=== PATIENT | female | born 1950 | race Caucasian/White ===

== ENCOUNTER 2024-03-25 11:42 | Outpatient (AMB) | payer MEDICARE, SELFPAY ==
--- NOTE | 2024-03-25 11:55 | A.OFFPC_ITS ---
Vital Signs 03/25/24 12:06 Height 5 ft 2 in Weight 229 lb BMI 41.9 BP 114/76 Blood Pressure Location Lt brachial Position Sitting Pulse 86 Pulse Source Pulse Oximeter Pulse Oximetry (%) 96 Oxygen Delivery Method Room Air Intake Visit Reasons: TURNER OFF // PE breast cancer Intake Note: New patient visit Senior Business Manager Required: No Allergies NSAIDS (Non-Steroidal Anti-Inflamma Adverse Reaction (Unknown, Verified 03/25/24 11:56) kidneys Tobacco use date assessed: 03/25/24 Fall risk assessment: 1 Fall in past year Last assessed Fall Risk: 03/25/24 Dental Screening Dental Screen Date: 03/25/24 Did you have a dental visit in the last 12 months?: Yes Did you have a dental problem in the last 6 months where you did not have access to dental care?: No Was dental information given to patient?: Patient has dentist HPI HPI Comments History of Present Illness Details This is a 73-year-old female with a past medical history of GERD, hypercholesterolemia, hypertension, obesity, anxiety with depression , chronic back pain, glaucoma, NIVIA, emphysema and stage III right lung cancer in remission presenting to [facility]. She transferred from [place]. She brought a limited amount of medical records with her today. This appointment was scheduled because she had an abnormal mammogram at [place] on 01/30/2024 which showed a new focal asymmetry of the right breast at 12:00 o'clock. Additional views and ultrasound were recommended. She did not have a primary care provider to place the orders. The Radiology Department scheduled an appointment for her on Monday at [place] to have additional imaging done, but she is unsure if they did get orders for the tests. She denies breast pain or masses. She has no history of breast cancer. Denies nipple discharge or breast rashes. She has a history of right lung cancer, stage III, with lymph node involvement. She was treated with surgery, chemotherapy and radiation in 2020. She is followed by Dr. Whitten at [place]. She has emphysema and NIVIA. She quit smoking in 2007. She is also followed by Dr. Kyle. She has CT scans done every 6 months. Her last scan was in January, and she was told lung findings are stable. She was evaluated by Gastroenterology at [place] for GERD. She is on pantoprazole 40 mg twice daily chronically. She is followed by ophthalmology for glaucoma and treated with eyedrops. Hypertension is treated with hydrochlorothiazide 12.5 mg and losartan 25 mg daily. Hyperlipidemia is treated with pravastatin 40 mg daily. She is followed by Dr. 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 Patient has been on citalopram 40 mg daily since 2019 when she lost her 49-year-old son to COVID-19. Patient says that she will never get over this, but she has moved through it. She has 2 other adult children. Patient also tells me that she had an episode of vaginal bleeding that lasted a few days a month ago. Denies pain associated with this. It has been years since she went through menopause. 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 She has not contacted them about this issue. ROS: Constitutional: No unexplained weight loss, fever, chills, fatigue or night sweats. Respiratory: No shortness of breath, cough or sputum production. Cardiovascular: No chest pain, chest pressure or chest discomfort. No palpitations or pedal edema. Gastrointestinal: No anorexia, nausea, vomiting or diarrhea. No abdominal pain or blood in stool. Genitourinary: No dysuria, hematuria, urinary frequency. No flank pain. No pelvic pain. Neurologic: No headache, dizziness, syncope Skin: No rash or itching. Endocrine: No cold or heat intolerance. No polyuria or polydipsia. Psychiatric: No SI/HI. Physical exam: Constitutional: Alert, in no distress. Neck: Supple, Full range of motion. No lymphadenopathy. No palpable thyroid masses. Respiratory: Clear to auscultation. Cardiovascular: S1 S2 regular. No murmurs. Gastrointestinal: Abdomen soft, non-tender, non-distended. Normal bowel sounds. No palpable masses. 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 No palpable masses or axillary lymphadenopathy bilaterally. No rashes. No nipple discharge or inversion. Neurologic: No focal neurological deficits. Skin: No rashes or lesions. Musculoskeletal: No gross deformities. Normal range of motion. Extremities: Warm and well perfused. No clubbing, cyanosis or edema. Psychiatric: Normal mood and affect [facility] Medical History (Updated 03/25/24 @ 13:27 by CHALINO Jmaes) Chronic back pain Grief at loss of child Essential hypertension Abnormal mammogram of right breast NIVIA (obstructive sleep apnea) Emphysema of lung Post-menopausal bleeding GERD (gastroesophageal reflux disease) Degenerative arthritis Pure hypercholesterolemia History of primary malignant neoplasm of right lung IFG (impaired fasting glucose) Deviated septum Surgical History (Updated 03/25/24 @ 12:38 by CHALINO James) History of left hip replacement History of tonsillectomy S/P removal of lung Family History (Updated 03/25/24 @ 12:04 by Nayla Lo CMA) Father HTN (hypertension) Skin cancer Son HTN (hypertension) Diabetes Mother Diabetes Daughter Diabetes HTN (hypertension) Social History (Updated 03/25/24 @ 12:04 by Nayla Lo CMA) Housing: House Alcohol intake: current Patient Tobacco Use Status: Former Tobacco user (quit 2007) Cigarette Packs Per Day: 1 Years Smoked: 43 e-Cigarette/Vaping Use: Never Used Second Hand Smoke Exposure: No service: No Current occupational status: retired Cognitive needs: No Hearing needs: Yes (hearing aid both ear) Vision needs: Yes (glasses) Questionnaire PHQ-9 Over the last 2 weeks, how often have you been bothered by any of the following problems? 1. Little interest or pleasure in doing things: not at all 2. Feeling down, depressed, or hopeless: not at all 3. Trouble falling or staying asleep, or sleeping too much: not at all 4. Feeling tired or having little energy: not at all 5. Poor appetite or overeating: not at all 6. Feeling bad about yourself - or that you are a failure or have let yourself or your family down: not at all 7. Trouble concentrating on things, such as reading the newspaper or watching television: not at all 8. Moving or speaking so slowly that other people could have noticed. Or the opposite - being so fidgety or restless that you have been moving around a lot more than usual: not at all 9. Thoughts that you would be better off or of hurting yourself in some way: not at all Total score: 0 Depression Screening Interpretation: Negative Depression Screening Done: Yes 85730 - PHQ-9 Billing: Yes Source: Developed by Drs. Heriberto Smith, Belinda Briscoe, Christian Vang and colleagues, with an educational troy from [employer]. Thrive Questionnaire Date Thrive assessed: 03/25/24 I am a: Patient What is your living situation today?: I have a steady place to live Within the past 12 months, did the food you bought not last and you didn't have the money to get more?: Never true Within the past 12 months, did you worry whether your food would run out before you got money to buy more?: Never true Do you have trouble paying for medicines?: No Do you have trouble getting transportation to medical appointments?: No Do you have trouble paying your heating and electricity bill?: No Do you have trouble taking care of your child, family member or friend?: No Do you have trouble with day-to-day activities such as bathing, preparing meals, shopping, managing finances, etc.?: No Are you currently unemployed and looking for a job?: No Are you interested in more education?: No Please select the resources that you would like help with: None Currently or been in a relationship where the following occur: No concerns reported THRIVE Score: 0 AUDIT C Alcohol Use Questionnaire (AUDIT-C) 1. How often do you have a drink containing alcohol?: 2-4 times a month 2. How many drinks containing alcohol do you have on a typical day when you are drinking?: 1 or 2 3. How often do you have six or more drinks on one occasion?: Never Total Score: 2 DARLING-7 AMB Questionnaire DARLING-7 Date DARLING - 7 assessed: 03/25/24 Feeling nervous, anxious, or on edge: 0 = Not at all Not being able to stop or control worryin = Not at all Worrying too much about different things: 0 = Not at all Trouble relaxin = Not at all Being so restless that it is hard to sit still: 0 = Not at all Becoming easily annoyed or irritable: 0 = Not at all Feeling afraid as if something awful might happen: 0 = Not at all Total DARLING-7 score (0-4 normal; 5-9 mild; 10-14 moderate; 15-21 severe): 0 Source: Developed by Drs. Heriberto Smith, Belinda Briscoe, Christian Vang and colleagues, with an educational troy from [employer]. DARLING-7 Assessment Billing DARLING-7 Assessment Tool: DARLING-7 Assessment 44514 Physical exam (Primary Care) Vital Signs: Last Vital Signs Pulse 86 03/25/24 12:06 BP 114/76 03/25/24 12:06 Pulse Ox 96 03/25/24 12:06 Oxygen Delivery Method Room Air 03/25/24 12:06 BMI result Body Mass Index 41.9 Tobacco/Smoking Status: Tobacco use Status Tobacco use date assessed 03/25/24 03/25/24 12:11 Patient Tobacco Use Status Former Tobacco user (quit 03/25/24 12:11 2007) e-Cigarette/Vaping Use Never Used 03/25/24 12:11 PHQ-9: PHQ-9 Score PHQ-9: Total score 0 03/25/24 12:15 Depression Screening Interpretation: Negative Thrive Assessment: Date of Thrive Assessment Date Thrive assessed 03/25/24 03/25/24 12:15 Currently or been in a relationship where the following occur: No concerns reported Coding Level of Care Code New Pt Level 4 (73781) Complex EM visit Add On G2211 Diagnoses Post-menopausal bleeding N95.0 History of primary malignant neoplasm of right lung Z85.118 Emphysema of lung J43.9 NIVIA (obstructive sleep apnea) G47.33 Abnormal mammogram of right breast R92.8 Pure hypercholesterolemia E78.00 Essential hypertension I10 Additional Codes DARLING-7 Assessment Billing - DARLING-7 Assessment Tool: DARLING-7 Assessment 39091 ([id number]) PHQ-9 - 99551 - PHQ-9 Billing: Yes ([id number]) Assessment & Plan Assessment & Plan (1) Post-menopausal bleeding: Code(s): N95.0 - Postmenopausal bleeding Category: Medical Plan: We reviewed the differential which includes benign causes as well as malignancy. Check labs including TSH. Ordered ultrasound and faxed to [place]. Urgent referral placed to Gynecology at [facility] in [place] and patient was advised to call the office to see her soundscriber mechanic there. (2) History of primary malignant neoplasm of right lung: Code(s): Z85.118 - Personal history of other malignant neoplasm of bronchus and lung Category: Medical Plan: No known recurrence. Followed by thoracic surgery at [place]. (3) Emphysema of lung: Code(s): J43.9 - Emphysema, unspecified Category: Medical Plan: Continue treatment per pulmonology, Dr. Kyle, at [place]. (4) NIVIA (obstructive sleep apnea): Code(s): G47.33 - Obstructive sleep apnea (adult) (pediatric) Category: Medical Plan: Continue treatment per pulmonology. (5) Abnormal mammogram of right breast: Code(s): R92.8 - Other abnormal and inconclusive findings on diagnostic imaging of breast Category: Medical Plan: She has an appointment this Monday at [facility] for follow up imaging. Faxed ultrasound and mammogram order to [place] , and the patient was given printed copies of the orders. (6) Pure hypercholesterolemia: Code(s): E78.00 - Pure hypercholesterolemia, unspecified Category: Medical Plan: Continue statin. Recommended low-cholesterol diet. Check labs. (7) Essential hypertension: Code(s): I10 - Essential (primary) hypertension Category: Medical Plan: Controlled. Check labs. Plan Follow up in 6 weeks with PCP. Orders: Orders US breast RT limited Today R92.8 - Other abnormal and inconclusive findings on diagnostic imaging of breast Lipid Panel Today E78.00 - Pure hypercholesterolemia, unspecified, E78.5 - Hyperlipidemia, unspecified, K21.9 - Gastro-esophageal reflux disease without esophagitis, M19.90 - Unspecified osteoarthritis, unspecified site, R73.01 - Impaired fasting glucose, Z85.118 - Personal history of other malignant neoplasm of bronchus and lung, Z96.642 - Presence of left artificial hip joint Hemoglobin A1c Today E11.9 - Type 2 diabetes mellitus without complications, E78.00 - Pure hypercholesterolemia, unspecified, K21.9 - Gastro-esophageal reflux disease without esophagitis, M19.90 - Unspecified osteoarthritis, unspecified site, R73.01 - Impaired fasting glucose, Z85.118 - Personal history of other malignant neoplasm of bronchus and lung, Z96.642 - Presence of left artificial hip joint TSH reflex Free T4 Today E78.00 - Pure hypercholesterolemia, unspecified, K21.9 - Gastro-esophageal reflux disease without esophagitis, M19.90 - Unspecified os teoarthritis, unspecified site, R73.01 - Impaired fasting glucose, Z85.118 - Personal history of other malignant neoplasm of bronchus and lung, Z96.642 - Presence of left artificial hip joint US pelvic and transvaginal Today N95.0 - Postmenopausal bleeding MM diagnostic mammo unilat RT Today R92.8 - Other abnormal and inconclusive findings on diagnostic imaging of breast Vitamin D 25-OH (D2 and D3) Today E78.00 - Pure hypercholesterolemia, unspecified, K21.9 - Gastro-esophageal reflux disease without esophagitis, M19.90 - Unspecified osteoarthritis, unspecified site, M85.80 - Other specified disorders of bone density and structure, unspecified site, R73.01 - Impaired fasting glucose, Z85.118 - Personal history of other malignant neoplasm of bronchus and lung, Z96.642 - Presence of left artificial hip joint Comprehensive Met. Panel Today E78.00 - Pure hypercholesterolemia, unspecified, K21.9 - Gastro-esophageal reflux disease without esophagitis, M19.90 - Unspecified osteoarthritis, unspecified site, R73.01 - Impaired fasting glucose, Z85.118 - Personal history of other malignant neoplasm of bronchus and lung, Z96.642 - Presence of left artificial hip joint Complete Blood Count Auto Diff Today E78.00 - Pure hypercholesterolemia, unspecified, K21.9 - Gastro-esophageal reflux disease without esophagitis, M19.90 - Unspecified osteoarthritis, unspecified site, R73.01 - Impaired fasting glucose, Z85.118 - Personal history of other malignant neoplasm of bronchus and lung, Z96.642 - Presence of left artificial hip joint Referrals PAPER CONSERVATOR Referral N95.0 - Postmenopausal bleeding
[2024-03-25 12:06] VITALS: BP 114/76; PULSE 86; O2SAT 96; BMI 41.9
--- OUTSIDE RECORDS SUMMARY | 2024-03-25 13:02 | XMS_ITS | Clinical Summary ---
Author Organization [facility] Address [address] [place] [address] Care Team Providers Care Manager Fiber Name Role Phone Troy Del Cid MD Primary Care Provider Unavailable Allergies Active Allergy Reactions Criticality Noted Date Comments Phenobarbital 04/21/1979 Childhood at age 12 Medications Medication Sig Dispensed Refills Start Date End Date Status azelastine (ASTELIN) 0.1 % nasal spray 2 sprays 2 (two) times a day. 0 01/24/2020 Active citalopram (CeleXA) 40 MG tablet Take 1 tablet (40 mg total) by mouth daily. 0 01/09/2020 Active latanoprost (XALATAN) 0.005 % ophthalmic solution 0 12/04/2019 Activ e atorvastatin (LIPITOR) tablet 20 mg Take 1 tablet (20 mg total) by mouth daily. 0 03/14/2021 Active acyclovir (ZOVIRAX) 800 MG tablet Take 0.5 tablets (400 mg total) by mouth daily. 0 05/05/2021 Active amLODIPine (NORVASC) tablet 10 mg Take 0.5 tablets (5 mg total) by mouth daily. 0 12/14/2020 Active ciclopirox (LOPROX) 0.77 % cream APPLY TWICE DAILY TO AFFECTED AREAS ON RIGHT FOOT AND BETWEEN TOES X4 WEEKS REPEAT IF NEEDED 0 05/07/2021 Active Alphagan P 0.15 % ophthalmic solution INSTILL 1 DROP INTO RIGHT EYE TWICE A DAY 0 05/03/2021 Active Calcium Carbonate-Vitamin D (Calcium-Vitamin D3) 600-125 MG-UNIT TABS Take by mouth. 0 Active pantoprazole (PROTONIX) 40 MG tablet TAKE 1 TABLET (40 MG TOTAL) BY MOUTH EVERY MORNING ON AN EMPTY STOMACH. 30-40 MIN PRIOR TO MEAL 90 tablet 1 12/24/2021 Active Additional Information Patient taking differently:40 mg Oral2 times daily, 30-40 min prior to meal, Reported on 05/29/2023 fluticasone-salmete rol 500-50 MCG/ACT AEPB Inhale into the lungs. 0 Active hydroCHLOROthiazide (MICROZIDE) 12.5 MG capsule Take 1 capsule (12.5 mg total) by mouth daily. 0 Active Active Problems Problem Noted Date Diagnosed Date Essential hypertension 11/25/2020 Fatigue 08/20/2020 Glaucoma 05/07/2020 Anemia complicating neoplastic disease Recurrent major depressive disorder, in full rem ission 04/15/2020 Hyperacusis of both ears 04/06/2020 Hearing deficit, bilateral 04/06/2020 Hearing decreased, bilateral 04/03/2020 Chest wall pain 03/09/2020 DDD (degenerative disc disease), lumbar 03/09/19 21 Hypercholesterolemia 03/09/2020 Overview: Overview: Prior Lipitor Hyperthyroidism 03/09/2020 Malignant neoplasm of lower lobe of right lung 0 03/03/2020 Cancer Staging:Pathologic stage from 02/25/2020:Stage IIIA(pT1a, pN2, cM0) - Signed by Giovanny Holliday MD on 03/03/2020 Depression 11/27/2018 Pulmonary emphysema 04/04/2017 Adjustment reaction with anxiety and depression 09/09/2016 NIVIA on CPAP 12/11/2014 Major depressive disorder, recurrent, unspecifie d 12/09/2008 Overview: Overview: She is better on the citalopram. We talked abouttapering off but I advised her to wait until spring pt is feeling well on citalopram. No changes as it helps with weaning off HRT. 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 Immunizations Name Administration Dates Next Due Covid-19 (Moderna 12+) 100mcg/0.5mL dosage 06/03,10/30/2020 Family History Medical History Relation Name Comments Mental illness Brother Cancer Father SKIN Hyperlipidemia Father Hypertension Father Alzheimer's disease Mother Diabetes Mother Mental illness Sister Sudden Sister Relation Name Status Comments Brother Alive Father (Age 84) Mother (Age 84) Sister (Age 55) Son COVID-19 infect ion Social History Tobacco Use Types Packs/Day Years Used Date Smoking Tobacco: Former Cigarettes 1 2007 Smokeless Tobacco: Never Alcohol Use Standard Drinks/Week Comments Yes 8 (1 standard drink = 0.6 oz pur e alcohol) Sex and Gender Information Value Date Recorded Sex Assigned at Female 06/08/2021 2:13 PM EDT Gender Identity Female 06/08/2021 2:13 PM EDT Sexual Orientation Straight 06/28/2021 6: 35 AM EDT Job Start Date Occupation Industry Not on file Not on file Not on file Last Filed Vital Signs Vital Sign Reading Time Taken Comments Blood Pressure 128/70 05/29/2023 10:53 AM EDT Pulse 91 05/29/2023 10:53 AM EDT Temperature 36.3 ??C (97.3 ??F) 05/29/2023 10:53 AM E DT Respiratory Rate 18 06/29/2021 7:54 AM EDT Oxygen Saturation 97% 05/29/2023 10:53 AM EDT Inhaled Oxygen Concentration - - Weight 102.1 kg (225 lb) 05/29/2023 10:53 AM EDT Height 157.5 cm (5' 2 ) 05/29/2023 10:53 AM EDT Body Mass Index 41.15 05/29/2023 10:53 AM EDT Plan of Treatment Health Maintenance Due Date Last Done Comments Hepatitis C Screening 1948 Depression Screening 1960 BMI Counseling 1966 Preventative Health Evaluation 1966 Shingrix-Zoster Vaccine (1 of 2) 09/29/1967 Colon Cancer Screening (Colonoscopy) 1993 Fall Risk Assessment 2013 Osteoporosis Screening (DEXA Scan) 2013 COVID-19 Vaccine (3 - Moderna risk series) 07/01/2021 06/03/2021, 10/30/2020 RSV Adult > 60+ Yrs or (1 - 1-dose 75+ series) 09/29/2023 Influenza Vaccine (#1) 2023 , 11/23/2018, 11/23/2017, Additional history exists DTap / Tdap / Td (3 - Td or Tdap) 11/09/2030 11/09/2020, 05/17/2010 Pneumococcal Vaccine Completed 06/24/2016, 01/31/20 14 Hepatitis B Vaccines Aged Out No long er eligible based on patient's age to complete this topic RSV Ped < 20 months Aged Out No longe r eligible based on patient's age to complete this topic Medical Devices Implanted Type Area Battery Plate Remover Device Identifier Shelf Expiration Date Model / Serial / Lot Cement Bone Surg Simplex Radiopq Stry-Howm 7349-3-860-114 092 - [id number] Implanted:Qty: 1 on 06/28/2021 by Miquel Cisneros MD at [facility] Left: Hip [employer] [id number] 07/21/2023 6191-1-010 / / [id number] Hip Head Delta Biolox 36mm-2.5 Stry-Howm [id number] 191 - [id number] Implanted:Qty: 1 on 06/28/2021 by Miquel Cisneros MD at [facility] Left: Hip [employer] [id number] 03/29/2026 6570-0-436 / / [id number] Cement Bone Surg Simplex Radiopq Stry-Howm [id number] 092 - [id number] Implanted:Qty: 1 on 06/28/2021 by Miquel Cisneros MD at [facility] Left: Hip [employer] [id number] 01/19/2023 6191-1-010 / / [id number] Hip Insrt Trdnt 0deg 36mm D Stry-Howm [id number] 873 - [id number] Implanted:Qty: 1 on 06/28/2021 by Miquel Cisneros MD at [facility] Left: Hip [employer] [id number] 05/07/2026 623-00-36D / / [id number] Tritanium Cluster Hole Shell 48mm Stry-Howm [id number] 451 - [id number] Implanted:Qty: 1 on 06/28/2021 by Miquel Cisneros MD at [facility] Left: Hip [employer] [id number] 03/17/2026 70-04-48D / / [id number] Kit Prep Total Hip Bone Imp Smn-Orth [id number] - [id number] Implanted:Qty: 1 on 06/28/2021 by Miquel Cisneros MD at [facility] and [facility] Left: Hip [employer] 03/09/2031 [id number] / / [id number] Description:SMALL BONE PLUG Lp Hex Screw 6.5x25mm Stry-Howm [id number] 58 - [id number] Implanted:Qty: 1 on 06/28/2021 by Miquel Cisneros MD at [facility] and [facility] Left: Hip [employer] [id number] 05/13/2026 3602-5317 / / [id number] Lp Hex Screw 6.5x30mm Stry-Howm [id number] 78 - [id number] Implanted:Qty: 1 on 06/28/2021 by Miquel Cisneros MD at [facility] Left: Hip [employer] [id number] 05/04/2026 6464-6521 / / [id number] Hip Spacer C-Distl Rng Sm 10mm Stry-Howm [id number] 71 - [id number] Implanted:Qty: 1 on 06/28/2021 by Miquel Cisneros MD at [facility] Left: Hip [employer] [id number] 11/29/2025 3315-5816 / / [id number] Hip Stem Nk 127 C3 Cs 35mm Stry-Howm [id number] 260 - [id number] Implanted:Qty: 1 on 06/28/2021 by Miquel Cisneros MD at [facility] and [facility] Left: Hip [employer] [id number] 11/01/2025 6058-0335D / / [id number] Advance Directives For more information, please contact: [phone] Documents on File Type Date Recorded Patient Online Communications Specialist Expl anation Advance Directive and Living Will 06/28/2021 5:21 AM Latest Code Status on File Code Status Date Activated Date Inactivated Comments Full Code 06/28/2021 7:51 AM 06/29/2021 6:04 PM This c ode status was ascertained in the following way: discussion with patient . Code Status History Code Status Date Activated Date Inactivated Comments Full Code 06/28/2021 5:26 AM 06/28/2021 7:51 AM This co de status was ascertained in the following way: discussion with patient . Care Teams Manager Fiber Relationship Specialty Start Date End Date Troy Del Cid MD PCP - General Family Medicine 11/25/20
--- OUTSIDE RECORDS SUMMARY | 2024-03-25 13:02 | XMS_ITS | Encounter Summary ---
Author Organization [employer] Address [address] [place] [address] Care Team Providers Care Polisher Implant Name Role Phone Jayce Cooley MD Primary Care Provider Encounter Details Date Type Department Care Team (Late st Contact Info) Description 03/05/2024 9:39 AM EST Anesthesia Event [facility] [address] [place] [phone] Severo Sharif MD [address] [place] [id number] Sukhdev Stone, SURGICAL GARMENT FITTER [address] [place] [address] Anesthesia Record Procedure Summary Procedure Name Responsible Anesthesiologist Anesthesia Start Time Anesthesia Stop Time INJECTION EPIDURAL LUMBAR TRANSFORAMINAL LEFT Severo Sharif MD 03/05/24 0939 03/05/24 0956 Events Date Time Event Comment 03/05/2024 0933 0939 An Start 0939 An Start Data The patient wa s reevaluated immediately before moderate or deep sedation use and before anesthesia induction. 0940 In Room 0945 Anesthesia Ready 0946 Proc Start 0948 Proc Fin 0949 an stop data 0952 Out of Room 0955 Handoff to RN I completed my handoff to the receiving nurse during which we: 1. Identified the patient 2. Identified the responsible provider 3. Reviewed the pertinent medical history 4. Discussed the surgical course 5. Reviewed intra-op anesthesia management and issues during anesthesia 6. Set expectations for post-procedure period 7. Allowed opportunity for questions and acknowledgement of understanding. 955 An Stop Meds Name Total fentaNYL 0.05 mg/mL 100 mcg midazolam 1 mg/mL 2 mg lactated Ringer's infusion 100 mL * Agents Name O2 N2O Air * Blood No blood administrations on file. Lines, Drains, and Airways Type Details Placement Removal Wound Other (Steroid Inejc tion SIte); 03/05/24; Back; Left, Lower, Medial; Band-aid applied 03/05/24 0000 by Richard Rushing RN Peripheral IV Placement Date: 02/20 06/14; Placement Time: 09; Catheter Size: 20 G; Orientation: Posterior, Right; Location: Hand; Site Prep: Chlorhexidine; Insertion Attempts: 1; Patient Tolerance: Tolerated well; Removal Date: 03/05/24; Removal Time: 1030 03/05/24 0903 by Ita Quintero RN 03/05/24 1030 by Shana Rodriguez RN documented in this encounter Social History Tobacco Use Types Packs/Day Years Used Date Smoking Tobacco: Former Cigarettes Q uit: 02/20/2007 Smokeless Tobacco: Never Alcohol Use Standard Drinks/Week Comments Yes 0 (1 standard drink = 0.6 oz pur e alcohol) Sex and Gender Information Value Date Recorded Sex Assigned at Female 01/04/2024 11:39 AM EST Gender Identity Female 01/04/2024 11:39 AM EST Sexual Orientation Straight 01/04/2024 11 :39 AM EST Job Start Date Occupation Industry Not on file Not on file Not on file documented as of this encounter Progress Notes * Sukhdev Stone CRNA - 03/05/2024 9:56 AM EST Patient: Kira Heaton Procedure Summary Date: 03/05/24 Room / Location: [facility] Anesthesia Start: 938 Anesthesia Stop: 955 Procedure: INJECTION EPIDURAL LUMBAR TRANSFORAMINAL LEFT Diagnosis: Radiculopathy, lumbar region Scheduled Providers: Bib Suarez DO; Sukhdev Stone CRNA; Severo Sharif MD ResponsibleProvider: Severo Sharif MD Anesthesia Type: MAC ASA Status: 3 Anesthesia Plan: MAC Visit Vitals BP (!) 146/73 Pulse 84 Temp 36.6 ??C (97.9 ??F) Resp 16 Wt 102 kg (225 lb) SpO2 98% BMI 41.15 kg/m?? OB Status Postmenopausal Smoking Status Former BSA 2.01 m?? Pain Score: 4 Anesthesia Post Evaluation Patient location during evaluation: PACU Patient participation: complete - patient participated Level of consciousness: awake and alert Pain score: 0 Pain management: adequate Airway patency: patent Anesthetic complications: no Cardiovascular status: acceptable Respiratory status: acceptable Hydration status: acceptable Nausea: No Vomiting: No There were no known notable events for this encounter. * Severo Sharif MD - 03/05/2024 9:30 AM EST 73 y.o. female scheduled for Lumbar JULIANA [] Ht Readings from Last 1 Encounters: 02/08/24 1.575 m (62 ) Wt Readings from Last 1 Encounters: 03/05/24 102 kg (225 lb) Body mass index is 41.15 kg/m??. Past Medical History: Diagnosis Date Adenocarcinoma of lung, right (CMS/HCC) 09/25/2020 DX:Adenocarcinoma of lung, right (HCC); COMMENT: Seen on 11/25/20 by oncology: s/p 3 of 4 cycles of adjuvant chemotherapy with cisplatin and pemetrexed (4th cycle not done d/t side effects). Also completed radiation therapy. Stable per PET CT. Recommended restaging meeting in May 2021 with [id number] visits for first 2 years. 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/2017 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) DDD (degenerative disc disease), lumbar DX:DDD (degenerative disc disease), lumbar Glaucoma DX:Glaucoma Hearing loss 08/22/2017 DX:Hearing loss; COMMENT: Has hearing aides History of herpes simplex infection 06/18/2013 DX:History of herpes simplex infection Hypercholesterolemia DX:Hypercholesterolemia; COMMENT: Prior Lipitor Hyperthyroidism DX:Hyperthyroidism Impaired fasting glucose 01/29/2015 DX:Impaired fasting glucose Lung nodules 02/24/2017 DX:Lung nodules Malignant neoplasm of lower lobe of right lung (CMS/HCC) 03/03/2020 Obesity (BMI 35.0-39.9 without comorbidity) 01/29/2015 DX:Obesity (BMI 35.0-39.9 without comorbidity) NIVIA on CPAP 12/11/2014 DX:NIVIA on CPAP Rash 08/22/2017 DX:Rash Thyromegaly DX:Thyromegaly Uveitis DX:Uveitis Past Surgical History: Procedure Laterality Date BREAST BIOPSY Left 2008 PROCEDURE: BX BREAST; PERC NEEDLE CORE W/IMAG GUID; COMMENT: neg CATARACT EXTRACTION Bilateral PROCEDURE: HISTORICAL CATARACT REMOVAL COLONOSCOPY 01/29/2010 PROCEDURE: HISTORICAL COLONOSCOPY; COMMENT: Normal HIP ARTHROPLASTY Left PROCEDURE: HISTORICAL HIP REPLACEMENT NASAL SEPTUM SURGERY PROCEDURE: GA SEPTOPLASTY/SUBMUCOUS RESECJ W/WO CARTILAGE GRF OTHER SURGICAL HISTORY PROCEDURE: GA DILATION & CURETTAGE DX&/THER NONOBSTETRIC; COMMENT: multiple times; tubal preg OTHER SURGICAL HISTORY PROCEDURE: GA ANESTHESIA UPPER ANTERIOR ABDOMINAL WALL NOS; COMMENT: Adhesions - OTHER SURGICAL HISTORY 08/2022 PROCEDURE: GA CLOSED TX PATELLAR FRACTURE W/O MANIPULATION; COMMENT: Shattered knee cap repair TONSILLECTOMY PROCEDURE: HISTORICAL TONSILLECTOMY Denies anesthesia complications Allergies Allergen Reactions Phenobarbital Childhood at age 12 Current Outpatient Medications on File Prior to Encounter Medication Sig Dispense Refill acyclovir (ZOVIRAX) 400 mg tablet Take by mouth. brimonidine (ALPHAGAN P) 0.1 % ophthalmic solution 1 drop 3 (three) times a day. citalopram (CeleXA) 40 mg tablet TAKE 1 TABLET BY MOUTH EVERY DAY 90 tablet 1 fluticasone-salmeterol (ADVAIR DISKUS) 250-50 mcg/dose diskus inhaler Inhale 1 puff by mouth 2 (two) times a day. Rinse mouth with water after use to reduce aftertaste and incidence of candidiasis. Do not swallow. hydroCHLOROthiazide 12.5 mg tablet Take 1 tablet (12.5 mg total) by mouth 1 (one) time each day. losartan (COZAAR) 25 mg tablet Take 1 tablet (25 mg total) by mouth 1 (one) time each day. pantoprazole (PROTONIX) 40 mg EC tablet Take 1 tablet (40 mg total) by mouth 1 (one) time each day before breakfast. Do not crush, chew, or split. pravastatin (PRAVACHOL) 40 mg tablet TAKE 1 TABLET BY MOUTH EVERY DAY 90 tablet 1 albuterol HFA (PROAIR HFA ; PROVENTIL HFA ; VENTOLIN HFA) 90 mcg/actuation inhaler Inhale 2 puffs by mouth every 6 (six) hours if needed for wheezing. No current facility-administered medications on file prior to encounter. Current In-hospital Medications PRN medications: iopamidoL Social History Tobacco Use Smoking status: Former Current packs/day: 0.00 Types: Cigarettes Quit date: 02/20/2007 Years since quittin.0 Smokeless tobacco: Never Substance Use Topics Alcohol use: Yes Drug use: No Visit Vitals BP (!) 146/73 Pulse 84 Temp 36.6 ??C (97.9 ??F) Resp 16 Wt 102 kg (225 lb) SpO2 98% BMI 41.15 kg/m?? Smoking Status Former BSA 2.01 m?? Denies cardiac, pulm, neuro, hepatic or renal s/sx. Patient meets ASA guidelines for NPO status. > 4 mets without anginal symptoms. Relevant labs, vitals, imaging, cardiac and pulmonary studies as well as HPI, Meds, Allergies, ROS,PMH, PSH, SH, and FH reviewed. Relevant Problems Cardio (+) Essential hypertension Pulmonary (+) NIVIA on CPAP (+) Pulmonary emphysema (CMS/HCC) Endo (+) Hyperthyroidism Other (+) Anemia complicating neoplastic disease Clinical information reviewed: Tobacco Allergies Meds Med Hx Surg Hx OB Status Fam Hx Soc Hx Anesthesia Plan ASA 3 Anesthesia Plan: MAC Anesthesia Considerations MAC Anesthetic plan and risks discussed with patient. Anesthesia Evaluation Airway Mallampati: II Thyromental distance: > 3 finger breadths Dental (+) upper dentures Pulmonary - normal exam (+) COPD, sleep apnea Cardiovascular - normal exam (+) hypertension ROS comment: Hypercholesterolemia Neuro/Psych (+) psychiatric history Comments: Depression Adjustment disorder GI/Hepatic/Renal Endo/Other Abdominal PONV RISK SCORE: 2 Vitals: 03/05/24 0847 BP: (!) 146/73 Pulse: 84 Resp: 16 Temp: 36.6 ??C (97.9 ??F) SpO2: 98% Weight: 102 kg (225 lb) SpO2 Readings from Last 1 Encounters: 03/05/24 98% Allergies Allergen Reactions Phenobarbital Childhood at age 12 STOP BANG: STOP-Bang Total Score: 6 (03/05/2024 8:49 AM) NPO Status: Time of Last Liquid: 1929 Time of Last Solid: 1929 documented in this encounter Plan of Treatment Upcoming Encounters Date Type Department Care Team (Late st Contact Info) Description 03/26/2024 10:50 AM EST Appointment Radiology Department - [address] [phone] 03/26/2024 11:20 AM EST Appointment Radiology Department - [address] [phone] 05/29/2024 11:00 AM EDT Office Visit [facility] Hematology Oncology [address] [place] [address] Giovanny Blanco MD [address] [place] [address] 02/05/2025 9:45 AM EST Office Visit Pulmonolgy [facility] [address] [phone] Estela Kyle MD [address] [phone] documented as of this encounter Visit Diagnoses Not on filedocumented in this encounter Administered Medications Inactive Administered Medications - up to 3 most recent administrations Medication Order MAR Action Action Date Dose Rate Site fentaNYL (PF) (SUBLIMAZE) injection intravenous, As needed, Starting on Mon03/05/24 at 0944, Anesthesia Intraprocedure Given 03/05/2024 9:47 AM EST 50 mcg Given 03/05/2024 9:46 AM EST 25 mcg Given 03/05/2024 9:44 AM EST 25 mcg lactated Ringer's infusion intravenous, Continuous PRN, Starting on Mon03/05/24 at 0944, Anesthesia Intraprocedure New Bag 03/05/2024 9:44 AM EST midazolam (VERSED) injection intravenous, As needed, Starting on Mon03/05/24 at 0944, Anesthesia Intraprocedure Given 03/05/2024 9:45 AM EST 1 mg Given 03/05/2024 9:44 AM EST 1 mg documented in this encounter Care Teams Polisher Implant Relationship Specialty Start Date End Date Jayce Cooley MD [address] [place] [address] Dr Yony [place] PCP - General 12/20/23 documented as of this encounter
--- OUTSIDE RECORDS SUMMARY | 2024-03-25 13:02 | XMS_ITS | Encounter Summary ---
Author Organization [employer] [place] [address] Care Team Providers Care Bending Shed Worker Name Role Phone Jayce Cooley MD Primary Care Provider [phone] Encounter Details Date Type Department Care Team (Latest Contact Info) Description 03/05/2024 6:36 AM EST - 03/05/2024 11:59 PM EST Hospital Encounter [facility] [address] [place] [address] Pain Discharge Disposition: Home or Self Care Social History Tobacco Use Types Packs/Day Years [...] on file documented as of this encounter Medications at Time of Discharge Medication Sig Dispensed Refills Start Date End Date acyclovir (ZOVIRAX) 400 mg tablet Take by mouth. albuterol HFA (PROAIR HFA ; PROVENTIL HFA ; VENTOLIN HFA) 90 mcg/actuation inhaler Inhale 2 puffs by mouth every 6 (six) hours if needed for wheezing. brimonidine (ALPHAGAN P) 0.1 % ophthalmic solution 1 drop 3 (three) times a day. citalopram (CeleXA) 40 mg tablet TAKE 1 TABLET BY MOUTH EVERY DAY 90 tablet 1 01/05/2024 fluticasone-salmeterol (ADVAIR DISKUS) 250-50 mcg/dose diskus inhaler [...] by mouth 1 (one) time each day. 01/14/2024 pantoprazole (PROTONIX) 40 mg EC tablet Take 1 tablet (40 mg total) by mouth 1 (one) time each day before breakfast. Do not crush, chew, or split. pravastatin (PRAVACHOL) 40 mg tablet TAKE 1 TABLET BY MOUTH EVERY DAY 90 tablet 1 01/05/2024 documented as of this encounter Discharge Disposition Disposition Code Departure Means Destination Home or Self Care documented in this encounter Plan of Treatment Upcoming Encounters Date Type Department Care Team (Late st Contact Info) Description 03/26/2024 10:50 AM EST Appointment Radiology Department - [address] [phone] 03/26/2024 11:20 AM EST Appointment Radiology Department - [address] [address] 05/29/2024 11:00 AM EDT Office Visit [facility] Hematology Oncology [address] [place] [phone] Giovanny Blanco MD [address] [place] [phone] 02/05/2025 9:45 AM EST [facility] [address] [phone] Estela Kyle MD [address] [address] Pending Results Name Type Priority Associated Diagnoses Date /Time XR Fluoro Up To 1 Hour Imaging Routine Pain 03/05/2024 9:56 AM EST Scheduled Orders Name Type Priority Associated Diagnoses Orde r Schedule XR Fluoro Up To 1 Hour Imaging Routine Pain Once for 1 Occurrences starting 03/05/2024 until 03/05/2024 documented as of this encounter Visit Diagnoses Diagnosis Pain Generalized pain documented in this encounter Care Teams Bending Shed Worker Relationship Specialty Start Date End Date Jayce Cooley MD [address] [place] [address] Dr Yony [place] PCP - General 12/20/23 documented as of this encounter
--- OUTSIDE RECORDS SUMMARY | 2024-03-25 13:02 | XMS_ITS | Clinical Summary ---
Author Organization [facility] Address [address] [place] [address] Phone Care Team Providers Care Audio Video Tech Name Role Phone Jayce Cooley MD Primary Care Provider [phone] Allergies Active Allergy Reactions Criticality Noted Date Comments Phenobarbital 04/21/1981 Childhood at age 12 Medications Medication Sig Dispensed Refills Start Date End Date Status citalopram (CeleXA) 40 mg tablet TAKE 1 TABLET BY MOUTH EVERY DAY 90 tablet 1 01/05/2024 Active pravastatin (PRAVACHOL) 40 mg tablet TAKE 1 TABLET BY MOUTH EVERY DAY 90 tablet 1 01/05/2024 Active hydroCHLOROthiaz rita 12.5 mg tablet Take 1 tablet (12.5 mg total) by mouth 1 (one) time each day. Active pantoprazole (PROTONIX) 40 mg EC tablet Take 1 tablet (40 mg total) by mouth 1 (one) time each day before breakfast. Do not crush, chew, or split. Active acyclovir (ZOVIRAX) 400 mg tablet Take by mouth. Active albuterol HFA (PROAIR HFA ; PROVENTIL HFA ; VENTOLIN HFA) 90 mcg/actuation inhaler Inhale 2 puffs by mouth every 6 (six) hours if needed for wheezing. Active brimonidine (ALPHAGAN P) 0.1 % ophthalmic solution 1 drop 3 (three) times a day. Active losartan (COZAAR) 25 mg tablet Take 1 tablet (25 mg total) by mouth 1 (one) time each day. 01/14/2024 Active fluticasone-salm eterol (ADVAIR DISKUS) 250-50 mcg/dose diskus inhaler Inhale 1 puff by mouth 2 (two) times a day. Rinse mouth with water after use to reduce aftertaste and incidence of candidiasis. Do not swallow. Active pravastatin (PRAVACHOL) 40 mg tablet Take 1 tablet (40 mg total) by mouth 1 (one) time each day. 08/14/2023 5 Discontinued citalopram (CeleXA) 40 mg tablet Take 1 tablet (40 mg total) by mouth 1 (one) time each day. 5 Discontinued amLODIPine (NORVASC) 5 mg tablet Take by mouth 1 (one) time each day. 5 Discontinued fluticasone propion-salmeter oL (ADVAIR DISKUS) 500-50 mcg/dose diskus inhaler Inhale 1 puff by mouth 2 (two) times a day. Rinse mouth with water after use to reduce aftertaste and incidence of candidiasis. Do not swallow. 5 Discontinued Active Problems Problem Noted Date Diagnosed Date History of lung cancer 02/16/2024 Assessment & Plan (02/16/2024 1:01 PM EST): Ms. Michael Heaton is a 73 year old female who had a right lower lobectomy in February 2020 for a stage IIIA (pT1a, pN2) adenocarcinoma. She completed 3 out of 4 planned cycles of adjuvant chemotherapy in May 2020. The patient's most recent surveillance CT scan done on January 26, 2024 shows no new or worsening pulmonary nodule, or thoracic adenopathy, to suggest recurrence or new disease. She has a stable 4 mm right upper lobe nodule as well as other smaller nodules which are stable. We will continue with routine chest CT surveillance the next of which will be in 6 months, July 2024. NCCN guidelines recommend CT chest q6mo x 5 years, then annually. Patient will have a follow up visit after this next scan. 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 We talked abouttapering off but I advised her to wait until spring pt is feeling well on citalopram. No changes as it helps with weaning off HRT. 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 Resolved Problems Problem Noted Date Diagnosed Date Resolved Date Malignant neoplasm of lower lobe of right lung 03/03/2020 02/16/2024 Encounters Date Type Department Care Team Description 03/05/2024 9:39 AM EST Anesthesia Event [facility] Pain Management [address] [place] [address] Severo Sharif MD Abrokwah, 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, IAP DISPLAYS ANALYST 03/05/2024 8:30 AM EST - 03/05/2024 11:59 PM EST Hospital Encounter [facility] [address] [place] [address] Bib Suarez DO Abrokwah, 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, IAP DISPLAYS ANALYST Radiculopathy, lumbar region Discharge Disposition: Home or Self Care 03/05/2024 6:36 AM EST - 03/05/2024 11:59 PM EST Hospital Encounter [facility] Xray [address] [place] [address] Pain Discharge Disposition: Home or Self Care 02/08/2024 3:00 PM EST Office Visit Thoracic Surgery - [place] [address] [facility] [address] [place] [phone] Luci Finch PA History of lung cancer (Primary Dx) 01/30/2024 10:40 AM EST - 01/30/2024 11:59 PM EST Hospital Encounter Radiology Department - [address] [address] Encounter for screening mammogram for breast cancer Discharge Disposition: Home or Self Care 01/26/2024 10:53 AM EST - 01/26/2024 11:59 PM EST Hospital Encounter [facility] CT Scan [address] [place] [phone] Personal history of other malignant neoplasm of bronchus and lung Discharge Disposition: Home or Self Care 01/15/2024 9:45 AM EST Office Visit Pulmonolgy - [place] [address] [facility] [address] [place] [phone] Estela Kyle MD Pulmonary emphysema, unspecified emphysema type (CMS/HCC) (Primary Dx); NIVIA on CPAP; Malignant neoplasm of lower lobe of right lung (CMS/HCC) 01/10/2024 6:33 PM EST - 01/10/2024 11:59 PM EST Hospital Encounter [facility] MRI [address] [place] [phone] Radiculopathy Discharge Disposition: Home or Self Care from Last 3 Months Immunizations Name Administration Dates Next Due Zoster recombinant (Shingrix) 19yo and older Surgical History Surgery Date Site/Laterality Comments OTHER SURGICAL HISTORY PROCEDURE: MO DILATION & CURETTAGE DX&/THER NONOBSTETRIC; COMMENT: multiple times; tubal preg OTHER SURGICAL HISTORY PROCEDURE: MO ANESTHESIA UPPER ANTERIOR ABDOMINAL WALL NOS; COMMENT: Adhesions - NASAL SEPTUM SURGERY PROCEDURE: MO SEPTOPLASTY/SUBMUCOUS RESECJ W/WO CARTILAGE GRF BREAST BIOPSY 2007 Left PROCEDURE: BX BREAST; PERC NEEDLE CORE W/IMAG GUID; COMMENT: neg COLONOSCOPY 01/29/2010 PROCEDURE: HISTORICAL COLONOSCOPY; COMMENT: Normal HIP ARTHROPLASTY Left PROCEDURE: HISTORICAL HIP REPLACEMENT TONSILLECTOMY PROCEDURE: HISTORICAL TONSILLECTOMY OTHER SURGICAL HISTORY 08/2022 PROCEDURE: MO CLOSED TX PATELLAR FRACTURE W/O MANIPULATION; COMMENT: Shattered knee cap repair CATARACT EXTRACTION Bilateral PROCEDURE: HISTORICAL CATARACT REMOVAL Medical History Medical History Date Comments Arthritis DX:Arthritis Glaucoma DX:Glaucoma Hypercholesterolemia DX:Hypercho lesterolemia; COMMENT: Prior Lipitor Bunion DX:Bunion Uveitis DX:Uveitis Impaired fasting glucose 01/29/2015 DX:Impa ired fasting glucose Obesity (BMI 35.0-39.9 witho ut comorbidity) 01/29/2015 DX:Obesity (BMI 35.0-39.9 wi thout comorbidity) Hyperthyroidism DX:Hyperthyroidi sm Thyromegaly DX:Thyromegaly History of herpes simplex infection 06/18/2013 DX:History of herpes simplex infection Adjustment reaction with anx iety and depression 09/09/2016 DX:Adjustment reaction with anxiety and depression 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) 04/04/2017 DX:COPD (chronic obs tructive pulmonary disease) with emphysema (HCC) Lung nodules 02/24/2017 DX:Lung nodules Allergic rhinitis DX:Allergic rh initis; COMMENT: chronic NIVIA on CPAP 12/11/2014 DX:NIVIA on CPAP Hearing loss 08/22/2017 DX:Hearing loss; COMMENT: Has hearing aides Rash 08/22/2017 DX:Rash DDD (degenerative disc disease), lumbar DX:DDD (degenerative disc disease), lumbar Adenocarcinoma of lung, right (CMS/HCC) 09/25/2020 DX:Adenocarcinoma of lung, right (HCC); COMMENT: Seen on 11/25/20 by oncology: s/p 3 of 4 cycles of adjuvant chemotherapy with cisplatin and pemetrexed (4th cycle not done d/t side effects). Also completed radiation therapy. Stable per PET CT. Recommended restaging meeting in May 2021 with [id number] visits for first 2 years. Malignant neoplasm of lower lobe of right lung (CMS/HCC) 03/03/2020 Family History Medical History Relation Name Comments Other: Epilepsy Brother Sleep apnea Brother Cirrhosis Daughter Diabetes Daughter Other: Other Daughter liver disease. ITP Coronary artery disease Father CABG Other: Other Father Kidney failure Other: Skin Cancer Father Dementia Mother Diabetes Mother allergies Other: Other Mother Leukemia Other 1 Granddaughter Stomach cancer Other 2 Niece Breast cancer Paternal Grandmother Mental illness Sister Other: other Sister uknown what she from Diabetes Son 1 Hypertension Son 1 Obesity Son 1 Other: Other Son 1 from Covid in 2019 No Known Problems Son 2 Relation Name Status Comments Brother Alive 1 biological he althy and one adopted and another brother sids Daughter Alive D and HTN Father (Age 84) kidney yadira lure Maternal Grandfather [place] Maternal Grandmother (Age 75) ? [place] Mother (Age 84) dementia, alzheimers. stroke, passed Feb 2012 Other 1 Granddaughter Other 2 Niece Paternal Grandfather (Age 77) [place] Paternal Grandmother (Age 93) Ol d age Sister (Age 55) unsure Son 1 1 healthy; 1 DM and htn Son 2 Alive Social History Tobacco Use Types Packs/Day Years [...] file Not on file Not on file Obstetrics History Para Term AB IAB SAB Ectopic Multiple Livin g Live Births 3 3 3 3 Date Outcome GA Total Labor Labor/2nd/3rd Weight Sex Type Anes PTL Christin A1 A5 Name Clin Term Term Term Last Filed Vital Signs Vital Sign Reading Time Taken Comments Blood Pressure 117/64 03/05/2024 10:19 AM EST Pulse 83 03/05/2024 10:19 AM EST Temperature 37 ??C (98.6 ??F) 03/05/2024 10:19 AM EST Respiratory Rate 16 03/05/2024 10:01 AM EST Oxygen Saturation 97% 03/05/2024 10:19 AM EST Inhaled Oxygen Concentration - - Weight 102 kg (225 lb) 03/05/2024 8:47 AM EST Height 157.5 cm (5' 2 ) 02/08/2024 3:12 PM EST Body Mass Index 41.15 02/08/2024 3:12 PM EST Plan of Treatment Upcoming Encounters Date Type Department Care Team (Late st Contact Info) Description 03/26/2024 10:50 AM EST Appointment Radiology Department - [address] [address] 03/26/2024 11:20 AM EST Appointment Radiology Department - [address] [phone] 05/29/2024 11:00 AM EDT Office Visit [facility] Hematology Oncology [address] [place] [phone] Giovanny Blanco MD [address] [place] [phone] 02/05/2025 9:45 AM EST Office Visit Pulmonolgy [facility] [address] [phone] Estela Kyle MD [address] [address] Health Maintenance Due Date Last Done Comments Cholesterol Screening (Lipid Panel) 01/28/2022 Colorectal Cancer Screening: Stool Based Tests (FOBT/FIT) 01/28/2022 Depression Screening 01/28/2022 Falls Risk Assessment 01/28/2022 Hepatitis C Screening 01/28/2022 Medicare Annual Wellness Visit 01/28/2022 Social Influencers of Health Screening 01/28/2022 Hypertension/CHF/CAD Annual BMP Blood Test 10/15/2024 10/16/2023, 06/11/2021, 06/11/2021 DTaP,Tdap,and Td Vaccines (5 - Td or Tdap) 11/09/2030 11/09/2020, 05/17/2010, 11/29/2002, Additional history exists Osteoporosis Screening (Bone Density Screening) 02/11/2031 02/11/2021, 11/10/2017 Pneumococcal Vaccine: 65+ Years Completed 06/24/2016, 01/30/2014 RSV Immunization Patients 60+ Years Old Completed 12/09/2022 COVID-19 Vaccine Completed 11/17/2023, , 10/21/2022, Additional history exists Influenza Vaccine Completed 11/24/2023, , 11/22/2021, Additional history exists Breast Cancer Screening Discontinued 01/30/20 24, 01/14/2023, 01/14/2023, Additional history exists Zoster Vaccines Completed 02/16/2024, 11/02/2023 HIB Vaccines Aged Out No longer eligi ble based on patient's age to complete this topic HPV Vaccines Aged Out No longer eligi ble based on patient's age to complete this topic Hepatitis A Vaccines Aged Out No long er eligible based on patient's age to complete this topic Hepatitis B Vaccines Aged Out No long er eligible based on patient's age to complete this topic IPV Vaccines Aged Out No longer eligi ble based on patient's age to complete this topic MMR Vaccines Aged Out No longer eligi ble based on patient's age to complete this topic Meningococcal ACWY Vaccine Aged Out N o longer eligible based on patient's age to complete this topic RSV Immunization Patients Under 20 months Aged Out No longer eligible based on patient's age to complete this topic Varicella Vaccines Aged Out No longer eligible based on patient's age to complete this topic Medical Devices Implanted Type Area Hat Liner Device Identifier Shelf Expiration Date Model / Serial / Lot Cement Bone Surg Simplex Radiopq Stry-Howm [id number] Implanted:Qty: 1 on 06/28/2021 by Miquel Cisneros MD Left: Hip [employer] [id number] 07/21/2023 6191-1-010 / / [id number] Hip Head Delta Biolox 36mm-2.5 Stry-Howm [id number] Implanted:Qty: 1 on 06/28/2021 by Miquel Cisneros MD Left: Hip [employer] [id number] 03/29/2026 6570-0-436 / / [id number] Cement Bone Surg Simplex Radiopq Stry-Howm [id number] 092 Implanted:Qty: 1 on 06/28/2021 by Miquel Cisneros MD Left: Hip [employer] [id number] 01/19/2023 6191-1-010 / / [id number] Hip Insrt Trdnt 0deg 36mm D Stry-Howm [id number] [id number] Implanted:Qty: 1 on 06/28/2021 by Miquel Cisneros MD Left: Hip [employer] [id number] 05/07/2026 623-00-36D / / [id number] Tritanium Cluster Hole Shell 48mm Stry-Howm [id number] Implanted:Qty: 1 on 06/28/2021 by Miquel Cisneros MD Left: Hip [employer] [id number] 03/17/2026 702-04-48D / / [id number] Kit Prep Total Hip Bone Imp Smn-Orth [id number] Implanted:Qty: 1 on 06/28/2021 by Miquel Cisneros MD Left: Hip [employer] 03/09/2031 [id number] / / [id number] Description:SMALL BONE PLUG Lp Hex Screw 6.5x25mm Stry-Howm [id number] 58 Implanted:Qty: 1 on 06/28/2021 by Miquel Cisneros MD Left: Hip [employer] [id number] 05/13/2026 [id number] / / [id number] Lp Hex Screw 6.5x30mm Stry-Howm [id number] Implanted:Qty: 1 on 06/28/2021 by Miquel Cisneros MD Left: Hip [employer] [id number] 05/04/2026 3601-1374 / / [id number] Hip Spacer C-Distl Rng Sm 10mm Stry-Howm [id number] Implanted:Qty: 1 on 06/28/2021 by Miquel Cisneros MD Left: Hip [employer] [id number] 11/29/2025 5461-3876 / / [id number] Hip Stem Nk 127 C3 Cs 35mm Stry-Howm [id number] 260 Implanted:Qty: 1 on 06/28/2021 by Miquel Cisneros MD Left: Hip [employer] [id number] 11/01/2025 [id number] / / [id number] Procedures Procedure Name Priority Date/Time Associated Diagnosis Comments MG MAMMO DIGITAL SCREENING W JUSTIN BILAT Routine 01/30/2024 11:08 AM EST Encounter for screening mammogram for breast cancer CT CHEST WO CONTRAST Routine 01/26/2024 11:02 AM EST Personal history of other malignant neoplasm of bronchus and lung MR LUMBAR SPINE WO CONTRAST Routine 01/10/2024 7:08 PM EST Radiculopathy ANNUAL BMP BLOOD TEST Routine 06/11/2021 DXA BONE DENISTY STUDY VERTEBRAL FRACTURE, INCLUDING LATERAL VIEW Routine 02/11/2021 10:14 AM EST Encounter for screening for osteoporosis from Last 3 Months or Most Recently Relevant to Health Maintenance Results * (ABNORMAL) MG Mammo Digital Screening w Justin bilat (01/30/2024 11:08 AM EST) Anatomical Region Laterality Modality Breast Bilateral Mammography 01/30/2024 11:4 1 AM EST Impressions 01/30/2024 11:48 AM EST New focal asymmetry right breast 12 o'clock. ??Additional views of the right breast in the full field mediolateral, spot compression CC, and spot compression MLO injections utilizing Tomosynthesis are suggested. ??Ultrasound will also be needed. ??Be contacted by the radiology department to arrange for the additional imaging BI-RADS CATEGORY: 0 - INCOMPLETE - NEED ADDITIONAL IMAGING EVALUATION RECOMMENDATION: Additional right breast imaging recommended. Ultrasound is recommended for the Right Breast. Mammo Location: [facility], [address] [place] [address], [address], . -------- FINAL REPORT -------- Dictated By: Brenda Puga Dictated Date: 01/30/2024 11:41 ET Assigned Physician: Brenda Puga Reviewed and Electronically Signed By: Brenda Puga Signed Date: 01/30/2024 11:48 ET Workstation ID: [id number] Transcribed By: Self Edit Transcribed Date: 01/30/2024 11:41 ET Narrative 01/30/2024 11:48 AM EST CLINICAL: 73 years old, Female, routine annual exam. COMPARISON: Mammograms dating back to 04/02/2019 with most recent of 01/14/2023. ?? TECHNIQUE: Bilateral MLO and CC views were obtained digitally with 3-D mammogram (digital breast tomosynthesis). Computer-aided detection was utilized in evaluation of this exam (CAD). FINDINGS: There is a focal asymmetry in the posterior right breast at the 12 o'clock position. There is no evidence of architectural distortion. ??No worrisome calcifications are evident. There is a biopsy clip in the slightly medial lower left breast. BREAST DENSITY: B - There are scattered areas of fibroglandular density. Procedure Note Brenda Puga MD - 01/30/2024 CLINICAL: 73 years old, Female, routine annual exam. COMPARISON: Mammograms dating back to 04/02/2019 with most recent of01/14/2023. TECHNIQUE: Bilateral MLO and CC views were obtained digitally with 3-Dmammogram (digital breast tomosynthesis). Computer-aided detection wasutilized in evaluation of this exam (CAD). FINDINGS: There is a focal asymmetry in the posterior right breast at the12 o'clock position. There is no evidence of architectural distortion. No worrisomecalcifications are evident. There is a biopsy clip in the slightly medial lower left breast. BREAST DENSITY: B - There are scattered areas of fibroglandular density. IMPRESSION: New focal asymmetry right breast 12 o'clock. Additional views of theright breast in the full field mediolateral, spot compression CC, and spotcompression MLO injections utilizing Tomosynthesis are suggested.Ultrasound will also be needed. Be contacted by the radiology departmentto arrange for the additional imaging BI-RADS CATEGORY: 0 - INCOMPLETE - NEED ADDITIONAL IMAGING EVALUATION RECOMMENDATION: Additional right breast imaging recommended. Ultrasound is recommended forthe Right Breast. Mammo Location: [facility], [address] [place] [address], [address], . -------- FINAL REPORT -------- Dictated By: Brenda Puga Dictated Date: 01/30/2024 11:41 ET Assigned Physician: Brenda Puga Reviewed and Electronically Signed By: Brenda Puga Signed Date: 01/30/2024 11:48 ET Workstation ID: [id number] Transcribed By: Self Edit Transcribed Date: 01/30/2024 11:41 ET Jayce Cooley MD IMG BI PROCEDURES * CT Chest wo Contrast (01/26/2024 11:02 AM EST) Anatomical Region Laterality Modality Body Computed Tomogra phy 01/26/2024 2:41 PM EST Impressions 01/26/2024 3:02 PM EST Stable exam status post right lower lobectomy. ??No recurrent or metastatic disease in the chest. -------- FINAL REPORT -------- Dictated By: DOMINIK BLANCO Dictated Date: 01/26/2024 14:41 ET Assigned Physician: DOMINIK BLANCO Reviewed and Electronically Signed By: DOMINIK BLANCO Signed Date: 01/26/2024 15:02 ET Workstation ID: [id number] Transcribed By: Self Edit Transcribed Date: 01/26/2024 14:59 ET Narrative 01/26/2024 3:02 PM EST PROCEDURE: Chest CT INDICATION: Lung nodules, lung cancer TECHNIQUE: Chest CT without contrast. Multi planar reformats were created and interpreted. The examination was performed utilizing dose reduction techniques. ??Total DLP 1024.2 COMPARISON: ??02/06/2023 FINDINGS: LUNGS/PLEURA: Central airways are patent. ??Right lower lobectomy. ??Scarring in the right lung is stable compared to prior. ??4 mm right upper lobe nodule is stable compared to prior. ??Other smaller nodules are stable compared to prior. ??No new or suspicious pulmonary nodules. ??Chronic right pleural thickening and effusion, unchanged. ??No pneumothorax. MEDIASTINUM: Unchanged goiter. ??No mediastinal or hilar lymphadenopathy. ??Small hiatal hernia. ??Cardiac chambers are normal in size. ??No pericardial effusion. ??Mild coronary calcifications. CHEST WALL: No axillary lymphadenopathy or superficial hematoma. UPPER ABDOMEN:Cholelithiasis. ??Hepatic steatosis. BONES: No suspicious lytic or blastic lesions. Scattered degenerative changes seen throughout the bones. Procedure Note Dominik Blanco MD - 01/26/2024 PROCEDURE: Chest CT INDICATION: Lung nodules, lung cancer TECHNIQUE: Chest CT without contrast. Multi planar reformats were createdand interpreted. The examination was performed utilizing dose reductiontechniques. Total DLP 1024.2 COMPARISON: 02/06/2023 FINDINGS: LUNGS/PLEURA: Central airways are patent. Right lower lobectomy.Scarring in the right lung is stable compared to prior. 4 mm right upperlobe nodule is stable compared to prior. Other smaller nodules are stablecompared to prior. No new or suspicious pulmonary nodules. Chronic rightpleural thickening and effusion, unchanged. No pneumothorax. MEDIASTINUM: Unchanged goiter. No mediastinal or hilar lymphadenopathy.Small hiatal hernia. Cardiac chambers are normal in size. No pericardialeffusion. Mild coronary calcifications. CHEST WALL: No axillary lymphadenopathy or superficial hematoma. UPPER ABDOMEN:Cholelithiasis. Hepatic steatosis. BONES: No suspicious lytic or blastic lesions. Scattered degenerativechanges seen throughout the bones. IMPRESSION: Stable exam status post right lower lobectomy. No recurrent or metastaticdisease in the chest. -------- FINAL REPORT -------- Dictated By: DOMINIK BLANCO Dictated Date: 01/26/2024 14:41 ET Assigned Physician: DOMINIK BLANCO Reviewed and Electronically Signed By: DOMINIK BLANCO Signed Date: 01/26/2024 15:02 ET Workstation ID: [id number] Transcribed By: Self Edit Transcribed Date: 01/26/2024 14:59 ET James Liang MD IM CT PROCEDURES * MR Lumbar Spine wo Contrast (01/10/2024 7:08 PM EST) Anatomical Region Laterality Modality L-spine, Spine Magnetic Resonan ce 01/11/2024 9:49 AM EST Impressions 01/11/2024 10:16 AM EST Multilevel degenerative changes are noted and are detailed fully above. -------- FINAL REPORT -------- Dictated By: James Arredondo Dictated Date: 01/11/2024 09:49 ET Assigned Physician: James Arredondo Reviewed and Electronically Signed By: James Arredondo Signed Date: 01/11/2024 10:16 ET Workstation ID: [id number] Transcribed By: Self Edit Transcribed Date: 01/11/2024 09:49 ET Narrative 01/11/2024 10:16 AM EST MRI lumbar spine without contrast. TECHNIQUE: Multiple MRI sequences were performed of the lumbar spine without contrast HISTORY: Radiculopathy COMPARISON: None FINDINGS: Bones: Normal marrow signal is noted. ?Very minimal retrolisthesis of L5 on S1. Cord: The cord appears within normal limits. ??Normal signal is noted. ?? Facets: Degenerative changes of the facets are noted. ?? Soft tissues: Visible soft tissues appear within normal limits. ??Atrophic changes of the left psoas muscle are noted. Lumbar Spine Levels: L1-L2: Minimal degenerative disc bulge and facet changes with only minimal spinal canal stenosis and minimal bilateral foraminal stenosis. L2-L3: Minimal degenerative disc bulge and facet changes with minimal spinal canal stenosis and mild bilateral foraminal stenosis. L3-L4: Minimal degenerative disc changes and degenerative changes of the posterior facets with minimal spinal canal stenosis. ??Degenerative changes cause mild left-sided foraminal stenosis. L4-L5: Degenerative disc changes and facet changes with mild spinal canal stenosis. ??Degenerative changes contribute to mild bilateral foraminal stenosis. L5-S1: Degenerative disc bulge and degenerative disc osteophyte noted as well as degenerative changes of the posterior facets. ??Findings cause mild spinal canal stenosis. ??Moderate bilateral foraminal stenosis. Procedure Note James Arredondo MD - 01/11/2024 MRI lumbar spine without contrast. TECHNIQUE: Multiple MRI sequences were performed of the lumbar spinewithout contrast HISTORY: Radiculopathy COMPARISON: None FINDINGS: Bones: Normal marrow signal is noted. Very minimal retrolisthesis of L5on S1. Cord: The cord appears within normal limits. Normal signal is noted. Facets: Degenerative changes of the facets are noted. Soft tissues: Visible soft tissues appear within normal limits. Atrophicchanges of the left psoas muscle are noted. Lumbar Spine Levels: L1-L2: Minimal degenerative disc bulge and facet changes with only minimalspinal canal stenosis and minimal bilateral foraminal stenosis. L2-L3: Minimal degenerative disc bulge and facet changes with minimalspinal canal stenosis and mild bilateral foraminal stenosis. L3-L4: Minimal degenerative disc changes and degenerative changes of theposterior facets with minimal spinal canal stenosis. Degenerative changescause mild left- sided foraminal stenosis. L4-L5: Degenerative disc changes and facet changes with mild spinal canalstenosis. Degenerative changes contribute to mild bilateral foraminalstenosis. L5-S1: Degenerative disc bulge and degenerative disc osteophyte noted aswell as degenerative changes of the posterior facets. Findings cause mildspinal canal stenosis. Moderate bilateral foraminal stenosis. IMPRESSION: Multilevel degenerative changes are noted and are detailed fully above. -------- FINAL REPORT -------- Dictated By: James Arredondo Dictated Date: 01/11/2024 09:49 ET Assigned Physician: James Arredondo Reviewed and Electronically Signed By: James Arredondo Signed Date: 01/11/2024 10:16 ET Workstation ID: [id number] Transcribed By: Self Edit Transcribed Date: 01/11/2024 09:49 ET David ALLRED IMTorres MRI PROCEDURES * Annual BMP Blood Test (06/11/2021) Annual BMP Blood Test abstracted Historical Provider MD KASIA Coelho DXA BONE DENISTY STUDY VERTEBRAL FRACTURE, INCLUDING LATERAL VIEW (02/11/2021 10:14 AM EST) Anatomical Region Laterality Modality Ultrasound 12/14/2020 1:31 PM EDT Narrative 02/11/2021 4:14 PM EST BONE DENSITY ? Lumbar Spine T-score is +0.9 ?? (SD relative to 20-29 y/o adult) Z-score is +3.2 ??(SD relative to age matched peers) This is normal by criteria defined by the WHO. Left Hip T-score is -1.6 Z-score is +0.3 This is consistent with osteopenia by criteria defined by the WHO. Comparison exam(s): significant decrease in bone density of ??hip when compared to most recent bone density examination ?? Confidence level is +/-95%. Impression: Based on the World Health Organization criteria, Katy Heaton should be classified as having osteopenia. This patient has a 15% risk of major osteoporotic fracture and a 2.5% risk of hip fracture over the next 10 years. (World Health Organization Fracture Risk Assessment) No compression fractures seen on lateral spine. [facility] Department of Internal Medicine recommends using National Osteoporosis Foundation (NOF) guidelines in treatment decisions related to osteoporosis. NOF guidelines suggest considering treatment for postmenopausal women and men aged 50 or older presenting with the following: History of hip or vertebral fracture. T-score less than or equal to -2.5 (DXA) at the femoral neck, total hip, or spine, after appropriate evaluation to exclude secondary causes. Low bone mass (T-score between -1.0 and -2.5 at the femoral neck or spine) AND a 10-year probability of a hip fracture greater than or equal to 3% OR a 10-year probability of a major osteoporosis-related fracture greater than or equal to 20% based on the [place]-adapted WHO algorithm Please note that all treatment decisions require clinical judgment and consideration of individual patient factors, including patient preferences, co-morbidities, previous drug use, risk factors not captured in the FRAX model (e.g., frailty, falls, vitamin D deficiency, increased bone turnover, interval significant decline in bone density) and possible under- or over-estimation of fracture risk by FRAX. Procedure Note Bertin Paul MD - 02/08/2022 BONE DENSITY Lumbar Spine T-score is +0.9 (SD relative to 20-29 y/o adult) Z-score is +3.2 (SD relative to age matched peers) This is normal by criteria defined by the WHO. Left Hip T-score is -1.6 Z-score is +0.3 This is consistent with osteopenia by criteria defined by the WHO. Comparison exam(s): significant decrease in bone density of hip whencompared to most recent bone density examination Confidence level is +/-95%. Impression: Based on the World Health Organization criteria, Katy Israelld be classified as having osteopenia. This patient has a 15% risk ofmajor osteoporotic fracture and a 2.5% risk of hip fracture over the next10 years. (World Health Organization Fracture Risk Assessment) Nocompression fractures seen on lateral spine. [facility] Department of Internal Medicine recommendsusing National Osteoporosis Foundation (NOF) guidelines in treatmentdecisions related to osteoporosis. NOF guidelines suggest consideringtreatment for postmenopausal women and men aged 50 or older presentingwith the following: History of hip or vertebral fracture. T-score less than or equal to -2.5 (DXA) at the femoral neck, total hip,or spine, after appropriate evaluation to exclude secondary causes. Low bone mass (T-score between -1.0 and -2.5 at the femoral neck or spine)AND a 10-year probability of a hip fracture greater than or equal to 3% ORa 10-year probability of a major osteoporosis-related fracture greaterthan or equal to 20% based on the [place]-adapted WHO algorithm Please note that all treatment decisions require clinical judgment andconsideration of individual patient factors, including patientpreferences, co-morbidities, previous drug use, risk factors not capturedin the FRAX model (e.g., frailty, falls, vitamin D deficiency, increasedbone turnover, interval significant decline in bone density) and possibleunder- or over-estimation of fracture risk by FRAX. Troy Del Cid MD [facility] [place] PROCEDURES from Last 3 Months or Most Recently Relevant to Health Maintenance Care Teams Audio Video Tech Relationship Specialty Start Date End Date Jayce Cooley MD [address] [place] [address] Dr Yony [place] PCP - General 12/20/23
--- OUTSIDE RECORDS SUMMARY | 2024-03-25 13:02 | XMS_ITS | Encounter Summary ---
Author Organization [facility] Address [address] [place] [address] Care Team Providers Care Manager Supply Name Role Phone Jayce Cooley MD Primary Care Provider Reason for Referral * Pain Management (Routine) - Closed Specialty Diagnoses / Procedures Referred By Contac t Referred To Contact Pain Medicine Diagnoses Radiculopathy, lumbar region Procedures Injection epidural lumbar transforaminal left Bib Suarez DO [address] [address] Referral ID Status Reason Start Date Expiration Date Visits Re quested Visits Authorized [id number] Closed 02/01/2024 01/31/2025 1 1 Reason for Visit * Pain Management (Routine) - Closed Specialty Diagnoses / Procedures Referred By Juanac t Referred To Contact Pain Medicine Diagnoses Radiculopathy, lumbar region Procedures Injection epidural lumbar transforaminal left Bib Suarez DO [address] [address] Referral ID Status Reason Start Date Expiration Date Visits Re quested Visits Authorized [id number] Closed 02/01/2024 01/31/2025 1 1 Encounter Details Date Type Department Care Team (Latest Contact Info) Description 03/05/2024 8:30 AM EST - 03/05/2024 11:59 PM EST Hospital Encounter [facility] Pain Management [address] [place] [phone] Bib Suarez DO [address] [address] Sukhdev Stone Torres, ASL INTERPRETER [address] [place] [address] Radiculopathy, lumbar region Discharge Disposition: Home or Self Care Social [...] on file documented as of this encounter Last Filed Vital Signs Vital Sign Reading Time Taken Comments Blood Pressure 117/64 03/05/2024 10:19 AM EST Pulse 83 03/05/2024 10:19 AM EST Temperature 37 ??C (98.6 ??F) 03/05/2024 10:19 AM EST Respiratory Rate 16 03/05/2024 10:01 AM EST Oxygen Saturation 97% 03/05/2024 10:19 AM EST Inhaled Oxygen Concentration - - Weight 102 kg (225 lb) 03/05/2024 8:47 AM EST Height - - Body Mass Index 41.15 02/08/2024 3:12 PM EST documented in this encounter Discharge Instructions * Attachments The following attachments cannot be sent through Care Everywhere. * Sedation (Luxembourgish) * Lumbar Epidural Steroid: Post-op (Luxembourgish) documented in this encounter Medications at Time of Discharge [...] MOUTH EVERY DAY 90 tablet 1 01/05/2024 albuterol HFA (PROAIR HFA ; PROVENTIL HFA ; VENTOLIN HFA) 90 mcg/actuation inhaler Inhale 2 puffs by mouth every 6 (six) hours if needed for wheezing. documented as of this encounter Discharge Disposition Disposition Code Departure Means Destination Home or Self Care documented in this encounter H&P Notes * Bib Suarez DO - 03/05/2024 9:30 AM EST Please refer to our office notes for complete details of history of present illness and physical examination. They were reviewed. No changes are reported. documented in this encounter Procedure Notes * Ita Quintero RN - 03/05/2024 9:30 AM EST Dominick [id number]` * Shana Rodriguez RN - 03/05/2024 9:30 AM EST Tolerating po well. at bedside. Dr Suarez in to see patient . * Shana Rodriguez RN - 03/05/2024 9:30 AM EST Discharge instructions reviewed with patient and spouse with good understanding. * Shana Rodriguez RN - 03/05/2024 9:30 AM EST IV heplock removed. CDI * Bib Suarez DO - 03/05/2024 9:30 AM EST Procedure performed: Left L5 TFESI Pre-Op diagnosis: Lumbar radiculitis Postop diagnosis: Same Physician: Bib Suarez DO Anesthesia: MAC Procedure in detail: After informed consent was obtained patient was brought in the procedure room and placed in the prone position on the procedure table. Skin over lumbar sacral area was prepped and draped in usual sterile manner. Left L5 pedicle was visualized utilizing fluoroscopy. 5 inch 22-gauge spinal needle wasintroduced percutaneously and advanced toward the pedicle. Needle placement was verified utilizing AP and lateral fluoroscopic images. Total volume of 3 cc of Isovue contrast solution was utilized toestablish appropriate needle positioning. Excellent flow through the neural foramen and epidural spread was visualized without evidence of vascular uptake. Total volume of 6 cc containing 3 cc of 1% lidocaine, 40 mg of triamcinolone and normal saline solution were injected after negative aspirationfor blood and cerebrospinal fluid. Patient tolerated procedure very well without complications. Patient was transported to recovery room and after observation discharged home in stable condition accompanied by family. Postprocedure instructions were provided. Radiation exposure was documented in the chart. documented in this encounter Plan of Treatment Upcoming Encounters Date Type Department Care Team (Late st Contact Info) Description 03/26/2024 10:50 AM EST Appointment Radiology Department - [address] [phone] 03/26/2024 11:20 AM EST Appointment Radiology Department - [address] [phone] 05/29/2024 11:00 AM EDT Office Visit [facility] Hematology Oncology [address] [place] [phone] Breanna-Giovanny Bullard MD [address] [place] [address] 02/05/2025 9:45 AM EST Office Visit Pulmonolgy - [place] [address] [phone] Estela Kyle MD [address] [address] Scheduled Orders Name Type Priority Associated Diagnoses Orde r Schedule Injection epidural lumbar transforaminal left Procedures Routine Radiculopathy, lumbar region Once for 1 Occurrences starting 03/05/2024 until 03/05/2024 documented as of this encounter Visit Diagnoses Diagnosis Radiculopathy, lumbar region Thoracic or lumbosacral neuritis or radiculitis, unspecified documented in this encounter Administered Medications Inactive Administered Medications - up to 3 most recent administrations Medication Order MAR Action Action Date Dose Rate Site iopamidoL (ISOVUE-M 300) 300 mg iodine /mL (61 %) injection As needed, Starting on Mon03/05/24 at 0917, Intraprocedure Given 03/05/2024 9:48 AM EST 2 mL lidocaine (XYLOCAINE) 2 % injection As needed, Starting on Mon03/05/24 at 0948, Intraprocedure Given 03/05/2024 9:48 AM EST 5 mL triamcinolone acetonide (KENALOG-40) 40 mg/mL injection As needed, Starting on Mon03/05/24 at 0948, Intraprocedure Given 03/05/2024 9:48 AM EST 40 mg documented in this encounter Discontinued Medications Medication Sig Discontinue Reason Start Date End Da te amLODIPine (NORVASC) 5 mg tablet Take by mouth 1 (one) time each day. 02/27/2024 citalopram (CeleXA) 40 mg tablet Take 1 tablet (40 mg total) by mouth 1 (one) time each day. 02/27/2024 fluticasone propion-salmeteroL (ADVAIR DISKUS) 500-50 mcg/dose diskus inhaler Inhale 1 puff by mouth 2 (two) times a day. Rinse mouth with water after use to reduce aftertaste and incidence of candidiasis. Do not swallow. 02/27/2024 pravastatin (PRAVACHOL) 40 mg tablet Take 1 tablet (40 mg total) by mouth 1 (one) time each day. 08/14/2023 02/27/2024 documented as of this encounter Historical Medications * This list may reflect changes made after this encounter. Medication Sig Dispensed Refills Start Date End Date fluticasone-salmeterol (ADVAIR DISKUS) 250-50 mcg/dose diskus inhaler Inhale 1 puff by mouth 2 (two) times a day. Rinse mouth with water after use to reduce aftertaste and incidence of candidiasis. Do not swallow. added in this encounter Orders Discharge Count Last Ordered Date First Orde red Date DISCHARGE PATIENT 1 03/05/2024 documented in this encounter Care Teams Manager Supply Relationship Specialty Start Date End Date Jayce Cooley MD [address] [place] [address] Dr Yony [place] PCP - General 12/20/23 documented as of this encounter
--- OUTSIDE RECORDS SUMMARY | 2024-03-25 13:03 | XMS_ITS ---
Author Name [facility] Organization Unknown History of Medication Use Medication Directions Dispensed Refills Start Date End Date Status amlodipine 5 mg tablet TAKE 1 TABLET BY MOUTH EVERY DAY active citalopram 40 mg tablet TAKE 1 TABLET BY MOUTH EVERY DAY active brimonidine 0.2 % eye drops INSTILL 1 DROP INTO BOTH EYES TWICE A DAY active pravastatin 40 mg tablet TAKE 1 TABLET B Y MOUTH EVERY DAY active amlodipine 10 mg tablet TAKE 1 TABLET BY MOUTH EVERY DAY active latanoprost 0.005 % eye drops INSTILL 1 DROP INTO BOTH EYES AT BEDTIME active pravastatin 40 mg tablet TAKE 1 TABLET B Y MOUTH EVERY DAY active brimonidine 0.2 % eye drops INSTILL 1 DROP INTO BOTH EYES TWICE A DAY active albuterol sulfate HFA 90 mcg/actuation aerosol inhaler INHALE 2 PUFFS 4 TIMES DAILY NEEDED FOR WHEEZING OR SHORTNESS OF BREATH FOR UP TO 30 DAYS active acyclovir 800 mg tablet TAKE 1 TABLET BY MOUTH EVERY DAY active oxycodone 5 mg capsule a ctive citalopram 40 mg tablet TAKE 1 TABLET BY MOUTH EVERY DAY active oxycodone 5 mg capsule 02/03/20 23 completed amoxicillin 500 mg capsule TAKE 4 CAPSULES 1 HOUR PRIOR TO APPOINTMENT 02/03/20 23 completed acyclovir 800 mg tablet TAKE 1 TABLET BY MOUTH EVERY DAY active doxycycline hyclate 100 mg tablet TAKE 1 TABLET BY MOUTH TWICE A DAY FOR 10 DAYS 02/03/20 23 completed hydrochlorothiazide 12.5 mg tablet TAKE 1 TABLET BY MOUTH EVERY DAY active Problems Problem Status Onset Date Problem Type Date of Resoluti on Source Pes anserinus bursitis of right knee active 2022-09-29 ProblemAct ENS_AONECT Closed fracture of patella active 2022-09-07 ProblemAct ENS_[facility]ON[facility]
== END 2024-03-25 13:01 | disposition home or self-care (01) ==
PROVIDERS: PCP Physician Assistant Medical; Visit Provider Physician Assistant Medical
DX: N95.0 Postmenopausal bleeding (principal); Z85.118 Personal history of other malignant neoplasm of bronchus and lung; J43.9 Emphysema, unspecified; G47.33 Obstructive sleep apnea (adult) (pediatric); R92.8 Other abnormal and inconclusive findings on diagnostic imaging of breast; E78.00 Pure hypercholesterolemia, unspecified; I10 Essential (primary) hypertension

== ENCOUNTER → 2024-03-25 11:42 | Outpatient (BNVA) | payer MEDICARE, SELFPAY | PROVIDERS: PCP Physician Assistant Medical; Visit Provider Physician Assistant Medical | DX: N95.0 Postmenopausal bleeding (principal); J43.9 Emphysema, unspecified; G47.33 Obstructive sleep apnea (adult) (pediatric); R92.8 Other abnormal and inconclusive findings on diagnostic imaging of breast; E78.00 Pure hypercholesterolemia, unspecified; I10 Essential (primary) hypertension; Z85.118 Personal history of other malignant neoplasm of bronchus and lung; Z92.21 Personal history of antineoplastic chemotherapy; Z92.3 Personal history of irradiation; Z79.899 Other long term (current) drug therapy | CPT/HCPCS: 96127; 99202 ==

== ENCOUNTER 2024-04-15 10:24 | Outpatient (REF) | payer MEDICARE, SELFPAY ==
--- OUTSIDE RECORDS SUMMARY | 2024-04-15 11:43 | XMS_ITS | Clinical Summary ---
Author Organization [facility] Address [address] [place] [address] Care Team Providers Care Cash Applications Representative Name Role Phone Troy Del Cid MD [...] helps with weaning off HRT. Nuris Fink OPTOMETRY ASSISTANT Immunizations Name Administration Dates Next Due Covid-19 [...] this topic Medical Devices Implanted Type Area Shuttle Bus Driver Device Identifier Shelf Expiration Date Model / Serial / Lot Cement Bone Surg Simplex Radiopq Stry-Howm 8286-3-990-114 092 - [id number] Implanted:Qty: 1 on 06/28/2021 by Miquel Cinseros MD at [facility] and [facility] Left: Hip [employer] [id number] 07/21/2023 6191-1-010 / / [id number] Hip Head Delta Biolox 36mm-2.5 Stry-Howm 8773-0-260-549 191 - [id number] Implanted:Qty: 1 on 06/28/2021 by Miquel Cisneros MD at [facility] and [facility] Left: Hip [employer] [id number] 03/29/2026 6570-0-436 / / [id number] Cement Bone Surg Simplex Radiopq Stry-Howm 9822-5-992-114 092 - [id number] Implanted:Qty: 1 on 06/28/2021 by Miquel Cisneros MD at [facility] and [facility] Left: Hip [employer] [id number] 01/19/2023 6191-1-010 / / [id number] Hip Insrt Trdnt 0deg 36mm D Stry-Howm 059-22-73a-[id number] 873 - [id number] Implanted:Qty: 1 on 06/28/2021 by Miquel Cisneros MD at [facility] and [facility] Left: Hip [employer] [id number] 05/07/2026 623-00-36D / / [id number] Tritanium Cluster Hole Shell 48mm Stry-Howm [id number] 451 - [id number] Implanted:Qty: 1 on 06/28/2021 by Miquel Cisneros MD at [facility] and Med Left: Hip [employer] [id number] 03/17/2026 70-04-48D / / [id number] Kit Prep Total Hip Bone Imp Smn-Orth [id number] - [id number] Implanted:Qty: 1 on 06/28/2021 by Miquel Cisneros MD at [facility] and Med Left: Hip [employer] 03/09/2031 [id number] / / [id number] Description:SMALL BONE PLUG Lp Hex Screw 6.5x25mm Stry-Howm [id number] 58 - [id number] Implanted:Qty: 1 on 06/28/2021 by Miquel Cisneros MD at [facility] and Med Left: Hip [employer] [id number] 05/13/2026 1704-8810 / / [id number] Lp Hex Screw 6.5x30mm Stry-Howm 6872-1259-1186 78 - [id number] Implanted:Qty: 1 on 06/28/2021 by Miquel Cisneros MD at [facility] and Med Left: Hip [employer] [id number] 05/04/2026 0753-4796 / / [id number] Hip Spacer C-Distl Rng Sm 10mm Stry-Howm [id number] 71 - [id number] Implanted:Qty: 1 on 06/28/2021 by iMquel Cisneros MD at [facility] and Med Left: Hip [employer] [id number] 11/29/2025 3472-9319 / / [id number] Hip Stem Nk 127 C3 Cs 35mm Stry-Howm 9046-7143y-144 260 - [id number] Implanted:Qty: 1 on 06/28/2021 by Miqeul Cisneros MD at [facility] and Med Left: Hip [employer] [id number] 11/01/2025 6058-0335D / / [id number] Advance Directives For more information, please contact: [phone] Documents on File Type Date Recorded Patient Sprinkler Driver Expl 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 Care Teams Cash Applications Representative Relationship Specialty Start Date End Date Troy Del Cid MD PCP - General Family Medicine 11/25/20
--- OUTSIDE RECORDS SUMMARY | 2024-04-15 11:44 | XMS_ITS | Encounter Summary ---
Author Organization [facility] Address [address] [place] [address] Care Team Providers Care Outside B2B Sales Name Role Phone Jayce Cooley MD Primary Care Provider [phone] Reason for Referral * Imaging (Routine) - Closed Specialty Diagnoses / Procedures Referred By Contac t Referred To Contact Radiology Diagnoses Post-menopausal bleeding Procedures US Pelvis Non OB Complete w Transvaginal Violeta Orantes PA [address] [place] [address] Phone: tel: fax: [facility] Referral ID Status Reason Start Date Expiration Date Visits Re quested Visits Authorized [id number] Closed 03/26/2024 03/26/2025 1 1 Reason for Visit * Imaging (Routine) - Closed Specialty Diagnoses / Procedures Referred By Contac t Referred To Contact Radiology Diagnoses Post-menopausal bleeding Procedures US Pelvis Non OB Complete w Transvaginal Violeta Orantes PA [address] [place] [address] Phone: tel: fax: [facility] Referral ID Status Reason Start Date Expiration Date Visits Re quested Visits Authorized [id number] Closed 03/26/2024 03/26/2025 1 1 Encounter Details Date Type Department Care Team (Latest Contact Info) Description 04/02/2024 12:38 PM EST - 04/02/2024 11:59 PM EST Hospital Encounter Radiology Department - [address] [phone] Post-menopausal bleeding Discharge Disposition: Home or Self Care Social History Tobacco Use Types Packs/Day Years Used Date Smoking Tobacco: Former Cigarettes Q uit: 02/20/2007 Smokeless Tobacco: Never Alcohol Use Standard Drinks/Week Comments Yes 0 (1 standard drink = 0.6 oz pur e alcohol) Comments No Sex and Gender Information Value Date Recorded Sex Assigned at Female 01/04/2024 11:39 AM EST Legal Sex Female 3:35 AM EST Gender Identity Female 01/04/2024 11:39 AM EST Sexual Orientation Straight 01/04/2024 11 :39 AM EST documented as of this encounter Medications at Time of Discharge acyclovir (ZOVIRAX) 400 mg tablet Take by [...] MOUTH EVERY DAY 90 tablet 1 01/05/2024 fluticasone-salm eterol (ADVAIR DISKUS) 250-50 mcg/dose diskus inhaler Inhale 1 puff by mouth 2 (two) times a day. Rinse mouth with water after use to reduce aftertaste and incidence of candidiasis. Do not swallow. hydroCHLOROthiaz rita 12.5 mg tablet Take 1 [...] Upcoming Encounters Date Type Department Care Team (Latest Contact Info) Description 05/09/2024 7:30 AM EDT Hospital Encounter [facility] Main OR [address] [place] [phone] Jocy Garcia MD [address] [address] 05/09/2024 7:30 AM EDT - 05/09/2024 9:00 AM EDT Surgery [address] [phone] Jocy Garcia MD [address] [address] LUMPECTOMY with mag seed [13457 (CPT??) +1 more] 05/29/2024 11:00 AM EDT Office Visit [facility] Hematology Oncology [address] [place] [phone] Giovanny Blanco MD [address] [place] [phone] 02/05/2025 9:45 AM EST Office Visit Pulmonolgy - [place] [address] [phone] Estela Kyle MD [address] [address] Scheduled Procedures Name Priority Associated Diagnoses Date/Ti me LUMPECTOMY Malignant neoplasm of right breast in female, estrogen receptor positive, unspecified site of breast (CMS/HCC) 05/09/2024 7:30 AM EDT documented as of this encounter Procedures Procedure Name Priority Date/Time Associated Diagnosis Comments US PELVIS NON OB COMPLETE W TRANSVAGINAL Routine 04/02/2024 1:18 PM EST Post-menopausal bleeding documented in this encounter Results * US Pelvis Non OB Complete w Transvaginal (04/02/2024 1:18 PM EST) Anatomical Region Laterality Modality Body, Pelvis Ultrasound 04/02/2024 1:50 PM EST Impressions 04/02/2024 1:55 PM EST No endometrial abnormality. ??No myometrial mass. POS [id number] -------- FINAL REPORT -------- Dictated By: Judy Segundo Dictated Date: 04/02/2024 13:50 ET Assigned Physician: Judy Segundo Reviewed and Electronically Signed By: Judy Segundo Signed Date: 04/02/2024 13:55 ET Workstation ID: [id number] Transcribed By: Self Edit Transcribed Date: 04/02/2024 13:50 ET Narrative 04/02/2024 1:55 PM EST PELVIC ULTRASOUND HISTORY: Postmenopausal bleeding. COMPARISON: ??None FINDINGS: Both transabdominal and endovaginal pelvic ultrasound were performed. ?? Uterus: 7.3 x 3.9 x 3.3 cm in size. ??No focal solid myometrial lesion. Endometrium: 0.4 cm in thickness which is within normal limits for postmenopausal state. ??No focal abnormality identified. Right ovary: Not visualized. ?? Left ovary: Normal in size measuring 1.9 x 1.4 x 1.2 cm without abnormality. Cul-de-sac: No free fluid. Procedure Note Judy Segundo MD - 04/02/2024 PELVIC ULTRASOUND HISTORY: Postmenopausal bleeding. COMPARISON: None FINDINGS: Both transabdominal and endovaginal pelvic ultrasound were performed. Uterus: 7.3 x 3.9 x 3.3 cm in size. No focal solid myometrial lesion. Endometrium: 0.4 cm in thickness which is within normal limits forpostmenopausal state. No focal abnormality identified. Right ovary: Not visualized. Left ovary: Normal in size measuring 1.9 x 1.4 x 1.2 cm withoutabnormality. Cul-de-sac: No free fluid. IMPRESSION: No endometrial abnormality. No myometrial mass. POS [id number] -------- FINAL REPORT -------- Dictated By: Judy Segundo Dictated Date: 04/02/2024 13:50 ET Assigned Physician: Judy Segundo Reviewed and Electronically Signed By: Judy Segunod Signed Date: 04/02/2024 13:55 ET Workstation ID: [id number] Transcribed By: Self Edit Transcribed Date: 04/02/2024 13:50 ET us Violeta ALLRED IMG US PROCEDURES Final Resul t documented in this encounter Visit Diagnoses Diagnosis Post-menopausal bleeding Postmenopausal bleeding Malignant neoplasm of right breast in female, estrogen receptor positive, unspecified site of breast (CMS/HCC) documented in this encounter Care Teams Outside B2B Sales Relationship Specialty Start Date End Date Jayce Cooley MD [address] [place] [address] Dr Yony [place] PCP - General 12/20/23 documented as of this encounter
--- OUTSIDE RECORDS SUMMARY | 2024-04-15 11:44 | XMS_ITS | Encounter Summary ---
[facility] Address [address] [place] [address] Care Team Providers Care Armature Varnisher Name Role Phone Jayce Cooley MD Primary Care Provider Reason for Referral * Consultation (Routine) - Authorized Specialty Diagnoses / Procedures Referred By Chantel jennings Referred To Contact Hematology and Oncology Diagnoses Pulmonary emphysema, unspecified emphysema type (CMS/HCC) NIVIA on CPAP History of lung cancer History of therapeutic radiation Malignant neoplasm of right breast in female, estrogen receptor positive, unspecified site of breast ([facility]/HCC) History of lobectomy of lung History of antineoplastic chemotherapy Jocy Edgar MD [address] [facility] [address] [place] [address] Phone: tel: fax: Hematology Oncology [address] [place] [address] Phone: tel: fax: Referral ID Status Reason Start Date Expiration Date Visits Requested Visits Authorized [id number] Authorized Specialty Services Required 04/11/2024 04/11/2025 1 1 Encounter Details Date Type Department Care Team ([facility] st Contact Info) Description 04/10/2024 3:15 PM EST Consult Breast [facility] [address] [facility] [address] [place] [phone] Jocy Edgar MD 175 [facility] [address] [place] [address] Malignant neoplasm of right breast in female, estrogen receptor positive, unspecified site of breast (CMS/HCC) (Primary Dx); Pulmonary emphysema, unspecified emphysema type (CMS/HCC); NIVIA on CPAP; History of lung cancer; History of therapeutic radiation; History of lobectomy of lung; History of antineoplastic chemotherapy Social History Tobacco Use Types Packs/Day Years [...] AM EST documented as of this encounter Last Filed Vital Signs Vital Sign Reading Time Taken Comments Blood Pressure 147/87 04/10/2024 3:40 PM EST Pulse 105 04/10/2024 3:40 PM EST Temperature 36.6 ??C (97.8 ??F) 04/10/2024 3:40 PM ES T Respiratory Rate - - Oxygen Saturation - - Inhaled Oxygen Concentration - - Weight 102 kg (225 lb) 04/10/2024 3:40 PM EST Height - - Body Mass Index 41.15 02/08/2024 3:12 PM EST documented in this encounter Progress Notes * Jocy Edgar MD - 04/10/2024 3:15 PM EST Referring MD: No ref. provider found REASON FOR VISIT: Breast cancer HPI: This is a very pleasant 73-year-old patient who presents for consultation regarding a new diagnosisof breast cancer. The patient is accompanied in the office by her , Dominick. She routinely performs SBE. No breast related complaints. She denies change in the breast skin, palpable mass, or nipple discharge. She has occasional hot flashes. She had an episode of post menopausal bleeding in Dec 2023, u/s was negative. Screening mammography and subsequent dedicated breast ultrasound and diagnostic mammogram, as below, demonstrated a right breast asymmetry. She went on to have an image guided biopsy of the right breast, pathology as below. Pertinent medical history includes hearing loss, glaucoma, pulmonary emphysema, NIVIA with CPAP use, hypertension, degenerative disc disease, hypercholesterolemia, hypothyroidism, anemia, depression, anxiety. History of lung cancer --RLL resection February 2020 (adenocarcinoma 0.9 cm, moderately differentiated grade 2, unifocal, with involvement of 2 lymph nodes; pT1a N2 MX). She received 3 cycles of chemotherapy under the direction of Dr. Bullard. She also received adjuvant lung XRT. Patient states chemotherapy was not well tolerated and she does not wish to consider chemotherapy for the treatmentof her breast cancer. Patient states she can slowly go up one flight of stairs but would be very short of breath in doingso. She can walk the perimeter of the grocery store once, using the cart for stability. She quit smoking in 2007 after 43 years of use. Pathology: 04/02/2024 Right breast asymmetry, stereotactic core biopsy (top hat clip): - Invasive ductal carcinoma, Witt grade 1 (tubule formation score 1, nuclear pleomorphism score 2, mitotic count score 1). -Ductal carcinoma in situ, intermediate grade, cribriform pattern with punctate necrosis and without associated microcalcifications. -Invasive carcinoma is present in multiple tissue cores and measures up to 4 mm in greatest dimension in a single tissue core. Estrogen Receptor: POSITIVE (91-100% Positive nuclei, average intensity: strong (3+) Internal controls present and appropriate. Progesterone Receptor: POSITIVE (approximately 60% Positive nuclei, average intensity: moderate (2+)) Internal controls present and appropriate. HER2: NEGATIVE (score 1+) (0% of cells show strong complete membrane staining) Breast Cancer Risk Screening: Recent breast trauma? no Prior breast infection? no Prior breast biopsy? Hx breast biopsy in [place] in 1980s, records not available in EMR. Prior chest radiation? Yes -- see HPI. History and duration of hormone use: OCPs x 9 years, remote. HRT x 10 years, remote. Age at menarche: 12 Age at menopause: 48 Age at 1st live : 19 # gestations/completed pregnancies: (hx tubal ) Family oncologic history: - MGM breast CA age 93. - Father with skin cancer. - Niece with gastric cancer. - Grand daughter with leukemia, in remission. Family or personal history of genetic testing or mutations: no Review of Systems The following symptom list was reviewed with the patient: GENERAL: Fevers, chills, sweats, change in weight, fatigue or malaise HEENT: Changes in hearing or vision, nasal problems NECK: Lumps, goiter, or significant neck swelling RESPIRATORY: Cough, wheezing, shortness of breath, pleuritic chest pain CARDIOVASCULAR: Chest pain, leg swelling or palpitations BREAST: see HPI GI: Abdominal discomfort, blood in stools or black stools : Dysuria, frequency or incontinence [employer] TEACHER: Abnormal vaginal bleeding or abnormal vaginal discharge MUSCULOSKELETAL: Joint pain or swelling, back pain, or muscle pain SKIN: Lesions, rash or itching PSYCH: Sleep disturbance or depression HEMATOLOGY/LYMPHOLOGY: Prolonged bleeding, easy bruisability or swollen nodes ENDOCRINE: Cold or heat intolerance, polyuria, polydipsia or goiter NEURO: Persistent headache, syncope, seizures, weakness or numbness Patient reported the following as positive: See HPI; hearing loss, SOB, joint pain, easy bruising. PAST MEDICAL HISTORY: I personally reviewed the following past medical history with the patient and updated the records as appropriate. Past Medical History: Diagnosis Date Adenocarcinoma of lung, right (CMS/HCC) 09/25/2020 DX:Adenocarcinoma of lung, right (HCC); COMMENT: Seen on 11/25/20 by oncology: s/p 3 of 4 cycles of adjuvant chemotherapy with cisplatin and pemetrexed (4th cycle not done d/t side effects). Also completed radiation therapy. Stable per PET CT. Recommended restaging meeting in May 2021 with [id number] visits for first 2 years. Adjustment reaction [...] Rash 08/22/2017 DX:Rash Thyromegaly DX:Thyromegaly Uveitis DX:Uveitis PAST SURGICAL HISTORY: I personally reviewed the following past surgical history with the patient and updated the records as appropriate. Past Surgical History: Procedure Laterality Date BREAST BIOPSY Left 2007 PROCEDURE: BX BREAST; PERC NEEDLE CORE W/IMAG GUID; COMMENT: neg CATARACT EXTRACTION Bilateral PROCEDURE: HISTORICAL CATARACT REMOVAL COLONOSCOPY 01/29/2010 PROCEDURE: HISTORICAL COLONOSCOPY; COMMENT: Normal HIP ARTHROPLASTY Left PROCEDURE: HISTORICAL HIP REPLACEMENT NASAL SEPTUM SURGERY PROCEDURE: PA SEPTOPLASTY/SUBMUCOUS RESECJ W/WO CARTILAGE GRF OTHER SURGICAL HISTORY PROCEDURE: PA DILATION & CURETTAGE DX&/THER NONOBSTETRIC; COMMENT: multiple times; tubal preg OTHER SURGICAL HISTORY PROCEDURE: PA ANESTHESIA UPPER ANTERIOR ABDOMINAL WALL NOS; COMMENT: Adhesions - OTHER SURGICAL HISTORY 08/2022 PROCEDURE: PA CLOSED TX PATELLAR FRACTURE W/O MANIPULATION; COMMENT: Shattered knee cap repair TONSILLECTOMY PROCEDURE: HISTORICAL TONSILLECTOMY SOCIAL HISTORY: I personally reviewed the following social history with the patient and updated the records as appropriate. Social History Socioeconomic History Marital status: Single Spouse name: Not on file Number of children: Not on file Years of education: Not on file Highest education level: Not on file Occupational History Not on file Tobacco Use Smoking status: Former Current packs/day: 0.00 Types: Cigarettes Quit date: 02/20/2007 Years since quittin.1 Smokeless tobacco: Never Substance and Sexual Activity Alcohol use: Yes Drug use: No Sexual activity: Not on file Other Topics Concern Not on file Social History Narrative Lives with boyfriend Stationary bicycle 2 - 3 x per week 6 miles FAMILY HISTORY: I personally reviewed the following family medical history with the patient and updated the recordsas appropriate. Please refer to HPI for additional information. Family History Problem Relation Name Age of Onset Coronary artery disease Father CABG Other (Other: Other) Father Kidney failure Other (Other: Skin Cancer) Father Other (Other: Other) Mother Diabetes Mother allergies Dementia Mother Other (Other: Other) Daughter liver disease. ITP Diabetes Daughter Cirrhosis Daughter Other (Other: Other) Son from Covid in 2019 Hypertension Son Diabetes Son Obesity Son No Known Problems Son Other (Other: Epilepsy) Brother Sleep apnea Brother Other (Other: other) Sister uknown what she from Mental illness Sister Breast cancer Paternal Grandmother 93.00 Leukemia Other Granddaughter Stomach cancer Other Niece ACTIVE MEDICATIONS: Medication list was reviewed/updated with the patient. No outpatient medications have been marked as taking for the 04/10/24 encounter (Appointment) with Jocy Edgar MD. ALLERGIES: Allergies Allergen Reactions Phenobarbital Childhood at age 12 PHYSICAL EXAM: Visit Vitals OB Status Postmenopausal Smoking Status Former GENERAL: Awake, alert, and in no acute distress. EYES: Pupils equal, round. Anicteric sclera. NECK: Thyroid midline and without palpable mass, non-tender, no goiter. LUNGS: Unlabored breathing, no wheezing. CBE: The exam procedure was described and informed consent was obtained. Examined in supine positions. Grossly normal breast symmetry. Overall appearance of skin, nipples, and areolas is without erythema, induration, peau d???orange, nipple retraction, or ulceration. No nipple discharge. No appreciable mass. No overlying skin or vascular abnormality. LYMPH NODES: Axillary, clavicular, and cervical lymph node basins without palpable abnormality. EXTREMITIES: Warm, well-perfused, no pretibial edema. SKIN: No rash or lesions noted. NEURO: Alert and oriented x3, motor and sensory grossly intact. LABS: Lab results, as listed below, were reviewed and discussed with the patient. Lab Results Component Value Date HGBA1C 5.4 06/11/2021 No results found for: WBC , HGB , HCT , MCV , PLT IMAGING: The following imaging results were personally reviewed, including reports and associated films. Findings were discussed with the patient. 01/30/2024 Screening mammo IMPRESSION: New focal asymmetry right breast 12 o'clock. Additional views of the right breast in the full fieldmediolateral, spot compression CC, and spot compression MLO injections utilizing Tomosynthesis are suggested. Ultrasound will also be needed. Be contacted by the radiology department to arrange for the additional imaging BI-RADS CATEGORY: 0 - INCOMPLETE - NEED ADDITIONAL IMAGING EVALUATION 03/26/2024 Right diagnostic mammogram with targeted ultrasound Breast density B Mammogram-Tiny focal asymmetry in the retroareolar right breast was confirmed on the additional views. No other suspicious abnormalities were identified. Ultrasound-Targeted ultrasound of the retroareolar right breast was performed. There is a tiny irregular shaped hypoechoic nodule slightly taller than wider at 6 o'clock axis measuring 0.4 x 0.4 x 0.3 cm. This lesion is indeterminate and suspicious . It may or may not correspond to mammographic asymmetry. No other cystic or solid masses or acoustic shadowing identified. Ultrasonographic guided biopsy of this tiny lesion with clip placement is recommended. IMPRESSION: Suspicious focal opacity in the retroareolar right breast. Ultrasound-guided core biopsy with clip placement is recommended. Findings and recommendations were conveyed to the patient. Appointment is scheduled. BI-RADS CATEGORY: 4 - SUSPICIOUS ASSESSMENT & PLAN: Breast cancer. The patient presents with a nonpalpable right (6:00) IDC with DCIS, grade I, ER +, PA +, HER2/anil IHC negative. AJCC 8th edition staging - cT1b N0 M0, CPS IA. She is post-menopausal. There is family history of breast cancer. Patient with hx of right LL lung cancer and prior right chest XRT. The biopsy findings were discussed in detail with patient and her . An overview of the management of breast cancer was provided. We discussed the options for removal of the cancer, including lumpectomy/partial mastectomy in the setting of breast conserving therapy, types of mastectomies, and options for post-mastectomy reconstruction. We discussed the localization/seed placement procedure. The risks, benefits, and alternatives to surgery were detailed, including need for re-operation dependent on final pathology results, positive margins, bleeding, infection, seroma, poor wound healing, asymmetry, vascular injury, nerve injury (which could result in chronic pain, numbness, and /or paresthesias), chest wall injury, scarring, disease recurrence, anesthetic master ctions. We discussed the potential need for mastectomy following BCS if margins could not be adequately cleared. Patient will be at higher risk of pulmonary complications in the genet operative period. We also discussed the role of axillary staging for her clinically negative axilla. We discussed recent studies evaluating the benefit of axillary staging in women over the age of 70 with small, histologically favorable tumors. We discussed SLNB. We discussed possible omission of axillary staging. Utilizing guidelines from the NCCN, we discussed the indications for neoadjuvant therapy. Neoadjuvant therapy is not indicated based on clinical stage and pathology. She is a candidate for upfront surgery. We discussed the role of adjuvant radiation therapy, chemotherapy, and hormonal therapy. Referral to reconstructive surgery is not indicated at present. We discussed that there are reconstructive surgery options after lumpectomy, if needed. Patient functional status was assessed. Functional status was calculated using the Christianson Activity Status Index (DASI). The DASI score ranges from 0 to 58.2, with higher scores indicating better functional capacity and lower likelihood of perioperative complication relative to functional status. * Patient score: 7 * Score <34: Referral for pre-treatment services could be indicated. However, patient appears francine optimized and is followed closely by pulmonology. Prehabilitation unlikely to impart significantimprovement prior to surgery. Will reassess potential benefit of PTX post operatively. Genetic counseling could be considered if not previously completed. All questions were answered. The patient would like to pursue BCS with omission of axillary staging. She will be referred for consultations with Dr. Bullard in medical oncology. She may be a candidate for omission of adjuvant WBRT. The patient was introduced to our breast cancer nurse navigator. The patient's case will be presented at the next multidisciplinary breast cancer conference. It was a pleasure seeing Katy Heaton at the Surgery Clinic today. The patient has been instructed to call with any additional questions or concerns. Thank you for this referral. Jocy Edgar MD, MS, FACS [facility] A Member of [facility] W [phone] F [phone] [place] [address] [email or web address] cc: MD Dr. Juan Miguel Schneider * Huong Bai RN - 04/10/2024 3:15 PM EST TUYET Grant arrives today with her for a new diagnosis consultation. She has been diagnosed with a right breast Invasive ductal Carcinoma that is ER/PA+ HER 2 negative. Area on imaging measures 0.5 x 0.5 x 0.3 cm. Imaging and Pathology reports have been reviewed by Dr. Edgar along with surgicaloptions. At this time she would like to move forward with lumpectomy with magnetic seed localizer. We reviewed pre and post op instructions. We discussed genetic testing since she also has a history of lung cancer. I did give her the ambry booklet and she will discuss with her family and let me know. She will be scheduled for surgery. Her case will be discussed at tumor board. She has received the new patient folder along with my contact information. documented in this encounter Plan of Treatment Upcoming Encounters Date Type Department Care Team (Latest Contact Info) Description 05/09/2024 7:30 AM EDT Hospital Encounter [address] [phone] Jocy Edgar MD [address] [address] 05/09/2024 7:30 AM EDT - 05/09/2024 9:00 AM EDT Surgery [facility] OR [address] [place] [phone] Jocy Edgar MD [address] [address] LUMPECTOMY with mag seed [27926 (CPT??) +1 more] 05/29/2024 11:00 AM EDT Office Visit Hematology Oncology [address] [place] [phone] Subramonia-Giovanny Bullard MD [address] [place] [phone] 02/05/2025 9:45 AM EST Office Visit Pulmonolgy - [place] [address] [facility] [address] [place] [address] Estela Kyle MD [address] [facility] [address] [place] [address] Scheduled Orders Name Type Priority Associated Diagnoses Orde r Schedule ECG 12 lead ECG Routine Pulmonary emphysema, unspecified emphysema type (CMS/HCC) NIVIA on CPAP History of lung cancer History of therapeutic radiation Malignant neoplasm of right breast in female, estrogen receptor positive, unspecified site of breast (CMS/HCC) History of lobectomy of lung History of antineoplastic chemotherapy 1 Occurrences starting 04/11/2024 until 04/11/2025 Scheduled Procedures Name Priority Associated Diagnoses Date/Ti me LUMPECTOMY Malignant neoplasm of right breast in female, estrogen receptor positive, unspecified site of breast (CMS/HCC) 05/09/2024 7:30 AM EDT Scheduled Referrals Name Type Priority Associated Diagnoses Orde r Schedule Ambulatory referral to Hematology / Oncology Outpatient Referral Routine Pulmonary emphysema, unspecified emphysema type (CMS/HCC) NIVIA on CPAP History of lung cancer History of therapeutic radiation Malignant neoplasm of right breast in female, estrogen receptor positive, unspecified site of breast (CMS/HCC) History of lobectomy of lung History of antineoplastic chemotherapy 1 Occurrences starting 04/11/2024 until 04/11/2025 documented as of this encounter Visit Diagnoses Diagnosis Malignant neoplasm of right breast in female, estrogen receptor positive, unspecified site of breast (CMS/HCC)- Primary Pulmonary emphysema, unspecified emphysema type (CMS/HCC) NIVIA on CPAP History of lung cancer Personal history of malignant neoplasm of bronchus and lung History of therapeutic radiation History of lobectomy of lung History of antineoplastic chemotherapy Personal history of antineoplastic chemotherapy Malignant neoplasm of right breast in female, estrogen receptor positive (CMS/HCC)- Primary Malignant neoplasm of right breast in female, estrogen receptor positive, unspecified site of breast (CMS/HCC) documented in this encounter Orders Case Request Count Last Ordered Date First Orde red Date CASE REQUEST OPERATING ROOM 1 04/11/2024 documented in this encounter Care Teams Armature Varnisher Relationship Specialty Start Date End Date Jayce Cooley MD [address] [place] [address] Dr Yony [place] PCP - General 12/20/23 documented as of this encounter
--- OUTSIDE RECORDS SUMMARY | 2024-04-15 11:44 | XMS_ITS | Clinical Summary ---
Author Organization [facility] Address [address] [place] [address] Phone Care Team Providers Care Director Radio News Name Role Phone Jayce Cooley MD Primary Care Provider Allergies Active Allergy Reactions Criticality Noted Date Comments Phenobarbital 04/21/1979 Childhood at age 12 Medications citalopram (CeleXA) 40 mg tablet TAKE 1 TABLET BY MOUTH EVERY DAY 90 tablet 1 4 Active pravastatin (PRAVACHOL) 40 mg tablet TAKE 1 TABLET BY MOUTH EVERY DAY 90 tablet 1 4 Active hydroCHLOROthia zide 12.5 mg tablet Take 1 tablet (12.5 mg total) by mouth 1 (one) time each day. Active pantoprazole (PROTONIX) 40 mg EC tablet Take 1 tablet (40 mg total) by mouth 1 (one) time each day before breakfast. Do not crush, chew, or split. Active acyclovir (ZOVIRAX) 400 mg tablet Take by mouth. Activ e albuterol HFA (PROAIR HFA ; PROVENTIL HFA ; VENTOLIN HFA) 90 mcg/actuation inhaler Inhale 2 puffs by mouth every 6 (six) hours if needed for wheezing. Active brimonidine (ALPHAGAN P) 0.1 % ophthalmic solution 1 drop 3 (three) times a day. Active losartan (COZAAR) 25 mg tablet Take 1 tablet (25 mg total) by mouth 1 (one) time each day. 4 Active fluticasone-giuliana meterol (ADVAIR DISKUS) 250-50 mcg/dose diskus inhaler Inhale 1 puff by mouth 2 (two) times a day. Rinse mouth with water after use to reduce aftertaste and incidence of candidiasis. Do not swallow. Active Active Problems Problem Noted Date Diagnosed Date Malignant neoplasm of right breast in female, estrogen receptor positive 04/10/2024 History of lung cancer 02/16/2024 Assessment & [...] helps with weaning off HRT. 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 Resolved Problems Problem Noted Date Diagnosed Date Resolved Date Malignant neoplasm of lower lobe of right lung 03/03/2020 02/16/2024 Encounters Date Type Department Care Team Description 04/10/2024 3:15 PM EST Consult Breast Care [address] [address] Jocy Garcia MD Malignant neoplasm of right breast in female, estrogen receptor positive, unspecified site of breast (CMS/HCC) (Primary Dx); Pulmonary emphysema, unspecified emphysema type (CMS/HCC); NIVIA on CPAP; History of lung cancer; History of therapeutic radiation; History of lobectomy of lung; History of antineoplastic chemotherapy 04/05/2024 Telephone Breast [address] [address] Huong Bai RN Appointment 04/02/2024 12:39 PM EST - 04/02/2024 11:59 PM EST Hospital Encounter Radiology Department - [address] [address] Abnormal mammogram Discharge Disposition: Home or Self Care 04/02/2024 12:38 PM EST - 04/02/2024 11:59 PM EST Hospital Encounter Radiology Department - [address] [address] Post-menopausal bleeding Discharge Disposition: Home or Self Care 03/27/2024 12:32 PM EST - 03/27/2024 11:59 PM EST Hospital Encounter Radiology Department - [address] [address] Abnormal mammogram Discharge Disposition: Home or Self Care 03/26/2024 10:41 AM EST - 03/26/2024 11:59 PM EST Hospital Encounter Radiology Department - [address] [address] Abnormal mammogram Discharge Disposition: Home or Self Care 03/26/2024 10:40 AM EST - 03/26/2024 11:59 PM EST Hospital Encounter Radiology Department - [address] [phone] Abnormal mammogram Discharge Disposition: Home or Self Care 03/05/2024 9:39 AM EST Anesthesia Event [facility] [address] [place] [address] Severo Sharif MD Abrokwah, 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, BUSINESS RISK CONSULTANT 03/05/2024 8:30 AM EST - 03/05/2024 11:59 PM EST Hospital Encounter [facility] [address] [place] [phone] Bib Suarez DO Abrokwah, 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, BUSINESS RISK CONSULTANT Radiculopathy, lumbar region Discharge Disposition: Home or Self Care 03/05/2024 6:36 AM EST - 03/05/2024 11:59 PM EST Hospital Encounter [facility] Xray [address] [place] [address] Pain Discharge Disposition: Home or Self Care 02/08/2024 3:00 PM EST Office Visit Thoracic Surgery - [place] [address] [address] Luci Finch PA History of lung cancer (Primary Dx) 01/30/2024 10:40 AM EST - 01/30/2024 11:59 PM EST Hospital Encounter Radiology Department - [address] [phone] Encounter for screening mammogram for breast cancer Discharge Disposition: Home or Self Care 01/26/2024 10:53 AM EST - 01/26/2024 11:59 PM EST Hospital Encounter [facility] CT Scan [address] [place] [address] Personal history of other malignant neoplasm of bronchus and lung Discharge Disposition: Home or Self Care 01/15/2024 9:45 AM EST Office Visit Pulmonolgy - [place] [address] [facility] [address] [place] [address] Estela Kyle MD Pulmonary emphysema, unspecified emphysema type (CMS/HCC) (Primary Dx); NIVIA on CPAP; Malignant neoplasm of lower lobe of right lung (CMS/HCC) from Last 3 Months Immunizations Name Administration Dates Next Due Zoster recombinant (Shingrix) 19yo and older Surgical History Surgery Date Site/Laterality Comments OTHER SURGICAL HISTORY PROCEDURE: [place] DILATION & CURETTAGE DX&/THER NONOBSTETRIC; COMMENT: multiple times; tubal preg OTHER SURGICAL HISTORY PROCEDURE: [place] ANESTHESIA UPPER ANTERIOR ABDOMINAL WALL NOS; COMMENT: Adhesions - NASAL SEPTUM SURGERY PROCEDURE: [place] SEPTOPLASTY/SUBMUCOUS RESECJ W/WO CARTILAGE GRF BREAST BIOPSY 2007 Left PROCEDURE: BX BREAST; PERC NEEDLE CORE W/IMAG GUID; COMMENT: neg COLONOSCOPY 01/29/2010 PROCEDURE: HISTORICAL COLONOSCOPY; COMMENT: Normal HIP ARTHROPLASTY Left PROCEDURE: HISTORICAL HIP REPLACEMENT TONSILLECTOMY PROCEDURE: HISTORICAL TONSILLECTOMY OTHER SURGICAL HISTORY 08/2022 PROCEDURE: [place] CLOSED [place] PATELLAR FRACTURE W/O MANIPULATION; COMMENT: [...] Recommended restaging meeting in May 2021 with [id number] visits for first 2 years. Malignant neoplasm [...] (Age 84) kidney yadira lure Maternal Grandfather Maternal Grandmother (Age 75) ?M I Mother (Age 84) dementia, alzheimers. stroke, passed Feb 2012 Other 1 Granddaughter Other 2 Niece Paternal Grandfather (Age 77) [place] Paternal Grandmother (Age 93) Ol d age [...] Orientation Straight 01/04/2024 11 :39 AM EST Obstetrics History Para Term AB IAB SAB [...] 04/10/2024 3:40 PM ES T Respiratory Rate 16 03/05/2024 10:01 AM EST Oxygen Saturation 97% 03/05/2024 10:19 AM EST Inhaled Oxygen Concentration - - Weight 102 kg (225 lb) 04/10/2024 3:40 PM EST Height 157.5 cm (5' 2 ) 02/08/2024 3:12 PM EST Body Mass Index 41.15 02/08/2024 3:12 PM EST Plan of Treatment Upcoming Encounters Date Type Department Care Team (Latest Contact Info) Description 05/09/2024 7:30 AM EDT Hospital Encounter [facility] Main OR [address] [place] [phone] Jocy Garcia MD [address] [address] 05/09/2024 7:30 AM EDT - 05/09/2024 9:00 AM EDT Surgery [facility] OR [address] [place] [phone] Jocy Garcia MD [address] [address] LUMPECTOMY with mag seed [895[address] (CPT??) +1 more] 05/29/2024 11:00 AM EDT Office Visit [facility] Hematology Oncology [address] [place] [phone] Giovanny Blanco MD [address] [place] [phone] 02/05/2025 9:45 AM EST Office Visit Pulmonolgy - [place] [address] [facility] [address] [place] [address] Estela Kyle MD [address] [facility] [address] [place] [address] Scheduled Procedures Name Priority Associated Diagnoses Date/Ti me LUMPECTOMY Malignant neoplasm of right breast in female, estrogen receptor positive, unspecified site of breast (CMS/HCC) 05/09/2024 7:30 AM EDT Health Maintenance Due Date Last Done Comments [...] Density Screening) 02/11/2031 02/11/2021, 11/10/2017 Pneumococcal Vaccine: 50+ Years Completed 06/24/2016, 01/30/2014 RSV Immunization Patients 60+ Years Old Completed 12/09/2022 COVID-19 Vaccine Completed 11/17/2023, , 10/21/2022, Additional history exists Influenza Vaccine Completed 11/24/2023, , 11/22/2021, Additional history exists Zoster Vaccines Completed 02/16/2024, 11/02/2023 Breast Cancer Screening Discontinued 03/26/19, 01/30/2024, 01/14/2023, Additional history exists HIB Vaccines Aged Out No longer eligi [...] patient's age to complete this topic Meningococcal B Vacine Aged Out No lo nger eligible based on patient's age to complete this topic RSV Immunization Patients Under 20 months Aged Out No longer eligible based on patient's age to complete this topic Varicella Vaccines Aged Out No longer eligible based on patient's age to complete this topic Medical Devices Implanted Type Area Drawing Tender Device Identifier Shelf Expiration Date Model / Serial / Lot Cement Bone Surg Simplex Radiopq Stry-Howm [id number] Implanted:Qty: 1 on 06/28/2021 by Miquel Cisneros MD Left: Hip [employer] [id number] 07/21/2023 6191-1-010 / / [id number] Hip Head Delta Biolox 36mm-2.5 Stry-Howm [id number] Implanted:Qty: 1 on 06/28/2021 by Miquel Cisneros MD Left: Hip [employer] [id number] 03/29/2026 6570-0-436 / / [id number] Cement Bone Surg Simplex Radiopq Stry-Howm [id number] 092 Implanted:Qty: 1 on 06/28/2021 by Miquel Cisneros MD Left: Hip [employer] [id number] 01/19/2023 6191-1-010 / / [id number] Hip Insrt Trdnt 0deg 36mm D Stry-Howm [id number] [id number] Implanted:Qty: 1 on 06/28/2021 by Miquel Cisneros MD Left: Hip [employer] [id number] 05/07/2026 623-00-36D / / [id number] Tritanium Cluster Hole Shell 48mm Stry-Howm [id number] Implanted:Qty: 1 on 06/28/2021 by Miquel Cisneros MD Left: Hip [employer] [id number] 03/17/2026 702-04-48D / / [id number] Kit Prep Total Hip Bone Imp Smn-Orth [id number] Implanted:Qty: 1 on 06/28/2021 by Miquel Cisneros MD Left: Hip [employer] 03/09/2031 [id number] / / [id number] Description:SMALL BONE PLUG Lp Hex Screw 6.5x25mm Stry-Howm [id number] Implanted:Qty: 1 on 06/28/2021 by Miquel Cisneros MD Left: Hip [employer] [id number] 05/13/2026 2789-8329 / / [id number] Lp Hex Screw 6.5x30mm Stry-Howm [id number] Implanted:Qty: 1 on 06/28/2021 by Miquel Cisneros MD Left: Hip [employer] [id number] 05/04/2026 [id number] / / [id number] Hip Spacer C-Distl Rng Sm 10mm Stry-Howm [id number] Implanted:Qty: 1 on 06/28/2021 by Miquel Cisneros MD Left: Hip [employer] [id number] 11/29/2025 3734-9888 / / [id number] Hip Stem Nk 127 C3 Cs 35mm Stry-Howm [id number] Implanted:Qty: 1 on 06/28/2021 by Miquel Cisneros MD Left: Hip [employer] [id number] 11/01/2025 6058-0335D / / [id number] Procedures Procedure Name Priority Date/Time Associated Diagnosis Comments TISSUE EXAM Routine 04/02/2024 3:19 PM EST Abnormal mammogram MG STEREO BX BREAST PERC 1ST LESION RIGHT Routine 04/02/2024 3:11 PM EST Abnormal mammogram US PELVIS NON OB COMPLETE W TRANSVAGINAL Routine 04/02/2024 1:18 PM EST Post-menopausal bleeding US BX BREAST PERC 1ST LESION RIGHT Routine 03/27/2024 1:19 PM EST Abnormal mammogram US BREAST LIMITED RIGHT Routine 03/26/2024 11:16 AM EST Abnormal mammogram MG MAMMO DIGITAL DIAGNOSTIC W JUSTIN RIGHT Routine 03/26/2024 10:45 AM EST Abnormal mammogram MG MAMMO DIGITAL SCREENING W JUSTIN BILAT Routine 01/30/2024 11:08 AM EST Encounter for screening mammogram for breast cancer CT CHEST WO CONTRAST Routine 01/26/2024 11:02 AM EST Personal history of other malignant neoplasm of bronchus and lung ANNUAL BMP BLOOD TEST Routine 06/11/2021 DXA BONE DENISTY STUDY VERTEBRAL FRACTURE, INCLUDING LATERAL VIEW Routine 02/11/2021 10:14 AM EST Encounter for screening for osteoporosis from Last 3 Months or Most Recently Relevant to Health Maintenance Results * Tissue exam (04/02/2024 3:19 PM EST) Addendum Breast Carcinoma Biomarkers: Estrogen Receptor: POSITIVE (91-100% Positive nuclei, average intensity: strong (3+) Internal controls present and appropriate. Progesterone Receptor: POSITIVE (approximately 60% Positive nuclei, average intensity: moderate (2+)) Internal controls present and appropriate. HER2: NEGATIVE (score 1+) (0% of cells show strong complete membrane staining) All external controls stained appropriately Patients with breast cancers that are HER2 IHC 3+ or IHC 2+/QUAN amplified may be eligible for several therapies that disrupt HER2 signaling pathways. Invasive breast cancers that test 'HER2-negative' (IHC 0, 1+ or 2+/QUAN not-amplified) are more specifically considered 'HER2-negative for protein overexpression/gene amplification' since non-overexpressed levels of the HER2 protein may be present in these cases. Patients with breast cancers that are HER2 IHC 1+ or IHC 2+/QUAN not amplified may be eligible for a treatment that targets non-amplified/non-ove rexpressed levels of HER2 expression for cytotoxic drug delivery (IHC 0 results do not result in eligibility currently). FFPE Block: A1 Cold Ischemia and Fixation Times: Meets requirements specified in the latest version of the ASCO/CAP guidelines These tests have not been validated for use on decalcified tissue, non-formalin fixed tissue, or tissue fixed outside of the ASCO/CAP guidelines. ASCO/CAP criteria for evaluation: ER: Staining evaluation ER: Low positive=1-10% positive nuclei, Positive >10% positive nuclei [place]: Staining evaluation [place]: Positive= >1% positive nuclei. HER2: Staining evaluation for HER2 (ASCO/CAP GUIDELINES 2018): - NEGATIVE (0): No staining or incomplete barely perceptible staining in <10 % of cells. - NEGATIVE (1+): Incomplete barely perceptible staining in >10 % of cells. - EQUIVOCAL (2+): Strong complete staining in 10% or less of cells or weak or moderate staining in >10 % cells. - POSITIVE (3+): Strong complete staining in more than 10% of cells. 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 - Ductal carcinoma in situ, intermediate grade, cribriform pattern with punctate necrosis and without associated microcalcifications. - Invasive carcinoma is present in multiple tissue cores and measures up to 4 mm in greatest dimension in a single tissue core. Note: Immunohistochemical studies for estrogen and progesterone receptors and for HER-2/anil are being performed and results will be issued in an addendum report. 5 10:37 AM [facility] Comment Secondary review for new malignancy performed by Dr. Madison with agreement. Severo Zarco MD notified Dr. Chana Minor 04/04/24 of the diagnosis of invasive carcinoma at 9:36 a.m. via secure text. 10:37 AM [facility] Clinical Information Suspicious opacity retroareolar Clip: Top Hat Lot # [id number] 10:37 AM [facility] Gross Description A. Breast, Right, retroareolar: Labeled right breast . Received in formalin is a twelve chambered collection device (there are no markings on the lid denoting calcifications) is a 3.8 cm aggregate of irregular disrupted yellow-fagan fibrofatty breast tissue fragments admixed with a 4.8 cm aggregate of soft red clotted blood. The tissue is from the clotted blood. The specimen is entirely submitted as follows: 1-5 breast tissue, multiple pieces each, x 3 6-11, clotted blood, multiple pieces, x 1. Time collected: 3:19 PM 04/02/2024 Time put in formalin: 3:22 PM 04/02/2024 Total cold ischemic time: 3 minutes Time tissue exits final stage of formalin on tissue processor: 9 PM 04/03/2024 Total fixation time (ideally between 6 and 72 hours): 30 hours MOIRA 10:37 AM [facility] Disclaimer NOTE: The immunohistochemical tests and in situ hybridization tests were developed and their performance characteristics were determined by [facility]. They have not been cleared or approved by the U.S. Food and Drug Administration. The FDA has determined that such clearance or approval is not necessary. These tests are used for clinical purposes. They should not be regarded as investigational or for research. This laboratory is certified under the Clinical Laboratory Improvement Amendments of 1988 (CLIA) as qualified to perform high complexity clinical laboratory testing. (controls appropriate) Unless otherwise specified, all tissue is 10% NB formalin fixed and paraffin embedded. 10:37 AM [facility] Tissue Right breast structure / Unknown 04/02/2024 3:19 PM EST 04/03/2024 3:55 PM EST Comment:Clip: Top Hat Lot # [id number] Chana Minor MD LAB PATHOLOGY ORDERABLES Edit ed Result - Final [facility] [address] [place] [address], [place] [phone] * MG Stereo Bx Breast Perc 1st Lesion Right (04/02/2024 3:11 PM EST) Anatomical Region Laterality Modality Breast Right Mammography 04/02/2024 5:31 PM EST Addenda Addendum by Chana Minor MD on 04/05/2024 7:58 AM EST Pathology results are as follows: Right breast asymmetry, stereotactic core biopsy (top hat clip): -Invasive ductal carcinoma, Dano grade 1 (tubule formation score 1, nuclear pleomorphism score 2, mitotic count score 1). -Ductal carcinoma in situ, intermediate grade, cribriform pattern with punctate necrosis and without associated microcalcifications. -Invasive carcinoma is present in multiple tissue cores and measures up to 4 mm in greatest dimension in a single tissue core. Pathology results are malignant and concordant with the imaging findings. ?? Surgical consult is recommended. Pathology results were communicated to the patient over the phone by Dr. Segundo on 04/04 at 2:25pm. Message then sent to nurse navigator at [facility] with confirmation at 2:29pm. RECOMMENDATION: Surgical consultation/management recommended for the right breast. -------- ADDENDUM -------- Dictated By: Chana Minor Dictated Date: 04/05/2024 07:50 ET Assigned Physician: Chana Minor Reviewed and Electronically Signed By: Chana Minor Signed Date: 04/05/2024 07:58 ET Workstation ID: [id number] Transcribed By: Self Edit Transcribed Date: 04/05/2024 07:56 ET Impressions 04/02/2024 5:48 PM EST Right ??stereotactic core biopsy of focal asymmetry in the upper slightly inner quadrant completed. Awaiting pathology results. Concordance addendum will be generated when pathologic analysis is complete. BI-RADS CATEGORY: Post-Procedure Mammogram for Marker Placement RECOMMENDATION: Pathology pending for the right breast. -------- FINAL REPORT -------- Dictated By: Chana Minor Dictated Date: 04/02/2024 17:31 ET Assigned Physician: Chana Minor Reviewed and Electronically Signed By: Chana Minor Signed Date: 04/02/2024 17:48 ET Workstation ID: [id number] Transcribed By: Self Edit Transcribed Date: 04/02/2024 17:31 ET Narrative 04/02/2024 5:48 PM EST PROCEDURE: ??MG STEREO BX BREAST PERC 1ST LESION RIGHT History: Abnormal screening mammogram on January 30, 2024. ??Callback right diagnostic mammogram/ultrasound recommended a ultrasound-guided needle core biopsy for the mammographic abnormal finding, with possible correlate at 6 o'clock position. ??However, the scheduled ultrasound-guided needle core biopsy could not performed as the targeted could not be identified with certainty. ??Therefore, a stereotactic needle core biopsy of the initial mammographic finding was recommended. ?? The procedure was explained to the patient including benefits and alternatives. The risks, including but not limited to infection and bleeding, were reviewed and the patient agreed to undergo the procedure, signing the consent form. Right stereotactic core biopsy: The patient's right breast was positioned in the Affirm upright biopsy system ([employer]) and images of the focal asymmetry in the upper slightly inner quadrant at about 7 cm from the nipple were obtained. The breast was prepped for the procedure and the area was anesthetized with a local anesthetic 20 cc of lidocaine 1% buffered with Sodium Bicarbonate 4.2% (9cc: 1cc) superficially and deeper. ??Using a NephroPlusvera Biopsy System with Brevera 9G standard needle probe, one pass was made through the area from superior approach, and 8 specimens were obtained. A [employer] SecurMark for Eviva Top Hat shape titanium ([id number]) micromarker was placed at the site of the core biopsy. The needle was then removed and adequate hemostasis was achieved. Estimated blood loss: Minimal The patient experienced no complications during the procedure. Specimen radiograph confirms higher density fragments, thought to represent the target in multiple specimens. Postprocedural unilateral right digital mammogram confirms top hat clip in satisfactory position. ??Note that there was an approximately 3.0 cm size local hematoma, which obscures any possible residual local focal asymmetry. Procedure Note Chana Minor MD - 04/02/2024 PROCEDURE: MG STEREO BX BREAST PERC 1ST LESION RIGHT History: Abnormal screening mammogram on January 30, 2024. Callbackright diagnostic mammogram/ultrasound recommended a ultrasound-guidedneedle core biopsy for the mammographic abnormal finding, with possiblecorrelate at 6 o'clock position. However, the scheduled ultrasound-guidedneedle core biopsy could not performed as the targeted could not beidentified with certainty. Therefore, a stereotactic needle core biopsyof the initial mammographic finding was recommended. The procedure was explained to the patient including benefits andalternatives. The risks, including but not limited to infection andbleeding, were reviewed and the patient agreed to undergo the procedure,signing the consent form. Right stereotactic core biopsy: The patient's right breast was positioned in the Affirm upright biopsysystem ([employer]) and images of the focal asymmetry in the upper slightlyinner quadrant at about 7 cm from the nipple were obtained. The breast wasprepped for the procedure and the area was anesthetized with a localanesthetic 20 cc of lidocaine 1% buffered with Sodium Bicarbonate 4.2%(9cc: 1cc) superficially and deeper. Using a [employer] Brevera BiopsySystem with Brevera 9G standard needle probe, one pass was made throughthe area from superior approach, and 8 specimens were obtained. A [employer] for Eviva Top Hat shape titanium ([id number]) micromarkerwas placed at the site of the core biopsy. The needle was then removed and adequate hemostasis was achieved. Estimated blood loss: Minimal The patient experienced no complications during the procedure. Specimen radiograph confirms higher density fragments, thought torepresent the target in multiple specimens. Postprocedural unilateral right digital mammogram confirms top hat clip insatisfactory position. Note that there was an approximately 3.0 cm sizelocal hematoma, which obscures any possible residual local focalasymmetry. IMPRESSION: Right stereotactic core biopsy of focal asymmetry in the upper slightlyinner quadrant completed. Awaiting pathology results. Concordance addendum will be generated when pathologic analysis iscomplete. BI-RADS CATEGORY: Post-Procedure Mammogram for Marker Placement RECOMMENDATION: Pathology pending for the right breast. -------- FINAL REPORT -------- Dictated By: Chana Minor Dictated Date: 04/02/2024 17:31 ET Assigned Physician: Chana Minor Reviewed and Electronically Signed By: Chana Minor Signed Date: 04/02/2024 17:48 ET Workstation ID: [id number] Transcribed By: Self Edit Transcribed Date: 04/02/2024 17:31 ET us Jocy Malave MD IMG BI PROCEDURES Edited Resul t - Final * US Pelvis Non OB Complete w Transvaginal (04/02/2024 1:18 PM EST) Anatomical Region Laterality Modality Body, Pelvis Ultrasound 04/02/2024 1:50 PM EST Impressions 04/02/2024 1:55 PM EST No endometrial abnormality. ??No myometrial mass. POS [id number] -------- FINAL REPORT -------- Dictated By: Judy Segundo Dictated Date: 04/02/2024 13:50 ET Assigned Physician: Judy Segundo Reviewed and Electronically Signed By: Judy Segundo Signed Date: 04/02/2024 13:55 ET Workstation ID: [id number] Transcribed By: Self Edit Transcribed Date: 04/02/2024 [...] No endometrial abnormality. No myometrial mass. POS [id number] -------- FINAL REPORT -------- Dictated By: Judy Segundo Dictated Date: 04/02/2024 13:50 ET Assigned Physician: Judy Segundo Reviewed and Electronically Signed By: Judy Segundo Signed Date: 04/02/2024 13:55 ET Workstation ID: [id number] Transcribed By: Self Edit Transcribed Date: 04/02/2024 13:50 ET us Violeta ALLRED IMG US PROCEDURES Final Resul t * US Bx Breast Perc 1st Lesion Right (03/27/2024 1:19 PM EST) Anatomical Region Laterality Modality Breast Right Ultrasound 03/27/2024 1:35 PM EST Narrative 03/27/2024 1:41 PM EST ULTRASOUND-GUIDED BREAST CORE NEEDLE BIOPSY-ABORTED PROCEDURE CLINICAL: ?? 73 years old, Female, referred for ultrasound breast biopsy of 0.3 x 0.4 x 0.4 cm irregular nodule retroareolar right breast 6 o'clock.. ?? COMPARISON: RIGHT BREAST ULTRASOUND AND MAMMOGRAM 03/26/2024. ??BILATERAL MAMMOGRAM 01/30/2024. PROCEDURE: ?? Informed consent was obtained. ??Preprocedure time out was performed per routine. ??Preliminary sonographic imaging of the lower right breast fails to confirm the presence of the suspicious nodule at the 6 o'clock position in the retroareolar region. ?? Therefore, the scheduled ultrasound guided procedure was canceled. ??Stereotactic core biopsy is recommended since the lesion is visible on mammogram. ??The patient will be contacted by the radiology department clinician to schedule the stereotactic core biopsy procedure. ??Findings and recommendations were discussed with the patient in person. RECOMMENDATION: Core biopsy of right breast recommended. -------- FINAL REPORT -------- Dictated By: Brenda Puga Dictated Date: 03/27/2024 13:35 ET Assigned Physician: Brenda Puga Reviewed and Electronically Signed By: Brenda Puga Signed Date: 03/27/2024 13:41 ET Workstation ID: [id number] Transcribed By: Self Edit Transcribed Date: 03/27/2024 13:35 ET Procedure Note Brenda Puga MD - 03/27/2024 ULTRASOUND-GUIDED BREAST CORE NEEDLE BIOPSY-ABORTED PROCEDURE CLINICAL: 73 years old, Female, referred for ultrasound breast biopsy of0.3 x 0.4 x 0.4 cm irregular nodule retroareolar right breast 6 o'clock.. COMPARISON: RIGHT BREAST ULTRASOUND AND MAMMOGRAM 03/26/2024. BILATERALMAMMOGRAM 01/30/2024. PROCEDURE: Informed consent was obtained. Preprocedure time out was performed perroutine. Preliminary sonographic imaging of the lower right breast failsto confirm the presence of the suspicious nodule at the 6 o'clock positionin the retroareolar region. Therefore, the scheduled ultrasound guided procedure was canceled.Stereotactic core biopsy is recommended since the lesion is visible onmammogram. The patient will be contacted by the radiology departmentmanager to schedule the stereotactic core biopsy procedure. Findings andrecommendations were discussed with the patient in person. RECOMMENDATION: Core biopsy of right breast recommended. -------- FINAL REPORT -------- Dictated By: Brenda Puga Dictated Date: 03/27/2024 13:35 ET Assigned Physician: Brenda Puga Reviewed and Electronically Signed By: Brenda Puga Signed Date: 03/27/2024 13:41 ET Workstation ID: [id number] Transcribed By: Self Edit Transcribed Date: 03/27/2024 13:35 ET us Jocy Malave MD IMG US PROCEDURES Final Result * (ABNORMAL) US Breast Limited Right (03/26/2024 11:16 AM EST) Anatomical Region Laterality Modality Breast Right Ultrasound 03/26/2024 12:3 9 PM EST Impressions 03/26/2024 12:45 PM EST Suspicious focal opacity in the retroareolar right breast. ??Ultrasound-guided core biopsy with clip placement is recommended. ??Findings and recommendations were conveyed to the patient. ??Appointment is scheduled. ?? BI-RADS CATEGORY: 4 - SUSPICIOUS RECOMMENDATION: Core biopsy of right breast recommended. Core biopsy of right breast recommended. Mammo Location: [facility], [address] [place] [address], [id number], . -------- FINAL REPORT -------- Dictated By: Zenaida Moreno Dictated Date: 03/26/2024 12:39 ET Assigned Physician: Zenaida Moreno Reviewed and Electronically Signed By: Zenaida Moreno Signed Date: 03/26/2024 12:45 ET Workstation ID: [id number] Transcribed By: Self Edit Transcribed Date: 03/26/2024 12:39 ET Narrative 03/26/2024 12:45 PM EST Diagnostic mammogram of the right breast. ??Targeted right breast ultrasound. CLINICAL: 73 years old, Female, focal asymmetry in the right breast on screening mammogram. COMPARISON: Screening mammogram from 01/30/2024. ?? FINDINGS: MAMMOGRAPHY TECHNIQUE: Spot compression views of the right breast in the CC and MLO projection as well as full field straight lateral view were obtained digitally with 3-D mammogram (digital breast tomosynthesis). ?? Tiny focal asymmetry in the retroareolar right breast was confirmed on the additional views. ??No other suspicious abnormalities were identified. BREAST DENSITY: B - There are scattered areas of fibroglandular density. ULTRASOUND TECHNIQUE: Targeted ultrasound of the retroareolar right breast was performed. ??There is a tiny irregular shaped hypoechoic nodule slightly taller than wider at 6 o'clock axis measuring 0.4 x 0.4 x 0.3 cm. ??This lesion is ??indeterminate and suspicious . ??It may or may not correspond to mammographic asymmetry. No other cystic or solid masses or acoustic shadowing identified. Ultrasonographic guided biopsy of this tiny lesion with clip placement is recommended. Procedure Note Zenaida Moreno MD - 03/26/2024 Diagnostic mammogram of the right breast. Targeted right breastultrasound. CLINICAL: 73 years old, Female, focal asymmetry in the right breast onscreening mammogram. COMPARISON: Screening mammogram from 01/30/2024. FINDINGS: MAMMOGRAPHY TECHNIQUE: Spot compression views of the right breast in the CC and MLOprojection as well as full field straight lateral view were obtaineddigitally with 3-D mammogram (digital breast tomosynthesis). Tiny focal asymmetry in the retroareolar right breast was confirmed on theadditional views. No other suspicious abnormalities were identified. BREAST DENSITY: B - There are scattered areas of fibroglandular density. ULTRASOUND TECHNIQUE: Targeted ultrasound of the retroareolar right breast wasperformed. There is a tiny irregular shaped hypoechoic nodule slightlytaller than wider at 6 o'clock axis measuring 0.4 x 0.4 x 0.3 cm. Thislesion is indeterminate and suspicious . It may or may not correspond tomammographic asymmetry. No other cystic or solid masses or acoustic shadowing identified. Ultrasonographic guided biopsy of this tiny lesion with clip placement isrecommended. IMPRESSION: Suspicious focal opacity in the retroareolar right breast.Ultrasound-guided core biopsy with clip placement is recommended.Findings and recommendations were conveyed to the patient. Appointment isscheduled. BI-RADS CATEGORY: 4 - SUSPICIOUS RECOMMENDATION: Core biopsy of right breast recommended. Core biopsy of right breastrecommended. Mammo Location: [facility], [address] [place] [address], [id number], . -------- FINAL REPORT -------- Dictated By: Zenaida Moreno Dictated Date: 03/26/2024 12:39 ET Assigned Physician: Zenaida Moreno Reviewed and Electronically Signed By: Zenaida Moreno Signed Date: 03/26/2024 12:45 ET Workstation ID: [id number] Transcribed By: Self Edit Transcribed Date: 03/26/2024 12:39 ET us Jocy Malave MD IMG US PROCEDURES Final Result * (ABNORMAL) MG Mammo Digital Diagnostic w Justin Right (03/26/2024 10:45 AM EST) Anatomical Region Laterality Modality Breast Right Mammography 03/26/2024 12:3 9 PM EST Impressions 03/26/2024 12:45 PM EST Suspicious focal opacity in the retroareolar right breast. ??Ultrasound-guided core biopsy with clip placement is recommended. ??Findings and recommendations were conveyed to the patient. ??Appointment is scheduled. ?? BI-RADS CATEGORY: 4 - SUSPICIOUS RECOMMENDATION: Core biopsy of right breast recommended. Core biopsy of right breast recommended. Mammo Location: [facility], [address] [place] [address], [phone], . -------- FINAL REPORT -------- Dictated By: Zenaida Moreno Dictated Date: 03/26/2024 12:39 ET Assigned Physician: Zenaida Moreno Reviewed and Electronically Signed By: Zneaida Moreno Signed Date: 03/26/2024 12:45 ET Workstation ID: [id number] Transcribed By: Self Edit Transcribed Date: 03/26/2024 12:39 ET Narrative 03/26/2024 12:45 PM EST Diagnostic mammogram of the right breast. ??Targeted right breast ultrasound. CLINICAL: 73 years old, Female, focal asymmetry in the right breast on screening mammogram. COMPARISON: Screening mammogram from 01/30/2024. ?? FINDINGS: MAMMOGRAPHY TECHNIQUE: Spot compression views of the right breast in the CC and MLO projection as well as full field straight lateral view were obtained digitally with 3-D mammogram (digital breast tomosynthesis). ?? Tiny focal asymmetry in the retroareolar right breast was confirmed on the additional views. ??No other suspicious abnormalities were identified. BREAST DENSITY: B - There are scattered areas of fibroglandular density. ULTRASOUND TECHNIQUE: Targeted ultrasound of the retroareolar right breast was performed. ??There is a tiny irregular shaped hypoechoic nodule slightly taller than wider at 6 o'clock axis measuring 0.4 x 0.4 x 0.3 cm. ??This lesion is ??indeterminate and suspicious . ??It may or may not correspond to mammographic asymmetry. No other cystic or solid masses or acoustic shadowing identified. Ultrasonographic guided biopsy of this tiny lesion with clip placement is recommended. Procedure Note Zenaida Moreno MD - 03/26/2024 Diagnostic mammogram of the right breast. Targeted right breastultrasound. CLINICAL: 73 years old, Female, focal asymmetry in the right breast onscreening mammogram. COMPARISON: Screening mammogram from 01/30/2024. FINDINGS: MAMMOGRAPHY TECHNIQUE: Spot compression views of the right breast in the CC and MLOprojection as well as full field straight lateral view were obtaineddigitally with 3-D mammogram (digital breast tomosynthesis). Tiny focal asymmetry in the retroareolar right breast was confirmed on theadditional views. No other suspicious abnormalities were identified. BREAST DENSITY: B - There are scattered areas of fibroglandular density. ULTRASOUND TECHNIQUE: Targeted ultrasound of the retroareolar right breast wasperformed. There is a tiny irregular shaped hypoechoic nodule slightlytaller than wider at 6 o'clock axis measuring 0.4 x 0.4 x 0.3 cm. Thislesion is indeterminate and suspicious . It may or may not correspond tomammographic asymmetry. No other cystic or solid masses or acoustic shadowing identified. Ultrasonographic guided biopsy of this tiny lesion with clip placement isrecommended. IMPRESSION: Suspicious focal opacity in the retroareolar right breast.Ultrasound-guided core biopsy with clip placement is recommended.Findings and recommendations were conveyed to the patient. Appointment isscheduled. BI-RADS CATEGORY: 4 - SUSPICIOUS RECOMMENDATION: Core biopsy of right breast recommended. Core biopsy of right breastrecommended. Mammo Location: [facility], [address] [place] [address], [phone], . -------- FINAL REPORT -------- Dictated By: Zenaida Moreno Dictated Date: 03/26/2024 12:39 ET Assigned Physician: Zenaida Moreno Reviewed and Electronically Signed By: Zenaida Moreno Signed Date: 03/26/2024 12:45 ET Workstation ID: [id number] Transcribed By: Self Edit Transcribed Date: 03/26/2024 12:39 ET Jocy Malave MD IMG BI PROCEDURES Final Result * (ABNORMAL) MG Mammo Digital Screening w [...] recommended for the Right Breast. Mammo Location: [facility], [address] [place] [address], [id number], . -------- FINAL REPORT -------- Dictated By: Brenda Puga Dictated Date: 01/30/2024 11:41 ET Assigned Physician: Brenda Puga Reviewed and Electronically Signed By: Brenda Puga Signed Date: 01/30/2024 11:48 ET Workstation ID: [id number] Transcribed By: Self Edit Transcribed Date: 01/30/2024 [...] is recommended forthe Right Breast. Mammo Location: [facility], [address] [place] [address], [id number], . -------- FINAL REPORT -------- Dictated By: Brenda Puga Dictated Date: 01/30/2024 11:41 ET Assigned Physician: Brenda Puga Reviewed and Electronically Signed By: Brenda Puga Signed Date: 01/30/2024 11:48 ET Workstation ID: [id number] Transcribed By: Self Edit Transcribed Date: 01/30/2024 11:41 ET us Jayce Cooley MD IMG BI PROCEDURES Final Res ult * CT Chest wo Contrast (01/26/2024 11:02 [...] Signed Date: 01/26/2024 15:02 ET Workstation ID: [id number] Transcribed By: Self Edit Transcribed Date: 01/26/2024 [...] Signed Date: 01/26/2024 15:02 ET Workstation ID: [id number] Transcribed By: Self Edit Transcribed Date: 01/26/2024 14:59 ET James Liang MD IMG CT PROCEDURES Final Result * Annual BMP Blood Test (06/11/2021) Annual BMP Blood Test abstracted Historical Provider HEALTH MAINTENANCE Final Result * DXA BONE DENISTY STUDY VERTEBRAL FRACTURE, INCLUDING [...] compression fractures seen on lateral spine. [facility] Department of Internal Medicine recommends using [...] Nocompression fractures seen on lateral spine. [facility] Department of Internal Medicine recommendsusing National [...] risk by FRAX. Troy Del Cid MD [facility] PROCEDURES Final Result from Last 3 Months or Most Recently Relevant to Health Maintenance Insurance MEDICARE [facility] Care Teams Director Radio News Relationship Specialty Start Date End Date Jayce Cooley MD [address] [place] [address] Dr Yony [place] PCP - General 12/20/23
--- OUTSIDE RECORDS SUMMARY | 2024-04-15 11:44 | XMS_ITS | Encounter Summary ---
Author Organization [employer] Address [address] [place] [address] Care Team Providers Care Crocodile Farmer Name Role Phone Jayce Cooley MD Primary Care Provider Reason for Visit * Reason Onset Date Comments Appointment 04/05/2024 Encounter Details Date Type Department Care Team (Late st Contact Info) Description 04/05/2024 [facility]phone [facility] [place] [address] [place] [address] Huong Bai, RN Appointment Social History Tobacco Use Types Packs/Day Years [...] AM EST documented as of this encounter Progress Notes * Huong Bai RN - 04/05/2024 9:24 AM EST Called pt and left message to schedule an appointment with one of our providers. Left phone number for return call documented in this encounter Plan of Treatment Upcoming Encounters Date Type Department Care Team (Latest Contact Info) Description 05/09/2024 7:30 AM EDT Hospital Encounter [facility] Main OR [address] [place] [phone] Jocy Garcia MD [address] [address] 05/09/2024 7:30 AM EDT - 05/09/2024 9:00 AM EDT Surgery [facility] Main OR [address] [place] [phone] Jocy Garcia MD [address] [address] LUMPECTOMY with mag seed [94839 (CPT??) +1 more] 05/29/2024 11:00 AM EDT Office Visit [facility] Hematology Oncology [address] [place] [phone] Giovanny Blanco MD [address] [place] [phone] 02/05/2025 9:45 AM EST Office Visit Pulmonolgy - [address] [phone] Estela Kyle MD [address] [address] Scheduled Procedures Name Priority Associated Diagnoses Date/Ti me LUMPECTOMY Malignant neoplasm of right breast in female, estrogen receptor positive, unspecified site of breast (CMS/HCC) 05/09/2024 7:30 AM EDT documented as of this encounter Visit Diagnoses Not on filedocumented in this encounter Care Teams Crocodile Farmer Relationship Specialty Start Date End Date Jayce Cooley MD [address] [place] [address] Dr Carias [facility] LIN Vasquez PCP - General 12/20/23 documented as of this encounter
--- OUTSIDE RECORDS SUMMARY | 2024-04-15 11:44 | XMS_ITS | Encounter Summary ---
[facility] Organization [facility] Address [address] [place] [address] Care Team Providers Care Sponge Diver Name Role Phone Jayce Cooley MD Primary Care Provider [phone] Reason for Referral * Imaging (Routine) - Closed Specialty Diagnoses / Procedures Referred By Chantel jennings Referred To Contact Radiology Diagnoses Abnormal mammogram Procedures US Breast Limited Right US Breast Limited Right Jocy Malave MD Phone: tel: fax: [facility] Referral ID Status Reason Start Date Expiration Date Visits Re quested Visits Authorized [id number] Closed 03/15/2024 03/15/2025 1 1 Reason for Visit * Imaging (Routine) - Closed Specialty Diagnoses / Procedures Referred By Chantel jennings Referred To Contact Radiology Diagnoses Abnormal mammogram Procedures US Breast Limited Right US Breast Limited Right Jocy Malave MD Phone: tel: fax: [facility] Referral ID Status Reason Start Date Expiration Date Visits Re quested Visits Authorized [id number] Closed 03/15/2024 03/15/2025 1 1 Encounter Details Date Type Department Care Team (Latest Contact Info) Description 03/26/2024 10:41 AM EST - 03/26/2024 11:59 PM EST Hospital Encounter Radiology Department - [address] [phone] Abnormal mammogram Discharge Disposition: Home or Self Care Social [...] Description 05/09/2024 7:30 AM EDT Hospital Encounter [facility] Main OR [address] [place] [phone] Jocy Garcia MD [address] [address] 05/09/2024 7:30 AM EDT - 05/09/2024 9:00 AM EDT Surgery [facility] Main OR [address] [place] [phone] Jocy Garcia MD [address] [address] LUMPECTOMY with mag seed [56480 (CPT??) +1 more] 05/29/2024 11:00 AM EDT Office Visit [facility] Hematology Oncology [address] [place] [phone] Giovanny Blanco MD [address] [place] [phone] 02/05/2025 9:45 AM EST Office Visit Pulmonol - [place] [address] [phone] Estela Kyle MD [address] [address] Scheduled Procedures Name Priority Associated Diagnoses Date/Ti me LUMPECTOMY Malignant neoplasm of right breast in female, estrogen receptor positive, unspecified site of breast ([facility]/HCC) 05/09/2024 7:30 AM EDT documented as of this encounter Procedures Procedure Name Priority Date/Time Associated Diagnosis Comments US BREAST LIMITED RIGHT Routine 03/26/2024 11:16 AM EST Abnormal mammogram documented in this encounter Results * (ABNORMAL) US Breast Limited Right (03/26/2024 [...] biopsy of right breast recommended. Mammo Location: [facility], [address] [place] [address], [address], . -------- FINAL REPORT -------- Dictated By: Zenaida Moreno Dictated Date: 03/26/2024 12:39 ET Assigned Physician: Zenaida Moreno Reviewed and Electronically Signed By: Zenaida Moreno Signed Date: 03/26/2024 12:45 ET Workstation ID: [id number] Transcribed By: Self Edit Transcribed Date: 03/26/2024 [...] Core biopsy of right breastrecommended. Mammo Location: [facility], [address] [place] [address], [address], . -------- FINAL REPORT -------- Dictated By: Zenaida Moreno Dictated Date: 03/26/2024 12:39 ET Assigned Physician: Zenaida Moreno Reviewed and Electronically Signed By: Zenaida Moreno Signed Date: 03/26/2024 12:45 ET Workstation ID: [id number] Transcribed By: Self Edit Transcribed Date: 03/26/2024 12:39 ET us Jocy Malave MD IMG US PROCEDURES Final Result documented in this encounter Visit Diagnoses Diagnosis Abnormal mammogram Abnormal mammogram, unspecified Malignant neoplasm of right breast in female, estrogen receptor positive, unspecified site of breast ([facility]) documented in this encounter Care Teams Sponge Diver Relationship Specialty Start Date End Date Jayce Cooley MD [address] Yony [place] PCP - General 12/20/23 documented as of this encounter
--- OUTSIDE RECORDS SUMMARY | 2024-04-15 11:44 | XMS_ITS | Encounter Summary ---
Author Organization [facility] Address [address] [place] [address] Care Team Providers Care Form Builder Name Role Phone Jayce Cooley MD Primary Care Provider [phone]- [phone] Reason for Visit * Imaging (Routine) - Closed Specialty Diagnoses / Procedures Referred By Chantel jennings Referred To Contact Radiology Diagnoses Abnormal mammogram Procedures MG Mammo Digital Diagnostic w Justin Right MG Mammo Diagnostic Addl Views Right MG Mammo Diagnostic Addl Views Right Jocy Malave MD [address] [place] [address] [address] [place] [address] Phone: tel: fax: [facility] Referral ID Status Reason Start Date Expiration Date Visits Re quested Visits Authorized [id number] Closed 03/15/2024 03/15/2025 1 1 Encounter Details Date Type Department Care Team (Latest Contact Info) Description 03/26/2024 10:40 AM EST - 03/26/2024 11:59 PM EST Hospital Encounter Radiology Department - [address] [address] Abnormal mammogram Discharge Disposition: Home or Self [...] Description 05/09/2024 7:30 AM EDT Hospital Encounter [facility] Main OR [address] [place] [phone] Jocy Garcia MD [address] [address] 05/09/2024 7:30 AM EDT - 05/09/2024 9:00 AM EDT Surgery [facility] Main OR [address] [place] [phone] Jocy Garcia MD 175 [facility] [address] [place] [address] LUMPECTOMY with mag seed [94924 (CPT??) +1 more] 05/29/2024 11:00 AM EDT Office Visit [facility] Hematology Oncology [address] [place] [phone] Giovanny Blanco MD [address] [place] [phone] 02/05/2025 9:45 AM EST Office Visit Pulmonolgy - [place] [address] [facility] [address] [place] [phone] Estela Kyle MD 175 [facility] [address] [place] [address] Scheduled Procedures Name Priority Associated Diagnoses Date/Ti me LUMPECTOMY Malignant neoplasm of right breast in female, estrogen receptor positive, unspecified site of breast ([facility]) 05/09/2024 7:30 AM EDT documented as of this encounter Procedures Procedure Name Priority Date/Time Associated Diagnosis Comments MG MAMMO DIGITAL DIAGNOSTIC W JUSTIN RIGHT Routine 03/26/2024 10:45 AM EST Abnormal mammogram documented in this encounter Results * (ABNORMAL) MG Mammo Digital Diagnostic w [...] biopsy of right breast recommended. Mammo Location: [facility], [address] [place] [address], [address], . -------- FINAL REPORT -------- Dictated By: Zenaida Moreno Dictated Date: 03/26/2024 12:39 ET Assigned Physician: Zenaida Moreno Reviewed and Electronically Signed By: Zenadia Moreno Signed Date: 03/26/2024 12:45 ET Workstation ID: [id number] Transcribed By: Self Edit Transcribed Date: 03/26/2024 [...] Core biopsy of right breastrecommended. Mammo Location: [facility], [address] [place] [address], [address], . -------- FINAL REPORT -------- Dictated By: Zenaida Moreno Dictated Date: 03/26/2024 12:39 ET Assigned Physician: Zenaida Moreno Reviewed and Electronically Signed By: Zenaida Moreno Signed Date: 03/26/2024 12:45 ET Workstation ID: [id number] Transcribed By: Self Edit Transcribed Date: 03/26/2024 12:39 ET us Jocy Malave MD IMG BI PROCEDURES Final Result documented in this encounter Visit Diagnoses Diagnosis Abnormal mammogram Abnormal mammogram, unspecified Malignant neoplasm of right breast in female, estrogen receptor positive, unspecified site of breast (CMS/HCC) documented in this encounter Care Teams Form Builder Relationship Specialty Start Date End Date Jayce Cooley MD [address] [place] [address] Dr Bhakta, [place] PCP - General 12/20/23 documented as of this encounter
--- OUTSIDE RECORDS SUMMARY | 2024-04-15 11:45 | XMS_ITS | Encounter Summary ---
Author Organization [facility] Address [address] [place] [address] Care Team Providers Care Dipping Machine Operator Name Role Phone Jayce Cooley MD Primary Care Provider [phone]- [phone] Reason for Referral * Imaging (Routine) - Closed Specialty Diagnoses / Procedures Referred By Chantel jennings Referred To Contact Radiology Diagnoses Abnormal mammogram Procedures US Bx Breast Perc 1st Lesion Right Jocy Malave MD [address] [address] Phone: tel: fax: [facility] Referral ID Status Reason Start Date Expiration Date Visits Re quested Visits Authorized [id number] Closed 03/26/2024 03/26/2025 1 1 Reason for Visit * Imaging (Routine) - Closed Specialty Diagnoses / Procedures Referred By Chantel jennings Referred To Contact Radiology Diagnoses Abnormal mammogram Procedures US Bx Breast Perc 1st Lesion Right Jocy Malave MD [address] [address] Phone: tel: fax: [facility] Referral ID Status Reason Start Date Expiration Date Visits Re quested Visits Authorized [id number] Closed 03/26/2024 03/26/2025 1 1 Encounter Details Date Type Department Care Team (Latest Contact Info) Description 03/27/2024 12:32 PM EST - 03/27/2024 11:59 PM EST Hospital Encounter Radiology Department - [address] [phone] Abnormal mammogram Discharge Disposition: Home or Self [...] Description 05/09/2024 7:30 AM EDT Hospital Encounter [facility] Main OR [address] [place] [phone] Jocy Garcia MD [address] [address] 05/09/2024 7:30 AM EDT - 05/09/2024 9:00 AM EDT Surgery [address] [phone] Jocy Garcia MD [address] [address] LUMPECTOMY with mag seed [70923 (CPT??) +1 more] 05/29/2024 11:00 AM EDT Office Visit [facility] Hematology Oncology [address] [place] [phone] Giovanny Blanco MD [address] [place] [phone] 02/05/2025 9:45 AM EST Office Visit Pulmonolgy - [place] [address] [phone] Estela Kyle MD [address] [address] Scheduled Procedures Name Priority Associated Diagnoses Date/Ti me LUMPECTOMY Malignant neoplasm of right breast in female, estrogen receptor positive, unspecified site of breast ([facility]/HCC) 05/09/2024 7:30 AM EDT documented as of this encounter Procedures Procedure Name Priority Date/Time Associated Diagnosis Comments US BX BREAST PERC 1ST LESION RIGHT Routine 03/27/2024 1:19 PM EST Abnormal mammogram documented in this encounter Results * US Bx Breast Perc 1st Lesion [...] patient will be contacted by the radiology supervisor roving department to schedule the stereotactic core biopsy procedure. ??Findings and recommendations were discussed with the patient in person. RECOMMENDATION: Core biopsy of right breast recommended. -------- FINAL REPORT -------- Dictated By: Brenda Puga Dictated Date: 03/27/2024 13:35 ET Assigned Physician: Brenda Puga Reviewed and Electronically Signed By: Brenda Puga Signed Date: 03/27/2024 13:41 ET Workstation ID: [id number] Transcribed By: Self Edit Transcribed Date: 03/27/2024 [...] Signed Date: 03/27/2024 13:41 ET Workstation ID: [id number] Transcribed By: Self Edit Transcribed Date: 03/27/2024 13:35 ET us Jocy Malave MD IMG US PROCEDURES Final Result documented in this encounter Visit Diagnoses Diagnosis Abnormal mammogram Abnormal mammogram, unspecified Malignant neoplasm of right breast in female, estrogen receptor positive, unspecified site of breast ([facility]/HCC) documented in this encounter Care Teams Dipping Machine Operator Relationship Specialty Start Date End Date Jayce Cooley MD [address] [place] [address] Dr Yony [place] PCP - General 12/20/23 documented as of this encounter
--- OUTSIDE RECORDS SUMMARY | 2024-04-15 11:45 | XMS_ITS | Encounter Summary ---
Author Organization [facility] Address [address] [place] [address] Care Team Providers Care Rail Operator Name Role Phone Jayce Cooley MD Primary Care Provider [phone] Reason for Referral * Imaging (Routine) - Closed Specialty Diagnoses / Procedures Referred By Chantel jennings Referred To Contact Radiology Diagnoses Abnormal mammogram Procedures MG Stereo Bx Breast Perc 1st Lesion Right Jocy Malave MD [address] [place] [address] Phone: tel: fax: [facility] Referral ID Status Reason Start Date Expiration Date Visits Re quested Visits Authorized [id number] Closed 04/01/2024 04/01/2025 1 1 Reason for Visit * Imaging (Routine) - Closed Specialty Diagnoses / Procedures Referred By Chantel jennings Referred To Contact Radiology Diagnoses Abnormal mammogram Procedures MG Stereo Bx Breast Perc 1st Lesion Right Jocy Malave MD [address] [place] [address] Phone: tel: fax: [facility] Referral ID Status Reason Start Date Expiration Date Visits Re quested Visits Authorized [id number] Closed 04/01/2024 04/01/2025 1 1 Encounter Details Date Type Department Care Team (Latest Contact Info) Description 04/02/2024 12:39 PM EST - 04/02/2024 11:59 PM EST Hospital Encounter Radiology Department - [address] [phone] Abnormal mammogram Discharge Disposition: Home or Self [...] Description 05/09/2024 7:30 AM EDT Hospital Encounter [facility] Main OR [address] [place] [phone] Jocy Garcia MD [address] [address] 05/09/2024 7:30 AM EDT - 05/09/2024 9:00 AM EDT Surgery [address] [phone] Jocy Garcia MD [address] [address] LUMPECTOMY with mag seed [698[address] (CPT??) +1 more] 05/29/2024 11:00 AM EDT Office Visit [facility] Hematology Oncology [address] [place] [phone] Giovanny Blanco MD [address] [place] [phone] 02/05/2025 9:45 AM EST Office Visit Pulmonolgy - [place] [address] [phone] Estela Kyle MD [address] [address] Scheduled Procedures Name Priority Associated Diagnoses Date/Ti me LUMPECTOMY Malignant neoplasm of right breast in female, estrogen receptor positive, unspecified site of breast ([facility]/HCC) 05/09/2024 7:30 AM EDT documented as of this encounter Procedures Procedure Name Priority Date/Time Associated Diagnosis Comments TISSUE EXAM Routine 04/02/2024 3:19 PM EST Abnormal mammogram MG STEREO BX BREAST PERC 1ST LESION RIGHT Routine 04/02/2024 3:11 PM EST Abnormal mammogram documented in this encounter Results * Tissue exam (04/02/2024 3:19 PM [...] positive=1-10% positive nuclei, Positive >10% positive nuclei NJ: Staining evaluation NJ: Positive= >1% positive nuclei. HER2: Staining evaluation [...] tests In Vitro Diagnostic: ER clone SP1 Ace Metrix, [place] clone 16 Leica Analyte specific reagents: HER2 clone EP3 Biocare 10:37 AM [facility] Addendum electronically signed by Severo Zarco MD on 04/05/2024 at 10:37 AM Final Diagnosis Right breast asymmetry, stereotactic core biopsy (top hat clip): - Invasive ductal carcinoma, Kearney grade 1 (tubule formation score 1, nuclear [...] will be issued in an addendum report. 10:37 AM [facility] Comment Secondary review for new malignancy performed by Dr. Madison with agreement. Severo Zarco MD notified Dr. Chana Minor 04/04/24 of the diagnosis of invasive carcinoma at 9:36 a.m. via secure text. 10:37 AM [facility] Clinical Information Suspicious opacity retroareolar Clip: Top Hat Lot # [id number] 10:37 AM [facility] Gross Description A. Breast, Right, [...] 72 hours): 30 hours MOIRA 10:37 AM EST [facility] Disclaimer NOTE: The immunohistochemical tests and in situ hybridization tests were developed and their performance characteristics were determined by [facility]. They have not [...] formalin fixed and paraffin embedded. 10:37 AM EST [facility] Tissue Right breast structure / Unknown 04/02/2024 3:19 PM EST 04/03/2024 3:55 PM EST Comment:Clip: Top Hat Lot # [id number] Chana Minor MD LAB PATHOLOGY ORDERABLES Edit ed Result - Final [facility] [address] [place] [address], * MG Stereo Bx Breast Perc 1st [...] Message then sent to nurse navigator at [facility] Ms. Bai with confirmation at 2:29pm. RECOMMENDATION: Surgical consultation/management recommended for the right breast. -------- ADDENDUM -------- Dictated By: Chana Minor Dictated Date: 04/05/2024 07:50 ET Assigned Physician: Chana Minor Reviewed and Electronically Signed By: Chana Minor Signed Date: 04/05/2024 07:58 ET Workstation ID: [id number] Transcribed By: Self Edit Transcribed Date: 04/05/2024 [...] Signed Date: 04/02/2024 17:48 ET Workstation ID: [id number] Transcribed By: Self Edit Transcribed Date: 04/02/2024 [...] positioned in the Affirm upright biopsy system (FRAMED) and images of the focal asymmetry in the upper slightly inner quadrant at about 7 cm from the nipple were obtained. The breast was prepped for the procedure and the area was anesthetized with a local anesthetic 20 cc of lidocaine 1% buffered with Sodium Bicarbonate 4.2% (9cc: 1cc) superficially and deeper. ??Using a Luristicvera Biopsy System with Brevera 9G standard needle probe, one pass was made through the area from superior approach, and 8 specimens were obtained. A FRAMED SecurMark for Eviva Top Hat shape titanium ([id number]) micromarker was placed at the site of [...] was positioned in the Affirm upright biopsysystem (FRAMED) and images of the focal asymmetry in the upper slightlyinner quadrant at about 7 cm from the nipple were obtained. The breast wasprepped for the procedure and the area was anesthetized with a localanesthetic 20 cc of lidocaine 1% buffered with Sodium Bicarbonate 4.2%(9cc: 1cc) superficially and deeper. Using a FRAMED Brevera BiopsySystem with Brevera 9G standard needle probe, one pass was made throughthe area from superior approach, and 8 specimens were obtained. A FRAMEDSecurMark for Eviva Top Hat shape titanium ([id number]) micromarkerwas placed at the site of the [...] Signed Date: 04/02/2024 17:48 ET Workstation ID: [id number] Transcribed By: Self Edit Transcribed Date: 04/02/2024 17:31 ET Jocy Malave MD IMG BI PROCEDURES Edited Resul t - Final documented in this encounter Visit Diagnoses Diagnosis Abnormal mammogram Abnormal mammogram, unspecified Malignant neoplasm of right breast in female, estrogen receptor positive, unspecified site of breast ([facility]/HCC) documented in this encounter Care Teams Rail Operator Relationship Specialty Start Date End Date Jayce Cooley MD [address] [place] [address] Dr Yony [place] PCP - General 12/20/23 documented as of this encounter
--- OUTSIDE RECORDS SUMMARY | 2024-04-15 11:45 | XMS_ITS | Data Portability ---
Author Organization [place] [facility] [place] Address [address] [place] [address] Care Team Providers Care Sink Maker Name Role Phone JEFFREY KUMARI Primary Care Provider [phone] Assessment Encounter Date Assessment Date Assessment LastModified by Organization Details LastModified Time 09/07/2022 09/07/2022 HPI : Patient is here for left knee pain. She is over 1 year from a hip replacement with me. I actually saw her last week. She then had a fall on Monday. This resulted in a direct hit to the left knee. She went to the [facility] emergency department. CT scan and x-rays demonstrated a nondisplaced comminuted patella fracture. She was placed in a knee immobilizer. She has been using the knee immobilizer and a walker. Physical Exam : Patient is well nourished, well- developed, in no acute distress, with appropriate mood and affect. The patient is AAOx3. The knee immobilizer removed. She has superficial scraping along the patella. She is able to straight leg raise. She has tenderness along the patella. I reviewed the CT scan and x-rays of the left knee from [facility] from September 06. It showed a comminuted fracture of the patella, nondisplaced. Assessment/Plan : Patient has a comminuted nondisplaced fracture of the patella. This should heal non-operatively in a knee immobilizer. I recommend she continues the knee immobilizer she can weight-bear as tolerated. Knee immobilizer at all times. She will follow-up in 3 weeks with repeat x-rays of the left knee at that time AP and lateral. If she is healing well she can be switched to a hinged knee brace. [email or web address] Not available 09/07/2022 14:14:56 09/29/2022 09/29/2022 72-year-old female following up on a left comminuted fracture of the patella which appears to be stable however she still has tenderness. We will place her in a new knee immobilizer since her initial 1 from the ER was well-fitting. This was appropriately placed by her DME staff for which she noted significant improvement. She can weight-bear as tolerated. Regard to her right knee she has notable pes anserine bursitis clinical findings. I did discuss treatment options for which she opted for a cortisone injection. After verbal consent was granted by the patient. Procedure was carried out which she tolerated the procedure well with complete resolution of discomfort. Aftercare instructions were discussed in detail. I would like to reevaluate her in the next 2 weeks with radiograph if she improves regarding her tenderness we will place her in a double hinged knee brace. Patient agrees with above-noted plan. Indirect care and treatment in conjunction with Dr. Cisneros Additional treatment plan discussed with the patient in detail included the following; - Provider focused nonsteroidal anti-inflammatory regimen (discussed were the pros, cons, benefits and risks as well as any black box warnings) in patients over 60 years old they should be very cautious in taking these medications due to potential decreased kidney function and or elevated blood pressure. - Analgesic pain medication for pain suppression (discussed were the pros, cons, benefits and risks as well as any black box warnings) - The use of topical pain relieving medication were discussed - The use of ice to decrease inflammation and pain - The use of assistive ambulatory devices for ambulation and fall prevention - Formal specific guided physical therapy program I reviewed my findings at length with the patient today. ? ? ?We discussed the nature and etiology of this problem along with current treatment options. We discussed the expected course and outcomes and what to expect. We also discussed risks and benefits. ? ? ? All of their questions were answered today, and there was exhibited understanding and comprehension of all that was discussed. Time Spent: 10 minutes were spent reviewing previous imaging and charting. ? ? ?10 minutes were spent obtaining patient history. ? ? ?5 minutes were spent on physical exam. ? ? ?5? ? ?minutes were spent explaining diagnosis and assessment. Today's documentation was made using voice recognition software. This note may contain grammatical errors secondary to the software. Not available 09/29/2022 12:52:29 10/19/2022 10/19/2022 72-year-old female following up on a left comminuted fracture of the patella which occurred September 06 which appears to be stable. She has been wearing her knee immobilizer however she has now discontinued using ancillary assistive walking devices. She states marked improvement. She appears to have minimal discomfort. We will transition her over from a knee immobilizer to a double hinged knee brace. I would like to see her back 1 more time before discontinuing her double hinged knee brace. I did review her radiographs with her in detail and she agrees with the above-noted plan. Regarding her right pes anserine bursitis she had a cortisone injection at her last visit on 09/29/2022 and notes complete resolution of symptoms. Plan was discussed with her and her spouse present at today's visit. They both agree. Indirect care and treatment in conjunction with Dr. Cisneros Additional treatment plan discussed with the patient in detail included the following; - Provider focused nonsteroidal anti-inflammatory regimen (discussed were the pros, cons, benefits and risks as well as any black box warnings) in patients over 60 years old they should be very cautious in taking these medications due to potential decreased kidney function and or elevated blood pressure. - Analgesic pain medication for pain suppression (discussed were the pros, cons, benefits and risks as well as any black box warnings) - The use of topical pain relieving medication were discussed - The use of ice to decrease inflammation and pain - The use of assistive ambulatory devices for ambulation and fall prevention - Formal specific guided physical therapy program I reviewed my findings at length with the patient today. ? ? ?We discussed the nature and etiology of this problem along with current treatment options. We discussed the expected course and outcomes and what to expect. We also discussed risks and benefits. ? ? ? All of their questions were answered today, and there was exhibited understanding and comprehension of all that was discussed. Time Spent: 10 minutes were spent reviewing previous imaging and charting. ? ? ?10 minutes were spent obtaining patient history. ? ? ?5 minutes were spent on physical exam. ? ? ?5? ? ?minutes were spent explaining diagnosis and assessment. Today's documentation was made using voice recognition software. This note may contain grammatical errors secondary to the software. Not available 10/20/2022 07:20:27 11/02/2022 11/02/2022 Pleasant 72-year-old female left knee patella fracture with routine healing. She has notable improvement she has been weightbearing full without assistance well at home however she feels paranoid out in public . She does utilize a cane for this. She would like to start physical therapy which is reasonable at this point. She will begin 2 times a week x6 weeks with follow-up shortly thereafter. If she has any questions or concerns she should contact my office. Did explain to the patient that she is at high risk for refracture if she falls directly on the knee. She agrees to the above-noted plan. Indirect care and treatment in conjunction with Dr. Cisneros Additional treatment plan discussed with the patient (only initiated if in boldface font) otherwise not applicable. Treatment may include the following; - Provider focused nonsteroidal anti-inflammatory regimen (discussed were the pros, cons, benefits and risks as well as any black box warnings) in patients over 60 years old they should be very cautious in taking these medications due to potential decreased kidney function and or elevated blood pressure. - Analgesic pain medication for pain suppression (discussed were the pros, cons, benefits and risks as well as any black box warnings) - The use of topical pain relieving medication were discussed - The use of ice to decrease inflammation and pain - The use of assistive ambulatory devices for ambulation and fall prevention - Formal specific guided physical therapy program I reviewed my findings at length with the patient today. ? ? ?We discussed the nature and etiology of this problem along with current treatment options. We discussed the expected course and outcomes and what to expect. We also discussed risks and benefits. ? ? ? All of their questions were answered today, and there was exhibited understanding and comprehension of all that was discussed. Time Spent: 10 minutes were spent reviewing previous imaging and charting. ? ? ?10 minutes were spent obtaining patient history. ? ? ?5 minutes were spent on physical exam. ? ? ?5? ? ?minutes were spent explaining diagnosis and assessment. Today's documentation was made using voice recognition software. This note may contain grammatical errors secondary to the software. Not available 11/03/2022 07:45:31 02/02/2023 02/02/2023 Pleasant 72-year-old female here for follow-up with history of conservatively for a left vertical patellar fracture that occurred back in August 2022. She went through formal physical therapy she has no lasting effects. Her radiographs do not reveal any lasting lucency susceptible for fracture. She can follow-up as needed. She agrees with this plan. Patient was seen and evaluated by Marcy Hill PA-C in indirect conjuction with Documenting Provider: Miquel Cisneros MD . He/She agrees with history, physical examination, tests/diagnostic imaging, and treatment plan. Additional treatment plan discussed with the patient (only initiated if in boldface font) otherwise not applicable. Treatment may include the following; - Provider focused nonsteroidal anti-inflammatory regimen (discussed were the pros, cons, benefits and risks as well as any black box warnings) in patients over 60 years old they should be very cautious in taking these medications due to potential decreased kidney function and or elevated blood pressure. - Analgesic pain medication for pain suppression (discussed were the pros, cons, benefits and risks as well as any black box warnings) - The use of topical pain relieving medication were discussed - The use of ice to decrease inflammation and pain - The use of assistive ambulatory devices for ambulation and fall prevention - Formal specific guided physical therapy program I reviewed my findings at length with the patient today. ? ? ?We discussed the nature and etiology of this problem along with current treatment options. We discussed the expected course and outcomes and what to expect. We also discussed risks and benefits. ? ? ? All of their questions were answered today, and there was exhibited understanding and comprehension of all that was discussed. Time Spent: 10 minutes were spent reviewing previous imaging and charting. ? ? ?10 minutes were spent obtaining patient history. ? ? ?5 minutes were spent on physical exam. ? ? ?5? ? ?minutes were spent explaining diagnosis and assessment. Today's documentation was made using voice recognition software. This note may contain grammatical errors secondary to the software. Not available 02/02/2023 11:12:00 Plan of Treatment Reminders Order Date Submit Date Provider Last Modified By Organization Details Last Modified Time Details Appointments None recorded. Lab None recorded. Referral physical therapist referral - Conservativ e treated left patellar fracture with routine healing posttreatme nt 8 weeks out eval and treat 2022 023 [email or web address] 2 Not available 3 08:02:09 Procedures None recorded. Surgeries None recorded. Imaging XR, knee, 3 view 2022 023 [email or web address] 2 [facility], [address], [place], [address], 3 11:06:29 XR, knee, 3 view 2022 023 [facility], [address], [place], [address], 3 10:56:36 XR, knee, 3 view 2022 023 [facility], [address], [place], [address], 3 11:29:20 XR, knee, 1 or 2 view 2022 023 [facility], [address], [place], [address], 3 13:03:35 XR, knee, 1 or 2 view 2022 023 [facility], [address], [place], [address], 3 13:03:35 Medication Orders Kenalog 40 mg/mL suspension for injection [address]/Pharmacy #[id number], [address] [place], [address], 3 10:53:49 lidocaine (PF) 10 mg/mL (1 %) injection solution 2022 023 [id number], [address] [place], [address], 3 10:53:53 Patient TargetsNo targets recorded. Patient Instructions Encounter Date Encounter Id Patient Instructions Last Modified By Organization Details Last Modified Time 09/29/2022 [id number] X-rays Which include AP, right and left lateral view reveal well-maintained joint space on AP view Left knee with subtle lucency that is transverse within the patella without any notable separation. With degenerative change Right knee patellofemoral view lateral no acute bony abnormality no obvious fracture degenerative changes are noted. Not available 09/29/2022 12:49:51 10/19/2022 [id number] X-rays Which include AP, right and left lateral view reveal well-maintained joint space on AP view Left knee with subtle lucency that is transverse within the patella without any notable separation. With degenerative change Right knee patellofemoral view lateral no acute bony abnormality no obvious fracture degenerative changes are noted. Not available 10/20/2022 07:15:52 11/02/2022 [id number] AP and sunrise y ou do not reveal any acute bony abnormality. Lateral view with also without acute bony abnormality when compared to her prior study which noted a fracture on 09/29/2022. Not available 11/03/2022 07:47:21 02/02/2023 [id number] Three-view x-ray left knee reveals minimal degenerative change throughout the medial, lateral Yash joint as well as patellofemoral joint. No obvious acute bony abnormality. No obvious patellar fracture noted. This was compared to prior study back on 10/19/2022. Not available 02/02/2023 11:12:31 Reason for Referral Physical Therapist Referral for Closed fracture of patella Conservative treated left patellar fracture with routine healing posttreatment 8 weeks out eval and treat Referring Physician: Marcy Hill, Orthopedic Surgery, Encounter Date: 11/02/2022 Problems Name Problem SNOMED Code Status Onset Date Resolution Date Notes Provider Name and Address Organization Details Recorded Time Closed fracture of patella 30061784 Active 2022 Miquel Cisneros MD [address], [place], [address], [place] [facility] 3 14:11:42 Pes anserinus bursitis of right knee 32316297925766 09 Active 2022 MARCY HILL PA-C [address] [address], [place], [address], [place] [facility] 3 12:52:39 Problem Notes None recorded. Procedures Surgical History Date Name Laterality Status Provider Name and Address Organization Details Recorded Time 3 Knee Joint/Bursa Asp & Inj completed MARCY HILL PA-C [address] [facility], [place], [address], [place] [facility] 09/29/2022 12:51:14 Hip Surgery completed Karson Luz [place] - [facility] 08/26/2022 13:56:15 procedure on lung completed Karson Luz [facility] - [facility] 08/26/2022 13:56:22 Imaging Results None recorded. Procedure Notes None recorded. Medical Equipment None Reported. Allergies No known drug allergies Medications Name Sig Start Date Stop Date Status Note LastModified by Organization Details LastModified Time amoxicillin 500 mg capsule TAKE 4 CAPSULES 1 HOUR PRIOR TO APPOINTME NT 02/02 completed Not Available Not Available Not Available latanoprost 0.005 % eye drops INSTILL 1 DROP INTO BOTH EYES AT BEDTIME DIRECTED active Not Available Not Available No t Available prednisone 10 mg tablet PLEASE SEE ATTACHED FOR DETAILED DIRECTION S 02/02 completed Not Available Not Available Not Available atorvastati n 20 mg tablet TAKE 1 TABLET BY MOUTH EVERY DAY active Not Available Not Available No t Available citalopram 40 mg tablet TAKE 1 TABLET BY MOUTH EVERY DAY active Not Available Not Available No t Available pravastatin 40 mg tablet TAKE 1 TABLET BY MOUTH EVERY DAY active Not Available Not Available No t Available Alphagan P 0.15 % eye drops INSTILL 1 DROP INTO BOTH EYES TWICE A DAY 02/02 completed Not Available Not Available Not Available amlodipine 5 mg tablet TAKE 1 TABLET BY MOUTH EVERY DAY active Not Available Not Available No t Available acetaminoph en 500 mg tablet TAKE 2 TABLETS BY MOUTH EVERY 6 TO 8 HOURS 02/02 completed Not Available Not Available Not Available acyclovir 800 mg tablet TAKE 1 TABLET BY MOUTH EVERY DAY active Not Available Not Available No t Available Kenalog 40 mg/mL suspension for injection Take 1 mL by injection route. 02/02 completed Not Available Not Available Not Available amlodipine 10 mg tablet TAKE 1 TABLET BY MOUTH EVERY DAY 02/02 completed Not Available Not Available Not Available pantoprazol e 40 mg tablet,blaine yed release TAKE 1 TABLET BY MOUTH EVERY MORNING ON AN EMPTY STOMACH. 30-40 MIN PRIOR TO MEAL 02/02 completed Not Available Not Available Not Available brimonidine 0.2 % eye drops INSTILL 1 DROP INTO BOTH EYES TWICE A DAY active Not Available Not Available No t Available oxycodone 5 mg capsule 02/02 completed Not Available Not Available Not Available azelastine 137 mcg (0.1 %) nasal spray INSTILL 2 SPRAYS IN EACH NOSTRIL TWICE A DAY active Not Available Not Available No t Available albuterol sulfate HFA 90 mcg/actuati on aerosol inhaler INHALE 2 PUFFS 4 TIMES DAILY NEEDED FOR WHEEZING OR SHORTNESS OF BREATH FOR UP TO 30 DAYS active Not Available Not Available No t Available doxycycline hyclate 100 mg tablet TAKE 1 TABLET BY MOUTH TWICE A DAY FOR 10 DAYS 02/02 completed Not Available Not Available Not Available ciclopirox 0.77 % topical cream APPLY TWICE A DAY TO AFFECTED AREAS ON RIGHT FOOT AND BETWEEN TOES FOR4 WEEKS REPEAT IF NEEDED active Not Available Not Available No t Available lidocaine (PF) 10 mg/mL (1 %) injection solution Take 1 mL by injection route. 02/02 completed Not Available Not Available Not Available hydrochloro thiazide 12.5 mg tablet TAKE 1 TABLET BY MOUTH EVERY DAY active Not Available Not Available No t Available Wixela Inhub 500 mcg-50 mcg/dose powder for inhalation TAKE 1 PUFF BY MOUTH TWICE A DAY active Not Available Not Available No t Available Vitals Date Recorded Body height Provider Name an d Address Organization Details Last Updated DateTime 02/02/[address] [place] [facility] 02/02/2023 10:51:18 Date Recorded Body height Provider Name an d Address Organization Details Last Updated DateTime 09/07/[address] [place] [facility] 09/07/2022 13:57:41 Date Recorded Body height Provider Name an d Address Organization Details Last Updated DateTime 10/19/[address] [place] [facility] 10/19/2022 09:21:09 Social History Question Answer Notes LastModified by Organizat ion Details LastModified Time Tobacco Smoking Status Current Every Day Smoker Karson bat[place], [place] [facility], 08/26/2022 13:55:50 What Is Your Level Of Alcohol Consumption? Moderate [email or web address] Information not available 08/26/2022 How Many Times Per Week Do You Consume Alcohol? 5-7 Times Per Week [email or web address] Information not available 08/26/2022 Do You Use Any Illicit Or Recreational Drugs? No Information not available 08/26/2022 How Many Years Have You Smoked Tobacco? 42 [email or web address] Information not available 08/26/2022 Do You Or Have You Ever Used Any Other Forms Of Tobacco Or Nicotine? No [email or web address] Information not available 08/26/2022 Sex: Unknown Functional Status None recorded. Mental Status None recorded. Family History Relationship Description Onset Age of this Age Resolved Age Notes LastModified by Organization Details LastModified Time Father Arthritis [email or web address] Not avai lable 08/26/2022 13:56:48 Father Family history of malignant neoplasm skin [email or web address] Not available 2022 16:34:37 Father Heart disease [email or web address] Not available 08/2022 13:57:13 Father Hyperlipidem ia [email or web address] Not available 08/2022 13:57:22 Brother Arthritis [email or web address] Not bob ilable 08/26/2022 13:56:48 Mother Arthritis [email or web address] Not avai lable 08/26/2022 13:56:48 Mother Diabetes mellitus [email or web address] Not available 08/2022 13:57:05 Medical History Condition Response Cancer Y Osteopenia Y Thyroid Problems Y Hypertension Y COPD Y Gynecological HistoryNo gynecological history recorded. Obstetrics History GPAL:G 0 P 0 0 0 0 Past Encounters Encounter ID Performer Location Encounter Start Date Encounter Closed Date Diagnosis/Indication Diagnosis SNOMED-CT Code Diagnosis ICD10 Code Diagnosis Note [id number] MD YASEMIN Saldañ[place]ny [place] [address] [facility] [address] [facility] [place] [address] 08/26/2022 13:37:29 08/26/2022 14:16:44 History of total replacement of left hip joint 4272270392 135229 Z96.642 Aftercare 713706904 Z47. 1 [id number] MD YASEMIN Saldaña [address] [facility] [place] [address] 09/07/2022 13:32:32 09/07/2022 14:12:33 Closed fracture of patella 34913331 S82.002A [id number] MD YASEMIN Saldaña [facility] [address] [facility] [address] [place] [address] 09/29/2022 10:58:57 09/29/2022 12:52:48 Closed fracture of patella 84862936 S82.002A Pain of ri ght knee joint 0416825983 24443 M25.561 Pes anseri nus bursitis of right knee 0531937599 035923 M70.51 [id number] MD YASEMIN Saldaña [facility] [address] [facility] [address] [place] [address] 10/19/2022 09:01:53 10/19/2022 10:12:12 Closed fracture of patella 58343650 S82.002A [id number] MD YASEMIN Saldaña [facility] [address] [address] 11/02/2022 13:43:30 11/02/2022 14:26:26 Closed fracture of patella 56793684 S82.002A [id number] MD YASEMIN Saldaña [facility] [address] [address] 02/02/2023 10:39:22 02/02/2023 11:06:29 Closed fracture of patella 69089646 S82.002A Follow-up visit [id number] Z09 Health Concerns Section Related Observation LastModified by Organization Detai ls LastModified Time None Recorded Concern Status LastModified by Organization Details LastModified Time None Recorded Advance Directives Directive None Recorded Payers Encounter Date Sequence Insurance Name Policy Number Policy West Covered Member ID West Member ID Guarantor Name 09/07/2022 1 [place] [facility] Katy Rodriguez-Shaheen landeros [id number] Katy Heaton 09/07/2022 2 [place] [id number] Katy Rodriguez Pas[place] [id number] Katy Rodriguez [place] 09/29/2022 1 [place] Katy Corral say [id number] Katy Rodriguez [place] 09/29/2022 2 [place] [id number] Katy Rodriguez Pasay [id number] Katy Rodriguez [place] 10/19/2022 1 [place] Katy Corral say [id number] Katy Rodriguez [place] 10/19/2022 2 [place] [id number] Katy Rodriguez Pas[place] [id number] Katy Rodriguez [place] 11/02/2022 1 [place] Katy Corral say [id number] Katy Rodriguez [place] 11/02/2022 2 [place] [id number] Katy Rodriguez Pas[place] [id number] Katy Rodriguez [place] 02/02/2023 1 [place] Katy Corral say [id number] Katy Rodriguez [place] 02/02/2023 2 [place] [id number] Katy Rodriguez Pas[place] [id number] Katy Rodriguez [place] Notes Date Note Type Note Provider Name and Address Organization Details Recorded Time 09/29/2022 text/html Assessment & PlanHPI:Patient is here for left knee pain. She is over 1 year from a hip replacement with me. I actually saw her last week. She then had a fall on Monday. This resulted in a direct hit to the left knee. She went to the [facility] emergency department. CT scan and x-rays demonstrated a nondisplaced comminuted patella fracture. She was placed in a knee immobilizer. She has been using the knee immobilizer and a walker. Physical Exam:Patient is well nourished, well- developed, in no acute distress, with appropriate mood and affect. The patient is AAOx3. The knee immobilizer removed. She has superficial scraping along the patella. She is able to straight leg raise. She has tenderness along the patella. I reviewed the CT scan and x-rays of the left knee from [facility] from September 06. It showed a comminuted fracture of the patella, nondisplaced. Assessment/Plan:Prabha ent has a comminuted nondisplaced fracture of the patella. This should heal non-operatively in a knee immobilizer. I recommend she continues the knee immobilizer she can weight-bear as tolerated. Knee immobilizer at all times. She will follow-up in 3 weeks with repeat x-rays of the left knee at that time AP and lateral. If she is healing well she can be switched to a hinged knee brace.closed fracture of patella (Left) HPI:Patient accompanied by her at today's visit for reassessment left knee comminuted patella fracture nondisplaced. She states she still has some tenderness she has initial fitting knee immobilizer that was given by the ER. She states she does utilize a walker for ambulation fall prevention. She also complains of right medial infrapatellar knee pain in the region of the proximal tibia. She denies any erythema fevers or chills or warmth. She states she did land on that region as well. X-raysWhich include AP, right and left lateral view reveal well-maintained joint space on AP viewLeft knee with subtle lucency that is transverse within the patella without any notable separation. With degenerative change Right knee patellofemoral view lateral no acute bony abnormality no obvious fracture degenerative changes are noted. MARCY HILL PA-C [address] [place] [address], [place], [phone], [place] - [facility] 09/29/2022 12:54:44 10/19/2022 text/html Pleasant 72-year -old female following up on her left comminuted patellar fracture that occurred mid August of this year. She has been treated conservatively with a knee immobilizer. She states notable improvement no longer using a cane. She does have some discomfort however doing well. She also had a pes anserine bursal injection at her visit on 09/29/2022 with complete resolution of symptoms. Patient has no complaints at this time. She is accompanied by her spouse at today's visit. MARCY HILL PA-C [address] [facility], [place], [address], [place] - [facility] 10/20/2022 07:21:47 11/02/2022 text/html Patient here for follow-up status greater than 8 weeks out from left patellar fracture vertical in nature. Patient states she is doing well she has been discontinuing her knee brace. She still states she is paranoid about not using the cane when out in public however she feels comfortable with this at home . States notable stiffness requesting for formal physical therapy. She states she is weightbearing full without difficulty. MARCY HILL PA-C [address] [facility], [place], [address], [place] - [facility] 11/03/2022 07:47:40 02/02/2023 text/html Assessment & Dhara n: Prior [id number] d female following up on a left comminuted fracture of the patella which occurred September 06 which appears to be stable. She has been wearing her knee immobilizer however she has now discontinued using ancillary assistive walking devices. She states marked improvement. She appears to have minimal discomfort. We will transition her over from a knee immobilizer to a double hinged knee brace. I would like to see her back 1 more time before discontinuing her double hinged knee brace. I did review her radiographs with her in detail and she agrees with the above-noted plan. HPI: Patient doing well back to normal activities no discomfort. MARCY HILL PA-C [address] [facility], [place], [address], [place] - [facility] 02/02/2023 11:13:24 OBGyn Episode No OBEpisode recorded.
[2024-04-15 14:48] LABS: MANUAL DIFF FLAG NO
[2024-04-15 14:52] LABS: Basophils Percent Auto 0.5 % (0-2); Eosinophils Absolute Auto 0.2 X10*3/uL (0.0-0.4); Eosinophils Percent Auto 3.6 % (0-4); Hematocrit 38.6 % (37.0-47.0); Hemoglobin 12.4 g/dl (12.0-16.0); Imm Gran Abs Auto 0.04 X10*3/uL (0.00-0.03); Imm Gran Pct Auto 0.6 % (0.0-0.4); Lymphocytes Absolute Auto 1.2 X10*3/uL (1.2-4.9); Lymphocytes Percent Auto 19.3 % (20-40); Mean Corpuscular HGB Conc 32.1 g/dl (31.0-35.0); Mean Corpuscular Hemoglobin 27.9 pg (27.0-33.0); Mean Corpuscular Volume 86.7 fL (80.0-98.0); Mean Platelet Volume 9.8 fL (9.4-12.3); Monocytes Absolute Auto 0.6 X10*3/uL (0.1-1.2); Monocytes Percent Auto 9.2 % (2-11); Neutrophils Absolute Auto 4.3 x10*3/uL (2.0-8.3); Neutrophils Percent Auto 66.8 % (45-73); Platelet Count 242 X10*3/uL (160-400); Red Blood Count 4.45 X10*6/uL (4.20-5.50); Red Cell Distribution Width 14.2 % (11.0-16.0); White Blood Count 6.4 X10*3/uL (4.8-10.8)
[2024-04-15 15:02] LABS: Estimated Average Glucose 114 mg/dL; Hemoglobin A1C 125.9516 umol/L; Hemoglobin A1c % 5.6 % (<6.0)
[2024-04-15 15:03] LABS: Anion Gap 12 (12-20)
[2024-04-15 15:09] LABS: Alanine Aminotransferase 19 U/L (0-31); Albumin Level 4.2 g/dL (3.5-5.0); Alkaline Phosphatase 95 U/L (39-117); Bilirubin Total 0.6 mg/dL (0.0-1.0); Blood Urea Nitrogen 17 mg/dL (9-16); Calcium 9.4 mg/dL (8.4-10.2); Carbon Dioxide 26 mmol/L (22-29); Chloride 104 mmol/L (96-108); Cholesterol 148 mg/dL (<200); Estimated Glomerular Filt Rate 52; Glucose Random 101 mg/dL (60-115); HDL Cholesterol 69 mg/dL (>40); LDL Cholesterol Calculated 60 mg/dL (<100); Potassium 4.2 mmol/L (3.3-5.1); Sodium 138 mmol/L (135-145); Total Protein 7.6 g/dL (6.5-8.0); Triglycerides 95 mg/dL (<150)
[2024-04-15 15:24] LABS: TSH reflex Free T4 0.09 uIU/mL (0.32-4.0)
[2024-04-15 15:44] LABS: Aspartate Amino Transferase 33 U/L (5-31)
[2024-04-15 16:56] LABS: Free T4 (Free Thyroxine) 1.52 ng/dL (0.71-1.85)
[2024-04-19 16:04] LABS: Vitamin D 25-OH, D2 <4 ng/mL; Vitamin D 25-OH, D3 24 ng/mL; Vitamin D 25-OH, Total 24 ng/mL (30-100)
== END 2024-04-15 10:25 | disposition home or self-care (01) ==
LOC: HO.WFDLDS 10:24
PROVIDERS: Visit Provider Physician Assistant Medical
DX: E78.5 Hyperlipidemia, unspecified (principal); R73.01 Impaired fasting glucose; Z85.118 Personal history of other malignant neoplasm of bronchus and lung; E78.00 Pure hypercholesterolemia, unspecified; M19.90 Unspecified osteoarthritis, unspecified site; Z96.642 Presence of left artificial hip joint; K21.9 Gastro-esophageal reflux disease without esophagitis; E11.9 Type 2 diabetes mellitus without complications; M85.80 Other specified disorders of bone density and structure, unspecified site
CPT/HCPCS: 36415; 80053; 80061; 82306; 83036; 84439; 84443; 85025

== ENCOUNTER 2024-04-26 09:03 | Outpatient (AMB) | payer MEDICARE, SELFPAY ==
--- NOTE | 2024-04-26 09:05 | MHC.PC.OV ---
Vital Signs 04/26/24 09:13 Height 5 ft 2 in Weight 230 lb 4 oz BMI 42.1 BP 122/76 Blood Pressure Location Lt brachial Position Sitting Respiration 22 H Pulse 95 Pulse Source Pulse Oximeter Pulse Oximetry (%) 98 Oxygen Delivery Method Room Air Intake Visit Reasons: Pre-Op Breast surgery / Breast biopsy (EKG needed) Intake Note: Preop and for breast surgery and biopsy Water/Wastewater Project Manager Required: No Allergies NSAIDS (Non-Steroidal Anti-Inflamma Adverse Reaction (Unknown, Verified 04/26/24 09:10) kidneys Tobacco use date assessed: 04/26/24 Dental Screening Dental Screen Date: 03/25/24 HPI HPI Comments History of Present Illness Details This is a 73-year-old female with a past medical history of GERD, hypercholesterolemia, hypertension, obesity, anxiety with depression , chronic back pain, glaucoma, NIVIA, emphysema and stage III right lung cancer, new breast cancer presenting for preoperative cardiac risk assessment She is scheduled for lumpectomy presumably under general anesthesia on May 09 She has no history of CAD She has chronic lung disease with decreased exercise capacity without any recent change. She is able to walk atleast 1/4 mile and up two flights of stairs comfortably She has NIVIA treated with CPAP-she is compliant No issues tolerating anesthesia in the past. Resp: She has a history of right lung cancer, stage III, with lymph node involvement. She was treated with surgery, chemotherapy and radiation in 2020. She is followed by Dr. Whitten at [place]. She has emphysema and NIVIA. She quit smoking in 2007. She is also followed by Dr. Kyle. She has CT scans done every 6 months. Her last scan was in January, and she was told lung findings are stable. CV: HTN, HLD. well controlled on hydrochlorothiazide 12.5 mg and losartan 25 mg daily. Also on pravastatin ROS CONSTITUTIONAL: Denies weight loss, fever and chills. HEENT: Denies changes in vision and hearing. RESPIRATORY: Denies SOB and cough. CV: Denies palpitations and CP GI: Denies abdominal pain, nausea, vomiting and diarrhea. : Denies dysuria and urinary frequency. MSK: Denies new myalgia and joint pain. SKIN: Denies rash and pruritus. NEUROLOGICAL: Denies headache PSYCHIATRIC: Denies recent changes in mood. PHYSICAL EXAM: GENERAL: Alert and oriented x 3. NAD EYES: EOMI. Anicteric. HENT: Moist mucous membranes. No scleral icterus. No cervical lymphadenopathy. LUNGS: Clear to auscultation bilaterally. CARDIOVASCULAR: Regular rate and rhythm. No murmur. No JVD. ABDOMEN: Soft, non-tender +bs EXTREMITIES: No edema. Non-tender. SKIN: No rashes or lesions. Warm. NEUROLOGIC: No focal neurological deficits. CN II-XII grossly intact PSYCHIATRIC: Cooperative. Appropriate mood and affect [facility] Medical History Low TSH level Chronic back pain Grief at loss of child Essential hypertension Abnormal mammogram of right breast NIVIA (obstructive sleep apnea) Emphysema of lung Post-menopausal bleeding GERD (gastroesophageal reflux disease) Degenerative arthritis Pure hypercholesterolemia History of primary malignant neoplasm of right lung IFG (impaired fasting glucose) Deviated septum Surgical History History of left hip replacement History of tonsillectomy S/P removal of lung Family History Father HTN (hypertension) Skin cancer Son HTN (hypertension) Diabetes Mother Diabetes Daughter Diabetes HTN (hypertension) Social History Housing: House Alcohol intake: current Patient Tobacco Use Status: Former Tobacco user (quit 2007) Cigarette Packs Per Day: 1 Years Smoked: 43 e-Cigarette/Vaping Use: Never Used Second Hand Smoke Exposure: No service: No Current occupational status: retired Cognitive needs: No Hearing needs: Yes (hearing aid both ear) Vision needs: Yes (glasses) Questionnaire Thrive Questionnaire Date Thrive assessed: 03/25/24 I am a: Patient What is your living situation today?: I have a steady place to live Within the past 12 months, did the food you bought not last and you didn't have the money to get more?: Never true Within the past 12 months, did you worry whether your food would run out before you got money to buy more?: Never true Do you have trouble paying for medicines?: No Do you have trouble getting transportation to medical appointments?: No Do you have trouble paying your heating and electricity bill?: No Do you have trouble taking care of your child, family member or friend?: No Do you have trouble with day-to-day activities such as bathing, preparing meals, shopping, managing finances, etc.?: No Are you currently unemployed and looking for a job?: No Are you interested in more education?: No Please select the resources that you would like help with: None Currently or been in a relationship where the following occur: No concerns reported THRIVE Score: 0 DARLING-7 AMB Questionnaire DARLING-7 Date DARLING - 7 assessed: 03/25/24 Source: Developed by Drs. Heriberto Smith, Belinda Briscoe, Christian Vang and colleagues, with an educational troy from [employer]. Physical exam (Primary Care) Vital Signs: Last Vital Signs Pulse 95 04/26/24 09:13 Resp 22 H 04/26/24 09:13 BP 122/76 04/26/24 09:13 Pulse Ox 98 04/26/24 09:13 Oxygen Delivery Method Room Air 04/26/24 09:13 BMI result Body Mass Index 42.1 Tobacco/Smoking Status: Tobacco use Status Tobacco use date assessed 04/26/24 04/26/24 09:17 Patient Tobacco Use Status Former Tobacco user (quit 04/26/24 09:07 2007) e-Cigarette/Vaping Use Never Used 04/26/24 09:07 Thrive Assessment: Date of Thrive Assessment Date Thrive assessed 03/25/24 04/26/24 09:07 Currently or been in a relationship where the following occur: No concerns reported Coding Level of Care Code Est Pt Level 5 (29225) Diagnoses Preoperative examination Z01.818 Essential hypertension I10 Emphysema of lung J43.9 NIVIA (obstructive sleep apnea) G47.33 Time Spent (min) 45 Assessment & Plan Assessment & Plan (1) Preoperative examination: Code(s): Z01.818 - Encounter for other preprocedural examination Category: Medical (2) Essential hypertension: Code(s): I10 - Essential (primary) hypertension Category: Medical (3) Emphysema of lung: Code(s): J43.9 - Emphysema, unspecified Category: Medical (4) NIVIA (obstructive sleep apnea): Code(s): G47.33 - Obstructive sleep apnea (adult) (pediatric) Category: Medical Plan 73 year old for preoperative cardiac risk assessment RCRI 0 EKG no ischemic changes METS>/=4 Patient is normal risk for average risk procedure She may proceed with surgery without further cardiac testing.
[2024-04-26 09:13] VITALS: BP 122/76; PULSE 95; RESP 22; O2SAT 98; BMI 42.1
--- OUTSIDE RECORDS SUMMARY | 2024-04-26 09:45 | XMS_ITS | Clinical Summary ---
Author Organization [facility] Address [address] [place] [address] Care Team Providers Care Roughener Name Role Phone Troy Del Cid MD [...] helps with weaning off HRT. 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 Immunizations Name Administration Dates Next Due Covid-19 [...] this topic Medical Devices Implanted Type Area Statistical Assistant Device Identifier Shelf Expiration Date Model / Serial / Lot Cement Bone Surg Simplex Radiopq Stry-Howm 1499-8-778-114 092 - [id number] Implanted:Qty: 1 on 06/28/2021 by Miquel Cisneros [place] [facility] Left: Hip [employer] [id number] 07/21/2023 6191-1-010 / / [id number] Hip Head Delta Biolox 36mm-2.5 Stry-Howm 6899-8-275-549 191 - [id number] Implanted:Qty: 1 on 06/28/2021 by Miquel Cisneros MD [place] [facility] Left: Hip [employer] [id number] 03/29/2026 6570-0-436 / / [id number] Cement Bone Surg Simplex Radiopq Stry-Howm 8769-0-988-114 092 - [id number] Implanted:Qty: 1 on 06/28/2021 by Miquel Cisneros MD at [facility] Left: Hip [employer] [id number] 01/19/2023 6191-1-010 / / [id number] Hip Insrt Trdnt 0deg 36mm D Stry-Howm 435-61-56o-548 873 - [id number] Implanted:Qty: 1 on 06/28/2021 by Miquel Cisneros MD at [facility] Left: Hip [employer] [id number] 05/07/2026 623-00-36D / / [id number] Tritanium Cluster Hole Shell 48mm Stry-Howm 609-15-95k-772 451 - [id number] Implanted:Qty: 1 on 06/28/2021 by Miquel Cisneros MD at [facility] Left: Hip [employer] [id number] 03/17/2026 70-04-48D / / [id number] Kit Prep Total Hip Bone Imp Smn-Orth 356524-674426 - [id number] Implanted:Qty: 1 on 06/28/2021 by Miquel Cisneros MD at [facility] Left: Hip [employer] 03/09/2031 [id number] / / [id number] Description:SMALL BONE PLUG Lp Hex Screw 6.5x25mm Stry-Howm 0425-8981-9425 58 - [id number] Implanted:Qty: 1 on 06/28/2021 by Miquel Cisneros MD at [facility] Left: Hip [employer] [id number] 05/13/2026 9289-0184 / / [id number] Lp Hex Screw 6.5x30mm Stry-Howm 8871-2498-1122 78 - [id number] Implanted:Qty: 1 on 06/28/2021 by Miquel Cisneros MD at [facility] Left: Hip [employer] [id number] 05/04/2026 1345-9400 / / [id number] Hip Spacer C-Distl Rng Sm 10mm Stry-Howm 3325-0851-6638 71 - [id number] Implanted:Qty: 1 on 06/28/2021 by Miquel Cisneros MD at [facility] Left: Hip [employer] [id number] 11/29/2025 6846-6624 / / [id number] Hip Stem Nk 127 C3 Cs 35mm Stry-Howm 9579-4222j-622 260 - [id number] Implanted:Qty: 1 on 06/28/2021 by Miquel Cisneros MD at [facility] Left: Hip [employer] [id number] 11/01/2025 6058-0335D / / [id number] Advance Directives For more information, please contact: [phone] Documents on File Type Date Recorded Patient Quality Control Head Expl 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 Care Teams Roughener Relationship Specialty Start Date End Date Troy Del Cid MD PCP - General Family Medicine 11/25/20
--- OUTSIDE RECORDS SUMMARY | 2024-04-26 09:45 | XMS_ITS | Encounter Summary ---
Author Organization [facility] Address [address] [place] [address] Care Team Providers Care Data Processing Manager Name Role Phone Jayce Cooley MD Primary Care Provider [phone] Reason for Referral * Imaging (Routine) - Closed Specialty Diagnoses / Procedures Referred By Chantel jennings Referred To Contact Radiology Diagnoses Abnormal mammogram Procedures MG Stereo Bx Breast Perc 1st Lesion Right Jocy Malave MD [address] [place] [address] Phone: tel: fax: [facility] Referral ID Status Reason Start Date Expiration Date Visits Re quested Visits Authorized [id number] Closed 04/01/2024 04/01/2025 1 1 Reason for Visit * Imaging (Routine) - Closed Specialty Diagnoses / Procedures Referred By Chantel jennings Referred To Contact Radiology Diagnoses Abnormal mammogram Procedures MG Stereo Bx Breast Perc 1st Lesion Right Jocy Malave MD [address] [place] [address] Phone: tel: fax: [facility] Referral ID Status Reason Start Date Expiration Date Visits Re quested Visits Authorized [id number] Closed 04/01/2024 04/01/2025 1 1 Encounter Details Date Type Department Care Team (Latest Contact Info) Description 04/02/2024 12:39 PM EST - 04/02/2024 11:59 PM EST Hospital Encounter Radiology Department - [address] [phone] Abnormal mammogram Discharge Disposition: Home or Self [...] Discharge acyclovir (ZOVIRAX) 400 mg tablet Take 1 tablet (400 mg total) by mouth 1 (one) time each day. albuterol HFA (PROAIR HFA ; PROVENTIL HFA ; VENTOLIN HFA) 90 mcg/actuation inhaler Inhale 2 puffs by mouth every 6 (six) hours if needed for wheezing. brimonidine (ALPHAGAN P) 0.1 % ophthalmic solution 1 drop 2 (two) times a day. citalopram (CeleXA) 40 mg tablet TAKE 1 TABLET BY MOUTH EVERY DAY 90 tablet 1 01/05/2024 hydroCHLOROthiaz rita 12.5 mg tablet Take 1 tablet (12.5 mg total) by mouth 1 (one) time each day. losartan (COZAAR) 25 mg tablet Take 1 tablet (25 mg total) by mouth 1 (one) time each day. 01/14/2024 pantoprazole (PROTONIX) 40 mg EC tablet Take 1 tablet (40 mg total) by mouth 2 (two) times a day. Do not crush, chew, or split. pravastatin (PRAVACHOL) 40 mg tablet TAKE 1 TABLET BY MOUTH EVERY DAY 90 tablet 1 01/05/2024 fluticasone-salm eterol (ADVAIR DISKUS) 250-50 mcg/dose diskus inhaler Inhale 1 puff by mouth 2 (two) times a day. Rinse mouth with water after use to reduce aftertaste and incidence of candidiasis. Do not swallow. documented as of this encounter Discharge Disposition Disposition Code Departure Means Destination Home or Self Care documented in this encounter Plan of Treatment Upcoming Encounters Date Type Department Care Team (Latest Contact Info) Description 05/08/2024 10:00 AM EDT [facility]ointment [facility] at [address] [phone] 05/09/2024 7:30 AM EDT Hospital Encounter [address] [address] Jocy Garcia MD [address] [place] [address] 05/09/2024 7:30 AM EDT - 05/09/2024 9:00 AM EDT Surgery [address] [address] Jocy Garcia MD [address] [address] LUMPECTOMY with mag seed [[address] (CPT??) +1 more] 05/09/2024 12:00 PM EDT [facility]ointment [facility] at [address] [address] 05/15/2024 3:45 PM EDT Office Visit Breast Care [address] [address] Jocy Garcia MD [address] [address] 05/29/2024 11:00 AM EDT Office Visit [facility] Hematology Oncology [address] [place] [phone] Giovanny Blanco MD [address] [place] [phone] 02/05/2025 9:45 AM EST Office Visit Pulmonolgy - [place] [address] [place] [phone] Estela Kyle MD [address] [place] [address] Scheduled Procedures Name Priority Associated Diagnoses Date/Ti me LUMPECTOMY Malignant neoplasm of right breast in female, estrogen receptor positive, unspecified site of breast ([facility]) 05/09/2024 7:30 AM EDT documented as of [...] positive=1-10% positive nuclei, Positive >10% positive nuclei UT: Staining evaluation UT: Positive= >1% positive nuclei. HER2: Staining evaluation [...] tests In Vitro Diagnostic: ER clone [id number] Fooooo, UT clone 16 Leica Analyte specific reagents: HER2 clone [id number] [facility] 10:37 AM [facility] Addendum electronically signed by Severo Zarco MD on 04/05/2024 at 10:37 AM Final Diagnosis Right breast asymmetry, stereotactic core biopsy (top hat clip): - Invasive ductal carcinoma, [place] grade 1 (tubule formation score 1, nuclear [...] issued in an addendum report. 10:37 AM [facility] Comment Secondary review for new malignancy performed by Dr. Madison with agreement. Severo Zarco MD notified Dr. Chana Minor 04/04/24 of the diagnosis of invasive carcinoma at 9:36 a.m. via secure text. 10:37 AM [facility] Clinical Information Suspicious opacity retroareolar Clip: Top Hat Lot # [id number] 10:37 AM [facility] Gross Description A. Breast, Right, [...] 72 hours): 30 hours MOIRA 10:37 AM [facility] Disclaimer NOTE: The immunohistochemical tests and in situ hybridization tests were developed and their performance characteristics were determined by [facility]. They have not been cleared [...] formalin fixed and paraffin embedded. 10:37 AM [facility] Tissue Right breast structure / Unknown 04/02/2024 3:19 PM EST 04/03/2024 3:55 PM EST Comment:Clip: Top Hat Lot # [id number] Chana Minor MD LAB PATHOLOGY ORDERABLES Edit ed Result - Final [facility] [address] [place] [address], [place] [phone] * MG Stereo Bx Breast Perc 1st Lesion Right (04/02/2024 3:11 PM EST) Anatomical Region Laterality Modality Breast Right Mammography 04/02/2024 5:31 PM EST Addenda Addendum by Chana Minor MD on 04/05/2024 7:58 AM EST Pathology results are as follows: Right breast asymmetry, stereotactic core biopsy (top hat clip): -Invasive ductal carcinoma, [place] grade 1 (tubule formation score 1, nuclear [...] Message then sent to nurse navigator at [facility] Ms. Bai with confirmation at 2:29pm. RECOMMENDATION: Surgical consultation/management recommended for the right breast. -------- ADDENDUM -------- Dictated By: Chana Minor Dictated Date: 04/05/2024 07:50 ET Assigned Physician: Chana Minor Reviewed and Electronically Signed By: Chana Minor Signed Date: 04/05/2024 07:58 ET Workstation ID: [id number] Transcribed By: Self Edit Transcribed Date: 04/05/2024 [...] Signed Date: 04/02/2024 17:48 ET Workstation ID: [id number] Transcribed By: Self Edit Transcribed Date: 04/02/2024 [...] positioned in the Affirm upright biopsy system ([employer]) and images of the focal asymmetry in the upper slightly inner quadrant at about 7 cm from the nipple were obtained. The breast was prepped for the procedure and the area was anesthetized with a local anesthetic 20 cc of lidocaine 1% buffered with Sodium Bicarbonate 4.2% (9cc: 1cc) superficially and deeper. ??Using a [employer] Brevera Biopsy System with Brevera 9G standard needle probe, one pass was made through the area from superior approach, and 8 specimens were obtained. A [employer] SecurMark for Eviva Top Hat shape titanium ([id number]) micromarker was placed at the site of [...] was positioned in the Affirm upright biopsysystem ([employer]) and images of the focal asymmetry in the upper slightlyinner quadrant at about 7 cm from the nipple were obtained. The breast wasprepped for the procedure and the area was anesthetized with a localanesthetic 20 cc of lidocaine 1% buffered with Sodium Bicarbonate 4.2%(9cc: 1cc) superficially and deeper. Using a [employer] Brevera BiopsySystem with Brevera 9G standard needle probe, one pass was made throughthe area from superior approach, and 8 specimens were obtained. A [employer] for Eviva Top Hat shape titanium ([id number]) micromarkerwas placed at the site of the [...] Signed Date: 04/02/2024 17:48 ET Workstation ID: [id number] Transcribed By: Self Edit Transcribed Date: 04/02/2024 17:31 ET oJcy Malave MD IMG BI PROCEDURES Edited Resul t - Final documented in this encounter Visit Diagnoses Diagnosis Abnormal mammogram Abnormal mammogram, unspecified Malignant neoplasm of right breast in female, estrogen receptor positive, unspecified site of breast (CMS/HCC) documented in this encounter Care Teams Data Processing Manager Relationship Specialty Start Date End Date Jayce Cooley MD [address] [place] [address] Dr Yony [place] PCP - General 12/20/23 documented as of this encounter
--- OUTSIDE RECORDS SUMMARY | 2024-04-26 09:45 | XMS_ITS | Encounter Summary ---
Author Organization [facility] Address [address] [place] [address] Care Team Providers Care Logger Driving Horses Name Role Phone Jayce Cooley MD Primary Care Provider Reason for Visit * Reason Onset Date Comments Surgery 04/16/2024 Encounter Details Date Type Department Care Team (Late st Contact Info) Description 04/16/2024 Telephone General Surgery - [place] [address] [facility] [address] [place] [address] Jocy Garcia MD [address] [facility] [address] [facility] [address] [place] [address] Surgery Social History Tobacco Use Types Packs/Day Years [...] as of this encounter Progress Notes * Lissett Dunham - 04/22/2024 1:18 PM EST Pre op is scheduled for 04/26/24 * Lissett Dunham - 04/16/2024 11:40 AM EST This patient needs a pre op with her primary doctor. I left message for them to call me to schedulethis documented in this encounter Plan of Treatment Upcoming Encounters Date Type Department Care Team (Latest Contact Info) Description 05/08/2024 10:00 AM EDT [facility]ment [facility] [address] [address] 05/09/2024 7:30 AM EDT Hospital Encounter [address] [address] Jocy Garcia MD [address] [place] [address] 05/09/2024 7:30 AM EDT - 05/09/2024 9:00 AM EDT Surgery [address] [address] Jocy Garcia MD [address] [place] [address] LUMPECTOMY with mag seed [[id number] (CPT??) +1 more] 05/09/2024 12:00 PM EDT [facility]ointment [facility] at [address] [address] 05/15/2024 3:45 PM EDT Office Visit Breast Care [address] [address] Jocy Garcia MD [address] [place] [address] 05/29/2024 11:00 AM EDT Office Visit [facility] Hematology Oncology [address] [place] [phone] Breanna-Giovanny Bullard MD [address] [place] [phone] 02/05/2025 9:45 AM EST Office Visit Pulmonolgy - [place] [address] [phone] Estela Kyle MD 175 [facility] 200 [place] [address] Scheduled Procedures Name Priority Associated Diagnoses Date/Ti me LUMPECTOMY Malignant neoplasm of right breast in female, estrogen receptor positive, unspecified site of breast ([facility]/HCC) 05/09/2024 7:30 AM EDT documented as of this encounter Visit Diagnoses Not on filedocumented in this encounter Care Teams Logger Driving Horses Relationship Specialty Start Date End Date Jayce Cooley MD [address] [place] [address] Dr Carias [facility] [place] PCP - General 12/20/23 documented as of this encounter
--- OUTSIDE RECORDS SUMMARY | 2024-04-26 09:45 | XMS_ITS | Encounter Summary ---
Author Organization [facility] Address [address] [place] [address] Care Team Providers Care Correspondent Name Role Phone Jayce Cooley MD Primary Care Provider Reason for Visit * Reason Onset Date Comments Appointment 04/05/2024 Encounter Details Date Type Department Care Team (Late st Contact Info) Description 04/05/2024 Telephone [facility] [place] [address] [facility] [address] [place] [address] Huong Bai, RN Appointment Social [...] AM EDT [facility]ment [facility] at [address] [phone] 05/09/2024 7:30 AM EDT Hospital Encounter [facility] Main OR [address] [place] [phone] Jocy Garcia MD [address] [address] 05/09/2024 7:30 AM EDT - 05/09/2024 9:00 AM EDT Surgery [facility] Main OR [address] [place] [phone] Jocy Garcia MD [address] [place] [address] LUMPECTOMY with mag seed [[id number] (CPT??) +1 more] 05/09/2024 12:00 PM EDT [facility]ointment [facility] at [address] [address] 05/15/2024 3:45 PM EDT Office Visit Breast Care [address] [phone] Jocy Garcia MD [address] [place] [address] 05/29/2024 11:00 AM EDT Office Visit [facility] Hematology Oncology [address] [place] [phone] Giovanny Blanco MD [address] [place] [phone] 02/05/2025 9:45 AM EST Office Visit Pulmonolgy - [address] [phone] Estela Kyle MD 175 [facility] 200 [place] [address] Scheduled Procedures Name Priority Associated Diagnoses Date/Ti me LUMPECTOMY Malignant neoplasm of right breast in female, estrogen receptor positive, unspecified site of breast ([facility]/HCC) 05/09/2024 7:30 AM EDT documented as of this encounter Visit Diagnoses Not on filedocumented in this encounter Care Teams Correspondent Relationship Specialty Start Date End Date Jayce Cooley MD [address] [place] [address] Dr Carias [address] [place], [place] PCP - General 12/20/23 documented as of this encounter
--- OUTSIDE RECORDS SUMMARY | 2024-04-26 09:45 | XMS_ITS | Encounter Summary ---
Author Organization [facility] [address] Address [address] [place] [address] Care Team Providers Care Implementation Consultant Name Role Phone Jayce Cooley MD Primary Care Provider [phone] Reason for Referral * Imaging (Routine) - Closed Specialty Diagnoses / Procedures Referred By Contac t Referred To Contact Radiology Diagnoses Post-menopausal bleeding Procedures US Pelvis Non OB Complete w Transvaginal Violeta Orantes PA [address] [place] [address] Phone: tel: fax: [facility] Referral ID Status Reason Start Date Expiration Date Visits Re quested Visits Authorized [id number] Closed 03/26/2024 03/26/2025 1 1 Reason for Visit * Imaging (Routine) - Closed Specialty Diagnoses / Procedures Referred By Contac t Referred To Contact Radiology Diagnoses Post-menopausal bleeding Procedures US Pelvis Non OB Complete w Transvaginal Violeta Orantes PA [address] [place] [address] Phone: tel: fax: [facility] Referral ID Status Reason Start Date Expiration Date Visits Re quested Visits Authorized [id number] Closed 03/26/2024 03/26/2025 1 1 Encounter Details Date Type Department Care Team (Latest Contact Info) Description 04/02/2024 12:38 PM EST - 04/02/2024 11:59 PM EST Hospital Encounter Radiology Department - [address] [phone] Post-menopausal bleeding Discharge Disposition: Home or Self [...] AM EDT [facility]ment [facility] [address] [phone] 05/09/2024 7:30 AM EDT Hospital Encounter [address] [address] Jocy Garcia MD [address] [address] 05/09/2024 7:30 AM EDT - 05/09/2024 9:00 AM EDT Surgery [address] [address] Jocy Garcia MD [address] [address] LUMPECTOMY with mag seed [[id number] (CPT??) +1 more] 05/09/2024 12:00 PM EDT [facility]ointment [facility] at [address] [phone] 05/15/2024 3:45 PM EDT Office Visit Breast Care [address] [address] Jocy Garcia MD [address] [address] 05/29/2024 11:00 AM EDT Office Visit [facility] Hematology Oncology [address] [place] [phone] Giovanny Blanco MD [address] [place] [phone] 02/05/2025 9:45 AM EST Office Visit Pulmonolgy - [place] [address] [facility] [address] [place] [phone] Estela Kyle MD 175 [facility] [address] [place] [address] Scheduled Procedures Name Priority Associated Diagnoses Date/Ti me LUMPECTOMY Malignant neoplasm of right breast in female, estrogen receptor positive, unspecified site of breast ([facility]) 05/09/2024 7:30 AM EDT documented [...] No endometrial abnormality. ??No myometrial mass. POS [id number] -------- FINAL REPORT -------- Dictated By: Judy Segundo Dictated Date: 04/02/2024 13:50 ET Assigned Physician: Judy Segundo Reviewed and Electronically Signed By: Judy Segundo Signed Date: 04/02/2024 13:55 ET Workstation ID: [id number] Transcribed By: Self Edit Transcribed Date: 04/02/2024 [...] No endometrial abnormality. No myometrial mass. POS [id number] -------- FINAL REPORT -------- Dictated By: Judy Segundo Dictated Date: 04/02/2024 13:50 ET Assigned Physician: Judy Segundo Reviewed and Electronically Signed By: Judy Segundo Signed Date: 04/02/2024 13:55 ET Workstation ID: [id number] Transcribed By: Self Edit Transcribed Date: 04/02/2024 13:50 ET us Violeta ALLRED IMG US PROCEDURES Final Resul t documented in this encounter Visit Diagnoses Diagnosis Post-menopausal bleeding Postmenopausal bleeding Malignant neoplasm of right breast in female, estrogen receptor positive, unspecified site of breast (CMS/HCC) documented in this encounter Care Teams Implementation Consultant Relationship Specialty Start Date End Date Jayce Cooley MD [address] [place] [address] Dr Yony [place] PCP - General 12/20/23 documented as of this encounter
--- OUTSIDE RECORDS SUMMARY | 2024-04-26 09:45 | XMS_ITS | Encounter Summary ---
Author Organization [facility] Address [address] [place] [address] Care Team Providers Care Fireproof Door Maker Name Role Phone Jayce Cooley MD Primary Care Provider [phone] Reason for Referral * Imaging (Routine) - Closed Specialty Diagnoses / Procedures Referred By Chantel jennings Referred To Contact Radiology Diagnoses Abnormal mammogram Procedures US Breast Limited Right US Breast Limited Right Jocy Malave MD Phone: tel: fax: [facility] Referral ID Status Reason Start Date Expiration Date Visits Re quested Visits Authorized [id number] Closed 03/15/2024 03/15/2025 1 1 Reason for Visit * Imaging (Routine) - Closed Specialty Diagnoses / Procedures Referred By Chantel jennings Referred To Contact Radiology Diagnoses Abnormal mammogram Procedures US Breast Limited Right US Breast Limited Right Jocy Malave MD Phone: tel: fax: [facility] Referral ID Status Reason Start Date Expiration Date Visits Re quested Visits Authorized [id number] Closed 03/15/2024 03/15/2025 1 1 Encounter Details Date Type Department Care Team (Latest Contact Info) Description 03/26/2024 10:41 AM EST - 03/26/2024 11:59 PM EST Hospital Encounter Radiology Department - [address] [phone] Abnormal mammogram Discharge Disposition: Home or Self [...] and incidence of candidiasis. Do not swallow. 02/26/202 5 documented as of this encounter Discharge Disposition Disposition Code Departure Means Destination Home or Self Care documented in this encounter Plan of Treatment Upcoming Encounters Date Type Department Care Team (Latest Contact Info) Description 05/08/2024 10:00 AM EDT [facility]ointment [facility] [address] [address] 05/09/2024 7:30 AM EDT Hospital Encounter [facility] Main [address] [address] Jocy Garcia MD [address] [place] [phone] 05/09/2024 7:30 AM EDT - 05/09/2024 9:00 AM EDT Surgery [address] [address] Jocy Garcia MD [address] [place] [address] LUMPECTOMY with mag seed [[id number] (CPT??) +1 more] 05/09/2024 12:00 PM EDT [facility]ointment [facility] at [address] [address] 05/15/2024 3:45 PM EDT Office Visit Breast Care [address] [address] Jocy Garcia MD [address] [place] [address] 05/29/2024 11:00 AM EDT Office Visit [facility] Hematology Oncology [address] [place] [phone] Giovanny Blanco MD [address] [place] [phone] 02/05/2025 9:45 AM EST Office Visit Pulmongy - [place] [address] [facility] [address] [place] [phone] Estela Kyle MD [address] [facility] [address] [place] [address] Scheduled Procedures Name Priority Associated Diagnoses Date/Ti me LUMPECTOMY Malignant neoplasm of right breast in female, estrogen receptor positive, unspecified site of breast ([facility]/HCC) 05/09/2024 7:30 AM EDT documented as of [...] biopsy of right breast recommended. Mammo Location: [facility], [address] [place] [address], [address], . -------- FINAL REPORT -------- Dictated By: Zenaida Moreno Dictated Date: 03/26/2024 12:39 ET Assigned Physician: Zenaida Moreno Reviewed and Electronically Signed By: Zenaida Moreno Signed Date: 03/26/2024 12:45 ET Workstation ID: [id number] Transcribed By: Self Edit Transcribed Date: 03/26/2024 [...] Core biopsy of right breastrecommended. Mammo Location: [facility], [address] [place] [address], [address], . -------- FINAL REPORT -------- Dictated By: Zenaida Moreno Dictated Date: 03/26/2024 12:39 ET Assigned Physician: Zenaida Moreno Reviewed and Electronically Signed By: Zenaida Moreno Signed Date: 03/26/2024 12:45 ET Workstation ID: [id number] Transcribed By: Self Edit Transcribed Date: 03/26/2024 12:39 ET us Jocy Malave MD IMG US PROCEDURES Final Result documented in this encounter Visit Diagnoses Diagnosis Abnormal mammogram Abnormal mammogram, unspecified Malignant neoplasm of right breast in female, estrogen receptor positive, unspecified site of breast ([facility]) documented in this encounter Care Teams Fireproof Door Maker Relationship Specialty Start Date End Date Jayce Cooley MD [address] [place] [address] Dr Yony [place] PCP - General 12/20/23 documented as of this encounter
--- OUTSIDE RECORDS SUMMARY | 2024-04-26 09:45 | XMS_ITS | Encounter Summary ---
Author Organization [facility] Address [address] [place] [address] Care Team Providers Care Sr Technical Sales Consultant Name Role Phone Jayce Cooley MD [...] positive, unspecified site of breast ([facility]/HCC) History of lobectomy of lung History of antineoplastic chemotherapy Jocy Edgar MD 175 [facility] 110 [place] [address] Phone: tel: fax: [facility] Hematology Oncology [address] [place] [address] Phone: tel: fax: Referral ID Status Reason Start Date Expiration Date Visits Requested Visits Authorized [id number] Authorized Specialty Services Required 04/11/2024 04/11/2025 1 1 Encounter Details Date Type Department Care Team ([facility] st Contact Info) Description 04/10/2024 3:15 PM EST Consult Breast [facility] 271 [facility] [address] [place] [phone] Jocy Edgar MD 175 [facility] 110 [place] [address] Malignant neoplasm of right breast in female, [...] (top hat clip): - Invasive ductal carcinoma, Dano grade 1 (tubule formation [...] Prior breast biopsy? Hx breast biopsy in [place] in 1980s, records not available in EMR. [...] black stools : Dysuria, frequency or incontinence GLASS SETTER: Abnormal vaginal bleeding or abnormal vaginal discharge [...] Recommended restaging meeting in May 2021 with [id number] visits for first 2 years. 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 AJCC 8th edition [...] or concerns. Thank you for this referral. Joyc Edgar MD, MS, FACS [facility] A Member of [facility] W [phone] F [phone] [place] [address] [email or web address] cc: MD Dr. Juan Miguel Schneider * Huong Bai RN - 04/10/2024 3:15 PM EST TUYET Grant arrives today with her for a new diagnosis consultation. She has been diagnosed with a right breast Invasive ductal Carcinoma that is ER/AL+ HER 2 negative. Area on imaging measures [...] AM EDT [facility]ointment [facility] at [address] [address] 05/09/2024 7:30 AM EDT Hospital Encounter [facility] Main OR [address] [place] [phone] Jocy Edagr MD [address] [address] 05/09/2024 7:30 AM EDT - 05/09/2024 9:00 AM EDT Surgery [facility] OR [address] [place] [phone] Jocy Edgar MD [address] [address] LUMPECTOMY with mag seed [[id number] (CPT??) +1 more] 05/09/2024 12:00 PM EDT Appointment [facility] [address] [place] [phone] 05/15/2024 3:45 PM EDT Office Visit Breast Care [facility] 271 [facility] 200 [place] [phone] Jocy Edgar MD 175 [facility] 110 [place] [address] 05/29/2024 11:00 AM EDT Office Visit [facility] Hematology Oncology [address] [place] [phone] Giovanny Blanco MD [address] [place] [phone] 02/05/2025 9:45 AM EST Office Visit Pulmonolgy [facility] 175 [facility] 200 [place] [phone] Estela Kyle MD [address] [address] Scheduled Orders Name Type Priority Associated Diagnoses [...] 04/11/2024 documented in this encounter Care Teams Sr Technical Sales Consultant Relationship Specialty Start Date End Date Jayce Cooley MD [address] [place] [address] Dr Yony [place] PCP - General 12/20/23 documented as of this encounter
--- OUTSIDE RECORDS SUMMARY | 2024-04-26 09:45 | XMS_ITS | Encounter Summary ---
Author Organization [facility] Address [address] [place] [address] Care Team Providers Care Cloth Pattern Maker Name Role Phone Jayce Cooley MD Primary Care Provider [phone] Reason for Referral * Imaging (Routine) - Closed Specialty Diagnoses / Procedures Referred By Chantel jennings Referred To Contact Radiology Diagnoses Abnormal mammogram Procedures US Bx Breast Perc 1st Lesion Right Jocy Malave MD [address] [address] Phone: tel: fax: [facility] Referral ID Status Reason Start Date Expiration Date Visits Re quested Visits Authorized [id number] Closed 03/26/2024 03/26/2025 1 1 Reason for Visit * Imaging (Routine) - Closed Specialty Diagnoses / Procedures Referred By Chantel jennings Referred To Contact Radiology Diagnoses Abnormal mammogram Procedures US Bx Breast Perc 1st Lesion Right Jocy Malave MD [address] [address] Phone: tel: fax: [facility] Referral ID Status Reason Start Date Expiration Date Visits Re quested Visits Authorized [id number] Closed 03/26/2024 03/26/2025 1 1 Encounter Details Date Type Department Care Team (Latest Contact Info) Description 03/27/2024 12:32 PM EST - 03/27/2024 11:59 PM EST Hospital Encounter Radiology Department - [address] [phone] Abnormal mammogram Discharge Disposition: Home or Self [...] AM EDT [facility]ointment [facility] at [address] [address] 05/09/2024 7:30 AM EDT Hospital Encounter [address] [address] Jocy Garcia MD [address] [address] 05/09/2024 7:30 AM EDT - 05/09/2024 9:00 AM EDT Surgery [address] [address] Jocy Garcia MD [address] [address] LUMPECTOMY with mag seed [[id number] (CPT??) +1 more] 05/09/2024 12:00 PM EDT Appointment [facility] at [address] [address] 05/15/2024 3:45 PM EDT Office Visit Breast Care [address] [address] Jocy Garcia MD [address] [address] 05/29/2024 11:00 AM EDT Office Visit [facility] Hematology Oncology [address] [place] [phone] Giovanny Blanco MD [address] [place] [phone] 02/05/2025 9:45 AM EST Office Visit Pulmonolgy - [place] [address] [address] [place] [phone] Estela Kyle MD [address] [place] [address] Scheduled Procedures Name Priority Associated Diagnoses Date/Ti me LUMPECTOMY Malignant neoplasm of right breast in female, estrogen receptor positive, unspecified site of breast ([facility]) 05/09/2024 7:30 AM EDT documented as [...] will be contacted by the radiology supervisor extruding department to schedule the stereotactic core biopsy procedure. ??Findings and recommendations were discussed with the patient in person. RECOMMENDATION: Core biopsy of right breast recommended. -------- FINAL REPORT -------- Dictated By: Brenda Puga Dictated Date: 03/27/2024 13:35 ET Assigned Physician: Brenda Puga Reviewed and Electronically Signed By: Brenda Puga Signed Date: 03/27/2024 13:41 ET Workstation ID: [id number] Transcribed By: Self Edit Transcribed Date: 03/27/2024 [...] Signed Date: 03/27/2024 13:41 ET Workstation ID: [id number] Transcribed By: Self Edit Transcribed Date: 03/27/2024 13:35 ET us Jocy Malave MD IMG US PROCEDURES Final Result documented in this encounter Visit Diagnoses Diagnosis Abnormal mammogram Abnormal mammogram, unspecified Malignant neoplasm of right breast in female, estrogen receptor positive, unspecified site of breast (CMS/HCC) documented in this encounter Care Teams Cloth Pattern Maker Relationship Specialty Start Date End Date Jayce Cooley MD [address] [place] [address] Dr Bhakta, LIN PCP - General 12/20/23 documented as of this encounter
--- OUTSIDE RECORDS SUMMARY | 2024-04-26 09:45 | XMS_ITS | Clinical Summary ---
Author Organization [facility] Address [address] [place] [address] Phone Care Team Providers Care Inspector Exhaust Emissions Name Role Phone Jayce Cooley MD Primary Care Provider [phone] Allergies Active Allergy Reactions Criticality Noted Date Comments Phenobarbital 04/21/1979 Childhood at age 12 Medications citalopram (CeleXA) 40 mg tablet TAKE 1 TABLET BY MOUTH EVERY DAY 90 tablet 1 01/05/20 24 Active pravastatin (PRAVACHOL) 40 mg tablet TAKE 1 TABLET BY MOUTH EVERY DAY 90 tablet 1 01/05/20 24 Active hydroCHLOROthi azide 12.5 mg tablet Take 1 tablet (12.5 mg total) by mouth 1 (one) time each day. Active pantoprazole (PROTONIX) 40 mg EC tablet Take 1 tablet (40 mg total) by mouth 2 (two) times a day. Do not crush, chew, or split. Active acyclovir (ZOVIRAX) 400 mg tablet Take 1 tablet (400 mg total) by mouth 1 (one) time each day. Active albuterol HFA (PROAIR HFA ; PROVENTIL HFA ; VENTOLIN HFA) 90 mcg/actuation inhaler Inhale 2 puffs by mouth every 6 (six) hours if needed for wheezing. Active brimonidine (ALPHAGAN P) 0.1 % ophthalmic solution 1 drop 2 (two) times a day. Active losartan (COZAAR) 25 mg tablet Take 1 tablet (25 mg total) by mouth 1 (one) time each day. 01/14/20 Active fluticasone propion-salmet Teresita (ADVAIR DISKUS) 500-50 mcg/dose diskus inhaler Inhale 1 puff by mouth 2 (two) times a day. Rinse mouth with water after use to reduce aftertaste and incidence of candidiasis. Do not swallow. Active latanoprost (XALATAN) 0.005 % ophthalmic solution 1 drop at bedtime. Active azelastine (ASTELIN) 137 mcg (0.1 %) nasal spray Administer 1 spray into each nostril 2 (two) times a day. Use in each nostril as directed Active fluticasone-sa lmeterol (ADVAIR DISKUS) 250-50 mcg/dose diskus inhaler Inhale 1 puff by mouth 2 (two) times a day. Rinse mouth with water after use to reduce aftertaste and incidence of candidiasis. Do not swallow. 025 Discontinued Active Problems Problem Noted Date Diagnosed [...] helps with weaning off HRT. 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 Resolved Problems Problem Noted Date Diagnosed Date Resolved Date Malignant neoplasm of lower lobe of right lung 03/03/2020 02/16/2024 Encounters Date Type Department Care Team Description 04/16/2024 Telephone General Surgery - [facility] [address] [place] [address] Jocy Garcia MD Surgery 04/10/2024 3:15 PM EST Consult Breast Care [facility] [address] [facility] [address] [place] [phone] Jocy Garcia MD Malignant neoplasm of right breast in female, estrogen receptor positive, unspecified site of breast (CMS/HCC) (Primary Dx); Pulmonary emphysema, unspecified emphysema type (CMS/HCC); NIVIA on CPAP; History of lung cancer; History of therapeutic radiation; History of lobectomy of lung; History of antineoplastic chemotherapy 04/05/2024 Telephone Breast Care [facility] [address] [facility] [address] [place] [phone] Huong Bai RN Appointment 04/02/2024 12:39 PM EST - 04/02/2024 11:59 PM EST Hospital Encounter Radiology Department - [address] [address] Abnormal mammogram Discharge Disposition: Home or Self Care 04/02/2024 12:38 PM EST - 04/02/2024 11:59 PM EST Hospital Encounter Radiology Department - [address] [address] Post-menopausal bleeding Discharge Disposition: Home or Self Care 03/27/2024 12:32 PM EST - 03/27/2024 11:59 PM EST Hospital Encounter Radiology Department - [address] [address] Abnormal mammogram Discharge Disposition: Home or Self Care 03/26/2024 10:41 AM EST - 03/26/2024 11:59 PM EST Hospital Encounter Radiology Department - [address] [address] Abnormal mammogram Discharge Disposition: Home or Self Care 03/26/2024 10:40 AM EST - 03/26/2024 11:59 PM EST Hospital Encounter Radiology Department - [address] [address] Abnormal mammogram Discharge Disposition: Home or Self Care 03/05/2024 9:39 AM EST Anesthesia Event [facility] [address] [place] [address] Severo Sharif MD Abrokwah, 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, 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 03/05/2024 8:30 AM EST - 03/05/2024 11:59 PM EST Hospital Encounter [facility] [address] [place] [address] Bib Suarez DO Abrokwah, 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, 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 Radiculopathy, lumbar region Discharge Disposition: Home or Self Care 03/05/2024 6:36 AM EST - 03/05/2024 11:59 PM EST Hospital Encounter [facility] Xray [address] [place] [address] Pain Discharge Disposition: Home or Self Care 02/08/2024 3:00 PM EST Office Visit Thoracic Surgery - [place] [address] [place] [address] Luci Finch PA History of lung cancer (Primary Dx) 01/30/2024 10:40 AM EST - 01/30/2024 11:59 PM EST Hospital Encounter Radiology Department - [address] [address] Encounter for screening mammogram for breast cancer Discharge Disposition: Home or Self Care from Last 3 Months Immunizations Name Administration Dates Next Due Zoster recombinant (Shingrix) 19yo and older Surgical History Surgery Date Site/Laterality Comments OTHER SURGICAL HISTORY PROCEDURE: OH DILATION & CURETTAGE DX&/THER NONOBSTETRIC; COMMENT: multiple times; tubal preg OTHER SURGICAL HISTORY PROCEDURE: OH ANESTHESIA UPPER ANTERIOR ABDOMINAL WALL NOS; COMMENT: Adhesions - NASAL SEPTUM SURGERY PROCEDURE: OH SEPTOPLASTY/SUBMUCOUS RESECJ W/WO CARTILAGE GRF BREAST BIOPSY 2007 Left PROCEDURE: BX BREAST; PERC NEEDLE CORE W/IMAG GUID; COMMENT: neg COLONOSCOPY 01/29/2010 PROCEDURE: HISTORICAL COLONOSCOPY; COMMENT: Normal HIP ARTHROPLASTY Left PROCEDURE: HISTORICAL HIP REPLACEMENT TONSILLECTOMY PROCEDURE: HISTORICAL TONSILLECTOMY OTHER SURGICAL HISTORY 08/2022 PROCEDURE: OH CLOSED TX PATELLAR FRACTURE W/O MANIPULATION; COMMENT: Shattered knee cap repair CATARACT EXTRACTION Bilateral PROCEDURE: HISTORICAL CATARACT REMOVAL LUNG REMOVAL, PARTIAL Right Medical History Medical History Date Comments Arthritis [...] Recommended restaging meeting in May 2021 with [id number] visits for first 2 years. Malignant neoplasm of lower lobe of right lung (CMS/HCC) 03/03/2020 Shortness of breath GERD (gastroesophageal reflux disease) Lung cancer (CMS/HCC) Family History Medical History Relation Name Comments [...] Other 2 Niece Paternal Grandfather (Age 77) MD Paternal Grandmother (Age 93) Ol d age [...] - - Weight 102 kg (225 lb) 04/17/2024 11:00 AM EST Height 157.5 cm (5' 2 ) 04/17/2024 11:00 AM EST Body Mass Index 41.15 04/17/2024 11:00 AM EST Plan of Treatment Upcoming Encounters Date Type Department Care Team (Latest Contact Info) Description 05/08/2024 10:00 AM EDT [facility]ment [facility] [address] [address] 05/09/2024 7:30 AM EDT Hospital Encounter [facility] Main OR [address] [place] [phone] Jocy Garcia MD [address] [address] 05/09/2024 7:30 AM EDT - 05/09/2024 9:00 AM EDT Surgery [facility] OR [address] [place] [address] Jocy Garcia MD [address] [address] LUMPECTOMY with mag seed [516[address] (CPT??) +1 more] 05/09/2024 12:00 PM EDT Appointment [facility] [address] [place] [phone] 05/15/2024 3:45 PM EDT Office Visit Breast Care [facility] [address] [facility] [address] [place] [phone] Jocy Garcia MD 175 [facility] [address] [place] [address] 05/29/2024 11:00 AM EDT Office Visit [facility] Hematology Oncology [address] [place] [phone] Giovanny Blanco MD [address] [place] [phone] 02/05/2025 9:45 AM EST Office Visit Pulmonolgy - [place] [address] [phone] Estela Kyle MD [address] [address] Scheduled Procedures Name Priority Associated Diagnoses Date/Ti [...] this topic Medical Devices Implanted Type Area Loom Changeover Operator Device Identifier Shelf Expiration Date Model / Serial / Lot Cement Bone Surg Simplex Radiopq [facility] [id number] Implanted:Qty: 1 on 06/28/2021 by Miquel Cisneros MD Left: Hip [employer] [id number] 07/21/2023 6191-1-010 / / [id number] Hip Head Delta Biolox 36mm-2.5 [facility] [id number] 191 Implanted:Qty: 1 on 06/28/2021 by Miquel Cisneros MD Left: Hip [employer] [id number] 03/29/2026 6570-0-436 / / [id number] Cement Bone Surg Simplex Radiopq Stry-Howm [id number] 092 Implanted:Qty: 1 on 06/28/2021 by Miquel Cisneros MD Left: Hip [employer] [id number] 01/19/2023 6191-1-010 / / [id number] Hip Insrt Trdnt 0deg 36mm D Stry-Howm [id number] [id number] Implanted:Qty: 1 on 06/28/2021 by Miquel Cisneros MD Left: Hip [employer] [id number] 05/07/2026 623-00-36D / / [id number] Tritanium Cluster Hole Shell 48mm Stry-How [id number] Implanted:Qty: 1 on 06/28/2021 by Miquel Cisneros MD Left: Hip [employer] [id number] 03/17/2026 702-04-48D / / [id number] Kit Prep Total Hip Bone Imp [facility] [id number] Implanted:Qty: 1 on 06/28/2021 by Miquel Cisneros MD Left: Hip [employer] 03/09/2031 [id number] / / [id number] Description:SMALL BONE PLUG Lp Hex Screw 6.5x25mm Stry-Howm [id number] Implanted:Qty: 1 on 06/28/2021 by Miquel Cisneros MD Left: Hip [employer] [id number] 05/13/2026 [id number] / / [id number] Lp Hex Screw 6.5x30mm Stry-Howm [id number] 78 Implanted:Qty: 1 on 06/28/2021 by Miquel Cisneros MD Left: Hip [employer] [id number] 05/04/2026 4168-1482 / / [id number] Hip Spacer C-Distl Rng Sm 10mm Stry-Howm [id number] 71 Implanted:Qty: 1 on 06/28/2021 by Miquel Cisneros MD Left: Hip [employer] [id number] 11/29/2025 1772-8760 / / [id number] Hip Stem Nk 127 C3 Cs 35mm Stry-Howm [id number] 260 Implanted:Qty: 1 on 06/28/2021 by Miquel Cisneros MD Left: Hip [employer] [id number] 11/01/2025 6058-0335D / / [id number] Procedures Procedure [...] Encounter for screening mammogram for breast cancer ANNUAL BMP BLOOD TEST Routine 06/11/2021 DXA [...] positive=1-10% positive nuclei, Positive >10% positive nuclei OH: Staining evaluation OH: Positive= >1% positive nuclei. 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 10:37 AM [facility] Comment Secondary review for new malignancy performed by Dr. Madison with agreement. Severo Zarco MD notified Dr. Chana Minor 04/04/24 of the diagnosis of invasive carcinoma at 9:36 a.m. via secure text. 10:37 AM [facility] Clinical Information Suspicious opacity retroareolar Clip: Top Hat Lot # [id number] 10:37 AM [facility] Gross Description A. Breast, Right, [...] hours): 30 hours MOIRA 10:37 AM EST [facility] Disclaimer NOTE: The immunohistochemical tests and in situ hybridization tests were developed and their performance characteristics were determined by [facility]. They have not been [...] fixed and paraffin embedded. 10:37 AM EST [facility] Tissue Right breast structure / Unknown 04/02/2024 3:19 PM EST 04/03/2024 3:55 PM EST Comment:Clip: Top Hat Lot # [id number] Chana Minor MD LAB PATHOLOGY ORDERABLES Edit ed Result - Final [facility] [address] [place] [address], [place] [phone] * MG Stereo Bx Breast Perc 1st [...] Message then sent to nurse navigator at [facility] Ms. Bai with confirmation at 2:29pm. RECOMMENDATION: Surgical consultation/management recommended for the right breast. -------- ADDENDUM -------- Dictated By: Chana Minor Dictated Date: 04/05/2024 07:50 ET Assigned Physician: Chana Minor Reviewed and Electronically Signed By: Chana Minor Signed Date: 04/05/2024 07:58 ET Workstation ID: [id number] Transcribed By: Self Edit Transcribed Date: 04/05/2024 [...] Signed Date: 04/02/2024 17:48 ET Workstation ID: [id number] Transcribed By: Self Edit Transcribed Date: 04/02/2024 [...] positioned in the Affirm upright biopsy system ([employer]) and images of the focal asymmetry in the upper slightly inner quadrant at about 7 cm from the nipple were obtained. The breast was prepped for the procedure and the area was anesthetized with a local anesthetic 20 cc of lidocaine 1% buffered with Sodium Bicarbonate 4.2% (9cc: 1cc) superficially and deeper. ??Using a [employer] Brevera Biopsy System with Brevera 9G standard needle probe, one pass was made through the area from superior approach, and 8 specimens were obtained. A [employer] SecurMark for Eviva Top Hat shape titanium ([id number]-[id number]-4d-13) micromarker was placed at the site of [...] was positioned in the Affirm upright biopsysystem ([employer]) and images of the focal asymmetry in the upper slightlyinner quadrant at about 7 cm from the nipple were obtained. The breast wasprepped for the procedure and the area was anesthetized with a localanesthetic 20 cc of lidocaine 1% buffered with Sodium Bicarbonate 4.2%(9cc: 1cc) superficially and deeper. Using a Corvilvera BiopsySystem with Brevera 9G standard needle probe, one pass was made throughthe area from superior approach, and 8 specimens were obtained. A [employer] for Eviva Top Hat shape titanium ([id number]-Klnht-4w-13) micromarkerwas placed at the site of the [...] Signed Date: 04/02/2024 17:48 ET Workstation ID: [id number] Transcribed By: Self Edit Transcribed Date: 04/02/2024 17:31 ET us Jocy Malave MD IMG BI PROCEDURES Edited Resul t - Final * US Pelvis Non OB Complete w Transvaginal (04/02/2024 1:18 PM EST) Anatomical Region Laterality Modality Body, Pelvis Ultrasound 04/02/2024 1:50 PM EST Impressions 04/02/2024 1:55 PM EST No endometrial abnormality. ??No myometrial mass. POS [id number] -------- FINAL REPORT -------- Dictated By: Judy Segundo Dictated Date: 04/02/2024 13:50 ET Assigned Physician: Judy Segundo Reviewed and Electronically Signed By: Judy Segundo Signed Date: 04/02/2024 13:55 ET Workstation ID: [id number] Transcribed By: Self Edit Transcribed Date: 04/02/2024 [...] No endometrial abnormality. No myometrial mass. POS [id number] -------- FINAL REPORT -------- Dictated By: Judy Segundo Dictated Date: 04/02/2024 13:50 ET Assigned Physician: Judy Segundo Reviewed and Electronically Signed By: Judy Segundo Signed Date: 04/02/2024 13:55 ET Workstation ID: [id number] Transcribed By: Self Edit Transcribed Date: 04/02/2024 [...] patient will be contacted by the radiology press department manager to schedule the stereotactic core biopsy procedure. ??Findings and recommendations were discussed with the patient in person. RECOMMENDATION: Core biopsy of right breast recommended. -------- FINAL REPORT -------- Dictated By: Brenda Puga Dictated Date: 03/27/2024 13:35 ET Assigned Physician: Brenda Puga Reviewed and Electronically Signed By: Brenda Puga Signed Date: 03/27/2024 13:41 ET Workstation ID: [id number] Transcribed By: Self Edit Transcribed Date: 03/27/2024 [...] Signed Date: 03/27/2024 13:41 ET Workstation ID: [id number] Transcribed By: Self Edit Transcribed Date: 03/27/2024 [...] biopsy of right breast recommended. Mammo Location: [facility], [address] [place] [address], [address], . -------- FINAL REPORT -------- Dictated By: Zenaida Moreno Dictated Date: 03/26/2024 12:39 ET Assigned Physician: Zenaida Moreno Reviewed and Electronically Signed By: Zenaida Moreno Signed Date: 03/26/2024 12:45 ET Workstation ID: [id number] Transcribed By: Self Edit Transcribed Date: 03/26/2024 [...] Core biopsy of right breastrecommended. Mammo Location: [facility], [address] [place] [address], [address], . -------- FINAL REPORT -------- Dictated By: Zenaida Moreno Dictated Date: 03/26/2024 12:39 ET Assigned Physician: Zenaida Moreno Reviewed and Electronically Signed By: Zenaida Moreno Signed Date: 03/26/2024 12:45 ET Workstation ID: [id number] Transcribed By: Self Edit Transcribed Date: 03/26/2024 [...] biopsy of right breast recommended. Mammo Location: [facility], [address] [place] [address], [address], . -------- FINAL REPORT -------- Dictated By: Zenaida Moreno Dictated Date: 03/26/2024 12:39 ET Assigned Physician: Zenaida Moreno Reviewed and Electronically Signed By: Zenaida Moreno Signed Date: 03/26/2024 12:45 ET Workstation ID: [id number] Transcribed By: Self Edit Transcribed Date: 03/26/2024 [...] Core biopsy of right breastrecommended. Mammo Location: [facility], [address] [place] [address], [address], . -------- FINAL REPORT -------- Dictated By: Zenaida Moreno Dictated Date: 03/26/2024 12:39 ET Assigned Physician: Zenaida Moreno Reviewed and Electronically Signed By: Zenaida Moreno Signed Date: 03/26/2024 12:45 ET Workstation ID: [id number] Transcribed By: Self Edit Transcribed Date: 03/26/2024 [...] recommended for the Right Breast. Mammo Location: [facility], [address] [place] [address], [address], . -------- FINAL REPORT -------- Dictated By: Brenda Puga Dictated Date: 01/30/2024 11:41 ET Assigned Physician: Brenda Puga Reviewed and Electronically Signed By: Brenda Puga Signed Date: 01/30/2024 11:48 ET Workstation ID: [id number] Transcribed By: Self Edit Transcribed Date: 01/30/2024 [...] is recommended forthe Right Breast. Mammo Location: [facility], [address] [place] [address], [address], . -------- FINAL REPORT -------- Dictated By: Brenda Puga Dictated Date: 01/30/2024 11:41 ET Assigned Physician: Brenda Puga Reviewed and Electronically Signed By: Brenda Puga Signed Date: 01/30/2024 11:48 ET Workstation ID: [id number] Transcribed By: Self Edit Transcribed Date: 01/30/2024 11:41 ET Jayce Cooley MD IMG BI PROCEDURES Final Res ult * Annual BMP Blood Test (06/11/2021) Annual [...] compression fractures seen on lateral spine. The [facility] Department of Internal Medicine recommends [...] on the World Health Organization criteria, Katy Rodriguez Sathish be classified as having osteopenia. This patient has a 15% risk ofmajor osteoporotic fracture and a 2.5% risk of hip fracture over the next10 years. (World Health Organization Fracture Risk Assessment) Nocompression fractures seen on lateral spine. The [facility] Department of Internal Medicine recommendsusing [...] risk by FRAX. Troy Del Cid MD [facility] PROCEDURES Final Result from Last 3 Months or Most Recently Relevant to Health Maintenance Insurance [place] [id number] MEDICARE [facility] [[email or web address]] Care Teams Inspector Exhaust Emissions Relationship Specialty Start Date End Date Jayce Cooley MD [address] [place] [address] Dr Yony [place] PCP - General 12/20/23
--- OUTSIDE RECORDS SUMMARY | 2024-04-26 09:45 | XMS_ITS | Encounter Summary ---
Author Organization [facility] Address [address] [place] [address] Care Team Providers Care Store Specialist Name Role Phone Jayce Cooley MD Primary Care Provider [phone] Reason for Visit * Imaging (Routine) - Closed Specialty Diagnoses / Procedures Referred By Chantel jennings Referred To Contact Radiology Diagnoses Abnormal mammogram Procedures MG Mammo Digital Diagnostic w Justin Right MG Mammo Diagnostic Addl Views Right MG Mammo Diagnostic Addl Views Right Jocy Malave MD [address] [place] [address] [address] [place] [address] Phone: tel: fax: [facility] Referral ID Status Reason Start Date Expiration Date Visits Re quested Visits Authorized [id number] Closed 03/15/2024 03/15/2025 1 1 Encounter Details Date Type Department Care Team (Latest Contact Info) Description 03/26/2024 10:40 AM EST - 03/26/2024 11:59 PM EST Hospital Encounter Radiology Department - [address] [address] Abnormal mammogram Discharge Disposition: Home or Self [...] AM EDT [facility]ointment [facility] at [address] [address] 05/09/2024 7:30 AM EDT Hospital Encounter [facility] Main OR [address] [place] [address] Jocy Garcia MD [address] [address] 05/09/2024 7:30 AM EDT - 05/09/2024 9:00 AM EDT Surgery [facility] Main OR [address] [place] [address] Jocy Garcia MD [address] [address] LUMPECTOMY with mag seed [10661 (CPT??) +1 more] 05/09/2024 12:00 PM EDT Appointment [facility] at [address] [address] 05/15/2024 3:45 PM EDT Office Visit Breast Care [address] [address] Jocy Garcia MD [address] [address] 05/29/2024 11:00 AM EDT Office Visit [facility] Hematology Oncology [address] [place] [phone] Giovanny Blanco MD [address] [place] [address] 02/05/2025 9:45 AM EST Office Visit Pulmonolgy [address] [phone] Estela Kyle MD [address] [address] Scheduled Procedures Name Priority Associated Diagnoses Date/Ti me LUMPECTOMY Malignant neoplasm of right breast in female, estrogen receptor positive, unspecified site of breast ([facility]) 05/09/2024 7:30 AM EDT documented [...] biopsy of right breast recommended. Mammo Location: [facility], [address] [place] [address], [address], . -------- FINAL REPORT -------- Dictated By: Zenaida Moreno Dictated Date: 03/26/2024 12:39 ET Assigned Physician: Zenaida Moreno Reviewed and Electronically Signed By: Zenaida Moreno Signed Date: 03/26/2024 12:45 ET Workstation ID: [id number] Transcribed By: Self Edit Transcribed Date: 03/26/2024 [...] Core biopsy of right breastrecommended. Mammo Location: [facility], [address] [place] [address], [address], . -------- FINAL REPORT -------- Dictated By: Zenaida Moreno Dictated Date: 03/26/2024 12:39 ET Assigned Physician: Zenaida Moreno Reviewed and Electronically Signed By: Zenaida Moreno Signed Date: 03/26/2024 12:45 ET Workstation ID: [id number] Transcribed By: Self Edit Transcribed Date: 03/26/2024 12:39 ET us Jocy Malave MD IMG BI PROCEDURES Final Result documented in this encounter Visit Diagnoses Diagnosis Abnormal mammogram Abnormal mammogram, unspecified Malignant neoplasm of right breast in female, estrogen receptor positive, unspecified site of breast (CMS/HCC) documented in this encounter Care Teams Store Specialist Relationship Specialty Start Date End Date Jayce Cooley MD [address] [place] [address] Dr Yony [place] PCP - General 12/20/23 documented as of this encounter
== END 2024-04-26 09:44 | disposition home or self-care (01) ==
PROVIDERS: PCP Physician Assistant Medical; Visit Provider Internal Medicine
DX: I10 Essential (primary) hypertension (principal); J43.9 Emphysema, unspecified; G47.33 Obstructive sleep apnea (adult) (pediatric); Z01.818 Encounter for other preprocedural examination

== ENCOUNTER → 2024-04-26 09:03 | Outpatient (BNVA) | payer MEDICARE, SELFPAY | PROVIDERS: PCP Physician Assistant Medical; Visit Provider Internal Medicine | DX: Z01.818 Encounter for other preprocedural examination (principal); C34.91 Malignant neoplasm of unspecified part of right bronchus or lung; C50.919 Malignant neoplasm of unspecified site of unspecified female breast; K21.9 Gastro-esophageal reflux disease without esophagitis; E78.00 Pure hypercholesterolemia, unspecified; I10 Essential (primary) hypertension; E66.9 Obesity, unspecified; F41.9 Anxiety disorder, unspecified; F32.A Depression, unspecified; G47.33 Obstructive sleep apnea (adult) (pediatric); J43.9 Emphysema, unspecified; Z99.89 Dependence on other enabling machines and devices; Z87.891 Personal history of nicotine dependence; Z68.41 Body mass index [BMI] 40.0-44.9, adult | CPT/HCPCS: 99212 ==

== ENCOUNTER 2024-05-30 09:59 | Outpatient (AMB) | payer MEDICARE, SELFPAY ==
--- NOTE | 2024-05-30 10:10 | MHC.PC.OV ---
Vital Signs 05/30/24 10:21 Height 5 ft 2 in Weight 230 lb BMI 42.1 BP 118/68 Blood Pressure Location Lt brachial Position Sitting Respiration 18 Pulse 85 Pulse Source Pulse Oximeter Pulse Oximetry (%) 97 Oxygen Delivery Method Room Air Intake Visit Reasons: med review Intake Note: Katy presents in the office today for a medication review. Patient states she would like to have her right ear checked feels like it is blocked. Founder And Chief Executive Officer Required: No Allergies NSAIDS (Non-Steroidal Anti-Inflamma Adverse Reaction (Unknown, Verified 05/30/24 10:15) kidneys Tobacco use date assessed: 05/30/24 Fall risk assessment: No Falls in past year Last assessed Fall Risk: 05/30/24 Dental Screening Dental Screen Date: 05/30/24 Did you have a dental visit in the last 12 months?: Yes Did you have a dental problem in the last 6 months where you did not have access to dental care?: No Was dental information given to patient?: Patient has dentist HPI HPI Comments History of Present Illness Details This is a 73-year-old female with a past medical history of GERD, hypercholesterolemia, hypertension, obesity, anxiety with depression, chronic back pain, glaucoma, NIVIA, emphysema and stage III right lung cancer in remission and right breast cancer presenting for follow up. Right breast cancer-status post lumpectomy. Her oncologist is Dr. Bullard. She is starting anastrozole, but she is really concerned about the side effects. She had been treated with hormone suppressants in the past, and it changed her entire personality. They discussed this in detail at her appointment, and she is going to try it for a month. She is going to stop it and have peace of mind that she tried it if she is not able to tolerate it. She emphasizes that she wants a good quality of life over quantity of life. We had this follow up to discuss her dose of citalopram which is 40 mg a day since 2019 when she lost her 49-year-old send a COVID-19. She said she will never get over it, but she has moved passed it. She has 2 other adult children. Her dose of citalopram is higher than recommended for a woman of her age, however she does not have side effects, and she does not want to stop it at this point. She wants to get through starting the anastrozole and see how she is feeling before making changes to the regimen, but ultimately she does agree the dose should be decreased. She tried sertraline in another SSRI in the past, and she did not tolerate them. She had an EKG on 04/26/2024 which showed normal sinus rhythm, low-voltage QRS and normal QT/QTC. She has a history of right lung cancer, stage III, with lymph node involvement. She was treated with surgery, chemotherapy and radiation in 2020. She is followed by Dr. Whitten at [facility]. She has emphysema and NIVIA. She quit smoking in 2007. She is also followed by Dr. Kyle. She has CT scans done every 6 months. She was evaluated by Gastroenterology at [facility] for GERD. She is on pantoprazole 40 mg twice daily chronically. She is followed by ophthalmology for glaucoma and treated with eyedrops. Hypertension is treated with hydrochlorothiazide 12.5 mg and losartan 25 mg daily. Hyperlipidemia is treated with pravastatin 40 mg daily. She is followed by Dr. 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 ROS: Constitutional: No unexplained weight loss, fever, chills, fatigue or night sweats. Respiratory: No shortness of breath, cough or sputum production. Cardiovascular: No chest pain, chest pressure or chest discomfort. No palpitations or pedal edema. Psychiatric: No SI/HI. +anxiety. Denies depression. Physical exam: Constitutional: Alert, in no distress. Neck: Supple, Full range of motion. No lymphadenopathy. No palpable thyroid masses. Respiratory: Clear to auscultation. Cardiovascular: S1 S2 regular. No murmurs. [facility] Medical History (Updated 05/31/24 @ 09:06 by CHALINO James) Anxiety Breast cancer, right Low TSH level Chronic back pain Grief at loss of child Essential hypertension Abnormal mammogram of right breast NIVIA (obstructive sleep apnea) Emphysema of lung Post-menopausal bleeding GERD (gastroesophageal reflux disease) Degenerative arthritis Pure hypercholesterolemia History of primary malignant neoplasm of right lung IFG (impaired fasting glucose) Deviated septum Surgical History (Updated 05/31/24 @ 09:06 by CAHLINO James) History of lumpectomy of right breast History of left hip replacement History of tonsillectomy S/P removal of lung Family History Father HTN (hypertension) Skin cancer Son HTN (hypertension) Diabetes Mother Diabetes Daughter Diabetes HTN (hypertension) Social History (Updated 05/30/24 @ 10:17 by Karen Koch MA) Housing: House Alcohol intake: current Patient Tobacco Use Status: Former Tobacco user (quit 2007) Cigarette Packs Per Day: 1 Years Smoked: 43 e-Cigarette/Vaping Use: Never Used Second Hand Smoke Exposure: No service: No Current occupational status: retired Cognitive needs: No Hearing needs: Yes (hearing aid both ear) Vision needs: Yes (glasses) Questionnaire PHQ-9 Over the last 2 weeks, how often have you been bothered by any of the following problems? 1. Little interest or pleasure in doing things: several days 2. Feeling down, depressed, or hopeless: several days 3. Trouble falling or staying asleep, or sleeping too much: not at all 4. Feeling tired or having little energy: nearly every day 5. Poor appetite or overeating: not at all 6. Feeling bad about yourself - or that you are a failure or have let yourself or your family down: not at all 7. Trouble concentrating on things, such as reading the newspaper or watching television: not at all 8. Moving or speaking so slowly that other people could have noticed. Or the opposite - being so fidgety or restless that you have been moving around a lot more than usual: not at all 9. Thoughts that you would be better off or of hurting yourself in some way: not at all Total score: 5 Depression Screening Interpretation: Positive Depression Screening Follow-up: In treatment Depression Screening Done: Yes 11219 - PHQ-9 Billing: Patient declined-do not bill Source: Developed by Drs. Heriberto Smith, Belinda Briscoe, Christian Vang and colleagues, with an educational troy from [employer]. Thrive Questionnaire Date Thrive assessed: 05/30/24 I am a: Patient What is your living situation today?: I have a steady place to live Within the past 12 months, did the food you bought not last and you didn't have the money to get more?: Never true Within the past 12 months, did you worry whether your food would run out before you got money to buy more?: Never true Do you have trouble paying for medicines?: No Do you have trouble getting transportation to medical appointments?: No Do you have trouble paying your heating and electricity bill?: No Do you have trouble taking care of your child, family member or friend?: No Do you have trouble with day-to-day activities such as bathing, preparing meals, shopping, managing finances, etc.?: No Are you currently unemployed and looking for a job?: No Are you interested in more education?: No Please select the resources that you would like help with: None Currently or been in a relationship where the following occur: No concerns reported THRIVE Score: 0 DARLING-7 AMB Questionnaire DARLING-7 Date DARLING - 7 assessed: 05/30/24 Feeling nervous, anxious, or on edge: 0 = Not at all Not being able to stop or control worryin = More than half the days Worrying too much about different things: 2 = More than half the days Trouble relaxin = Not at all Being so restless that it is hard to sit still: 2 = More than half the days Becoming easily annoyed or irritable: 0 = Not at all Feeling afraid as if something awful might happen: 2 = More than half the days Total DARLING-7 score (0-4 normal; 5-9 mild; 10-14 moderate; 15-21 severe): 8 Source: Developed by Drs. Heriberto Smith, Belinda Briscoe, Christian Vang and colleagues, with an educational troy from [employer]. DARLING-7 Assessment Billing DARLING-7 Assessment Tool: DARLING-7 Assessment 99732 Physical exam (Primary Care) Vital Signs: Last Vital Signs Pulse 85 05/30/24 10:21 Resp 18 05/30/24 10:21 BP 118/68 05/30/24 10:21 Pulse Ox 97 05/30/24 10:21 Oxygen Delivery Method Room Air 05/30/24 10:21 BMI result Body Mass Index 42.1 Tobacco/Smoking Status: Tobacco use Status Tobacco use date assessed 05/30/24 05/30/24 10:18 Patient Tobacco Use Status Former Tobacco user (quit 05/30/24 10:17 2007) e-Cigarette/Vaping Use Never Used 05/30/24 10:17 PHQ-9: PHQ-9 Score PHQ-9: Total score 5 05/30/24 11:04 Depression Screening Interpretation: Positive Depression Screening Follow-up: In treatment Thrive Assessment: Date of Thrive Assessment Date Thrive assessed 05/30/24 05/30/24 10:25 Currently or been in a relationship where the following occur: No concerns reported Coding Level of Care Code Est Pt Level 4 (74069) Complex EM visit Add On G2211 Diagnoses History of primary malignant neoplasm of right lung Z85.118 Breast cancer, right C50.911 History of lumpectomy of right breast Z98.890 Anxiety F41.9 Additional Codes DARLING-7 Assessment Billing - DARLING-7 Assessment Tool: DARLING-7 Assessment 76134 ([id number]) Assessment & Plan Assessment & Plan (1) History of primary malignant neoplasm of right lung: Code(s): Z85.118 - Personal history of other malignant neoplasm of bronchus and lung Category: Medical (2) Breast cancer, right: Code(s): C50.911 - Malignant neoplasm of unspecified site of right female breast Category: Medical (3) History of lumpectomy of right breast: Code(s): Z98.890 - Other specified postprocedural states Category: Surgical (4) Anxiety: Code(s): F41.9 - Anxiety disorder, unspecified Category: Medical Plan Patient is status post lumpectomy of the right breast and starting anastrozole. She is concerned about side effects, but she spoke about this in detail with her oncologist, and she is going to try it for a month and discontinue it if she can not tolerate it. We discussed the citalopram and potential side effects and risk of QT prolongation. Recent EKG does not show any evidence of this, and the patient does not want to decrease her dose at this time. This is understandable considering recent breast cancer diagnosis and anxiety over the medication she is starting. We agreed to re-evaluate this in another 4 months. If she develops chest pain, shortness of breath, palpitation she was advised to go to the emergency department. We discussed risks of sudden as a result of arrhythmias and prolonged QT. Again she emphasizes the quality of her life at this point. She understands the risks of being on the medication. We discussed there all alternative medications that she could take, but she does not want to make any medication changes at this time. She has a follow up scheduled with her oncologist. Follow up in 4 months.
[2024-05-30 10:21] VITALS: BP 118/68; PULSE 85; RESP 18; O2SAT 97; BMI 42.1
--- OUTSIDE RECORDS SUMMARY | 2024-05-30 11:35 | XMS_ITS | Clinical Summary ---
Author Organization [facility] Address [address] [place] [address] Care Team Providers Care Grill Prep Cook Name Role Phone Troy Del Cid MD [...] helps with weaning off HRT. [employer]ur[employer]ink [employer] Immunizations Name Administration Dates Next Due Covid-19 [...] this topic Medical Devices Implanted Type Area Transcript Clerk Device Identifier Shelf Expiration Date Model / Serial / Lot Cement Bone Surg Simplex Radiopq Stry-Howm 8275-4-978-114 092 - [id number] Implanted:Qty: 1 on 06/28/2021 by Miquel Cisneros [place] [facility] Left: Hip [employer] [id number] 07/21/2023 6191-1-010 / / [id number] Hip Head Delta Biolox 36mm-2.5 Stry-Howm 7322-1-550-549 191 - [id number] Implanted:Qty: 1 on 06/28/2021 by Miquel Cisneros [place] [facility] Left: Hip [employer] [id number] 03/29/2026 6570-0-436 / / [id number] Cement Bone Surg Simplex Radiopq Stry-Howm [id number] 092 - [id number] Implanted:Qty: 1 on 06/28/2021 by Miquel Cisneros MD at [facility] Left: Hip [employer] [id number] 01/19/2023 6191-1-010 / / [id number] Hip Insrt Trdnt 0deg 36mm D Stry-Howm 775-49-52y-[id number] 873 - [id number] Implanted:Qty: 1 on 06/28/2021 by Miquel Cisneros MD at [facility] Left: Hip [employer] [id number] 05/07/2026 623-00-36D / / [id number] Tritanium Cluster Hole Shell 48mm Stry-Howm [id number] 451 - [id number] Implanted:Qty: 1 on 06/28/2021 by Miquel Cisneros MD at [facility] Left: Hip [employer] [id number] 03/17/2026 70-04-48D / / [id number] Kit Prep Total Hip Bone Imp Smn-Orth [id number] - [id number] Implanted:Qty: 1 on 06/28/2021 by Miquel Cisneros MD at [facility] Left: Hip [employer] 03/09/2031 [id number] / / [id number] Description:SMALL BONE PLUG Lp Hex Screw 6.5x25mm Stry-Howm 1086-1893-6696 58 - [id number] Implanted:Qty: 1 on 06/28/2021 by Miquel Cisneros MD at [facility] Left: Hip [employer] [id number] 05/13/2026 1984-4979 / / [id number] Lp Hex Screw 6.5x30mm Stry-Howm 0953-9282-7908 78 - [id number] Implanted:Qty: 1 on 06/28/2021 by Miquel Cisneros MD at [facility] Left: Hip [employer] [id number] 05/04/2026 7026-4807 / / [id number] Hip Spacer C-Distl Rng Sm 10mm Stry-Howm 9462-7110-9054 71 - [id number] Implanted:Qty: 1 on 06/28/2021 by Miquel Cisneros MD at [facility] Left: Hip [employer] [id number] 11/29/2025 9949-4838 / / [id number] Hip Stem Nk 127 C3 Cs 35mm Stry-Howm 9601-4597c-233 260 - [id number] Implanted:Qty: 1 on 06/28/2021 by Miquel Cisneros MD at [facility] Left: Hip [employer] [id number] 11/01/2025 6058-0335D / / [id number] Advance Directives For more information, please contact: [phone] Documents on File Type Date Recorded Patient Bobtail Driver Expl anation Advance Directive and Living [...] way: discussion with patient . Care Teams Grill Prep Cook Relationship Specialty Start Date End Date Troy Del Cid MD PCP - General Family Medicine 11/25/20
--- OUTSIDE RECORDS SUMMARY | 2024-05-30 11:36 | XMS_ITS | Encounter Summary ---
Author Organization [facility] Address [address] [place] [address] Care Team Providers Care Reporting Coordinator Name Role Phone Violeta Orantes Primary Care Provider [phone] Reason for Referral * Imaging (Routine) - Authorized Specialty Diagnoses / Procedures Referred By Chantel jennings Referred To Contact Radiology Diagnoses Osteopenia of multiple sites Procedures BD Bone Density DXA Axial Skeleton Giovanny Blanco MD [address] [place] [phone] Phone: tel: fax: [address] [address] Phone: tel: Referral ID Status Reason Start Date Expiration Date V isits Requested Visits Authorized [id number] Authorized 05/29/2024 05/29/2025 1 1 Reason for Visit * Reason Comments Follow-up * Consultation (Routine) - Authorized Specialty Diagnoses / Procedures Referred By Chantel jennings Referred To Contact Hematology and Oncology Diagnoses Pulmonary emphysema, unspecified emphysema type (CMS/HCC V24, CMS/HCC V28) NIVIA on CPAP History of lung cancer History of therapeutic radiation Malignant neoplasm of right breast in female, estrogen receptor positive, unspecified site of breast (CMS/HCC V24, CMS/HCC V28) History of lobectomy of lung History of antineoplastic chemotherapy Jocy Garcia MD [address] [address] Phone: tel: fax: [facility] Hematology Oncology [address] [place] [address] Phone: tel: fax: Referral ID Status Reason Start Date Expiration Date Visits Requested Visits Authorized [id number] Authorized Specialty Services Required 04/11/2024 04/11/2025 1 1 Encounter Details Date Type Department Care Team (Latest Contact Info) Description 05/29/2024 11:00 AM EDT Office Visit [facility] Hematology Oncology [address] [place] [address] Giovanny Blanco MD [address] [place] [address] Malignant neoplasm of upper-inner quadrant of right breast in female, estrogen receptor positive (CMS/HCC V24, CMS/HCC V28) (Primary Dx); Pulmonary emphysema, unspecified emphysema type (CMS/HCC V24, CMS/HCC V28); NIVIA on CPAP; History of lung cancer; History of therapeutic radiation; Malignant neoplasm of right breast in female, estrogen receptor positive, unspecified site of breast (CMS/HCC V24, [facility]/HCC V28); History of lobectomy of lung; History of antineoplastic chemotherapy; Osteopenia of multiple sites Social History Tobacco Use Types Packs/Day Years Used Date Smoking Tobacco: Former Cigarettes Q uit: 02/20/2007 Smokeless Tobacco: Never Tobacco Cessation:Counseling Given: Not Answered Alcohol Use Standard Drinks/Week Comments Yes 0 (1 standard drink = 0.6 oz pur e alcohol) Interpersonal Safety Answer Date Record ed Physical Abuse 05/09/2024 Verbal Abuse 05/09/2024 Comments No Sex and Gender Information Value Date Recorded Sex Assigned at Female 01/04/2024 11:39 AM EST Legal Sex Female 3:35 AM EST Gender Identity Female 01/04/2024 11:39 AM EST Sexual Orientation Straight 01/04/2024 11 :39 AM EST documented as of this encounter Last Filed Vital Signs Vital Sign Reading Time Taken Comments Blood Pressure 130/68 05/29/2024 11:06 AM EDT Pulse 86 05/29/2024 11:06 AM EDT Temperature 36.6 ??C (97.8 ??F) 05/29/2024 11:06 AM E DT Respiratory Rate - - Oxygen Saturation 97% 05/29/2024 11:06 AM EDT Inhaled Oxygen Concentration - - Weight 104 kg (230 lb) 05/29/2024 11:06 AM EDT Height 157.5 cm (5' 2 ) 05/29/2024 11:06 AM EDT Body Mass Index 42.07 05/29/2024 11:06 AM EDT documented in this encounter Ordered Prescriptions Prescription Sig Dispense Quantity Refills Last Filled Start Date End Date anastrozole (ARIMIDEX) 1 mg Take 1 tablet (1 mg total) by mouth 1 (one) time each day Swallow whole with a drink of water. 30 tablet 05/29/2024 documented in this encounter Plan of Treatment Upcoming Encounters Date Type Department Care Team (Late st Contact Info) Description 07/10/2024 1:00 PM EDT Appointment [facility] Bone Density [address] [place] [address] 07/31/2024 11:00 AM EDT Office Visit [facility] Hematology Oncology [address] [place] [address] Giovanny Blanco MD [address] [place] [address] 08/16/2024 2:45 PM EDT Appointment [facility] CT Scan [address] [place] [address] 08/29/2024 9:00 AM EDT Office Visit Thoracic Surgery [facility] [address] [facility] [address] [place] [phone] Luci Finch PA [address] [facility], [address] [place] [address] 09/25/2024 1:30 PM EDT Office Visit [facility] [address] [place] [phone] Jocy Garcia MD [address] [place] [address] 02/05/2025 9:45 AM EST Office Visit Pulmonolgy [facility] [place] [address] [place] [address] Estela Kyle MD [address] [place] [address] Scheduled Orders Name Type Priority Associated Diagnoses Orde r Schedule BD Bone Density DXA Axial Skeleton Imaging Routine Osteopenia of multiple sites Expected: 06/12/2024, Expires: 05/29/2025 documented as of this encounter Visit Diagnoses Diagnosis Malignant neoplasm of upper-inner quadrant of right breast in female, estrogen receptor positive (CMS/HCC V24, CMS/HCC V28)- Primary Pulmonary emphysema, unspecified emphysema type (CMS/HCC V24, CMS/HCC V28) NIVIA on CPAP History of lung cancer Personal history of malignant neoplasm of bronchus and lung History of therapeutic radiation Malignant neoplasm of right breast in female, estrogen receptor positive, unspecified site of breast (CMS/HCC V24, CMS/HCC V28) History of lobectomy of lung History of antineoplastic chemotherapy Personal history of antineoplastic chemotherapy Osteopenia of multiple sites documented in this encounter Orders Outpatient Referral Count Last Ordered Date Ordered Date AMB REFERRAL TO HEMATOLOGY / ONCOLOGY 1 10/2024 documented in this encounter Care Teams Reporting Coordinator Relationship Specialty Start Date End Date Violeta Orantes PA [address] [place] [id number] PCP - General Physician Testing And Regulating Technician 05/07/24 documented as of this encounter
--- OUTSIDE RECORDS SUMMARY | 2024-05-30 11:36 | XMS_ITS | Data Portability ---
Author Organization [place] [facility] Artemio Ty AONE Boyd Address [address] [place] [address] Care Team Providers Care Stna Name Role Phone JEFFREY KUMARI Primary Care Provider Assessment Encounter Date Assessment Date Assessment LastModified by Organization Details LastModified Time 09/07/2022 09/07/2022 HPI : Patient is here for left knee pain. She is over 1 year from a hip replacement with me. I actually saw her last week. She then had a fall on Monday. This resulted in a direct hit to the left knee. She went to the [facility] emergency department. CT scan and x-rays demonstrated [...] and x-rays of the left knee from [facility] from September 06. It showed a comminuted [...] view 2022 023 [email or web address] 2 [facility], [address], [place], [address], 3 11:06:29 XR, knee, 3 view 2022 023 [facility], [address], [place], [address], 3 10:56:36 XR, knee, 3 view 2022 023 [facility], [address], [place], [address], 3 11:29:20 XR, knee, 1 or 2 view 2022 023 [facility], [address], [place], [address], 3 13:03:35 XR, knee, 1 or 2 view 2022 023 [facility], [address], [place], [address], 3 13:03:35 Medication Orders Kenalog 40 mg/mL suspension for injection [address]/Pharmacy #[id number], [address] [place], [address], 3 10:53:49 lidocaine (PF) 10 mg/mL (1 %) injection solution 2022 023 [id number], [address] [place], [address], 3 10:53:53 Patient TargetsNo targets recorded. Patient Instructions Encounter Date Encounter Id Patient Instructions Last Modified By Organization Details Last Modified Time 09/29/2022 [id number] X-rays Which include AP, right and left lateral view reveal well-maintained joint space on AP view Left knee with subtle lucency that is transverse within the patella without any notable separation. With degenerative change Right knee patellofemoral view lateral no acute bony abnormality no obvious fracture degenerative changes are noted. Not available 09/29/2022 12:49:51 10/19/2022 [id number] X-rays Which include AP, right and left lateral view reveal well-maintained joint space on AP view Left knee with subtle lucency that is transverse within the patella without any notable separation. With degenerative change Right knee patellofemoral view lateral no acute bony abnormality no obvious fracture degenerative changes are noted. Not available 10/20/2022 07:15:52 11/02/2022 [id number] AP and sunrise y ou do not reveal any acute bony abnormality. Lateral view with also without acute bony abnormality when compared to her prior study which noted a fracture on 09/29/2022. Not available 11/03/2022 07:47:21 02/02/2023 [id number] Three-view x-ray left knee reveals minimal degenerative [...] Details Recorded Time Closed fracture of patella 68604222 Active 2022 Miquel Cisneros MD [address], [facility] [place], [address], [place] [facility] 3 14:11:42 Pes anserinus bursitis of right knee 54856816785580 09 Active 2022 MARCY HILL PA-C [address], [place], [address], [place] [facility] 3 12:52:39 Problem Notes None recorded. Procedures Surgical History Date Name Laterality Status Provider Name and Address Organization Details Recorded Time 3 Knee Joint/Bursa Asp & Inj completed MARCY HILL PA-C [address] [facility],[address], [place], [address], [place] [facility] 09/29/2022 12:51:14 Hip Surgery completed Karson Luz [facility] 08/26/2022 13:56:15 procedure on lung completed Karson Luz [facility] 08/26/2022 13:56:22 Imaging Results None recorded. [...] Ewa Huynh [facility] 02/02/2023 10:51:18 Date Recorded Body height Provider Name an d Address Organization Details Last Updated DateTime 09/07/2022 [address] [place] [facility] 09/07/2022 13:57:41 Date Recorded Body height Provider Name an d Address Organization Details Last Updated DateTime 10/19/[address]22 [address] [facility] 10/19/2022 09:21:09 Social History Question Answer Notes LastModified by Organizat ion Details LastModified Time Tobacco Smoking Status Current Every Day Smoker Karson bateman, [place] [facility], 08/26/2022 13:55:50 What Is Your Level Of Alcohol Consumption? Moderate [email or web address] Information not available 08/26/2022 How Many Times Per Week Do You Consume Alcohol? 5-7 Times Per Week Information not available 08/26/2022 Do You Use Any Illicit Or Recreational Drugs? No [email or web address] Information not available 08/26/2022 How Many Years Have You Smoked Tobacco? 42 Information not available 08/26/2022 Do You Or Have You Ever Used Any Other Forms Of Tobacco Or Nicotine? No [email or web address] Information not available 08/26/2022 Sex: Unknown Functional Status None recorded. Mental Status None recorded. Family History Relationship Description Onset Age of this Age Resolved Age Notes LastModified by Organization Details LastModified Time Father Arthritis [email or web address] Not avai lable 08/26/2022 13:56:48 Father Family history of malignant neoplasm skin [email or web address] Not available 2022 16:34:37 Father Heart disease [email or web address] Not available 08/2022 13:57:13 Father Hyperlipidem ia [email or web address] Not available 08/2022 13:57:22 Brother Arthritis [email or web address] Not bob ilable 08/26/2022 13:56:48 Mother Arthritis [email or web address] Not avai lable 08/26/2022 13:56:48 Mother Diabetes mellitus [email or web address] Not available 08/2022 13:57:05 Medical History Condition Response Cancer Y Osteopenia Y Thyroid Problems Y Hypertension Y COPD Y Gynecological HistoryNo gynecological history recorded. Obstetrics History GPAL:G 0 P 0 0 0 0 Past Encounters Encounter ID Performer Location Encounter Start Date Encounter Closed Date Diagnosis/Indication Diagnosis SNOMED-CT Code Diagnosis ICD10 Code Diagnosis Note [id number] MD YASEMIN Saldañakenny montano [address] [facility] [address] [facility] [place] [address] 08/26/2022 13:37:29 08/26/2022 14:16:44 History of total replacement of left hip joint 2355831073 071646 Z96.642 Aftercare 110309327 Z47. 1 [id number] MD YASEMIN Saldaña [address] [facility] [place] [address] 09/07/2022 13:32:32 09/07/2022 14:12:33 Closed fracture of patella 26859550 S82.002A [id number] MD YASEMIN Saldaña [facility] [address] [facility] [address] [place] [address] 09/29/2022 10:58:57 09/29/2022 12:52:48 Closed fracture of patella 85019142 S82.002A Pain of ri ght knee joint 5648173262 18141 M25.561 Pes anseri nus bursitis of right knee 4590773821 812467 M70.51 [id number] MD YASEMIN Saldaña [facility] [address] [facility] [address] [place] [address] 10/19/2022 09:01:53 10/19/2022 10:12:12 Closed fracture of patella 88935519 S82.002A [id number] MD YASEMIN Saldaña [facility] [address] [address] 11/02/2022 13:43:30 11/02/2022 14:26:26 Closed fracture of patella 85078862 S82.002A [id number] MD YASEMIN Saldaña [facility] [address] [address] 02/02/2023 10:39:22 02/02/2023 11:06:29 Closed fracture of patella 93861959 S82.002A Follow-up visit [id number] Z09 Health Concerns Section Related Observation LastModified by Organization Detai ls LastModified Time None Recorded Concern Status LastModified by Organization Details LastModified Time None Recorded Advance Directives Directive None Recorded Payers Encounter Date Sequence Insurance Name Policy Number Policy West Covered Member ID West Member ID Guarantor Name 09/07/2022 1 [place] [facility] Katy Rodriguez-Shaheen landeros [id number] Katy Heaton 09/07/2022 2 [place] [id number] Katy Rodriguez Pasay [id number] Katy Rodriguez Pas[place] 09/29/2022 1 [place] [employer] Katy Corral say [id number] Katy Rodriguez Pas[place] 09/29/2022 2 [place] [id number] Katy Rodriguez Pasay [id number] Katy Rodriguez [place] 10/19/2022 1 [place] [employer] [place] Katy Corral say [id number] Katy Rodriguez [place] 10/19/2022 2 [place] [id number] Katy Rodriguez Pasay [id number] Katy Rodriguez [place] 11/02/2022 1 [place] [employer] [place] Katy Corral say [id number] Katy Rodriguez Pasay 11/02/2022 2 [place] [id number] Katy Rodriguez Pasay [id number] Katy Rodriguez Pasay 02/02/2023 1 [place] [place] Katy Corral say [id number] Katy Rodriguez Pasay 02/02/2023 2 [place] [id number] Katy Rodriguez Pasay [id number] Katy Rodriguez Pasay Notes Date Note [...] the left knee. She went to the [facility] emergency department. CT scan and x-rays demonstrated [...] and x-rays of the left knee from [facility] from September 06. It showed a comminuted [...] degenerative changes are noted. MARCY HILL PA-C [address] [place] [address], [place], [address], [place] [facility] 09/29/2022 12:54:44 10/19/2022 text/html Pleasant 72-year [...] at today's visit. MARCY HILL PA-C [address] [facility], [place], [address], [place] [facility] 10/20/2022 07:21:47 11/02/2022 text/html Patient here [...] full without difficulty. MARCY HILL PA-C [address] [facility],[address], [place], [address], [place] [facility] 11/03/2022 07:47:40 02/02/2023 text/html Assessment & Dhara n: Prior [id number] d female following up on a left [...] activities no discomfort. MARCY HILL PA-C [address] [facility],[address], [place], [address], [place] [facility] 02/02/2023 11:13:24 OBGyn Episode No OBEpisode recorded.
--- OUTSIDE RECORDS SUMMARY | 2024-05-30 11:36 | XMS_ITS | Clinical Summary ---
Author Organization [facility] Address [address] [place] [address] Phone Care Team Providers Care Vehicle Modification Technician Name Role Phone Violeta Orantes Primary Care Provider [phone] Allergies Active Allergy Reactions Criticality Noted Date [...] 1 (one) time each day. 4 Active fluticasone propion-salmete roL (ADVAIR DISKUS) 500-50 mcg/dose diskus inhaler Inhale [...] Use in each nostril as directed Active anastrozole (ARIMIDEX) 1 mg Take 1 tablet (1 mg total) by mouth 1 (one) time each day Swallow whole with a drink of water. 30 tablet 5 06/29/19 25 Active Active Problems Problem Noted Date Diagnosed Date Malignant neoplasm of right breast in female, estrogen receptor positive (CMS/HCC V24, CMS/HCC V28) 04/10/2024 History of lung cancer 02/16/2024 Assessment [...] Anemia complicating neoplastic disease Recurrent major depressive d isorder, in full remission (CMS/HCC V24) 04/15/2020 Hyperacusis of both ears 04/06/2020 Hearing deficit, bilateral 04/06/2020 Hearing decreased, bilateral 04/03/2020 Chest wall pain 03/09/2020 DDD (degenerative disc disease), lumbar 03/09/19 21 Hypercholesterolemia 03/09/2020 Overview (11/09/2023): Prior Lipitor Hyperthyroidism 03/09/2020 Depression 11/27/2018 Pulmonary emphysema ([facility] V24, [facility] V28) 0 04/04/2017 Adjustment reaction with anxiety and depression 09/09/2016 NIVIA on CPAP 12/11/2014 Major depressive disorder, r ecurrent, unspecified ([facility] V24) 12/09/2008 Overview (11/09/2023): She is better on the citalopram. We talked abouttapering off but I advised her to wait until spring pt is feeling well on citalopram. No changes as it helps with weaning off HRT. 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 Resolved Problems Problem Noted Date Diagnosed Date Resolved Date Malignant neoplasm of lower lobe of right lung ([facility] V24, [facility] V28) 03/03/2020 02/16/20 24 Encounters Date Type Department Care Team Description 05/29/2024 11:00 AM EDT Office Visit [facility] Hematology Oncology [address] [place] [phone] Subramonia-Giovanny Santos MD Malignant neoplasm of upper-inner quadrant of right breast in female, estrogen receptor positive ([facility] V24, [facility] V28) (Primary Dx); Pulmonary emphysema, unspecified emphysema type ([facility] V24, [facility] V28); NIIVA on CPAP; History of lung cancer; History of therapeutic radiation; Malignant neoplasm of right breast in female, estrogen receptor positive, unspecified site of breast ([facility] V24, [facility] V28); History of lobectomy of lung; History of antineoplastic chemotherapy; Osteopenia of multiple sites 05/15/2024 3:45 PM EDT Office Visit [facility] [address] [facility] [address] [place] [phone] Jocy Garcia MD Pulmonary emphysema, unspecified emphysema type ([facility]/HCC V24, CMS/HCC V28) (Primary Dx); History of antineoplastic chemotherapy; Malignant neoplasm of right breast in female, estrogen receptor positive, unspecified site of breast (CMS/HCC V24, CMS/HCC V28); History of therapeutic radiation 05/09/2024 7:39 AM EDT Anesthesia Event [facility] OR [address] [place] [phone] Alexis Dodd MD Saliga, Jesse L, MD 05/09/2024 7:30 AM EDT - 05/09/2024 9:00 AM EDT Surgery [facility] OR [address] [place] [phone] Jocy Garcia MD right breast LUMPECTOMY w/mag seed [29572 (CPT??) +1 more] 05/09/2024 6:29 AM EDT - 05/09/2024 11:59 PM EDT Hospital Encounter [facility] [address] [phone] Breast cancer ([facility] V24, [facility] V28) Discharge Disposition: Home or Self Care 05/09/2024 5:58 AM EDT - 05/09/2024 11:02 AM EDT Hospital Encounter [facility] OR [address] [place] [phone] Jocy Garcia MD Malignant neoplasm of right breast in female, estrogen receptor positive, unspecified site of breast ([facility]/HCC V24, CMS/HCC V28) Discharge Disposition: Home or Self Care 05/08/2024 9:43 AM EDT - 05/08/2024 11:59 PM EDT Hospital Encounter [facility] at [address] [phone] Breast cancer ([facility]/HCC V24, CMS/HCC V28) Discharge Disposition: Home or Self Care 04/16/2024 [facility] [address] [phone] Jocy Garcia MD Surgery 04/10/2024 3:15 PM EST Consult [address] [phone] Jocy Garcia MD Malignant neoplasm of right breast in female, estrogen receptor positive, unspecified site of breast ([facility] V24, [facility] V28) (Primary Dx); Pulmonary emphysema, unspecified emphysema type ([facility]/HCC V24, [facility] V28); NIVIA on CPAP; History of lung cancer; History of therapeutic radiation; History of lobectomy of lung; History of antineoplastic chemotherapy 04/05/[address] [phone] Huong Bai RN Appointment 04/02/2024 12:39 PM EST - 04/02/2024 11:59 PM EST Hospital Encounter Radiology Department - [address] [phone] Abnormal mammogram Discharge Disposition: Home or Self Care 04/02/2024 12:38 PM EST - 04/02/2024 11:59 PM EST Hospital Encounter Radiology Department - [address] [phone] Post-menopausal bleeding Discharge Disposition: Home or Self Care 03/27/2024 12:32 PM EST - 03/27/2024 11:59 PM EST Hospital Encounter Radiology Department - [address] [phone] Abnormal mammogram Discharge Disposition: Home or Self Care 03/26/2024 10:41 AM EST - 03/26/2024 11:59 PM EST Hospital Encounter Radiology Department - [address] [phone] Abnormal mammogram Discharge Disposition: Home or Self Care 03/26/2024 10:40 AM EST - 03/26/2024 11:59 PM EST Hospital Encounter Radiology Department - [address] [phone] Abnormal mammogram Discharge Disposition: Home or Self Care 03/05/2024 9:39 AM EST Anesthesia Event [facility] Pain Management [address] [place] [phone] Severo Sharif MD Abrokwah, 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, TOWN CLERK 03/05/2024 8:30 AM EST - 03/05/2024 11:59 PM EST Hospital Encounter [facility] Management [address] [place] [phone] Bib Suarez DO Abrokwah, 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, TOWN CLERK Radiculopathy, lumbar region Discharge Disposition: Home or Self Care 03/05/2024 6:36 AM EST - 03/05/2024 11:59 PM EST Hospital Encounter [facility] Xray [address] [place] [phone] Pain Discharge Disposition: Home or Self Care from Last 3 Months Immunizations Name Administration Dates Next Due Zoster recombinant (Shingrix) 19yo and older Surgical History Surgery Date Site/Laterality Comments OTHER SURGICAL HISTORY PROCEDURE: VT DILATION & CURETTAGE DX&/THER NONOBSTETRIC; COMMENT: multiple times; tubal preg OTHER SURGICAL HISTORY PROCEDURE: VT ANESTHESIA UPPER ANTERIOR ABDOMINAL WALL NOS; COMMENT: Adhesions - NASAL SEPTUM SURGERY PROCEDURE: VT SEPTOPLASTY/SUBMUCOUS RESECJ W/WO CARTILAGE GRF BREAST BIOPSY 2007 Left PROCEDURE: BX BREAST; PERC NEEDLE CORE W/IMAG GUID; COMMENT: neg COLONOSCOPY 01/29/2010 PROCEDURE: HISTORICAL COLONOSCOPY; COMMENT: Normal HIP ARTHROPLASTY Left PROCEDURE: HISTORICAL HIP REPLACEMENT TONSILLECTOMY PROCEDURE: HISTORICAL TONSILLECTOMY OTHER SURGICAL HISTORY 08/2022 PROCEDURE: VT CLOSED TX PATELLAR FRACTURE W/O MANIPULATION; COMMENT: [...] (chronic obstructive pu lmonary disease) with emphysema (CMS/HCC V24, CMS/HCC V28) 04/04/2017 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) Lung nodules 02/24/2017 DX:Lung nodules Allergic rhinitis DX:Allergic rh initis; COMMENT: chronic NIVIA on CPAP 12/11/2014 DX:NIVIA on CPAP Hearing loss 08/22/2017 DX:Hearing loss; COMMENT: Has hearing aides Rash 08/22/2017 DX:Rash DDD (degenerative disc disease), lumbar DX:DDD (degenerative disc disease), lumbar Adenocarcinoma of lung, righ t ([facility]/HCC V24, CMS/HCC V28) 09/25/2020 DX:Adenocarcinoma of lung, r ight (HCC); COMMENT: Seen on 11/25/20 by oncology: s/p 3 of 4 cycles of adjuvant chemotherapy with cisplatin and pemetrexed (4th cycle not done d/t side effects). Also completed radiation therapy. Stable per PET CT. Recommended restaging meeting in May 2021 with [id number] visits for first 2 years. Malignant neoplasm of lower lobe of right lung (CMS/HCC V24, CMS/HCC V28) 03/03/2020 Shortness of breath GERD (gastroesophageal reflux disease) Lung cancer (CMS/HCC V24, CMS/HCC V28) Hypertension Family History Medical History Relation Name Comments [...] Other 2 Niece Paternal Grandfather (Age 77) [place] Paternal Grandmother (Age 93) Ol d age [...] 05/29/2024 11:06 AM E DT Respiratory Rate 20 05/09/2024 9:44 AM EDT Oxygen Saturation 97% 05/29/2024 11:06 AM EDT Inhaled Oxygen Concentration - - Weight 104 kg (230 lb) 05/29/2024 11:06 AM EDT Height 157.5 cm (5' 2 ) 05/29/2024 11:06 AM EDT Body Mass Index 42.07 05/29/2024 11:06 AM EDT Plan of Treatment Upcoming Encounters Date Type Department Care Team (Late st Contact Info) Description 07/10/2024 1:00 PM EDT Appointment [facility] Bone Density [address] [place] [phone] 07/31/2024 11:00 AM EDT Office Visit [facility] Hematology Oncology [address] [place] [phone] Giovanny Blanco MD [address] [place] [phone] 08/16/2024 2:45 PM EDT Appointment [facility] CT Scan [address] [place] [phone] 08/29/2024 9:00 AM EDT Office Visit Thoracic Surgery - [place] [address] [facility] [address] [place] [phone] Luci Finch PA [address] [facility], [address] [place] [address] 09/25/2024 1:30 PM EDT Office Visit [facility] [address] [facility] [address] [place] [phone] Jocy Garcia MD [address] [facility] [address] [place] [address] 02/05/2025 9:45 AM EST Office Visit Pulmonolgy - [place] [address] [facility] [address] [place] [phone] Estela Kyle MD 175 [facility] [address] [place] [address] Health Maintenance Due Date Last Done Comments Cholesterol Screening (Lipid Panel) 01/28/2022 Colorectal Cancer Screening: Stool Based Tests (FOBT/FIT) 01/28/2022 Depression Screening 01/28/2022 Hepatitis C Screening 01/28/2022 Medicare Annual Wellness Visit 01/28/2022 Social Influencers of Health Screening 01/28/2022 Hypertension/CHF/CAD Annual BMP Blood Test 10/15/2024 10/16/2023, 06/11/2021, 06/11/2021 Falls Risk Assessment 05/09/2025 05/09/2024 DTaP,Tdap,and Td Vaccines (5 - Td or Tdap) 11/09/2030 11/09/2020, 05/17/2010, 11/29/2002, Additional history exists Osteoporosis Screening (Bone Density Screening) 02/11/2031 02/11/2021, 11/10/2017 Pneumococcal Vaccine: 50+ Years Completed 06/24/2016, 01/30/2014 RSV Immunization Adult Patients Completed 12/09/2022 COVID-19 Vaccine Completed 11/17/2023, , [...] age to complete this topic Meningococcal B Vaccine Aged Out No l onger eligible based on patient's age to complete this topic RSV Immunization Patients Under 20 months Aged Out No longer eligible based on patient's age to complete this topic Varicella Vaccines Aged Out No longer eligible based on patient's age to complete this topic Medical Devices Implanted Type Area Summer Child Caregiver Device Identifier Shelf Expiration Date Model / Serial / Lot Marker 18ga [facility] 7[facility] - [id number] Implanted:Qty: 1 on 05/08/2024 by Megan Vale MD at [facility] Imaging Implants Left: Breast DEVICOR [employer] [id number] 10/20/2026 [id number] Cement Bone Surg Simplex Radiopq Stry-Howm [id number] 092 Implanted:Qty: 1 on 06/28/2021 by Miquel Cisneros MD Left: Hip [employer] [id number] 07/21/2023 6191-1-0 10 / / [id number] Hip Head Delta [employer]ox 36mm-2.5 Stry-Howm [id number] 191 Implanted:Qty: 1 on 06/28/2021 by Miquel Cisneros MD Left: Hip [employer] [id number] 03/29/2026 6570-0-4 36 / / [id number] Cement Bone Surg Simplex Radiopq Stry-Howm [id number] 092 Implanted:Qty: 1 on 06/28/2021 by Miquel Cisneros MD Left: Hip [employer] [id number] 01/19/2023 6191-1-0 10 / / [id number] Hip Insrt Trdnt 0deg 36mm D Stry-Howm [id number] 873 Implanted:Qty: 1 on 06/28/2021 by Miquel Cisneros MD Left: Hip [employer] [id number] 05/07/2026 623-00-3 6D / / [id number] Tritanium Cluster Hole Shell 48mm Stry-Howm [id number] Implanted:Qty: 1 on 06/28/2021 by Miquel Cisneros MD Left: Hip [employer] [id number] 03/17/2026 702-04-4 8D / / [id number] A Kit Prep Total Hip Bone Imp [facility] [id number] Implanted:Qty: 1 on 06/28/2021 by Miquel Cisneros MD Left: Hip [employer] 03/09/2031 [id number] / / [id number] Description:SMALL BONE PLUG Lp Hex Screw 6.5x25mm Stry-Howm [id number] Implanted:Qty: 1 on 06/28/2021 by Miquel Cisneros MD Left: Hip [employer] [id number] 05/13/2026 [id number] / / [id number] Lp Hex Screw 6.5x30mm Stry-Howm [id number] 78 Implanted:Qty: 1 on 06/28/2021 by Miquel Cisneros MD Left: Hip [employer] [id number] 05/04/2026 [id number] 0 / / [id number] Hip Spacer C-Distl Rng Sm 10mm Stry-Howm [id number] Implanted:Qty: 1 on 06/28/2021 by Miquel Cisneros MD Left: Hip [employer] [id number] 11/29/2025 1059-231 0 / / [id number] Hip Stem Nk 127 C3 Cs 35mm Stry-Howm [id number] 260 Implanted:Qty: 1 on 06/28/2021 by Miquel Cisneros MD Left: Hip [employer] [id number] 11/01/2025 6058-033 5D / / [id number] Procedures Procedure Name Priority Date/Time Associated Diagnosis Comments MG MAMMO BREAST SPECIMEN (STATISTICS) Routine 05/09/2024 11:43 AM EDT Breast cancer (CMS/HCC V24, CMS/HCC V28) OXYGEN THERAPY, ADULT Routine 05/09/2024 8:35 AM EDT OXYGEN THERAPY, ADULT Routine 05/09/2024 8:35 AM EDT TISSUE EXAM Routine 05/09/2024 8:12 AM EDT Malignant neoplasm of right breast in female, estrogen receptor positive, unspecified site of breast (CMS/HCC V24, CMS/HCC V28) TH AN LMA(NO CHARGE) Routine 05/09/2024 7:48 AM EDT VT PLACEMENT LOC DEVICE BREAST PERC MAMMO GUIDANCE 1ST LESION 05/09/2024 7:35 AM EDT Malignant neoplasm of right breast in female, estrogen receptor positive, unspecified site of breast (CMS/HCC V24, CMS/HCC V28) Case Notes mag seed 05/08 @ 10 Special Needs 1 hr please VT MASTECTOMY PARTIAL 05/09/2024 7:35 AM EDT Malignant neoplasm of right breast in female, estrogen receptor positive, unspecified site of breast (CMS/HCC V24, [facility] V28) Case Notes seed 05/08 @ 10 Special Needs 1 hr please MG PLCMNT BREAST LOC DEV MAGSEED 1ST LESION RIGHT Routine 05/08/2024 1:13 PM EDT Breast cancer (CMS/[facility] V24, [facility] V28) TISSUE EXAM Routine 04/02/2024 3:19 PM EST [...] Routine 03/26/2024 10:45 AM EST Abnormal mammogram ANNUAL BMP BLOOD TEST Routine 06/11/2021 DXA BONE DENISTY STUDY VERTEBRAL FRACTURE, INCLUDING LATERAL VIEW Routine 02/11/2021 10:14 AM EST Encounter for screening for osteoporosis from Last 3 Months or Most Recently Relevant to Health Maintenance Results * MG Mammo Breast Specimen (Statistics) (05/09/2024 11:43 AM EDT) Narrative RIS PACS/VR - 05/09/2024 11:43 AM EDT This order has been auto-finalized and does not contain a result. us Jocy Garcia MD IMG BI PROCEDURES Final Result RIS PACS/VR * Tissue exam (05/09/2024 8:12 AM EDT) Only the most recent of2 resultswithin the time period is included. Final Diagnosis Right breast, magnetic seed-localized partial mastectomy: Invasive ductal carcinoma, grade 1 Atypical ductal hyperplasia Margins uninvolved by carcinoma or atypia Extensive biopsy site changes Columnar cell hyperplasia 05/10/2024 2:38 PM EDT [facility] Gross Description A. Breast, Right, breast partial mastectomy green-anterior blue-inferior orange-lateral yello-medial black-posterior red-superior: Labeled right breast . Received fresh on 05/09/2024 (in formalin at 8:30 AM), is a single, fairly intact, 20 gram, bulging excision. The margins are received previously inked by the surgeon as follows: anterior-green, inferior-blue, lateral-orange, medial-yellow, posterior-black and superior-red. The specimen measures 4.5 cm (anterior to posterior) x 3.5 cm (medial to lateral) x up to 2.9 cm (superior to inferior). The specimen is serially section sequentially from anterior to posterior. The contiguous cut surfaces show a fibrotic to hemorrhagic, 1.9 x 1.5 x 1.1 cm biopsy cavity. A Mag seed is identified within the cavity as well as a Top-Hat clip, indicative of the biopsy site. A definitive mass is not identified however difficult to decipher due to the extensive hemorrhage and necrosis with associated red-brown grumous material and blood clot. The biopsy cavity is located 0.4 cm to the lateral and inferior margins and at least 0.8 cm from the remaining margins. The remaining tissue is soft, yellow, lobular and glistening. The specimen is submitted in entirety in eighteen cassettes. 1-anterior margin, perpendicularly bisected, two pieces-slice 1 2-3 sequential section, one piece each-slice 2 4-16 entire biopsy site with margins (11 Mag seed removed fro this tissue, 14-clip removed from this tissue), one piece each-slices 2-7 17-18 posterior margin, taken perpendicularly, two pieces each-slice 8 Time removed from patient (warm ends < cold ischemia starts): 8:12 AM (05/09/2024) Time put in formalin (cold ischemia ends): 8:30 AM (05/09/2024) Total cold ischemic time: 18 minutes Time tissue exits final stage of formalin on tissue processor: 9:00 PM 05/09/2024 Total fixation time (Ideally greater than 6 hours and less than 72 hours): Approximately 12.5 hours TS 05/10/2024 2:38 PM EDT [facility] Synoptic Checklist INVASIVE CARCINOMA OF THE BREAST: Resection INVASIVE CARCINOMA OF THE BREAST: RESECTION - All Specimens 8th Edition - Protocol posted: 08/09/2023 SPECIMEN ?? Procedure: ?Excision (less than total mastectomy) ?? Specimen Laterality: ?Right TUMOR ?? Histologic Type: ?Invasive carcinoma of no special type (ductal) ?? Histologic Grade (Dano Histologic Score): ? Glandular (Acinar) / Tubular Differentiation: ?Score 1 ? Nuclear Pleomorphism: ?Score 2 ? Mitotic Rate: ?Score 1 ? Overall Grade: ?Grade 1 (scores of 3, 4 or 5) ?? Tumor Size: ?Greatest dimension of largest invasive focus (Millimeters): 4 mm mm ?? Tumor Focality: ?Single focus of invasive carcinoma ?? Ductal Carcinoma In Situ (DCIS): ?Not identified ?? Lymphatic and / or Vascular Invasion: ?Not identified ?? Treatment Effect in the Breast: ?No known presurgical therapy MARGINS ?? Margin Status for Invasive Carcinoma: ?All margins negative for invasive carcinoma ? Distance from Invasive Carcinoma to Closest Margin: ?Greater than: 6 mm ? Closest Margin(s) to Invasive Carcinoma: ?Anterior REGIONAL LYMPH NODES ?? Regional Lymph Node Status: ?Not applicable (no regional lymph nodes submitted or found) pTNM CLASSIFICATION (AJCC 8th Edition) ?? Reporting of pT, pN, and (when applicable) pM categories is based on information available to the pathologist at the time the report is issued. As per the AJCC (Chapter 1, 8th Ed.) it is the managing physician's responsibility to establish the final pathologic stage based upon all pertinent information, including but potentially not limited to this pathology report. ?? pT Category: ?pT1a ?? pN Category: ?pN not assigned (no nodes submitted or found) SPECIAL STUDIES ?? Estrogen Receptor (ER) Status: ?Positive (greater than 10% of cells demonstrate nuclear positivity) ?? Progesterone Receptor (PgR) Status: ?Positive ?? HER2 (by immunohistochemis try): ?Negative (Score 1+) ?? Testing Performed on 05/10/2024 2:38 PM EDT [facility] Disclaimer Unless otherwise specified, all tissue is 10% NB formalin fixed and paraffin embedded. 05/10/2024 2:38 PM EDT [facility] Tissue Right breast structure / Unknown 05/09/2024 8:12 AM EDT 05/09/2024 8:29 AM EDT us Jocy Garcia MD LAB PATHOLOGY ORDERABLE S Final Result [facility] [address] [place] [address], * TH AN LMA(NO CHARGE) (05/09/2024 7:48 AM EDT) Narrative Gilberto Kapadia MD - 05/09/2024 7:48 AM EDT Gilberto Kapadia MD ? 05/09/2024 ??7:48 AM General Information and Staff Patient location during procedure: OR Anesthesiologist: Gilberto Kapadia MD Performed: anesthesiologist Performed by: Gilberto Kapadia MD Authorized by: Gilberto Kapadia MD ?? Intubation Airway not difficult Urgency: elective Final Airway Details Number of attempts at approach: 1Final airway type: LMA Indications and Patient Condition Indications for airway management: airway protection and anesthesia Spontaneous ventilation: present Sedation level: Yes Preoxygenated: yes Soft Tissue Damage: No Dentition Unchanged: Yes Patient position: neutral MILS maintained throughout Mask difficulty assessment: 0 - not attempted us Gilberto Kapadia MD ANESTHESIA ORDERABLES Final Re sult * MG Plcmnt Breast Seed Loc Dev 1st Lesion Right (05/08/2024 1:13 PM EDT) Anatomical Region Laterality Modality Breast Right Mammography 05/08/2024 12:0 2 PM EDT Impressions 05/08/2024 12:07 PM EDT Right Magseed localization. RECOMMENDATION: Clinical management of right breast is recommended. -------- FINAL REPORT -------- Dictated By: Megan Vale Dictated Date: 05/08/2024 12:02 ET Assigned Physician: Megan Vale Reviewed and Electronically Signed By: Megan Vale Signed Date: 05/08/2024 12:07 ET Workstation ID: [id number] Transcribed By: Self Edit Transcribed Date: 05/08/2024 12:02 ET Narrative 05/08/2024 12:07 PM EDT MAMMOGRAPHIC BREAST Magseed LOCALIZATION CLINICAL: ?? 73 old, Female, referred for right breast Magseed localization. ??Right breast invasive ductal carcinoma. COMPARISON: 04/02/2024, 03/27/2024, 01/30/2024 and 01/14/2023 PROCEDURE: ?? Informed consent was obtained. ?? Preprocedure time out was performed per routine. ??Preliminary mammographic views of the right confirm the presence of biopsy marker and postbiopsy changes in the upper inner right breast. Localizing grid imaging was performed. ??The skin was prepared using sterile technique. 1% Lidocaine was used for local anesthesia. Using a superior approach, Magseed assembly was used to target. Post-localization mammographic views show the Magseed to be in satisfactory position. ??The patient tolerated the procedure well and left the department in good condition. Procedure Note Megan Vale MD - 05/08/2024 MAMMOGRAPHIC BREAST Magseed LOCALIZATION CLINICAL: 73 old, Female, referred for right breast Magseedlocalization. Right breast invasive ductal carcinoma. COMPARISON: 04/02/2024, 03/27/2024, 01/30/2024 and 01/14/2023 PROCEDURE: Informed consent was obtained. Preprocedure time out was performed perroutine. Preliminary mammographic views of the right confirm the presenceof biopsy marker and postbiopsy changes in the upper inner right breast. Localizing grid imaging was performed. The skin was prepared usingsterile technique. 1% Lidocaine was used for local anesthesia. Using asuperior approach, Magseed assembly was used to target. Post-localizationmammographic views show the Magseed to be in satisfactory position. Thepatient tolerated the procedure well and left the department in goodcondition. IMPRESSION: Right Magseed localization. RECOMMENDATION: Clinical management of right breast is recommended. -------- FINAL REPORT -------- Dictated By: Megan Vale Dictated Date: 05/08/2024 12:02 ET Assigned Physician: Megan Vale Reviewed and Electronically Signed By: Megan Vale Signed Date: 05/08/2024 12:07 ET Workstation ID: [id number] Transcribed By: Self Edit Transcribed Date: 05/08/2024 12:02 ET us Jocy Garcia MD IMG BI PROCEDURES Final Result * MG Stereo Bx Breast Perc 1st Lesion Right (04/02/2024 3:11 PM EST) Anatomical Region Laterality Modality Breast Right Mammography 04/02/2024 5:31 PM EST Addenda Addendum by Chana Minor MD on 04/05/2024 7:58 AM EST Pathology results are as follows: Right breast asymmetry, stereotactic core biopsy (top hat clip): -Invasive ductal carcinoma, Sturbridge grade 1 (tubule formation score 1, nuclear [...] Message then sent to nurse navigator at [facility] Ms. Bai with confirmation at 2:29pm. RECOMMENDATION: Surgical consultation/management recommended for the right breast. -------- ADDENDUM -------- Dictated By: Chana Minor Dictated Date: 04/05/2024 07:50 ET Assigned Physician: Chana Minor Reviewed and Electronically Signed By: Chana Minor Signed Date: 04/05/2024 07:58 ET Workstation ID: [id number] Transcribed By: Self Edit Transcribed Date: 04/05/2024 [...] Signed Date: 04/02/2024 17:48 ET Workstation ID: [id number] Transcribed By: Self Edit Transcribed Date: 04/02/2024 [...] patient's right breast was positioned in the [employer] upright biopsy system (goCatch) and images of the focal asymmetry in the upper slightly inner quadrant at about 7 cm from the nipple were obtained. The breast was prepped for the procedure and the area was anesthetized with a local anesthetic 20 cc of lidocaine 1% buffered with Sodium Bicarbonate 4.2% (9cc: 1cc) superficially and deeper. ??Using a Youneeqvera Biopsy System with Brevera 9G standard needle probe, one pass was made through the area from superior approach, and 8 specimens were obtained. A goCatch [employer] for Eviva Top Hat shape titanium (MRgdd-Flser-1j-13) micromarker was placed at the site of [...] was positioned in the Affirm upright biopsysystem (goCatch) and images of the focal asymmetry in the upper slightlyinner quadrant at about 7 cm from the nipple were obtained. The breast wasprepped for the procedure and the area was anesthetized with a localanesthetic 20 cc of lidocaine 1% buffered with Sodium Bicarbonate 4.2%(9cc: 1cc) superficially and deeper. Using a goCatch Brevera BiopsySystem with Brevera 9G standard needle probe, one pass was made throughthe area from superior approach, and 8 specimens were obtained. A goCatchSecurMark for Eviva Top Hat shape titanium (STjjt-Emifu-8j-13) micromarkerwas placed at the site of the [...] Signed Date: 04/02/2024 17:48 ET Workstation ID: [id number] Transcribed By: Self Edit Transcribed Date: 04/02/2024 17:31 ET us Jocy Malave MD IMG BI PROCEDURES Edited Resul t - Final * US Pelvis Non OB Complete w Transvaginal (04/02/2024 1:18 PM EST) Anatomical Region Laterality Modality Body, Pelvis Ultrasound 04/02/2024 1:50 PM EST Impressions 04/02/2024 1:55 PM EST No endometrial abnormality. ??No myometrial mass. POS [id number] -------- FINAL REPORT -------- Dictated By: Judy Segundo Dictated Date: 04/02/2024 13:50 ET Assigned Physician: Judy Segundo Reviewed and Electronically Signed By: Judy Segundo Signed Date: 04/02/2024 13:55 ET Workstation ID: [id number] Transcribed By: Self Edit Transcribed Date: 04/02/2024 [...] No endometrial abnormality. No myometrial mass. POS [id number] -------- FINAL REPORT -------- Dictated By: Judy Segundo Dictated Date: 04/02/2024 13:50 ET Assigned Physician: Judy Segundo Reviewed and Electronically Signed By: Judy Segundo Signed Date: 04/02/2024 13:55 ET Workstation ID: [id number] Transcribed By: Self Edit Transcribed Date: 04/02/2024 [...] patient will be contacted by the radiology preparation department supervisor to schedule the stereotactic core biopsy procedure. ??Findings and recommendations were discussed with the patient in person. RECOMMENDATION: Core biopsy of right breast recommended. -------- FINAL REPORT -------- Dictated By: Brenda Puga Dictated Date: 03/27/2024 13:35 ET Assigned Physician: Brenda Puga Reviewed and Electronically Signed By: Brenda Puga Signed Date: 03/27/2024 13:41 ET Workstation ID: [id number] Transcribed By: Self Edit Transcribed Date: 03/27/2024 [...] Signed Date: 03/27/2024 13:41 ET Workstation ID: [id number] Transcribed By: Self Edit Transcribed Date: 03/27/2024 [...] biopsy of right breast recommended. Mammo Location: [facility], [address] [place] [address], [id number], . -------- FINAL REPORT -------- Dictated By: Zenaida Moreno Dictated Date: 03/26/2024 12:39 ET Assigned Physician: Zenaida Moreno Reviewed and Electronically Signed By: Zenaida Moreno Signed Date: 03/26/2024 12:45 ET Workstation ID: [id number] Transcribed By: Self Edit Transcribed Date: 03/26/2024 [...] Core biopsy of right breastrecommended. Mammo Location: [facility], [address] [place] [address], [id number], . -------- FINAL REPORT -------- Dictated By: Zenaida Moreno Dictated Date: 03/26/2024 12:39 ET Assigned Physician: Zenaida Moreno Reviewed and Electronically Signed By: Zenaida Moreno Signed Date: 03/26/2024 12:45 ET Workstation ID: [id number] Transcribed By: Self Edit Transcribed Date: 03/26/2024 [...] biopsy of right breast recommended. Mammo Location: [facility], [address] [place] [address], [id number], . -------- FINAL REPORT -------- Dictated By: Zenaida Moreno Dictated Date: 03/26/2024 12:39 ET Assigned Physician: Zenaida Moreno Reviewed and Electronically Signed By: Zenaida Moreno Signed Date: 03/26/2024 12:45 ET Workstation ID: [id number] Transcribed By: Self Edit Transcribed Date: 03/26/2024 [...] Core biopsy of right breastrecommended. Mammo Location: [facility], [address] [place] [address], [id number], . -------- FINAL REPORT -------- Dictated By: Zenaida Moreno Dictated Date: 03/26/2024 12:39 ET Assigned Physician: Zenaida Moreno Reviewed and Electronically Signed By: Zenaida Moreno Signed Date: 03/26/2024 12:45 ET Workstation ID: [id number] Transcribed By: Self Edit Transcribed Date: 03/26/2024 12:39 ET Jocy Malave MD IMG BI PROCEDURES Final Result * Annual BMP Blood [...] fractures seen on lateral spine. The [facility] Department of Internal Medicine recommends [...] on the World Health Organization criteria, Katy Bower be classified as having osteopenia. This patient has a 15% risk ofmajor osteoporotic fracture and a 2.5% risk of hip fracture over the next10 years. (World Health Organization Fracture Risk Assessment) Nocompression fractures seen on lateral spine. The [facility] Department of Internal Medicine recommendsusing [...] or over-estimation of fracture risk by FRAX. us Troy Del Cid MD [facility] PROCEDURES Final Result from Last 3 Months or Most Recently Relevant to Health Maintenance Insurance MEDICARE [facility] Advance Directives * Full Code - Default (Latest Code Status on File) Date Activated Date Inactivated Comments 05/09/2024 6:37 AM 05/09/2024 1:09 PM This is orde r is used when code status has not been discussed with the patient, or code status is otherwise unknown/unconfirmed To update the patient's code status, place a code status order. Do not modify or discontinue any currently active code status orders. Care Teams Vehicle Modification Technician Relationship Specialty Start Date End Date Violeta Orantes PA [address] [place] [id number] PCP - General Physician Genomics Scientist 05/07/24
== END 2024-05-30 10:54 | disposition home or self-care (01) ==
LOC: HO.HMCFM 10:00
PROVIDERS: PCP Physician Assistant Medical; Visit Provider Physician Assistant Medical
DX: Z85.118 Personal history of other malignant neoplasm of bronchus and lung (principal); C50.911 Malignant neoplasm of unspecified site of right female breast; Z98.890 Other specified postprocedural states; F41.9 Anxiety disorder, unspecified

== ENCOUNTER → 2024-05-30 09:59 | Outpatient (BNVA) | payer MEDICARE, SELFPAY | PROVIDERS: PCP Physician Assistant Medical; Visit Provider Physician Assistant Medical | DX: F41.9 Anxiety disorder, unspecified (principal); C50.911 Malignant neoplasm of unspecified site of right female breast; K21.9 Gastro-esophageal reflux disease without esophagitis; E78.00 Pure hypercholesterolemia, unspecified; I10 Essential (primary) hypertension; E66.9 Obesity, unspecified; J43.9 Emphysema, unspecified; Z85.118 Personal history of other malignant neoplasm of bronchus and lung; Z98.890 Other specified postprocedural states | CPT/HCPCS: 96127; 99212 ==

== ENCOUNTER 2024-07-02 14:35 | Outpatient (REF) | payer MEDICARE, SELFPAY ==
--- OUTSIDE RECORDS SUMMARY | 2024-07-02 15:44 | XMS_ITS | Clinical Summary ---
Author Organization [facility] Address [address] [place] [address] Care Team Providers Care Vacuum Spindle Sander Name Role Phone Troy Del Cid MD [...] helps with weaning off HRT. Nuris Fink SINGE MACHINE OPERATOR Immunizations Name Administration Dates Next Due Covid-19 [...] this topic Medical Devices Implanted Type Area Welder Plasma Arc Device Identifier Shelf Expiration Date Model / Serial / Lot Cement Bone Surg Simplex Radiopq Stry-Howm 8882-2-781-114 092 - [id number] Implanted:Qty: 1 on 06/28/2021 by Miquel Cisneros MD at [facility] and [facility] Left: Hip [employer] [id number] 07/21/2023 6191-1-010 / / [id number] Hip Head Delta [employer] 36mm-2.5 Stry-Howm 4939-8-630-549 191 - [id number] Implanted:Qty: 1 on 06/28/2021 by Miquel Cisneros MD at [facility] and [facility] Left: Hip [employer] [id number] 03/29/2026 6570-0-436 / / [id number] Cement Bone Surg Simplex Radiopq Stry-Howm 4227-4-335-114 092 - [id number] Implanted:Qty: 1 on 06/28/2021 by Miquel Csineros MD at [facility] and [facility] Left: Hip [employer] [id number] 01/19/2023 6191-1-010 / / [id number] Hip Insrt Trdnt 0deg 36mm D Stry-Howm 344-88-36z-548 873 - [id number] Implanted:Qty: 1 on 06/28/2021 by Miquel Cisneros MD at [facility] and [facility] Left: Hip [employer] [id number] 05/07/2026 623-00-36D / / [id number] Tritanium Cluster Hole Shell 48mm Stry-Howm 934-91-42s-772 451 - [id number] Implanted:Qty: 1 on 06/28/2021 by Miquel Cisneros MD at [facility] Left: Hip [employer] [facility] [id number] 03/17/2026 70-04-48D / / [id number] Kit Prep Total Hip Bone Imp Smn-Orth [id number] - [id number] Implanted:Qty: 1 on 06/28/2021 by Miquel Cisneros MD at [facility] Left: Hip [employer] 03/09/2031 [id number] / / [id number] Description:SMALL BONE PLUG Lp Hex Screw 6.5x25mm Stry-Howm 8789-6537-9342 58 - [id number] Implanted:Qty: 1 on 06/28/2021 by Miquel Cisneros MD at [facility] Left: Hip [employer] [facility] [id number] 05/13/2026 8689-9466 / / [id number] Lp Hex Screw 6.5x30mm Stry-Howm 4109-6364-1281 78 - [id number] Implanted:Qty: 1 on 06/28/2021 by Miquel Cisneros MD at [facility] Left: Hip [employer] [id number] 05/04/2026 7851-7230 / / [id number] Hip Spacer C-Distl Rng Sm 10mm Stry-Howm 0237-6576-1696 71 - [id number] Implanted:Qty: 1 on 06/28/2021 by Miquel Cisneros MD at [facility] Left: Hip [employer] [id number] 11/29/2025 9758-0251 / / [id number] Hip Stem Nk 127 C3 Cs 35mm Stry-Howm 8571-0655w-142 260 - [id number] Implanted:Qty: 1 on 06/28/2021 by Miquel Cisneros MD at [facility] Left: Hip [employer] [facility] [id number] 11/01/2025 6058-0335D / / [id number] Advance Directives For more information, please contact: [phone] Documents on File Type Date Recorded Patient Hadoop Java Developer Expl 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 Care Teams Vacuum Spindle Sander Relationship Specialty Start Date End Date Troy Del Cid MD PCP - General Family Medicine 11/25/20
--- OUTSIDE RECORDS SUMMARY | 2024-07-02 15:44 | XMS_ITS | Clinical Summary ---
Author Organization [facility] Address [address] [place] [address] Phone Care Team Providers Care Oil Field Pipeline Supervisor Name Role Phone Violeta Orantes Primary Care Provider [phone] Allergies Active Allergy Reactions Criticality Noted Date [...] mouth 1 (one) time each day. 01/14/20 24 Active fluticasone propion-salmet Teresita (ADVAIR DISKUS) 500-50 [...] as directed Active anastrozole (ARIMIDEX) 1 mg TAKE 1 TABLET BY MOUTH (1 MG TOTAL) BY MOUTH DAILY SWALLOW WHOLE WITH A DRINK OF WATER 90 tablet 1 06/22/19 25 Active anastrozole (ARIMIDEX) 1 mg Take 1 tablet (1 mg total) by mouth 1 (one) time each day Swallow whole with a drink of water. 30 tablet 05/30/19 25 025 Discontinued Active Problems Problem Noted Date Diagnosed Date Malignant neoplasm of right breast in female, estrogen receptor positive ([facility] V24, [facility]/H[facility] V28) 04/10/2024 History of lung cancer 02/16/2024 [...] major depressive d isorder, in full remission ([facility] V24) 04/15/2020 Hyperacusis of both ears 04/06/2020 Hearing deficit, bilateral 04/06/2020 Hearing decreased, bilateral 04/03/2020 Chest wall pain 03/09/2020 DDD (degenerative disc disease), lumbar 03/09/19 21 Hypercholesterolemia 03/09/2020 Overview (11/09/2023): Prior Lipitor Hyperthyroidism 03/09/2020 Depression 11/27/2018 Pulmonary emphysema ([facility] V24, [facility] V28) 0 04/04/2017 Adjustment reaction with anxiety and depression 09/09/2016 NIVIA on CPAP 12/11/2014 Major depressive disorder, r ecurrent, unspecified ([facility] V24) 12/09/2008 Overview (11/09/2023): She is better on the citalopram. We talked abouttapering off but I advised her to wait until spring pt is feeling well on citalopram. No changes as it helps with weaning off HRT. Nuris Fink CHAR FILTER OPERATOR HELPER Resolved Problems Problem Noted Date Diagnosed Date Resolved Date Malignant neoplasm of lower lobe of right lung ([facility] V24, [facility] V28) 03/03/2020 02/16/20 24 Encounters Date Type Department Care Team Description 05/29/2024 11:00 AM EDT Office Visit [facility] Hematology Oncology [address] [place] [address] Giovanny Mcgill MD Malignant neoplasm of upper-inner quadrant of right breast in female, estrogen receptor positive (CMS/HCC V24, CMS/HCC V28) (Primary Dx); Pulmonary emphysema, unspecified emphysema type (CMS/HCC V24, CMS/HCC V28); NIVIA on CPAP; History of lung cancer; History of therapeutic radiation; Malignant neoplasm of right breast in female, estrogen receptor positive, unspecified site of breast (CMS/HCC V24, CMS/HCC V28); History of lobectomy of lung; History of antineoplastic chemotherapy; Osteopenia of multiple sites 05/15/2024 3:45 PM EDT Office Visit [address] [phone] Jocy Garcia MD Pulmonary emphysema, unspecified emphysema type ([facility] V24, [facility] V28) (Primary Dx); History of antineoplastic chemotherapy; Malignant neoplasm of right breast in female, estrogen receptor positive, unspecified site of breast ([facility] V24, [facility] V28); History of therapeutic radiation 05/09/2024 7:39 AM EDT Anesthesia Event [facility] [place] [address] [place] [phone] Alexis Dodd MD Saliga, Jesse L, MD 05/09/2024 7:30 AM EDT - 05/09/2024 9:00 AM EDT Surgery [address] [address] Jocy Garcia MD right breast LUMPECTOMY w/mag seed [[id number] (CPT??) +1 more] 05/09/2024 6:29 AM EDT - 05/09/2024 11:59 PM EDT Hospital Encounter [facility] at [address] [phone] Breast cancer ([facility] V24, [facility] V28) Discharge Disposition: Home or Self Care 05/09/2024 5:58 AM EDT - 05/09/2024 11:02 AM EDT Hospital Encounter [facility] [place] [address] [place] [phone] Jocy Garcia MD Malignant neoplasm of right breast in female, estrogen receptor positive, unspecified site of breast ([facility] V24, [facility] V28) Discharge Disposition: Home or Self Care 05/08/2024 9:43 AM EDT - 05/08/2024 11:59 PM EDT Hospital Encounter [facility] at [address] [phone] Breast cancer ([facility] V24, [facility] V28) Discharge Disposition: Home or Self Care 04/16/2024 Telephone General Surgery [facility] [address] [place] [address] Jocy Garcia MD Surgery 04/10/2024 3:15 PM EST Consult Breast [facility] [address] [place] [address] Jocy Garcia MD Malignant neoplasm of right breast in female, estrogen receptor positive, unspecified site of breast ([facility] V24, [facility] V28) (Primary Dx); Pulmonary emphysema, unspecified emphysema type ([facility] V24, [facility] V28); NIVIA on CPAP; History of lung cancer; History of therapeutic radiation; History of lobectomy of lung; History of antineoplastic chemotherapy 04/05/2024 Telephone [facility] [address] [place] [address] Huong Bai, RN Appointment from Last 3 Months Immunizations Name Administration Dates Next Due Zoster recombinant (Shingrix) 19yo and older Surgical History Surgery Date Site/Laterality Comments OTHER SURGICAL HISTORY PROCEDURE: NH DILATION & CURETTAGE DX&/THER NONOBSTETRIC; COMMENT: multiple times; tubal preg OTHER SURGICAL HISTORY PROCEDURE: NH ANESTHESIA UPPER ANTERIOR ABDOMINAL WALL NOS; COMMENT: Adhesions - NASAL SEPTUM SURGERY PROCEDURE: NH SEPTOPLASTY/SUBMUCOUS RESECJ W/WO CARTILAGE GRF BREAST BIOPSY 2007 Left PROCEDURE: BX BREAST; PERC NEEDLE CORE W/IMAG GUID; COMMENT: neg COLONOSCOPY 01/29/2010 PROCEDURE: HISTORICAL COLONOSCOPY; COMMENT: Normal HIP ARTHROPLASTY Left PROCEDURE: HISTORICAL HIP REPLACEMENT TONSILLECTOMY PROCEDURE: HISTORICAL TONSILLECTOMY OTHER SURGICAL HISTORY 08/2022 PROCEDURE: NH CLOSED TX PATELLAR FRACTURE W/O MANIPULATION; COMMENT: Shattered knee cap repair CATARACT EXTRACTION Bilateral PROCEDURE: HISTORICAL CATARACT REMOVAL LUNG REMOVAL, PARTIAL Right Medical History Medical History Date Comments Arthritis DX:Arthritis Glaucoma DX:Glaucoma Hypercholesterolemia DX:Hypercho lesterolemia; COMMENT: Prior Lipitor Bunion DX:Bunion Uveitis DX:Uveitis Impaired fasting glucose 01/29/2015 DX:Impa ired fasting glucose Obesity (BMI 35.0-39.9 witho ut comorbidity) 01/29/2015 DX:Obesity (BMI 35.0-39.9 [facility] comorbidity) Hyperthyroidism DX:Hyperthyroidi sm Thyromegaly DX:Thyromegaly History of herpes simplex infection 06/18/2013 DX:History of herpes simplex infection Adjustment reaction with anx iety and depression 09/09/2016 DX:Adjustment reaction with anxiety and depression COPD (chronic obstructive pu lmonary disease) with emphysema ([facility] V24, [facility] V28) 04/04/2017 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) Lung nodules 02/24/2017 DX:Lung nodules Allergic rhinitis DX:Allergic rh initis; COMMENT: chronic NIVIA on CPAP 12/11/2014 DX:NIVIA on CPAP Hearing loss 08/22/2017 DX:Hearing loss; COMMENT: Has hearing aides Rash 08/22/2017 DX:Rash DDD (degenerative disc disease), lumbar DX:DDD (degenerative disc disease), lumbar Adenocarcinoma of lung, righ t ([facility] V24, [facility] V28) 09/25/2020 DX:Adenocarcinoma of lung, r ight (HCC); COMMENT: Seen on 11/25/20 by oncology: s/p 3 of 4 cycles of adjuvant chemotherapy with cisplatin and pemetrexed (4th cycle not done d/t side effects). Also completed radiation therapy. Stable per PET CT. Recommended restaging meeting in May 2021 with [id number] visits for first 2 years. Malignant neoplasm of lower lobe of right lung ([facility] V24, [facility] V28) 03/03/2020 Shortness of breath GERD (gastroesophageal reflux disease) Lung cancer ([facility] V24, [facility] V28) Hypertension Family History Medical History Relation [...] Maternal Grandfather [place] Maternal Grandmother (Age 75) ?M I Mother (Age 84) dementia, alzheimers. stroke, passed Feb 2012 Other 1 Granddaughter Other 2 Niece Paternal Grandfather (Age 77) [place] Paternal Grandmother (Age 93) Ol d age [...] Info) Description 07/10/2024 1:00 PM EDT Appointment [facility] Bone Density [address] [place] [phone] 07/31/2024 11:00 AM EDT Office Visit [facility] Hematology Oncology [address] [place] [phone] Giovanny Blanco MD [address] [place] [phone] 08/16/2024 2:45 PM EDT Appointment [facility] CT Scan [address] [place] [phone] 08/29/2024 9:00 AM EDT Office Visit Thoracic Surgery [facility] [address] [place] [phone] Luci Finch PA [address] [facility] [place], [place] [phone] 09/25/2024 1:30 PM EDT Office Visit Breast Care Center [facility] [address] [place] [phone] Jocy Garcia MD [address] [facility] [address] [place] [address] 02/05/2025 9:45 AM EST Office Visit Pulmonolgy [facility] [address] [place] [phone] Estela Kyle MD 175 [facility] [address] [place] [address] Health Maintenance Due Date Last Done Comments Cholesterol Screening (Lipid Panel) 01/28/2022 Colorectal Cancer Screening: Stool Based Tests (FOBT/FIT) 01/28/2022 Depression Screening 01/28/2022 Hepatitis C Screening 01/28/2022 Medicare Annual Wellness Visit 01/28/2022 Social Influencers of Health Screening 01/28/2022 COVID-19 Vaccine (8 - Moderna risk ) 05/16/2024 11/17/2023, 11/10/2022, 10/21/2022, Additional history exists Hypertension/CHF/CAD Annual BMP Blood Test 10/15/2024 10/16/2023, 06/11/2021, 06/11/2021 Falls Risk Assessment 05/09/2025 05/09/2024 DTaP,Tdap,and Td Vaccines (5 - Td or Tdap) 11/09/2030 11/09/2020, 05/17/2010, 11/29/2002, Additional history exists Osteoporosis Screening (Bone Density Screening) 02/11/2031 02/11/2021, 11/10/2017 Pneumococcal Vaccine: 50+ Years Completed 06/24/2016, 01/30/2014 RSV Immunization Adult Patients Completed 12/09/2022 Influenza Vaccine Completed 11/24/2023, , 11/22/2021, Additional [...] this topic Medical Devices Implanted Type Area Wool Shearer Device Identifier Shelf Expiration Date Model / Serial / Lot Marker 18ga Magseed 7cm - [id number] Implanted:Qty: 1 on 05/08/2024 by Megan Vale MD at [facility] Implants Left: Breast [employer] [facility] [id number] 10/20/2026 [id number] / / [id number] Cement Bone Surg Simplex Radiopq Stry-Howm [id number] 092 Implanted:Qty: 1 on 06/28/2021 by Miquel Cisneros MD Left: Hip [employer] [id number] 07/21/2023 6191-1-0 10 / / [id number] Hip Head Delta Biolox 36mm-2.5 Stry-Howm [id number] 191 Implanted:Qty: 1 on 06/28/2021 by Miquel Cisneros MD Left: Hip [employer] [id number] 03/29/2026 6570-0-4 36 / / [id number] Cement Bone Surg Simplex Radiopq Stry-Howm [id number] 092 Implanted:Qty: 1 on 06/28/2021 by Miquel Cisneros MD Left: Hip [employer] [id number] 01/19/2023 6191-1-0 10 / / [id number] Hip Insrt Trdnt 0deg 36mm D Stry-Howm 255-26-31n-548 873 Implanted:Qty: 1 on 06/28/2021 by Miquel Cisneros MD Left: Hip [employer] [id number] 05/07/2026 623-00-3 6D / / [id number] Tritanium Cluster Hole Shell 48mm Stry-Howm 470-76-39w-[id number] 451 Implanted:Qty: 1 on 06/28/2021 by Miquel Cisneros MD Left: Hip [employer] [id number] 03/17/2026 702-04-4 8D / / [id number] A Kit Prep Total Hip Bone Imp [facility] [id number] Implanted:Qty: 1 on 06/28/2021 by Miquel Cisneros MD Left: Hip [employer] 03/09/2031 [id number] / / [id number] Description:SMALL BONE PLUG Lp Hex Screw 6.5x25mm Stry-Howm [id number] 58 Implanted:Qty: 1 on 06/28/2021 by Miquel Cisneros MD Left: Hip [employer] [id number] 05/13/202630-652 5 / / [id number] Lp Hex Screw 6.5x30mm Stry-Howm [id number] 78 Implanted:Qty: 1 on 06/28/2021 by Miquel Cisneros MD Left: Hip [employer] [id number] 05/04/202630-653 0 / / [id number] Hip Spacer C-Distl Rng Sm 10mm Stry-Howm [id number] 71 Implanted:Qty: 1 on 06/28/2021 by Miquel Cisneros MD Left: Hip [employer] [id number] 11/29/2025 1059-231 0 / / [id number] Hip Stem Nk 127 C3 Cs 35mm Stry-Howm [id number] 260 Implanted:Qty: 1 on 06/28/2021 by Miquel Cisneros MD Left: Hip [employer] [id number] 11/01/2025 6058-033 5D / / [id number] Procedures [...] LMA(NO CHARGE) Routine 05/09/2024 7:48 AM EDT NH PLACEMENT LOC DEVICE BREAST PERC MAMMO GUIDANCE 1ST LESION 05/09/2024 7:35 AM EDT Malignant neoplasm of right breast in female, estrogen receptor positive, unspecified site of breast (CMS/HCC V24, CMS/HCC V28) Case Notes mag seed 05/08 @ 10 Special Needs 1 hr please NH MASTECTOMY PARTIAL 05/09/2024 7:35 AM EDT Malignant neoplasm of right breast in female, estrogen receptor positive, unspecified site of breast (CMS/HCC V24, CMS/HCC V28) Case Notes mag seed 05/08 @ 10 Special Needs 1 hr please MG PLCMNT BREAST LOC DEV MAGSEED 1ST LESION RIGHT Routine 05/08/2024 1:13 PM EDT Breast cancer (CMS/HCC V24, CMS/HCC V28) MG MAMMO DIGITAL DIAGNOSTIC W JUSTIN RIGHT [...] * Tissue exam (05/09/2024 8:12 AM EDT) Final Diagnosis Right breast, magnetic seed-localized partial mastectomy: Invasive ductal carcinoma, grade 1 Atypical ductal hyperplasia Margins uninvolved by carcinoma or atypia Extensive biopsy site changes Columnar cell hyperplasia 05/10/2024 2:38 PM EDT [facility]) [facility] Gross Description A. Breast, Right, breast [...] 12.5 hours TS 05/10/2024 2:38 PM EDT [facility] ([facility]) [facility] Synoptic Checklist INVASIVE CARCINOMA OF [...] Testing Performed on 05/10/2024 2:38 PM EDT [facility] Disclaimer Unless otherwise specified, all tissue is 10% NB formalin fixed and paraffin embedded. 05/10/2024 2:38 PM EDT [facility] Tissue Right breast structure / Unknown 05/09/2024 8:12 AM EDT 05/09/2024 8:29 AM EDT us Jocy Garcia MD LAB PATHOLOGY ORDERABLE S Final Result [facility]) [facility] [address] [place] [address], [place] [phone] * HL AN LMA(NO CHARGE) (05/09/2024 7:48 AM EDT) [...] Mask difficulty assessment: 0 - not attempted Gilberto Kapadia MD ANESTHESIA ORDERABLES Final Re [...] Signed Date: 05/08/2024 12:07 ET Workstation ID: [id number] Transcribed By: Self Edit Transcribed Date: 05/08/2024 [...] Signed Date: 05/08/2024 12:07 ET Workstation ID: [id number] Transcribed By: Self Edit Transcribed Date: 05/08/2024 [...] biopsy of right breast recommended. Mammo Location: [facility], [address] [place] [address], [address], . -------- FINAL REPORT -------- Dictated By: Zenaida Moreno Dictated Date: 03/26/2024 12:39 ET Assigned Physician: Zenaida Moreno Reviewed and Electronically Signed By: Zenaida Moreno Signed Date: 03/26/2024 12:45 ET Workstation ID: [id number] Transcribed By: Self Edit Transcribed Date: 03/26/2024 [...] Core biopsy of right breastrecommended. Mammo Location: [facility], [address], . -------- FINAL REPORT -------- Dictated By: Zenaida Moreno Dictated Date: 03/26/2024 12:39 ET Assigned Physician: Zenaida Moreno Reviewed and Electronically Signed By: Zenaida Moreno Signed Date: 03/26/2024 12:45 ET Workstation ID: [id number] Transcribed By: Self Edit Transcribed Date: 03/26/2024 [...] compression fractures seen on lateral spine. The [facility] Department of Internal Medicine recommends using National [...] on the World Health Organization criteria, Katy Virkjessld be classified as having osteopenia. This patient has a 15% risk ofmajor osteoporotic fracture and a 2.5% risk of hip fracture over the next10 years. (World Health Organization Fracture Risk Assessment) Nocompression fractures seen on lateral spine. The [facility] Department of Internal Medicine recommendsusing National Osteoporosis [...] risk by FRAX. Troy Del Cid MD [facility] PROCEDURES Final Result from Last 3 Months or Most Recently Relevant to Health Maintenance Insurance MEDICARE [facility] Advance Directives * Full Code - Default [...] currently active code status orders. Care Teams Oil [employer] Pipeline Supervisor Relationship Specialty Start Date End Date Violeta Orantes PA [address] [place] [id number] PCP - General Physician Promotions Producer 05/07/24
--- OUTSIDE RECORDS SUMMARY | 2024-07-02 15:45 | XMS_ITS | Data Portability ---
Author Organization [place] [facility] [place] Address [address] [place] [address] Care Team Providers Care Digital Engineer Name Role Phone JEFFREY KUMARI Primary Care Provider [phone] Assessment Encounter Date Assessment Date Assessment LastModified by Organization Details LastModified Time 09/07/2022 09/07/2022 HPI : Patient is here for left knee pain. She is over 1 year from a hip replacement with me. I actually saw her last week. She then had a fall on Monday. This resulted in a direct hit to the left knee. She went to the [facility] emergency department. CT scan and x-rays [...] and x-rays of the left knee from [facility] from September 06. It showed a comminuted [...] view 2022 023 [email or web address] 2 [facility], [address], [place], [address], 3 11:06:29 XR, knee, 3 view 2022 023 [facility], [address], [place], [address], 3 10:56:36 XR, knee, 3 view 2022 023 [facility], [address], [place], [address], 3 11:29:20 XR, knee, 1 or 2 view 2022 023 [facility], [address], [place], [address], 3 13:03:35 XR, knee, 1 or 2 view 2022 023 [facility], [address], [place], [address], 3 13:03:35 Medication Orders Kenalog 40 mg/mL suspension for injection [address]/Pharmacy #[id number], [address] [place], [address], 3 10:53:49 lidocaine (PF) 10 mg/mL (1 %) injection solution 2022 023 [id number], [address] [place], [address], 3 10:53:53 Patient TargetsNo targets recorded. Patient Instructions Encounter Date Encounter Id Patient Instructions Last Modified By Organization Details Last Modified Time 09/29/2022 [id number] X-rays Which include AP, right and left lateral view reveal well-maintained joint space on AP view Left knee with subtle lucency that is transverse within the patella without any notable separation. With degenerative change Right knee patellofemoral view lateral no acute bony abnormality no obvious fracture degenerative changes are noted. Not available 09/29/2022 12:49:51 10/19/2022 [id number] X-rays Which include AP, right and left lateral view reveal well-maintained joint space on AP view Left knee with subtle lucency that is transverse within the patella without any notable separation. With degenerative change Right knee patellofemoral view lateral no acute bony abnormality no obvious fracture degenerative changes are noted. Not available 10/20/2022 07:15:52 11/02/2022 [id number] AP and sunrise y ou do not reveal any acute bony abnormality. Lateral view with also without acute bony abnormality when compared to her prior study which noted a fracture on 09/29/2022. Not available 11/03/2022 07:47:21 02/02/2023 [id number] Three-view x-ray left knee reveals minimal degenerative [...] Details Recorded Time Closed fracture of patella 49679242 Active 2022 Miquel Cisneros MD [address], [facility] [place], [address], [place] [facility] 3 14:11:42 Pes anserinus bursitis of right knee 30770492863382 09 Active 2022 MARCY HILL PA-C [address], [place], [address], [place] [facility] 3 12:52:39 Problem Notes None recorded. Procedures Surgical History Date Name Laterality Status Provider Name and Address Organization Details Recorded Time 3 Knee Joint/Bursa Asp & Inj completed MARCY HILL PA-C [address] [facility],[address], [place], [address], [place] [facility] 09/29/2022 12:51:14 Hip Surgery completed Karson Luz [facility] 08/26/2022 13:56:15 procedure on lung completed Karson Luz [facility] 08/26/2022 13:56:22 Imaging Results None recorded. [...] Ewa Huynh [facility] 02/02/2023 10:51:18 Date Recorded Body height Provider Name an d Address Organization Details Last Updated DateTime 09/07/2022 [address] [place] [facility] 09/07/2022 13:57:41 Date Recorded Body height Provider Name an d Address Organization Details Last Updated DateTime 10/19/2022 157.[address] [place] [facility] 10/19/2022 09:21:09 Social History Question Answer Notes LastModified by Organizat ion Details LastModified Time Tobacco Smoking Status Current Every Day Smoker Karson Luz null, [place] [facility] 08/26/2022 13:55:50 How Many Years Have You Smoked Tobacco? 42 [email or web address] Information not available 08/26/2022 Sex: Unknown Functional Status Question Answer Note LastModified by Organizat ion Details LastModified Time How many times per week do you consume alcohol? 5-7 times per week [email or web address] Information not available 08/26/2022 Do you use any illicit or recreational drugs? No [email or web address] Information not available 08/26/2022 Do you or have you ever used any other forms of tobacco or nicotine? No [email or web address] Information not available 08/26/2022 What is your level of alcohol consumption? Moderate [email or web address] Information not available 08/26/2022 Mental Status None recorded. Family History Relationship Description Onset Age of this Age Resolved Age Notes LastModified by Organization Details LastModified Time Father Arthritis [email or web address] Not avai lable 08/26/2022 13:56:48 Father Family history of malignant neoplasm skin [email or web address] Not available 2022 16:34:37 Father Heart disease [email or web address] Not available 08/2022 13:57:13 Father Hyperlipidem ia [email or web address] Not available 08/2022 13:57:22 Brother Arthritis [email or web address] Not bob ilable 08/26/2022 13:56:48 Mother Arthritis [email or web address] Not avai lable 08/26/2022 13:56:48 Mother Diabetes mellitus [email or web address] Not available 08/2022 13:57:05 Medical History Condition Response Cancer Y Osteopenia Y Thyroid Problems Y Hypertension Y COPD Y Gynecological HistoryNo gynecological history recorded. Obstetrics History GPAL:G 0 P 0 0 0 0 Past Encounters Encounter ID Performer Location Encounter Start Date Encounter Closed Date Diagnosis/Indication Diagnosis SNOMED-CT Code Diagnosis ICD10 Code Diagnosis Note [id number] MD YASEMIN Saldañakenny montano [address] [place] [address] [address] [place] [address] 08/26/2022 13:37:29 08/26/2022 14:16:44 History of total replacement of left hip joint 1182528700 627372 Z96.642 Aftercare 584506791 Z47. 1 [id number] MD YASEMIN Saldaña [address] [place] [address] 09/07/2022 13:32:32 09/07/2022 14:12:33 Closed fracture of patella 81196796 S82.002A [id number] MADELINE VAL[address] [address] 09/29/2022 10:58:57 09/29/2022 12:52:48 Closed fracture of patella 13414935 S82.002A Pain of ri ght knee joint 7569174616 43969 M25.561 Pes anseri nus bursitis of right knee 1422792905 170002 M70.51 [id number] [facility] [address] [address] 10/19/2022 09:01:53 10/19/2022 10:12:12 Closed fracture of patella 93502575 S82.002A [id number] MADELINE VALENCIA [facility] [address] [address] 11/02/2022 13:43:30 11/02/2022 14:26:26 Closed fracture of patella 21344028 S82.002A [id number] MADELINE VALENCIA [address] [address] 02/02/2023 10:39:22 02/02/2023 11:06:29 Closed fracture of patella 67164265 S82.002A Follow-up visit [id number] Z09 Health Concerns Section Related Observation LastModified by Organization Brian [email or web address] LastModified Time None Recorded Concern Status LastModified by Organization Details LastModified Time None Recorded Advance Directives Directive None Recorded Payers Encounter Date Sequence Insurance Name Policy Number Policy West Covered Member ID West Member ID Guarantor Name 09/07/2022 1 [place] Katy landeros [id number] Katy Rodriguez [place] 09/07/2022 2 [place] [id number] Katy Rodriguez Pasay [id number] Katy Rodriguez Pasay 09/29/2022 1 [place] Katy Corral say [id number] Katy Rodriguez [place] 09/29/2022 2 [place] [id number] Katy Rodriguez Pasay [id number] Katy Rodriguez [place] 10/19/2022 1 [place] Katy Corral say [id number] Katy Rodriguez [place] 10/19/2022 2 [place] [id number] Katy Rodriguez Pasay [id number] Katy Rodriguez [place] 11/02/2022 1 [place] Katy Corral say [id number] Katy Rodriguez [place] 11/02/2022 2 [place] [id number] Katy Rodriguez Pasay [id number] Katy Rodriguez Pas[place] 02/02/2023 1 [place] Katy Corral say [id number] Katy Rdoriguez Pasay 02/02/2023 2 [place] [id number] Katy Rodriguez Pasay [id number] Katy Rodriguez Pasay Notes Date Note [...] the left knee. She went to the [facility] emergency department. CT scan and x-rays [...] and x-rays of the left knee from [facility] from September 06. It showed a comminuted [...] degenerative changes are noted. MARCY HILL PA-C [address] [address], [place], [address], [place] [facility] 09/29/2022 12:54:44 10/19/2022 text/html Pleasant 72-year [...] at today's visit. MARCY HILL PA-C [address], [place], [address], [place] [facility] 10/20/2022 07:21:47 11/02/2022 text/html Patient here [...] full without difficulty. MARCY HILL PA-C [address] [facility], [place], [address], [place] [facility] 11/03/2022 07:47:40 02/02/2023 text/html Assessment & Dhara n: Prior [id number] d female following up on a left [...] activities no discomfort. MARCY HILL PA-C [address], [place], [address], [place] [facility] 02/02/2023 11:13:24 OBGyn Episode No OBEpisode recorded.
[2024-07-07 21:23] LABS: Vitamin D 25-OH, D2 <4 ng/mL; Vitamin D 25-OH, D3 35 ng/mL; Vitamin D 25-OH, Total 35 ng/mL (30-100)
== END 2024-07-02 14:36 | disposition home or self-care (01) ==
LOC: HO.WFDLDS 14:35
PROVIDERS: Visit Provider Physician Assistant Medical
DX: M85.80 Other specified disorders of bone density and structure, unspecified site (principal)
CPT/HCPCS: 36415; 82306

== ENCOUNTER 2024-10-03 11:49 | Outpatient (AMB) | payer MEDICARE, SELFPAY ==
--- NOTE | 2024-10-03 11:52 | MHC.PC.OV ---
Vital Signs 10/03/24 11:58 Height 5 ft 2 in Weight 225 lb BMI 41.1 BP 128/62 Blood Pressure Location Lt brachial Position Sitting Respiration 17 Pulse 93 Pulse Source Pulse Oximeter Temp 98.5 F Temp Source Temporal Artery Scan Pulse Oximetry (%) 94 Oxygen Delivery Method Room Air Intake Visit Reasons: med review Intake Note: Katy presents in the office today for a medication review. Allergies NSAIDS (Non-Steroidal Anti-Inflamma Adverse Reaction (Unknown, Verified 10/03/24 11:54) kidneys Tobacco use date assessed: 10/03/24 Dental Screening Dental Screen Date: 10/03/24 Did you have a dental visit in the last 12 months?: No Did you have a dental problem in the last 6 months where you did not have access to dental care?: No Was dental information given to patient?: Patient has dentist HPI HPI Comments History of Present Illness Details This is a 73-year-old female with a past medical history of GERD, hypercholesterolemia, hypertension, obesity, anxiety with depression, chronic back pain, glaucoma, NIVIA, emphysema and stage III right lung cancer in remission and right breast cancer presenting for follow up. Right breast cancer-status post lumpectomy. Her oncologist is Dr. Bullard. Anastrozole discontinued due to side effects. We had this follow up to discuss her dose of citalopram which is 40 mg a day since 2019 when she lost her 49-year-old send a COVID-19. She said she will never get over it, but she has moved passed it. She has 2 other adult children. Her dose of citalopram is higher than recommended for a woman of her age, however she does not have side effects. She is okay with trying to decrease the dose at this time. She tried sertraline and another SSRI in the past, and she did not tolerate them. She had an EKG on 04/26/2024 which showed normal sinus rhythm, low-voltage QRS and normal QT/QTC. She has a history of right lung cancer, stage III, with lymph node involvement. She was treated with surgery, chemotherapy and radiation in 2020. She is followed by Dr. Whitten at [facility]. She has emphysema and NIVIA. She quit smoking in 2007. She is also followed by Dr. Kyle. She has CT scans done every 6 months. Recent CAT scan demonstrated gallstones and sludge. She has no symptoms associated with this and declines referral to General surgery at this time. She was evaluated by Gastroenterology at [facility] for GERD. She is on pantoprazole 40 mg twice daily chronically. She is followed by ophthalmology for glaucoma and treated with eyedrops. Hypertension is treated with hydrochlorothiazide 12.5 mg and losartan 25 mg daily. Hyperlipidemia is treated with pravastatin 40 mg daily. She is followed by Dr. 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 Scheduled to see Dr. Yan 09/26/24, but the facility cancelled the appointment. The referral was placed for an episode post menopausal bleeding. No further episodes. I sent a message to referrals to get this rescheduled. She will message me if she does not hear from them in a week. ROS: Constitutional: No unexplained weight loss, fever, chills, fatigue or night sweats. Respiratory: No shortness of breath, cough or sputum production. Cardiovascular: No chest pain, chest pressure or chest discomfort. No palpitations or pedal edema. Psychiatric: No SI/HI. +anxiety. Denies depression. Physical exam: Constitutional: Alert, in no distress. Neck: Supple, Full range of motion. No lymphadenopathy. No palpable thyroid masses. Respiratory: Clear to auscultation. Cardiovascular: S1 S2 regular. No murmurs. [facility] Medical History (Updated 05/31/24 @ 09:06 by CHALINO James) Anxiety Breast cancer, right Low TSH level Chronic back pain Grief at loss of child Essential hypertension Abnormal mammogram of right breast NIVIA (obstructive sleep apnea) Emphysema of lung Post-menopausal bleeding GERD (gastroesophageal reflux disease) Degenerative arthritis Pure hypercholesterolemia History of primary malignant neoplasm of right lung IFG (impaired fasting glucose) Deviated septum Surgical History (Updated 05/31/24 @ 09:06 by CHALINO James) History of lumpectomy of right breast History of left hip replacement History of tonsillectomy S/P removal of lung Family History Father HTN (hypertension) Skin cancer Son HTN (hypertension) Diabetes Mother Diabetes Daughter Diabetes HTN (hypertension) Social History (Updated 10/03/24 @ 11:58 by Karen Koch MA) Housing: House Alcohol intake: current Patient Tobacco Use Status: Former Tobacco user Cigarette Packs Per Day: 1 Years Smoked: 43 e-Cigarette/Vaping Use: Never Used Second Hand Smoke Exposure: No service: No Current occupational status: retired Cognitive needs: No Hearing needs: Yes (hearing aid both ear) Vision needs: Yes (glasses) Questionnaire Thrive Questionnaire Date Thrive assessed: 03/25/24 I am a: Patient What is your living situation today?: I have a steady place to live Within the past 12 months, did the food you bought not last and you didn't have the money to get more?: Never true Within the past 12 months, did you worry whether your food would run out before you got money to buy more?: Never true Do you have trouble paying for medicines?: No Do you have trouble getting transportation to medical appointments?: No Do you have trouble paying your heating and electricity bill?: No Do you have trouble taking care of your child, family member or friend?: No Do you have trouble with day-to-day activities such as bathing, preparing meals, shopping, managing finances, etc.?: No Are you currently unemployed and looking for a job?: No Are you interested in more education?: No Please select the resources that you would like help with: None Currently or been in a relationship where the following occur: No concerns reported THRIVE Score: 0 DARLING-7 AMB Questionnaire DARLING-7 Date DARLING - 7 assessed: 05/30/24 Source: Developed by Drs. Heriberto Smith, Belinda Briscoe, Christian Vang and colleagues, with an educational troy from [employer]. Physical exam (Primary Care) Vital Signs: Last Vital Signs Temp 98.5 F 10/03/24 11:58 Pulse 93 10/03/24 11:58 Resp 17 10/03/24 11:58 BP 128/62 10/03/24 11:58 Pulse Ox 94 10/03/24 11:58 Oxygen Delivery Method Room Air 10/03/24 11:58 BMI result Body Mass Index 41.1 Tobacco/Smoking Status: Tobacco use Status Tobacco use date assessed 10/03/24 10/03/24 12:03 Patient Tobacco Use Status Former Tobacco user (quit 10/03/24 11:58 2007) e-Cigarette/Vaping Use Never Used 10/03/24 11:58 Thrive Assessment: Date of Thrive Assessment Date Thrive assessed 03/25/24 10/03/24 11:52 Currently or been in a relationship where the following occur: No concerns reported Coding Level of Care Code Est Pt Level 4 (78970) Complex EM visit Add On G2211 Diagnoses History of primary malignant neoplasm of right lung Z85.118 Breast cancer, right C50.911 History of lumpectomy of right breast Z98.890 Anxiety F41.9 Assessment & Plan Assessment & Plan (1) History of primary malignant neoplasm of right lung: Code(s): Z85.118 - Personal history of other malignant neoplasm of bronchus and lung Category: Medical (2) Breast cancer, right: Code(s): C50.911 - Malignant neoplasm of unspecified site of right female breast Category: Medical (3) History of lumpectomy of right breast: Code(s): Z98.890 - Other specified postprocedural states Category: Surgical (4) Anxiety: Code(s): F41.9 - Anxiety disorder, unspecified Category: Medical Plan Patient is status post lumpectomy of the right breast. Anastrozole discontinued due to side effects. We discussed the citalopram and potential side effects and risk of QT prolongation. Recent EKG does not show any evidence of this. She is agreeable to a trial decreased. She will alternate with 40 and 30 mg every other day for a couple of weeks and then decrease to 30 mg daily. She will follow up in 1 month for a medical wellness visit/medication check. Medications: New citalopram (Celexa) 30 mg (3 x 10 mg) PO DAILY 90 tabs 0RF
[2024-10-03 11:58] VITALS: BP 128/62; PULSE 93; RESP 17; TEMP 36.9; O2SAT 94; BMI 41.1
--- OUTSIDE RECORDS SUMMARY | 2024-10-03 12:54 | XMS_ITS ---
Author Name [facility] Organization Unknown History of Medication Use Medication Directions Dispensed Refills Start Date End Date Status amoxicillin 500 mg capsule TAKE 4 CAPSULES 1 HOUR PRIOR TO APPOINTMENT 02/03/20 23 completed doxycycline hyclate 100 mg tablet TAKE 1 TABLET BY MOUTH TWICE A DAY FOR 10 DAYS 02/03/20 23 completed oxycodone 5 mg capsule 02/03/20 23 completed acyclovir 800 mg tablet TAKE 1 TABLET BY MOUTH EVERY DAY active acyclovir 800 mg tablet TAKE 1 TABLET BY MOUTH EVERY DAY active albuterol sulfate HFA 90 mcg/actuation aerosol inhaler INHALE 2 PUFFS 4 TIMES DAILY NEEDED FOR WHEEZING OR SHORTNESS OF BREATH FOR UP TO 30 DAYS active amlodipine 10 mg tablet TAKE 1 TABLET BY MOUTH EVERY DAY active amlodipine 5 mg tablet TAKE 1 TABLET BY MOUTH EVERY DAY active brimonidine 0.2 % eye drops INSTILL 1 DROP INTO BOTH EYES TWICE A DAY active brimonidine 0.2 % eye drops INSTILL 1 DROP INTO BOTH EYES TWICE A DAY active citalopram 40 mg tablet TAKE 1 TABLET BY MOUTH EVERY DAY active citalopram 40 mg tablet TAKE 1 TABLET BY MOUTH EVERY DAY active hydrochlorothiazide 12.5 mg tablet TAKE 1 TABLET BY MOUTH EVERY DAY active latanoprost 0.005 % eye drops INSTILL 1 DROP INTO BOTH EYES AT BEDTIME active oxycodone 5 mg capsule a ctive pravastatin 40 mg tablet TAKE 1 TABLET B Y MOUTH EVERY DAY active pravastatin 40 mg tablet TAKE 1 TABLET B Y MOUTH EVERY DAY active Problems Problem Status Onset Date Problem Type Date of Resoluti on Source Pes anserinus bursitis of right knee active 2022-09-29 ProblemAct ENS_[facility]ONECT Closed fracture of patella active 2022-09-07 ProblemAct E[facility] Encounters Encounter Type Encounter Reason Primary Diagnosis Location Date Ambulatory [facility], 01/20 Ambulatory [facility], 01/20 Ambulatory [facility] [place] 11/16/2022 Ambulatory [facility] 10/25/2022 Ambulatory [facility] 10[facility]12/2022 Ambulatory [facility] 09/07/2022 Ambulatory [facility] 09/07/2022 Ambulatory [facility] [place] 09/07/2022 Ambulatory [facility] [place] 09/07/2022 Ambulatory [facility] 09/07/2022 Ambulatory [facility] 08/26/2022 Ambulatory [facility] 08/24/2022 Ambulatory [facility] 08/24/2022 Care Team Organization Name Specialty Phone Email Start Date End [facility] 12/28/20212023
--- OUTSIDE RECORDS SUMMARY | 2024-10-03 12:54 | XMS_ITS | Clinical Summary ---
Author Organization [facility] Address [address] [place] [address] Care Team Providers Care Chief Technician X Ray Name Role Phone Troy Del Cid MD [...] helps with weaning off HRT. Nuris Fink [employer]AF[employer] DE[employer]OX[employer] CUSTODIAN Immunizations Name Administration Dates Next Due Covid-19 [...] 91 05/29/2023 10:53 AM EDT Temperature 36.3 C (97.3 F) 05/29/2023 10:53 AM EDT Respiratory Rate 18 06/29/2021 7:54 AM EDT [...] 1-dose 75+ series) 09/29/2023 Influenza Vaccine (#1) 2024 , 11/23/2018, 11/23/2017, Additional history exists DTap [...] this topic Medical Devices Implanted Type Area Production Control Coordinator Device Identifier Shelf Expiration Date Model / Serial / Lot Cement Bone Surg Simplex Radiopq Stry-Howm 6012-9-123-114 092 - [id number] Implanted:Qty: 1 on 06/28/2021 by Miquel Cisneros MD at [facility] [place] [place] [facility] [place] Left: Hip [employer] [id number] 07/21/2023 6191-1-010 / / [id number] Hip Head Delta Biolox 36mm-2.5 Stry-Howm 4405-6-463-549 191 - [id number] Implanted:Qty: 1 on 06/28/2021 by Miquel Cisneros MD at [facility] [place] [place] [facility] Left: Hip [employer] [id number] 03/29/2026 6570-0-436 / / [id number] Cement Bone Surg Simplex Radiopq Stry-Howm 1270-3-698-114 092 - [id number] Implanted:Qty: 1 on 06/28/2021 by Miquel Cisneros MD at [facility] [place] [place] [facility] [place] Left: Hip [employer] [id number] 01/19/2023 6191-1-010 / / [id number] Hip Insrt Trdnt 0deg 36mm D Stry-How 732-23-87s-548 873 - [id number] Implanted:Qty: 1 on 06/28/2021 by Miquel Cisneros MD at [facility] [place] [place] [facility] [place] Left: Hip [employer] [id number] 05/07/2026 623-00-36D / / [id number] Tritanium Cluster Hole Shell 48mm Stry-Howm 175-84-42b-772 451 - [id number] Implanted:Qty: 1 on 06/28/2021 by Miquel Cisneros MD at [facility] [place] [place] [facility] [place] Left: Hip [employer] [id number] 03/17/2026 702-04-48D / / [id number] Kit Prep Total Hip Bone Imp Smn-Orth [id number] - [id number] Implanted:Qty: 1 on 06/28/2021 by Miquel Cisneros MD at [facility] [place] [place] [facility] [place] Left: Hip [employer] 03/09/2031 [id number] / / [id number] Description:SMALL BONE PLUG Lp Hex Screw 6.5x25mm Stry-Howm 3918-1367-2948 58 - [id number] Implanted:Qty: 1 on 06/28/2021 by Miquel Cisneros MD at [facility] [place] [place] [facility] [place] Left: Hip [employer] [id number] 05/13/2026 2768-9337 / / [id number] Lp Hex Screw 6.5x30mm Stry-Howm 9651-2916-9963 78 - [id number] Implanted:Qty: 1 on 06/28/2021 by Miquel Cisneros MD at [facility] [place] [place] [facility] [place] Left: Hip [employer] [id number] 05/04/2026 4358-7903 / / [id number] Hip Spacer C-Distl Rng Sm 10mm Stry-Howm 4196-3407-7440 71 - [id number] Implanted:Qty: 1 on 06/28/2021 by Miquel Cisneros MD at [facility] [place] [place] [facility] Left: Hip [employer] [id number] 11/29/2025 7354-5443 / / [id number] Hip Stem Nk 127 C3 Cs 35mm Stry-Howm 7791-5362t-346 260 - [id number] Implanted:Qty: 1 on 06/28/2021 by Miquel Cisneros MD at [facility] [place] [place] [facility] Left: Hip [employer] [id number] 11/01/2025 6058-0335D / / [id number] Advance Directives For more information, please contact: [phone] Documents on File Type Date Recorded 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 Care Teams Chief Technician X Ray Relationship Specialty Start Date End Date Troy Del Cid MD PCP - General Family Medicine 11/25/20
--- OUTSIDE RECORDS SUMMARY | 2024-10-03 12:54 | XMS_ITS | Clinical Summary ---
Author Organization [facility] Address [address] [place] [address] Phone Care Team Providers Care Performance Instructor Name Role Phone Violeta Orantes Primary Care Provider [phone] Allergies Active Allergy Reactions Criticality Noted Date Comments Phenobarbital Rash Low 04/21/1979 Childhood at age 12/states could have been from wool Medications citalopram (CeleXA) 40 mg tablet TAKE [...] mouth 1 (one) time each day. Active fluticasone propion-salmete roL (ADVAIR DISKUS) 500-50 [...] Use in each nostril as directed Active Active Problems Problem Noted Date Diagnosed Date Multiple pulmonary nodules 08/29/2024 Malignant neoplasm of right breast in female, estrogen receptor positive ([facility] V24, [facility] V28) 04/10/2024 History of lung cancer 02/16/2024 Assessment & Plan (08/29/2024 9:04 AM EDT): Ms. Michael Heaton is a 73 year old female who had a right lower lobectomy in February 2020 for a stage IIIA (pT1a, pN2) adenocarcinoma. She completed 3 out of 4 planned cycles of adjuvant chemotherapy in May 2020. Most recent surveillance chest CT scan done in July 2024 shows a new 3 mm left upper lobe pulmonary nodule, as well as several other subcentimeter stable pulmonary nodules. There are no concerning appearing pulmonary nodules or thoracic adenopathy. Will check on this new 3 mm pulmonary nodule with a follow-up chest CT in 6 months, January 2025, followed by visit in the office. Assessment & Plan (02/16/2024 1:01 PM EST): [...] major depressive d isorder, in full remission ([facility] V24) 04/15/2020 Hyperacusis of both ears 04/06/2020 Hearing deficit, bilateral 04/06/2020 Hearing decreased, bilateral 04/03/2020 Chest wall pain 03/09/2020 DDD (degenerative disc disease), lumbar 03/09/19 21 Hypercholesterolemia 03/09/2020 Overview (11/09/2023): Prior Lipitor Hyperthyroidism 03/09/2020 Depression 11/27/2018 Pulmonary emphysema ([facility] V24, [facility] V28) 0 04/04/2017 Adjustment reaction with anxiety and depression 09/09/2016 NIVIA on CPAP 12/11/2014 Major depressive disorder, r ecurrent, unspecified ([facility] V24) 12/09/2008 Overview (11/09/2023): She is better on the citalopram. We talked abouttapering off but I advised her to wait until spring pt is feeling well on citalopram. No changes as it helps with weaning off HRT. Nuris Fink SAP PORTAL ARCHITECT Resolved Problems Problem Noted Date Diagnosed Date Resolved Date Malignant neoplasm of lower lobe of right lung ([facility] V24, [facility] V28) 03/03/2020 02/16/20 24 Encounters Date Type Department Care Team Description 09/25/2024 1:30 PM EDT [facility] [address] [phone] Jocy Garcia MD Malignant neoplasm of right breast in female, estrogen receptor positive, unspecified site of breast ([facility] V24, [facility] V28) (Primary Dx); History of antineoplastic chemotherapy; History of partial mastectomy of right breast; 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, estrogen receptor positive ([facility] V24, [facility] V28) 08/29/2024 9:00 AM EDT Office Visit Thoracic Surgery - [place] [address] [phone] Luci Finch PA History of lung cancer (Primary Dx); Multiple pulmonary nodules 08/27/2024 12:55 PM EDT Anesthesia Event [facility] Pain Management [address] [place] [address] Alexis Dodd MD 08/27/2024 11:45 AM EDT - 08/27/2024 11:59 PM EDT Hospital Encounter [facility] Xray [address] [place] [address] Pain Discharge Disposition: Home or Self Care 08/27/2024 11:18 AM EDT - 08/27/2024 11:59 PM EDT Hospital Encounter [facility] Pain Management [address] [place] [address] Bib Suarez DO Swanson, Mona, CRNA Spencer, Mark A, MD Radiculopathy, lumbar region Discharge Disposition: Home or Self Care 08/16/2024 2:23 PM EDT - 08/16/2024 11:59 PM EDT Hospital Encounter [facility] CT Scan [address] [place] [address] History of lung cancer Discharge Disposition: Home or Self Care 07/31/2024 11:00 AM EDT Office Visit [facility] Hematology Oncology [address] [place] [phone] Giovanny Mcgill MD Malignant neoplasm of upper-inner quadrant of right breast in female, estrogen receptor positive ([facility] V24, [facility] V28) (Primary Dx); Anemia complicating neoplastic disease; Adjustment reaction with anxiety and depression 07/10/2024 12:50 PM EDT - 07/10/2024 11:59 PM EDT Hospital Encounter [facility] Bone Density [address] [place] [address] Osteopenia of multiple sites Discharge Disposition: Home or Self Care from Last 3 Months Immunizations Name Administration Dates Next Due Zoster recombinant (Shingrix) 19yo and older Surgical History Surgery Date Site/Laterality Comments OTHER SURGICAL HISTORY PROCEDURE: HI DILATION & CURETTAGE DX&/THER NONOBSTETRIC; COMMENT: multiple times; tubal preg OTHER SURGICAL HISTORY PROCEDURE: HI ANESTHESIA UPPER ANTERIOR ABDOMINAL WALL NOS; COMMENT: Adhesions - NASAL SEPTUM SURGERY PROCEDURE: HI SEPTOPLASTY/SUBMUCOUS RESECJ W/WO CARTILAGE GRF BREAST BIOPSY 2007 Left PROCEDURE: BX BREAST; PERC NEEDLE CORE W/IMAG GUID; COMMENT: neg COLONOSCOPY 01/29/2010 PROCEDURE: HISTORICAL COLONOSCOPY; COMMENT: Normal HIP ARTHROPLASTY Left PROCEDURE: HISTORICAL HIP REPLACEMENT TONSILLECTOMY PROCEDURE: HISTORICAL TONSILLECTOMY OTHER SURGICAL HISTORY 08/2022 PROCEDURE: HI CLOSED TX PATELLAR FRACTURE W/O MANIPULATION; COMMENT: [...] disease), lumbar Adenocarcinoma of lung, righ t ([facility] V24, [facility] V28) 09/25/2020 DX:Adenocarcinoma of lung, r ight (HCC); COMMENT: Seen on 11/25/20 by oncology: s/p 3 of 4 cycles of adjuvant chemotherapy with cisplatin and pemetrexed (4th cycle not done d/t side effects). Also completed radiation therapy. Stable per PET CT. Recommended restaging meeting in May 2021 with c1emfac visits for first 2 years. Malignant neoplasm of lower lobe of right lung ([facility] V24, [facility] V28) 03/03/2020 Shortness of breath GERD (gastroesophageal reflux disease) Lung cancer ([facility] V24, [facility] V28) Hypertension Family History Medical History Relation [...] Safety Answer Date Record ed Physical Abuse 08/27/2024 Verbal Abuse 08/27/2024 Comments No Sex and Gender Information Value [...] Sign Reading Time Taken Comments Blood Pressure 137/78 09/25/2024 1:24 PM EDT Pulse 103 09/25/2024 1:24 PM EDT Temperature 36.7 C (98.1 F) 09/25/2024 1:24 PM EDT Respiratory Rate 16 08/29/2024 9:05 AM EDT Oxygen Saturation 97% 08/29/2024 9:05 AM EDT Inhaled Oxygen Concentration - - Weight 103 kg (228 lb) 09/25/2024 1:24 PM EDT Height 157.5 cm (5' 2 ) 08/29/2024 9:05 AM EDT Body Mass Index 41.7 08/29/2024 9:05 AM EDT Plan of Treatment Upcoming Encounters Date Type Department Care Team (Late st Contact Info) Description 01/30/2025 11:00 AM EST Office Visit [facility] Hematology Oncology [address] [place] [phone] Giovanny Blanco MD [address] [place] [phone] 02/05/2025 9:45 AM EST Office Visit Pulmonolgy - [place] [address] [phone] Estela Kyle MD 175 [facility] [address] [place] [address] 04/02/2025 1:15 PM EST Office Visit [facility] [address] [place] [phone] Jocy Garcia MD [address] [address] Health Maintenance Due Date Last Done Comments Cholesterol Screening (Lipid Panel) 01/28/2022 Colorectal Cancer Screening: Stool Based Tests (FOBT/FIT) 01/28/2022 Hepatitis C Screening 01/28/2022 Medicare Annual Wellness Visit 01/28/2022 Social Influencers of Health Screening 01/28/2022 Depression Screening 02/21/2024 COVID-19 Vaccine (8 - Moderna risk season) 2024 11/17/2023, 11/10/2022, 10/21/2022, Additional history exists Hypertension/CHF/CAD Annual BMP Blood Test 10/15/2024 10/16/2023, 06/11/2021, 06/11/2021 Influenza Vaccine (#1) 2024 , 11/18/2022, 11/22/2021, Additional history exists Falls Risk Assessment 08/27/2025 08/27/2024 DTaP,Tdap,and Td Vaccines (5 - Td or Tdap) 11/09/2030 11/09/2020, 05/17/2010, 11/29/2002, Additional history exists Osteoporosis Screening (Bone Density Screening) 07/10/2034 07/10/2024, 02/11/2021, 11/10/2017 Pneumococcal Vaccine: 50+ Years Completed 06/24/2016, 01/30/2014 RSV Immunization Adult Patients Completed 12/09/2022 Zoster Vaccines Completed 02/16/2024, 11/02/2023 Breast Cancer [...] this topic Medical Devices Implanted Type Area Sand Analyst Device Identifier Shelf Expiration Date Model / Serial / Lot Marker 18ga Magseed 7cm - [id number] Implanted:Qty: 1 on 05/08/2024 by Megan Vale MD at [facility] Imaging Implants Left: Breast DEVIC[employer] [id number] 10/20/2026 [id number] 01 / / [id number] Cement Bone Surg Simplex Radiopq Stry-Howm [id number] 092 Implanted:Qty: 1 on 06/28/2021 by Miquel Cisneros MD Left: Hip [employer] [id number] 07/21/2023 6191-1-0 10 / / [id number] Hip Head Delta Biolox 36mm-2.5 Stry-Howm [id number] 191 Implanted:Qty: 1 on 06/28/2021 by Miquel Cisneros MD Left: Hip [employer] [id number] 03/29/2026 6570-0-4 36 / / [id number] Cement Bone Surg Simplex Radiopq Stry-Howm [id number] 092 Implanted:Qty: 1 on 06/28/2021 by Miquel Cisneros MD Left: Hip [employer] [id number] 01/19/2023 6191-1-0 10 / / [id number] Hip Insrt Trdnt 0deg 36mm D Stry-Howm 008-90-80d-548 873 Implanted:Qty: 1 on 06/28/2021 by Miquel Cisneros MD Left: Hip [employer] [id number] 05/07/2026 623-00-3 6D / / [id number] Tritanium Cluster Hole Shell 48mm Stry-Howm 995-49-95s-772 451 Implanted:Qty: 1 on 06/28/2021 by Miquel Cisneros MD Left: Hip [employer] [id number] 03/17/2026 702-04-4 8D / / [id number] A Kit Prep Total Hip Bone Imp Smn-Orth [id number] Implanted:Qty: 1 on 06/28/2021 by Miquel Cisneros MD Left: Hip [employer] 03/09/2031 [id number] / / [id number] Description:SMALL BONE PLUG Lp Hex Screw 6.5x25mm Stry-Howm [id number] 58 Implanted:Qty: 1 on 06/28/2021 by Miquel Cisneros MD Left: Hip [employer] [id number] 05/13/2026 7030-652 5 / / [id number] Lp Hex Screw 6.5x30mm Stry-Howm [id number] 78 Implanted:Qty: 1 on 06/28/2021 by Miquel Cisneros MD Left: Hip [employer] [id number] 05/04/2026 7030-653 0 / / [id number] Hip Spacer C-Distl Rng Sm 10mm Stry-Howm [id number] 71 Implanted:Qty: 1 on 06/28/2021 by Miquel Cisneros MD Left: Hip [employer] [id number] 11/29/2025 1059-231 0 / / [id number] Hip Stem Nk 127 C3 Cs 35mm Stry-Howm [id number] 260 Implanted:Qty: 1 on 06/28/2021 by Miquel Cisneros MD Left: Hip [employer] [id number] 11/01/2025 6058-033 5D / / [id number] Procedures Procedure Name Priority Date/Time Associated Diagnosis Comments CT CHEST WO CONTRAST Routine 08/16/2024 2:37 PM EDT History of lung cancer BD BONE DENSITY DXA AXIAL SKELETON Routine 07/10/2024 1:18 PM EDT Osteopenia of multiple sites MG MAMMO DIGITAL DIAGNOSTIC W JUSTIN RIGHT Routine 03/26/2024 10:45 AM EST Abnormal mammogram ANNUAL BMP BLOOD TEST Routine 06/11/2021 from Last 3 Months or Most Recently Relevant to Health Maintenance Results * CT Chest wo Contrast (08/16/2024 2:37 PM EDT) Anatomical Region Laterality Modality Body Computed Tomogra phy 08/19/2024 11:2 7 AM EDT Impressions 08/19/2024 1:26 PM EDT Right lower lobectomy. Stable small right upper lobe nodule. New small left upper lobe nodule which can be followed. Cholelithiasis. -------- FINAL REPORT -------- Dictated By: Clemente Arthur Dictated Date: 08/19/2024 11:27 ET Assigned Physician: Clemente Arthur Reviewed and Electronically Signed By: Clemente Arthur Signed Date: 08/19/2024 13:26 ET Workstation ID: [id number] Transcribed By: Self Edit Transcribed Date: 08/19/2024 12:35 ET Narrative 08/19/2024 1:26 PM EDT PROCEDURE: CT of the chest without intravenous contrast. TECHNIQUE: CT of the chest without intravenous contrast administration. Coronal and sagittal reformats and MIP reconstructions were created. Dose length product: 766 mGy-cm. HISTORY: history of lung cancer s/p RLL lobectomy. Surveillance. COMPARISON: 01/26/2024. FINDINGS: LUNGS/PLEURA: Right lower lobectomy. A small right basilar pleural effusion is slightly decreased in size. Bandlike opacities with air bronchograms suspected to represent posttreatment changes in the lower right lung, unchanged. There is a stable 4 mm nodule in the right upper lobe on series 3, image 108. New 3 mm left upper lobe nodule, image 77. There are a few other very small scattered noncalcified and calcified nodules. Stable mild scarring at the right apex. No pleural effusion or pneumothorax. MEDIASTINUM/ROSA: Enlarged multinodular thyroid gland, which could be better evaluated with ultrasound but likely a multinodular goiter. No mediastinal mass or lymphadenopathy. No appreciable hilar lymphadenopathy on limited noncontrast evaluation. VASCULATURE: Normal caliber pulmonary arteries. Mild atherosclerotic calcifications of the aorta and great vessels. CARDIAC: Normal heart size. Mild coronary artery calcification. CHEST WALL: No axillary or supraclavicular lymphadenopathy. LIMITED ABDOMEN: Distended gallbladder. Calcified stone and suggestion of a small amount of layering sludge in the gallbladder neck. BONES: Degenerative changes of the spine and shoulders. Procedure Note Clemente Arthur MD - 08/19/2024 PROCEDURE: CT of the chest without intravenous contrast. TECHNIQUE: CT of the chest without intravenous contrast administration.Coronal and sagittal reformats and MIP reconstructions were created. Dose length product: 766 mGy-cm. HISTORY: history of lung cancer s/p RLL lobectomy. Surveillance. COMPARISON: 01/26/2024. FINDINGS: LUNGS/PLEURA: Right lower lobectomy. A small right basilar pleuraleffusion is slightly decreased in size. Bandlike opacities with airbronchograms suspected to represent posttreatment changes in the lowerright lung, unchanged. There is a stable 4 mm nodule in the right upperlobe on series 3, image 108. New 3 mm left upper lobe nodule, image 77.There are a few other very small scattered noncalcified and calcifiednodules. Stable mild scarring at the right apex. No pleural effusion orpneumothorax. MEDIASTINUM/ROSA: Enlarged multinodular thyroid gland, which could bebetter evaluated with ultrasound but likely a multinodular goiter. Nomediastinal mass or lymphadenopathy. No appreciable hilar lymphadenopathyon limited noncontrast evaluation. VASCULATURE: Normal caliber pulmonary arteries. Mild atheroscleroticcalcifications of the aorta and great vessels. CARDIAC: Normal heart size. Mild coronary artery calcification. CHEST WALL: No axillary or supraclavicular lymphadenopathy. LIMITED ABDOMEN: Distended gallbladder. Calcified stone and suggestion ofa small amount of layering sludge in the gallbladder neck. BONES: Degenerative changes of the spine and shoulders. IMPRESSION: Right lower lobectomy. Stable small right upper lobe nodule. New small left upper lobe nodule which can be followed. Cholelithiasis. -------- FINAL REPORT -------- Dictated By: Clemente Arthur Dictated Date: 08/19/2024 11:27 ET Assigned Physician: Clemente Arthur Reviewed and Electronically Signed By: Clemente Arthur Signed Date: 08/19/2024 13:26 ET Workstation ID: [id number] Transcribed By: Self Edit Transcribed Date: 08/19/2024 12:35 [address] IM[address] CT PROCEDURES Final Resul t * BD Bone Density DXA Axial Skeleton (07/10/2024 1:18 PM EDT) Anatomical Region Laterality Modality Wrist, Hip, L-spine Bone Densito metry 07/12/2024 8:16 AM EDT Impressions 07/12/2024 8:19 AM EDT 1. Osteopenia. 2. FRAX analysis yields a 10-year probability of major osteoporotic fracture of 16.4% and a 10-year probability of hip fracture of 3.3%. Code 10350 -------- FINAL REPORT -------- Dictated By: Fabian Borwn Dictated Date: 07/12/2024 08:16 ET Assigned Physician: Fabian Brown Reviewed and Electronically Signed By: Fabian Brown Signed Date: 07/12/2024 08:19 ET Workstation ID: [id number] Transcribed By: Self Edit Transcribed Date: 07/12/2024 08:16 ET Narrative 07/12/2024 8:19 AM EDT HISTORY: The patient is a 73-year-old postmenopausal female with clinical concern for metabolic bone disease. The patient has undergone previous left hip replacement surgery. FINDINGS: Dual energy x-ray absorptiometry of the lumbar spine and right femur is performed. The mean bone mineral density at L1-L4 (with the exclusion of L2 and L3) is 1.355 gm/cm2 which is 116% of that of young normals and 124% of that of age matched controls. This yields a T-score of 1.6 and a Z-score of 2.2 and there is therefore no evidence of osteoporosis or osteopenia here. The mean bone mineral density of the right femur is 0.923 gm/cm2 which is 92% of that of young normals and 104% of that of age matched controls. This yields a T-score of -0.7 and a Z-score of 0.3 and there is therefore no evidence of osteoporosis or osteopenia here. However, the T-score of the right femoral neck is -1.8 which is diagnostic of osteopenia. Procedure Note Fabian Brown MD - 07/12/2024 HISTORY: The patient is a 73-year-old postmenopausal female with clinicalconcern for metabolic bone disease. The patient has undergone previousleft hip replacement surgery. FINDINGS: Dual energy x-ray absorptiometry of the lumbar spine and rightfemur is performed. The mean bone mineral density at L1-L4 (with theexclusion of L2 and L3) is 1.355 gm/cm2 which is 116% of that of youngnormals and 124% of that of age matched controls. This yields a T-score of1.6 and a Z-score of 2.2 and there is therefore no evidence ofosteoporosis or osteopenia here. The mean bone mineral density of the right femur is 0.923 gm/cm2 which is92% of that of young normals and 104% of that of age matched controls.This yields a T-score of -0.7 and a Z-score of 0.3 and there is thereforeno evidence of osteoporosis or osteopenia here. However, the T-score ofthe right femoral neck is -1.8 which is diagnostic of osteopenia. IMPRESSION: 1. Osteopenia. 2. FRAX analysis yields a 10-year probability of major osteoporoticfracture of 16.4% and a 10-year probability of hip fracture of 3.3%. Code 59742 -------- FINAL REPORT -------- Dictated By: Fabian Brown Dictated Date: 07/12/2024 08:16 ET Assigned Physician: Fabian Brown Reviewed and Electronically Signed By: Fabian Brown Signed Date: 07/12/2024 08:19 ET Workstation ID: [id number] Transcribed By: Self Edit Transcribed Date: 07/12/2024 08:16 ET Subramony Subramonia-Juan Miguel MCKEON IMG DXA PROCEDURES Final Result * (ABNORMAL) MG Mammo [...] is scheduled. BI-RADS CATEGORY: 4 - SUSPICIOUS RECOMMENDATION: Core biopsy of right breast recommended. Core biopsy of right breast recommended. Mammo Location: [facility], [address] [place] [address], [id number], . -------- FINAL REPORT -------- Dictated By: Zenaida Moreno Dictated Date: 03/26/2024 12:39 ET Assigned Physician: Zenaida Moreno Reviewed and Electronically Signed By: Zenaida Moreno Signed Date: 03/26/2024 12:45 ET Workstation ID: [id number] Transcribed By: Self Edit Transcribed Date: 03/26/2024 12:39 ET Narrative 03/26/2024 12:45 PM EST Diagnostic mammogram of the right breast. Targeted right breast ultrasound. CLINICAL: 73 years old, Female, focal asymmetry in the right breast on screening mammogram. COMPARISON: Screening mammogram from 01/30/2024. FINDINGS: MAMMOGRAPHY TECHNIQUE: Spot compression views of the right breast in the CC and MLO projection as well as full field straight lateral view were obtained digitally with 3-D mammogram (digital breast tomosynthesis). Tiny [...] Core biopsy of right breastrecommended. Mammo Location: [facility], [address] [place] [address], [id number], . -------- FINAL REPORT -------- Dictated By: Zenaida Moreno Dictated Date: 03/26/2024 12:39 ET Assigned Physician: Zenaida Moreno Reviewed and Electronically Signed By: Zenaida Moreno Signed Date: 03/26/2024 12:45 ET Workstation ID: [id number] Transcribed By: Self Edit Transcribed Date: 03/26/2024 12:39 ET us Jocy Malave MD IMG BI PROCEDURES Final Result * Annual BMP Blood Test (06/11/2021) Annual BMP Blood Test abstracted Historical Provider HEALTH MAINTENANCE Final Result from Last 3 Months or Most Recently Relevant to Health Maintenance Insurance MEDICARE [facility] Advance Directives * Full Code - Default [...] currently active code status orders. Care Teams Performance Instructor Relationship Specialty Start Date End Date Violeta Orantes PA [address] [place] [id number] PCP - General Physician Weigh Boss 05/07/24
== END 2024-10-03 12:28 | disposition home or self-care (01) ==
LOC: HO.HMCFM 11:50
PROVIDERS: PCP Physician Assistant Medical; Visit Provider Physician Assistant Medical
DX: Z85.118 Personal history of other malignant neoplasm of bronchus and lung (principal); C50.911 Malignant neoplasm of unspecified site of right female breast; Z98.890 Other specified postprocedural states; F41.9 Anxiety disorder, unspecified

== ENCOUNTER → 2024-10-03 11:49 | Outpatient (BNVA) | payer MEDICARE, SELFPAY | PROVIDERS: PCP Physician Assistant Medical; Visit Provider Physician Assistant Medical | DX: C50.911 Malignant neoplasm of unspecified site of right female breast (principal); F41.9 Anxiety disorder, unspecified; I10 Essential (primary) hypertension; E78.5 Hyperlipidemia, unspecified; M47.9 Spondylosis, unspecified; Z85.118 Personal history of other malignant neoplasm of bronchus and lung; Z79.899 Other long term (current) drug therapy | CPT/HCPCS: 99212 ==

== ENCOUNTER 2024-10-10 12:24 | Outpatient (REF) | payer MEDICARE, SELFPAY ==
--- OUTSIDE RECORDS SUMMARY | 2024-10-10 13:24 | XMS_ITS | Clinical Summary ---
Author Organization [facility] Address [address] [place] [address] Phone Care Team Providers Care Logistics Clerk Name Role Phone Violeta Orantes Primary Care Provider [phone] Allergies Active Allergy Reactions Criticality Noted Date [...] right breast in female, estrogen receptor positive ([facility] V24, [facility] V28) 04/10/2024 History of lung cancer 02/16/2024 [...] major depressive d isorder, in full remission ([facility] V24) 04/15/2020 Hyperacusis of both ears 04/06/2020 Hearing deficit, bilateral 04/06/2020 Hearing decreased, bilateral 04/03/2020 Chest wall pain 03/09/2020 DDD (degenerative disc disease), lumbar 03/09/19 21 Hypercholesterolemia 03/09/2020 Overview (11/09/2023): Prior Lipitor Hyperthyroidism 03/09/2020 Depression 11/27/2018 Pulmonary emphysema ([facility] V24, [facility] V28) 0 04/04/2017 Adjustment reaction with anxiety and depression 09/09/2016 NIVIA on CPAP 12/11/2014 Major depressive disorder, r ecurrent, unspecified ([facility] V24) 12/09/2008 Overview (11/09/2023): She is better on the citalopram. We talked abouttapering off but I advised her to wait until spring pt is feeling well on citalopram. No changes as it helps with weaning off HRT. 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 Resolved Problems Problem Noted Date Diagnosed Date Resolved Date Malignant neoplasm of lower lobe of right lung ([facility] V24, [facility] V28) 03/03/2020 02/16/20 24 Encounters Date Type Department Care Team Description 09/25/2024 1:30 PM EDT Office Visit [facility] [address] [phone] Jocy Garcia MD Malignant neoplasm of right breast in female, estrogen receptor positive, unspecified site of breast ([facility] V24, [facility] V28) (Primary Dx); History of antineoplastic chemotherapy; History of partial mastectomy of right breast; 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, estrogen receptor positive ([facility] V24, [facility] V28) 08/29/2024 9:00 AM EDT Office Visit Thoracic Surgery - [place] [address] [phone] Luci Finch PA History of lung cancer (Primary Dx); Multiple pulmonary nodules 08/27/2024 12:55 PM EDT Anesthesia Event [facility] [address] [place] [address] Alexis Dodd MD 08/27/2024 11:45 AM EDT - 08/27/2024 11:59 PM EDT Hospital Encounter [facility] Xray [address] [place] [address] Pain Discharge Disposition: Home or Self Care 08/27/2024 11:18 AM EDT - 08/27/2024 11:59 PM EDT Hospital Encounter [facility] [address] [place] [address] Bib Suarez DO Swanson, Mona, CRNA Spencer, Mark A, MD Radiculopathy, lumbar region Discharge Disposition: Home or Self Care 08/16/2024 2:23 PM EDT - 08/16/2024 11:59 PM EDT Hospital Encounter [facility] CT Scan [address] [place] [address] History of lung cancer Discharge Disposition: Home or Self Care 07/31/2024 11:00 AM EDT Office Visit [facility] Hematology Oncology [address] [place] [phone] Giovanny Mcgill MD Malignant neoplasm of upper-inner quadrant of right breast in female, estrogen receptor positive ([facility] V24, [facility] V28) (Primary Dx); Anemia complicating neoplastic disease; Adjustment reaction with anxiety and depression 07/10/2024 12:50 PM EDT - 07/10/2024 11:59 PM EDT Hospital Encounter [facility] Bone Density [address] [place] [address] Osteopenia of multiple sites Discharge Disposition: Home or Self Care from Last 3 Months Immunizations Name Administration Dates Next Due Zoster recombinant (Shingrix) 19yo and older Surgical History Surgery Date Site/Laterality Comments OTHER SURGICAL HISTORY PROCEDURE: MI DILATION & CURETTAGE DX&/THER NONOBSTETRIC; COMMENT: multiple times; tubal preg OTHER SURGICAL HISTORY PROCEDURE: MI ANESTHESIA UPPER ANTERIOR ABDOMINAL WALL NOS; COMMENT: Adhesions - NASAL SEPTUM SURGERY PROCEDURE: MI SEPTOPLASTY/SUBMUCOUS RESECJ W/WO CARTILAGE GRF BREAST BIOPSY 2007 Left PROCEDURE: BX BREAST; PERC NEEDLE CORE W/IMAG GUID; COMMENT: neg COLONOSCOPY 01/29/2010 PROCEDURE: HISTORICAL COLONOSCOPY; COMMENT: Normal HIP ARTHROPLASTY Left PROCEDURE: HISTORICAL HIP REPLACEMENT TONSILLECTOMY PROCEDURE: HISTORICAL TONSILLECTOMY OTHER SURGICAL HISTORY 08/2022 PROCEDURE: MI CLOSED TX PATELLAR FRACTURE W/O MANIPULATION; COMMENT: [...] disease), lumbar Adenocarcinoma of lung, righ t ([facility] V24, [facility] V28) 09/25/2020 DX:Adenocarcinoma of lung, r ight (HCC); COMMENT: Seen on 11/25/20 by oncology: s/p 3 of 4 cycles of adjuvant chemotherapy with cisplatin and pemetrexed (4th cycle not done d/t side effects). Also completed radiation therapy. Stable per PET CT. Recommended restaging meeting in May 2021 with [id number] visits for first 2 years. Malignant neoplasm of lower lobe of right lung ([facility] V24, [facility] V28) 03/03/2020 Shortness of breath GERD (gastroesophageal reflux disease) Lung cancer ([facility] V24, [facility] V28) Hypertension Family History Medical History Relation [...] Other 2 Niece Paternal Grandfather (Age 77) [place] Paternal Grandmother (Age 93) Ol d age [...] Description 01/30/2025 11:00 AM EST Office Visit [facility] Hematology Oncology [address] [place] [address] Giovanny Blanco MD [address] [place] [phone] 02/05/2025 9:45 AM EST Office Visit Pulmonolgy - [place] [address] [phone] Estela Kyle MD 175 [facility] [address] [place] [address] 04/02/2025 1:15 PM EST Office Visit [facility] [address] [place] [phone] Jocy Garcia MD [address] [address] Health Maintenance Due Date Last Done Comments [...] this topic Medical Devices Implanted Type Area Grinder Hardboard Device Identifier Shelf Expiration Date Model / Serial / Lot Marker 18ga Magseed 7cm - [id number] Implanted:Qty: 1 on 05/08/2024 by Megan Vale MD at [facility] Imaging Implants Left: Breast DEVICOR [employer] [id number] 10/20/2026 [id number] 01 / / [id number] Cement Bone Surg Simplex Radiopq Stry-Howm 3995-2-747-114 092 Implanted:Qty: 1 on 06/28/2021 by Miquel Cisneros MD Left: Hip [employer] [id number] 07/21/2023 6191-1-0 10 / / [id number] Hip Head Delta Biolox 36mm-2.5 Stry-Howm 6909-1-979-549 191 Implanted:Qty: 1 on 06/28/2021 by Miquel Cisneros MD Left: Hip [employer] [id number] 03/29/2026 6570-0-4 36 / / [id number] Cement Bone Surg Simplex Radiopq Stry-Howm 8089-7-982-114 092 Implanted:Qty: 1 on 06/28/2021 by Miquel Cisneros MD Left: Hip [employer] [id number] 01/19/2023 6191-1-0 10 / / [id number] Hip Insrt Trdnt 0deg 36mm D Stry-Howm 538-36-18y-548 873 Implanted:Qty: 1 on 06/28/2021 by Miquel Cisneros MD Left: Hip [employer] [id number] 05/07/2026 623-00-3 6D / / [id number] Tritanium Cluster Hole Shell 48mm Stry-Howm 644-58-26d-772 451 Implanted:Qty: 1 on 06/28/2021 by Miquel Cisneros MD Left: Hip [employer] [id number] 03/17/2026 702-04-4 8D / / [id number] A Kit Prep Total Hip Bone Imp Smn-Orth [id number] Implanted:Qty: 1 on 06/28/2021 by Miquel Cisneros MD Left: Hip [employer] 03/09/2031 [id number] / / [id number] Description:SMALL BONE PLUG Lp Hex Screw 6.5x25mm Stry-Howm 3442-0408-8949 58 Implanted:Qty: 1 on 06/28/2021 by Miquel Cisneros MD Left: Hip [employer] [id number] 05/13/2026 7030-652 5 / / WNRE Lp Hex Screw 6.5x30mm Stry-Howm 7205-4575-9771 78 Implanted:Qty: 1 on 06/28/2021 by Miquel Cisneros MD Left: Hip [employer] [id number] 05/04/2026 7030-653 0 / / WTAD Hip Spacer C-Distl Rng Sm 10mm Stry-Howm 2557-6285-6972 71 Implanted:Qty: 1 on 06/28/2021 by Miquel Cisneros MD Left: Hip [employer] [id number] 11/29/2025 1059-231 0 / / [id number] Hip Stem Nk 127 C3 Cs 35mm Stry-Howm 2093-0107s-639 260 Implanted:Qty: 1 on 06/28/2021 by Miquel Cisneros MD Left: Hip [employer] [id number] 11/01/2025 6058-033 5D / / [id number] Procedures [...] Signed Date: 08/19/2024 13:26 ET Workstation ID: [id number] Transcribed By: Self Edit Transcribed Date: 08/19/2024 [...] Signed Date: 08/19/2024 13:26 ET Workstation ID: [id number] Transcribed By: Self Edit Transcribed Date: 08/19/2024 [...] probability of hip fracture of 3.3%. Code 67719 -------- FINAL REPORT -------- Dictated By: Fabian Brown Dictated Date: 07/12/2024 08:16 ET Assigned Physician: Fabian Brown Reviewed and Electronically Signed By: Fabian Brown Signed Date: 07/12/2024 08:19 ET Workstation ID: [id number] Transcribed By: Self Edit Transcribed Date: 07/12/2024 [...] probability of hip fracture of 3.3%. Code 16907 -------- FINAL REPORT -------- Dictated By: Fabian Brown Dictated Date: 07/12/2024 08:16 ET Assigned Physician: Fabian Brown Reviewed and Electronically Signed By: Fabian Brown Signed Date: 07/12/2024 08:19 ET Workstation ID: [id number] Transcribed By: Self Edit Transcribed Date: 07/12/2024 [...] biopsy of right breast recommended. Mammo Location: [facility], [address] [place] [address], [address], . -------- FINAL REPORT -------- Dictated By: Zenaida Moreno Dictated Date: 03/26/2024 12:39 ET Assigned Physician: Zenaida Moreno Reviewed and Electronically Signed By: Zenaida Moreno Signed Date: 03/26/2024 12:45 ET Workstation ID: [id number] Transcribed By: Self Edit Transcribed Date: 03/26/2024 [...] Core biopsy of right breastrecommended. Mammo Location: [facility], [address] [place] [address], [address], . -------- FINAL REPORT -------- Dictated By: Zenaida Moreno Dictated Date: 03/26/2024 12:39 ET Assigned Physician: Zenaida Moreno Reviewed and Electronically Signed By: Zenaida Moreno Signed Date: 03/26/2024 12:45 ET Workstation ID: [id number] Transcribed By: Self Edit Transcribed Date: 03/26/2024 [...] currently active code status orders. Care Teams Logistics Clerk Relationship Specialty Start Date End Date Violeta Orantes PA [address] [place] [phone] PCP - General Physician Assistant Warehouse Manager 05/07/24
--- OUTSIDE RECORDS SUMMARY | 2024-10-10 13:24 | XMS_ITS | Clinical Summary ---
Author Organization [facility] Address [address] [place] [address] Care Team Providers Care Patrol Man Name Role Phone Troy Del Cid MD [...] 02/25/2020:Stage IIIA(pT1a, pN2, cM0) - Signed by iGovanny Holliday MD on 03/03/2020 Depression 11/27/2018 Pulmonary [...] helps with weaning off HRT. 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 Immunizations Name Administration Dates Next Due Covid-19 [...] 1966 Shingrix-Zoster Vaccine (1 of 2) 09/29/1967 Fall Risk Assessment 2013 Osteoporosis Screening (DEXA [...] this topic Medical Devices Implanted Type Area Outside Contractor Sales Device Identifier Shelf Expiration Date Model / Serial / Lot Cement Bone Surg Simplex Radiopq Stry-Howm 2420-9-808-114 092 - [id number] Implanted:Qty: 1 on 06/28/2021 by Miquel Cisneros MD at [facility] Left: Hip [employer] [facility] [id number] 07/21/2023 6191-1-010 / / [id number] Hip Head Delta Biolox 36mm-2.5 Stry-Howm 1508-1-357-549 191 - [id number] Implanted:Qty: 1 on 06/28/2021 by Miquel Cisneros MD at [facility] Left: Hip [employer] [id number] 03/29/2026 6570-0-436 / / [id number] Cement Bone Surg Simplex Radiopq Stry-Howm 0821-9-709-114 092 - [id number] Implanted:Qty: 1 on 06/28/2021 by Miquel Cisneros MD at [facility] Left: Hip [employer] [facility] [id number] 01/19/2023 6191-1-010 / / [id number] Hip Insrt Trdnt 0deg 36mm D Stry-Howm 740-64-27b-548 873 - [id number] Implanted:Qty: 1 on 06/28/2021 by Miquel Cisneros MD at [facility] Left: Hip [employer] [id number] 05/07/2026 623-00-36D / / [id number] Tritanium Cluster Hole Shell 48mm Stry-Howm 025-70-32w-772 451 - [id number] Implanted:Qty: 1 on 06/28/2021 by Miquel Cisneros MD at [facility] Left: Hip [employer] [id number] 03/17/2026 702-04-48D / / [id number] Kit Prep Total Hip Bone Imp Smn-Orth 431241-915613 - [id number] Implanted:Qty: 1 on 06/28/2021 by Miquel Cisneros MD at [facility] Left: Hip [employer] 03/09/2031 [id number] / / [id number] Description:SMALL BONE PLUG Lp Hex Screw 6.5x25mm Stry-Howm 7827-3966-2075 58 - [id number] Implanted:Qty: 1 on 06/28/2021 by Miquel Cisneros MD at [facility] Left: Hip [employer] [facility] [id number] 05/13/2026 5474-0565 / / WNRE Lp Hex Screw 6.5x30mm Stry-Howm 8800-8768-8128 78 - [id number] Implanted:Qty: 1 on 06/28/2021 by Miquel Cisneros MD at [facility] Left: Hip [employer] [facility] [id number] 05/04/2026 5140-3987 / / WTAD Hip Spacer C-Distl Rng Sm 10mm Stry-Howm 8892-0487-8382 71 - [id number] Implanted:Qty: 1 on 06/28/2021 by Miquel Cisneros MD at [facility] Left: Hip [employer] [id number] 11/29/2025 4675-0387 / / [id number] Hip Stem Nk 127 C3 Cs 35mm Stry-Howm 9890-2688w-922 260 - [id number] Implanted:Qty: 1 on 06/28/2021 by Miquel Cisneros MD at [facility] Left: Hip [employer] [id number] 11/01/2025 6058-0335D / / [id number] Advance Directives For more information, please contact: [phone] Documents on File Type Date Recorded 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 Care Teams Patrol Man Relationship Specialty Start Date End Date Troy Del Cid MD PCP - General Family Medicine 11/25/20
== END 2024-10-10 12:25 | disposition home or self-care (01) ==
LOC: HO.LNP 12:24
PROVIDERS: PCP Physician Assistant Medical; Visit Provider Obstetrics & Gynecology
DX: N95.0 Postmenopausal bleeding (principal); Z11.51 Encounter for screening for human papillomavirus (HPV)
CPT/HCPCS: 87626; 88175; 99202

== ENCOUNTER 2024-10-10 12:24 | Outpatient (AMB) | payer MEDICARE, SELFPAY ==
--- NOTE | 2024-10-10 12:28 | A.OFFVIS_ITS ---
Vital Signs 10/10/24 12:42 Height 5 ft 2 in Weight 225 lb BMI 41.1 BP 126/74 Intake Visit Reasons: PMB/External Referral Intake Note: History of abnormal pap smears, says she has pre cancerous cells. Can not recall when her last pap smear was. Manager Performance Improvement: Manager Performance Improvement Present ([place]) Accompanied by: Self / Same As Patient Allergies NSAIDS (Non-Steroidal Anti-Inflamma Adverse Reaction (Unknown, Verified 10/10/24 12:36) kidneys Is last menstrual period known: No Post menopausal: Yes Patient : No HPI Comments Details: Presenting referred from PCP regarding an episode of vaginal bleeding occurred in 01/13. 04/02/2024 pelvic ultrasound was done at [facility] showed a normal homogeneous endometrial stripe of 4 mm with no endometrial lesions no other abnormalities Since then the patient did not have any additional vaginal spotting or bleeding Last Pap smear was many years ago , history of ADITHYA 1 in her 50s PFSH Medical History Anxiety Breast cancer, right Low TSH level Chronic back pain Grief at loss of child Essential hypertension Abnormal mammogram of right breast NIVIA (obstructive sleep apnea) Emphysema of lung Post-menopausal bleeding GERD (gastroesophageal reflux disease) Degenerative arthritis Pure hypercholesterolemia History of primary malignant neoplasm of right lung IFG (impaired fasting glucose) Deviated septum Surgical History History of lumpectomy of right breast History of left hip replacement History of tonsillectomy S/P removal of lung Family History Father HTN (hypertension) Skin cancer Son HTN (hypertension) Diabetes Mother Diabetes Daughter Diabetes HTN (hypertension) Social History Housing: House Alcohol intake: current Patient Tobacco Use Status: Former Tobacco user Cigarette Packs Per Day: 1 Years Smoked: 43 e-Cigarette/Vaping Use: Never Used Second Hand Smoke Exposure: No service: No Current occupational status: retired Cognitive needs: No Hearing needs: Yes (hearing aid both ear) Vision needs: Yes (glasses) Female Reproductive History Menstrual control method: none Total pregnancies: 4 Full term: 3 History of abnormal pap smear: Yes Date of Mammogram: 03/26/24 (bi rad 4) Review of Systems Const All systems reviewed & are unremarkable except as noted in HPI and below Physical Exam General: Yes no CVA tenderness External Female Exam: normal external appearance and normal appearance of the urethra Speculum Exam - Vagina: normal appearance of the vagina, normal palpation, no lesions and no masses Speculum Exam - Cervix: normal appearance of the cervix, normal palpation, no lesions, no masses and nontender Bimanual exam- vagina & uterus: normal bimanual exam, normal palpation, uterine size normal, normal palpation, uterine shape normal, No Cervical tenderness present and non-tender Bimanual Exam- Adnexa, other: normal adnexae Back/Spine/Pelvis Back: no CVA tenderness Assessment & Plan Assessment & Plan (1) Post-menopausal bleeding: Code(s): N95.0 - Postmenopausal bleeding Category: Medical Plan: Co testing done Discussed with the patient the results of the pelvic ultrasound showing an endometrial stripe thickness of 4 mm. Explained to the patient with an endometrial stripe of 4 mm &/or less, there is a high negative predictive value in detecting endometrial pathology including endometrial hyperplasia, polyps or malignancy. Therefore, there is no indication for endometrial sampling. Discussed with the patient the sensitivity, specificity, and positive and the negative predictive value of using ultrasound in detecting endometrial pathology. The patient was instructed to call if bleeding /spotting recurs, will proceed with endometrial sampling out endometrial pathology. All questions were answered and the patient verbalized understanding and agreed with the plan. Coding Level of Care Code New Pt Level 3 (28776) Diagnoses Post-menopausal bleeding N95.0
[2024-10-10 12:42] VITALS: BP 126/74; BMI 41.1
== END 2024-10-10 13:48 | disposition home or self-care (01) ==
LOC: HO.HWS 12:24
PROVIDERS: PCP Physician Assistant Medical; Visit Provider Obstetrics & Gynecology
DX: N95.0 Postmenopausal bleeding (principal)
CPT/HCPCS: 99203

== ENCOUNTER 2024-11-11 10:17 | Outpatient (REF) | payer MEDICARE, SELFPAY ==
[2024-11-11 14:32] LABS: Hematocrit 35.8 % (37.0-47.0); Hemoglobin 12.4 g/dl (12.0-16.0); Mean Corpuscular HGB Conc 34.6 g/dl (31.0-35.0); Mean Corpuscular Hemoglobin 28.5 pg (27.0-33.0); Mean Corpuscular Volume 82.3 fL (80.0-98.0); NRBC Abs Auto 0.000 X10*3/uL (0.0-0.012); NRBC Pct Auto 0.0 /100WBC (0.0-0.2); Platelet Count 267 X10*3/uL (160-400); Red Blood Count 4.35 X10*6/uL (4.20-5.50); White Blood Count 6.3 X10*3/uL (4.8-10.8)
[2024-11-11 14:33] LABS: Total Hemoglobin (HGBA1C) 3285.0317 umol/L
[2024-11-11 14:51] LABS: Alanine Aminotransferase 18 U/L (0-31); Albumin Level 4.4 g/dL (3.5-5.0); Alkaline Phosphatase 107 U/L (39-117); Anion Gap 11 (12-20); Aspartate Amino Transferase 34 U/L (5-31); Blood Urea Nitrogen 15 mg/dL (9-16); Calcium 9.5 mg/dL (8.4-10.2); Carbon Dioxide 28 mmol/L (22-29); Chloride 103 mmol/L (96-108); Cholesterol 132 mg/dL (<200); Estimated Glomerular Filt Rate 48; HDL Cholesterol 46 mg/dL (>40); Iron 51 mcg/dL (30-160); Percent Iron Saturation 18 % (15-50); Potassium 3.8 mmol/L (3.3-5.1); Sodium 138 mmol/L (135-145); Total Iron Binding Capacity 276 mcg/dL (228-428); Total Protein 7.4 g/dL (6.5-8.0); Triglycerides 151 mg/dL (<150); Unsaturated Iron Binding 225 ug/dL
[2024-11-11 14:59] LABS: Vitamin B12 475 pg/mL (200-900)
[2024-11-11 15:55] LABS: Free T4 (Free Thyroxine) 1.32 ng/dL (0.71-1.85)
[2024-11-16 16:29] LABS: Vitamin D 25-OH, D2 <4 ng/mL; Vitamin D 25-OH, D3 40 ng/mL; Vitamin D 25-OH, Total 40 ng/mL (30-100)
== END 2024-11-11 10:18 | disposition home or self-care (01) ==
LOC: HO.WFDLDS 10:17
PROVIDERS: PCP Physician Assistant Medical; Visit Provider Physician Assistant Medical
DX: Z00.00 Encounter for general adult medical examination without abnormal findings (principal); I10 Essential (primary) hypertension; G47.33 Obstructive sleep apnea (adult) (pediatric); R73.01 Impaired fasting glucose; R79.89 Other specified abnormal findings of blood chemistry; E78.00 Pure hypercholesterolemia, unspecified; E78.5 Hyperlipidemia, unspecified; M85.80 Other specified disorders of bone density and structure, unspecified site; R53.83 Other fatigue; Z91.89 Other specified personal risk factors, not elsewhere classified; Z12.11 Encounter for screening for malignant neoplasm of colon
CPT/HCPCS: 36415; 80053; 80061; 82306; 82607; 83036; 83540; 84439; 84443; 85027; 96127

== ENCOUNTER 2024-11-11 10:17 | Outpatient (AMB) | payer MEDICARE, SELFPAY ==
--- NOTE | 2024-11-11 10:22 | MHC.PC.OV ---
Intake Visit Reasons: 4 weeks mawv/meds Allergies NSAIDS (Non-Steroidal Anti-Inflamma Adverse Reaction (Unknown, Verified 10/10/24 12:36) kidneys Tobacco use date assessed: 10/03/24 Dental Screening Dental Screen Date: 10/03/24 [facility] Medical History Anxiety Breast cancer, right Low TSH level Chronic back pain Grief at loss of child Essential hypertension Abnormal mammogram of right breast NIVIA (obstructive sleep apnea) Emphysema of lung Post-menopausal bleeding GERD (gastroesophageal reflux disease) Degenerative arthritis Pure hypercholesterolemia History of primary malignant neoplasm of right lung IFG (impaired fasting glucose) Deviated septum Surgical History History of lumpectomy of right breast History of left hip replacement History of tonsillectomy S/P removal of lung Family History Father HTN (hypertension) Skin cancer Son HTN (hypertension) Diabetes Mother Diabetes Daughter Diabetes HTN (hypertension) Social History Housing: House Alcohol intake: current Patient Tobacco Use Status: Former Tobacco user Cigarette Packs Per Day: 1 Years Smoked: 43 e-Cigarette/Vaping Use: Never Used Second Hand Smoke Exposure: No service: No Current occupational status: retired Cognitive needs: No Hearing needs: Yes (hearing aid both ear) Vision needs: Yes (glasses) Questionnaire Thrive Questionnaire Date Thrive assessed: 03/25/24 I am a: Patient What is your living situation today?: I have a steady place to live Within the past 12 months, did the food you bought not last and you didn't have the money to get more?: Never true Within the past 12 months, did you worry whether your food would run out before you got money to buy more?: Never true Do you have trouble paying for medicines?: No Do you have trouble getting transportation to medical appointments?: No Do you have trouble paying your heating and electricity bill?: No Do you have trouble taking care of your child, family member or friend?: No Do you have trouble with day-to-day activities such as bathing, preparing meals, shopping, managing finances, etc.?: No Are you currently unemployed and looking for a job?: No Are you interested in more education?: No Please select the resources that you would like help with: None Currently or been in a relationship where the following occur: No concerns reported THRIVE Score: 0 DARLING-7 AMB Questionnaire DARLING-7 Date DARLING - 7 assessed: 05/30/24 Source: Developed by Drs. Heriberto Smith, Belinda Briscoe, Christian Vang and colleagues, with an educational troy from [employer]. Physical exam (Primary Care) Tobacco/Smoking Status: Tobacco use Status Tobacco use date assessed 10/03/24 10/03/24 12:30 Patient Tobacco Use Status Former Tobacco user 10/03/24 12:30 e-Cigarette/Vaping Use Never Used 10/03/24 12:30 Thrive Assessment: Date of Thrive Assessment Date Thrive assessed 03/25/24 10/03/24 12:30 Currently or been in a relationship where the following occur: No concerns reported Coding
--- NOTE | 2024-11-11 10:25 | A.OFFVIS_ITS ---
Intake Vital Signs 11/11/24 10:39 Height 5 ft 2 in Weight 221 lb 4 oz BMI 40.5 BP 112/68 Blood Pressure Location Lt brachial Position Sitting Respiration 17 Pulse 94 Pulse Source Pulse Oximeter Temp 98.5 F Temp Source Temporal Artery Scan Pulse Oximetry (%) 95 Oxygen Delivery Method Room Air Intake Visit Reasons: 4 weeks mawv/meds Allergies NSAIDS (Non-Steroidal Anti-Inflamma Adverse Reaction (Unknown, Verified 11/11/24 10:25) kidneys Medication List - Last Reconciled 11/11/24 by CHALINO James acyclovir 400 mg PO DAILY albuterol sulfate 90 mcg/actuation inhalation azelastine 2 sprays intranasal BID brimonidine 0.2% 1 drp ophthalmic (eye) BID calcium carbonate-vitamin D3 600 mg-25 mcg (1,000 unit) 1 cap PO cholecalciferol (vitamin D3) 25 mcg PO DAILY ciclopirox 0.77% appl topical BID citalopram 30 mg (3 x 10 mg) PO DAILY fluticasone propion-salmeterol 500-50 mcg/dose (Wixela Inhub) inhalation hydrochlorothiazide 12.5 mg PO DAILY latanoprost 0.005% 1 drp ophthalmic (eye) BEDTIME losartan 25 mg PO DAILY pantoprazole 40 mg PO BID pravastatin 40 mg PO DAILY Post menopausal: Yes Do you need a note to return to daycare/school/sports/work: No HPI HPI Comments History of Present Illness Details This is a 74-year-old female with a past medical history of GERD, hypercholesterolemia, hypertension, obesity, anxiety with depression, chronic back pain, glaucoma, NIVIA, emphysema and stage III right lung cancer in remission and right breast cancer presenting for a medical wellness visit. Her daughter is not doing well. She has a history of diabetes and liver disease, and she has blood clots. She has expressed to her mother that she is tired of fighting. Katy notes that she herself is shinto, and she is praying for her daughter, and she finds piece in her dain. Right breast cancer-status post lumpectomy. Her oncologist is Dr. Bullard. Anastrozole discontinued due to side effects. Anxiety-she decreased citalopram from 40 mg daily to 30 mg daily after we discussed that her current dose was higher than the recommended maximum for a woman her age. In the past she tried sertraline and another SSRI, and she did not tolerate them. She had an EKG on 04/26/2024 which showed normal sinus rhythm, low-voltage QRS and normal QT/QTC. She does not want to decrease the dose further at this time due to the medical issues with her daughter. She has a history of right lung cancer, stage III, with lymph node involvement. She was treated with surgery, chemotherapy and radiation in 2020. She is followed by Dr. Whitten at [place]. She has emphysema. She quit smoking in 2007. She is also followed by Dr. Kyle. She has CT scans done every 6 months. She has severe sleep apnea and is compliant with a CPAP. She was evaluated by Gastroenterology at [place] for GERD. She is on pantoprazole 40 mg twice daily chronically. Colonoscopy record requested. Patient declines further colonoscopy citing in the past the prep has not worked well. She does Cologuard instead. This is ordered. She is followed by ophthalmology, Dr Scott, for glaucoma and treated with eyedrops. Hypertension is treated with hydrochlorothiazide 12.5 mg and losartan 25 mg daily. Hyperlipidemia is treated with pravastatin 40 mg daily. She is followed by Dr. 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 Her dentist is Dr. Beckford. Her line haul driver is Dr. Yan. She had a bone density exam on 07/12/2024 demonstrating osteopenia. She will get the flu shot next Monday. She received COVID-19 vaccine last week. She received RSV vaccine and Shingrix vaccines last year. She is unsure when she had her last pneuomnia vaccine. She will check her portal for [place] and get it at the pharmacy if she can't locate the record or is due. ROS: Constitutional: No unexplained weight loss, fever, chills or night sweats. +fatigue. Eyes: No vision changes, blurry vision, double vision, eye pain, eye redness, eye discharge. ENT: No hearing loss, sneezing, congestion, runny nose or sore throat. Respiratory: Chronic CALIX. No cough, sputum production, wheezing. Cardiovascular: No chest pain, chest pressure or chest discomfort. No palpitations or pedal edema. Gastrointestinal: No anorexia, nausea, vomiting or diarrhea. No abdominal pain or blood in stool. Genitourinary: No dysuria, hematuria, urinary frequency. Neurologic: No headache, dizziness, syncope, unilateral weakness, ataxia, numbness or tingling in the extremities. Musculoskeletal: Chronic back pain Hematologic/Lymphatics: No bleeding or bruising. No painful lymph nodes. Skin: No rash Endocrine: No cold or heat intolerance. No polyuria or polydipsia. Psychiatric: See HPI Physical exam: Constitutional: Alert, in no distress. Head: Normocephalic. Eyes: Pupils are equal, round and reactive to light. Extraocular muscles intact. Neck: Supple, Full range of motion. No lymphadenopathy. No palpable thyroid masses. Respiratory: Clear to auscultation. Cardiovascular: S1 S2 regular. No murmurs. No carotid bruits. Gastrointestinal: Abdomen soft, non-tender, non-distended. Normal bowel sounds. No palpable masses. Neurologic: No focal neurological deficits. Psychiatric: Normal mood and affect [facility] Medical History Anxiety Breast cancer, right Low TSH level Chronic back pain Grief at loss of child Essential hypertension Abnormal mammogram of right breast NIVIA (obstructive sleep apnea) Emphysema of lung Post-menopausal bleeding GERD (gastroesophageal reflux disease) Degenerative arthritis Pure hypercholesterolemia History of primary malignant neoplasm of right lung IFG (impaired fasting glucose) Deviated septum Surgical History History of lumpectomy of right breast History of left hip replacement History of tonsillectomy S/P removal of lung Family History Father HTN (hypertension) Skin cancer Son HTN (hypertension) Diabetes Mother Diabetes Daughter Diabetes HTN (hypertension) Social History (Updated 11/11/24 @ 10:26 by Karen Koch CMA) Housing: House Alcohol intake: current Patient Tobacco Use Status: Former Tobacco user Cigarette Packs Per Day: 1 Years Smoked: 43 e-Cigarette/Vaping Use: Never Used Second Hand Smoke Exposure: No service: No Current occupational status: retired Cognitive needs: No Hearing needs: Yes (hearing aid both ear) Vision needs: Yes (glasses) Questionnaire Medicare Wellness Checkup [age] What gender do you identify with?: female During the past 4 weeks, how much have you been bothered by emotional problems such as feeling anxious, depressed, irritable, sad or downhearted, and blue?: moderately During the past 4 weeks, has your physical & emotional health limited your social activities with family, friends, neighbors, or groups?: not at all During the past 4 weeks, how much bodily pain have you generally had?: moderate pain During the past 4 weeks, was someone available to help you if you needed & wanted help?: yes, as much as I wanted During the past 4 weeks, what was the hardest physical activity you could do for at least 2 minutes?: moderate (Work on garden and laundry) Can you get to places out of walking distance without help? (For eg., can you travel alone on buses, taxis or drive your car?): Yes Can you go shopping for groceries or clothes without someone's help?: Yes Can you prepare your own meals?: Yes Can you do your housework without help?: No Because of any health problems, do you need the help of another person with your personal care needs such as eating, bathing, dressing or getting around the house?: Yes Can you handle your own money without help?: Yes During the past 4 weeks, how would you rate your health in general?: fair During the past 4 weeks how have things been going for you?: good & bad parts about equal Are you having difficulties driving your car?: no Do you always fasten your seat belt when you are in a car?: yes, usually During past 4 weeks, have you been bothered by the following: never: Falling or dizzy when standing up, Sexual problems?, Trouble eating well?, Teeth or denture problems? and Problems using the telephone? and often: Tiredness or fatigue? Have you fallen 2 or more times in the past year?: No Are you afraid of falling?: Yes Are you a smoker?: no During the past 4 weeks, how many drinks of wine, beer, or other alcoholic beverages did you have?: 1 drink or less per week Do you exercise for about 20 minutes 3 or more times a week?: no, I usually do not exercise this much Have you been given information to help with the following?: no: Hazards in your house that might hurt you? and no: Keeping track of your medications? How often do you have trouble taking medicines the way you have been told to take them?: I always take medicine as prescribed How confident are you that you can control & manage most of your health problems?: very confident What is your race?: White Mini Mental State Exam (MMSE) Orientation What is the (year) (season) (date) (day) (month)?: year, season, date, day and month Where are we (state) (county) (town or city) (hospital) (floor)?: state, county, town or city, hospital/clinic and floor Registration Name of 3 unrelated objects clearly and slowly, then ask patient to repeat all 3 of them. (1st repeat determines score. Make sure they can repeat all three): object 1, object 2 and object 3 Attention & Calculation (CHOOSE ONE) Ask pt to begin with 100 & count backward by 7. Stop after 5 repeats. If pt cannot ask them to spell the word WORLD backward.: 93, 86, 79, 72 and 65 Spell WORLD backwards (DLROW): 5 letters Recall Ask patient to repeat the 3 items from question #3.: object 1, object 2 and object 3 Language Show patient a wristwatch & ask what it is. Repeat for pencil.: watch and pencil Ask the patient to repeat the phrase 'No ifs, ands, or buts' after you.: correct Ask the patient to 'take a piece of paper with their right hand' 'fold paper in half' 'place paper on floor': take paper in right hand and fold paper in half Print the sentence 'CLOSE YOUR EYES' on a piece. If patient actually closes eyes then score.: followed written direction Give patient a blank piece of paper & ask to write a sentence. Score if it contains a noun & verb.: sentence contains subject and verb Ask patient to copy figure of intersecting pentagons exactly. Score if all 10 angles & 2 intersects are included.: all 10 angles present & 2 are intersected Score Score: 34 Activity of Daily Living Bathing - sponge bath, tub bath or shower: receives no assistance (gets in/out by self, if usual bathing means Dressing - getting clothes from closets & drawers, including inner/outer garments & fasteners.: gets clothes & gets completely dressed without help Toileting - going to the 'toilet room' for urine/bowel elimination & cleaning self/arranging clothes: goes to toilet room, cleans self, arranges clothes without help Transfer: moves in & out of bed and chair without help (may use support object) Continence: controls urination/bowel movements completely by self Feeding: feeds self without help Total Score: 0 Information obtained from: patient Using telephone: independent Traveling: independent Shopping: independent Preparing meals: independent Housework: needs assistance Taking medicine: independent Managing money: independent PHQ-9 Over the last 2 weeks, how often have you been bothered by any of the following problems? 1. Little interest or pleasure in doing things: not at all 2. Feeling down, depressed, or hopeless: more than half the days 3. Trouble falling or staying asleep, or sleeping too much: nearly every day (Sleeps too much) 4. Feeling tired or having little energy: nearly every day 5. Poor appetite or overeating: not at all 6. Feeling bad about yourself - or that you are a failure or have let yourself or your family down: not at all 7. Trouble concentrating on things, such as reading the newspaper or watching television: not at all 8. Moving or speaking so slowly that other people could have noticed. Or the opposite - being so fidgety or restless that you have been moving around a lot more than usual: not at all 9. Thoughts that you would be better off or of hurting yourself in some way: not at all Total score: 8 Depression Screening Interpretation: Positive Depression Screening Follow-up: Existing condition and In treatment Depression Screening Done: Yes 31998 - PHQ-9 Billing: Yes Source: Developed by Drs. Heriberto Smith, Belinda Briscoe, Christian Vang and colleagues, with an educational troy from [employer]. Physical Exam Vital Signs: Last Vital Signs Temp 98.5 F 11/11/24 10:39 Pulse 94 11/11/24 10:39 Resp 17 11/11/24 10:39 BP 112/68 11/11/24 10:39 Pulse Ox 95 11/11/24 10:39 Oxygen Delivery Method Room Air 11/11/24 10:39 BMI result Body Mass Index 40.5 Assessment & Plan Assessment & Plan (1) Medicare annual wellness visit, subsequent: Code(s): Z00.00 - Encounter for general adult medical examination without abnormal findin gs Plan As part of this visit we reviewed the following issues, which are considered and essential part of preventative health in this age group: - Breast Cancer screening - Annual Credit Department Manager exam - Screening for colon cancer - Blood pressure screening - Cholesterol screening - Osteoporosis prevention including calcium/vitamin D intake, weight bearing exe rcise & smoking cessation - Nutritional and exercise counseling - Counseling of injury prevention including fire prevention, smoke alarms and seat belt usage - Screening for depression - Education about skin cancer - Recommendations about immunizations - Recommendation of an eye exam - Screening for substance abuse Follow up in 6 months. Orders: Orders TSH reflex Free T4 Today E78.00 - Pure hypercholesterolemia, unspecified, I10 - Essential (primary) hypertension, R73.01 - Impaired fasting glucose, R79.89 - Other specified abnormal findings of blood chemistry Lipid Panel Today E78.00 - Pure hypercholesterolemia, unspecified, E78.5 - Hyperlipidemia, unspecified, I10 - Essential (primary) hypertension, R73.01 - Impaired fasting glucose, R79.89 - Other specified abnormal findings of blood chemistry Hemoglobin A1c Today E78.00 - Pure hypercholesterolemia, unspecified, I10 - Essential (primary) hypertension, R73.01 - Impaired fasting glucose, R73.9 - Hyperglycemia, unspecified, R79.89 - Other specified abnormal findings of blood chemistry Complete Blood Count no Diff Today E78.00 - Pure hypercholesterolemia, unspecified, I10 - Essential (primary) hypertension, R73.01 - Impaired fasting glucose, R79.89 - Other specified abnormal findings of blood chemistry Vitamin D 25-OH (D2 and D3) Today E78.00 - Pure hypercholesterolemia, unspecified, I10 - Essential (primary) hypertension, M85.80 - Other specified disorders of bone density and structure, unspecified site, R73.01 - Impaired fasting glucose, R79.89 - Other specified abnormal findings of blood chemistry Comprehensive Met. Panel Today E78.00 - Pure hypercholesterolemia, unspecified, I10 - Essential (primary) hypertension, R73.01 - Impaired fasting glucose, R79.89 - Other specified abnormal findings of blood chemistry IRON PROFILE Today G47.33 - Obstructive sleep apnea (adult) (pediatric), R53.83 - Other fatigue Vitamin B12 Today G47.33 - Obstructive sleep apnea (adult) (pediatric), R53.83 - Other fatigue, Z91.89 - Other specified personal risk factors, not elsewhere classified Referrals Cologuard Test Z12.11 - Encounter for screening for malignant neoplasm of colon Quality Reporting (2019) Fall Risk Screening ([facility] 139) Last assessed Fall Risk: 11/11/24 Fall risk assessment: No Falls in past year Depression/Bipolar (159/160/161/177) PHQ-9: Total score: 8 Coding Level of Care Code Medicare Subsequent (G0439) Diagnoses Medicare annual wellness visit, subsequent Z00.00 Additional Codes PHQ-9 - 41198 - PHQ-9 Billing: Yes ([id number])
[2024-11-11 10:39] VITALS: BP 112/68; PULSE 94; RESP 17; TEMP 36.9; O2SAT 95; BMI 40.5
--- OUTSIDE RECORDS SUMMARY | 2024-11-11 12:39 | XMS_ITS | Clinical Summary ---
Author Organization [facility] Address [address] [place] [address] Care Team Providers Care Towboat Pilot Name Role Phone Troy Del Cid MD [...] helps with weaning off HRT. Nuris Fink PROP AND EFFECTS DESIGNER Immunizations Name Administration Dates Next Due Covid-19 [...] this topic Medical Devices Implanted Type Area Big Data Solutions Architect Device Identifier Shelf Expiration Date Model / Serial / Lot Cement Bone Surg Simplex Radiopq Stry-Howm 6040-2-612-114 092 - [id number] Implanted:Qty: 1 on 06/28/2021 by Miquel Cisneros MD at [facility] and [facility] Left: Hip [employer] [id number] 07/21/2023 6191-1-010 / / [id number] Hip Head Delta Biolox 36mm-2.5 Stry-Howm [id number] 191 - [id number] Implanted:Qty: 1 on 06/28/2021 by Miquel Cisneros MD at [facility] and [facility] Left: Hip [employer] [id number] 03/29/2026 6570-0-436 / / [id number] Cement Bone Surg Simplex Radiopq Stry-Howm [id number] 092 - [id number] Implanted:Qty: 1 on 06/28/2021 by Miquel Cisneros MD at [facility] and [facility] Left: Hip [employer] [id number] 01/19/2023 6191-1-010 / / [id number] Hip Insrt Trdnt 0deg 36mm D Stry-Howm 699-38-43r-[id number] 873 - [id number] Implanted:Qty: 1 on 06/28/2021 by Miquel Cisneros MD at [facility] and [facility] Left: Hip [employer] [id number] 05/07/2026 623-00-36D / / [id number] Tritanium Cluster Hole Shell 48mm Stry-Howm [id number] 451 - [id number] Implanted:Qty: 1 on 06/28/2021 by Miquel iCsneros MD at [facility] and Med Left: Hip [employer] [id number] 03/17/2026 702-04-48D / / [id number] Kit Prep Total Hip Bone Imp Smn-Orth [id number] - [id number] Implanted:Qty: 1 on 06/28/2021 by Miquel Cisneros MD at [facility] and [facility] Left: Hip [employer] 03/09/2031 [id number] / / [id number] Description:SMALL BONE PLUG Lp Hex Screw 6.5x25mm Stry-Howm [id number] 58 - [id number] Implanted:Qty: 1 on 06/28/2021 by Miquel Cisneros MD at [facility] and Med Left: Hip [employer] [facility] [id number] 05/13/2026 7084-4348 / / [id number] Lp Hex Screw 6.5x30mm Stry-Howm [id number] 78 - [id number] Implanted:Qty: 1 on 06/28/2021 by Miquel Cisneros MD at [facility] and Med Left: Hip [employer] [id number] 05/04/2026 3323-2357 / / [id number] Hip Spacer C-Distl Rng Sm 10mm Stry-Howm 0720-2299-5618 71 - [id number] Implanted:Qty: 1 on 06/28/2021 by Miquel Cisneros MD at [facility] and Med Left: Hip [employer] [id number] 11/29/2025 5467-0199 / / [id number] Hip Stem Nk 127 C3 Cs 35mm Stry-Howm [id number] 260 - [id number] Implanted:Qty: 1 on 06/28/2021 by Miquel Cisneros MD at [facility] and Med Left: Hip [employer] [facility] [id number] 11/01/2025 6058-0335D / / [id number] Advance Directives For more information, please contact: [phone] Documents on File Type Date Recorded Patient Front End Web Developer Expl anation Advance Directive and Living [...] way: discussion with patient . Care Teams Towboat Pilot Relationship Specialty Start Date End Date Troy Del Cid MD PCP - General Family Medicine 11/25/20
--- OUTSIDE RECORDS SUMMARY | 2024-11-11 12:39 | XMS_ITS | Clinical Summary ---
Author Organization [facility] Address [address] [place] [address] Phone Care Team Providers Care Engineering Leader Name Role Phone Violeta Orantes Primary Care Provider [phone] Allergies Active Allergy Reactions Criticality Noted Date [...] right breast in female, estrogen receptor positive ([facility] V24, [facility] V28) 04/10/2024 History of lung [...] major depressive d isorder, in full remission ([facility] V24) 04/15/2020 Hyperacusis of both ears 04/06/2020 Hearing deficit, bilateral 04/06/2020 Hearing decreased, bilateral 04/03/2020 Chest wall pain 03/09/2020 DDD (degenerative disc disease), lumbar 03/09/19 21 Hypercholesterolemia 03/09/2020 Overview (11/09/2023): Prior Lipitor Hyperthyroidism 03/09/2020 Depression 11/27/2018 Pulmonary emphysema ([facility] V24, [facility] V28) 0 04/04/2017 Adjustment reaction with anxiety and depression 09/09/2016 NIVIA on CPAP 12/11/2014 Major depressive disorder, r ecurrent, unspecified ([facility] V24) 12/09/2008 Overview (11/09/2023): She is better on the citalopram. We talked abouttapering off but I advised her to wait until spring pt is feeling well on citalopram. No changes as it helps with weaning off HRT. Nuris Fink DIRECTOR OF FIELD COORDINATION Resolved Problems Problem Noted Date Diagnosed Date Resolved Date Malignant neoplasm of lower lobe of right lung ([facility] V24, [facility] V28) 03/03/2020 02/16/20 24 Encounters Date Type Department Care Team Description 09/25/2024 1:30 PM EDT Office Visit [facility] [address] [phone] Jocy Garcia MD Malignant neoplasm of right breast in female, estrogen receptor positive, unspecified site of breast ([facility] V24, [facility] V28) (Primary Dx); History of antineoplastic chemotherapy; History of partial mastectomy of right breast; 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, estrogen receptor positive ([facility] V24, [facility] V28) 08/29/2024 9:00 AM EDT Office Visit Thor[place] [address] [facility] [address] [place] [phone] Luci Finch PA History of lung cancer (Primary Dx); Multiple pulmonary nodules 08/27/2024 12:55 PM EDT Anesthesia Event [facility] Pain Management [address] [place] [phone] Alexis Dodd MD 08/27/2024 11:45 AM EDT - 08/27/2024 11:59 PM EDT Hospital Encounter [facility] Xray [address] [place] [phone] Pain Discharge Disposition: Home or Self Care 08/27/2024 11:18 AM EDT - 08/27/2024 11:59 PM EDT Hospital Encounter [facility] [address] [place] [phone] Bib Suarez DO Swanson, Mona, CRNA Spencer, Mark A, MD Radiculopathy, lumbar region Discharge Disposition: Home or Self Care 08/16/2024 2:23 PM EDT - 08/16/2024 11:59 PM EDT Hospital Encounter [facility] CT Scan [address] [place] [phone] History of lung cancer Discharge Disposition: Home or Self Care from Last 3 Months Immunizations Name Administration Dates Next Due Zoster recombinant (Shingrix) 19yo and older Surgical History Surgery Date Site/Laterality Comments OTHER SURGICAL HISTORY PROCEDURE: KS DILATION & CURETTAGE DX&/THER NONOBSTETRIC; COMMENT: multiple times; tubal preg OTHER SURGICAL HISTORY PROCEDURE: [place] ANESTHESIA UPPER ANTERIOR ABDOMINAL WALL NOS; COMMENT: Adhesions - NASAL SEPTUM SURGERY PROCEDURE: KS SEPTOPLASTY/SUBMUCOUS RESECJ W/WO CARTILAGE GRF BREAST BIOPSY 2007 Left PROCEDURE: BX BREAST; PERC NEEDLE CORE W/IMAG GUID; COMMENT: neg COLONOSCOPY 01/29/2010 PROCEDURE: HISTORICAL COLONOSCOPY; COMMENT: Normal HIP ARTHROPLASTY Left PROCEDURE: HISTORICAL HIP REPLACEMENT TONSILLECTOMY PROCEDURE: HISTORICAL TONSILLECTOMY OTHER SURGICAL HISTORY 08/2022 PROCEDURE: KS CLOSED TX PATELLAR FRACTURE W/O MANIPULATION; COMMENT: [...] (chronic obstructive pu lmonary disease) with emphysema ([facility] V24, [facility] V28) 04/04/2017 DX:COPD (chronic obstructive pulmonary disease) with emphysema ([facility]) Lung nodules 02/24/2017 DX:Lung nodules Allergic rhinitis DX:Allergic rh initis; COMMENT: chronic NIVIA on CPAP 12/11/2014 DX:NIVIA on CPAP Hearing loss 08/22/2017 DX:Hearing loss; COMMENT: Has hearing aides Rash 08/22/2017 DX:Rash DDD (degenerative disc disease), lumbar DX:DDD (degenerative disc disease), lumbar Adenocarcinoma of lung, righ t ([facility] V24, [facility] V28) 09/25/2020 DX:Adenocarcinoma of lung, r ight (HCC); COMMENT: Seen on 11/25/20 by oncology: s/p 3 of 4 cycles of adjuvant chemotherapy with cisplatin and pemetrexed (4th cycle not done d/t side effects). Also completed radiation therapy. Stable per PET CT. Recommended restaging meeting in May 2021 with i1yzxig visits for first 2 years. Malignant neoplasm of lower lobe of right lung ([facility] V24, [facility] V28) 03/03/2020 Shortness of breath GERD (gastroesophageal reflux disease) Lung cancer ([facility] V24, [facility] V28) Hypertension Family History Medical [...] Other 2 Niece Paternal Grandfather (Age 77) [place] Paternal Grandmother (Age 93) Ol d age [...] Description 01/30/2025 11:00 AM EST Office Visit [facility] Hematology Oncology [address] [place] [phone] Breanna-Giovanny Bullard MD [address] [place] [phone] 02/03/2025 1:30 PM EST Appointment Radiology Department [address] [phone] 02/05/2025 9:45 AM EST Office Visit Pulmonology - [place] [address] [phone] Estela Kyle MD [address] [address] 04/02/2025 1:15 PM EST Office Visit [facility] [place] [address] [place] [address] Jocy Garcia MD [address] [place] [phone] Health Maintenance Due Date Last Done Comments Cholesterol Screening (Lipid Panel) 01/28/2022 Colorectal Cancer Screening: Stool Based Tests (FOBT/FIT) 01/28/2022 Hepatitis C Screening 01/28/2022 Medicare Annual Wellness Visit 01/28/2022 Social Influencers of Health Screening 01/28/2022 Depression Screening 02/21/2024 Hypertension/CHF/CAD Annual BMP Blood Test 10/15/2024 10/16/2023, 06/11/2021, 06/11/2021 COVID-19 Vaccine (8 - Moderna risk season) 2024 11/17/2023, 11/10/2022, 10/21/2022, Additional history exists Influenza Vaccine (#1) 2024 , 11/18/2022, 11/22/2021, [...] this topic Medical Devices Implanted Type Area Internal Affairs Commander Device Identifier Shelf Expiration Date Model / Serial / Lot Marker 18ga [facility] 7cm - [id number] Implanted:Qty: 1 on 05/08/2024 by Megan Vale MD at [facility] Implants Left: Breast DEVICOR [employer] [id number] 10/20/2026 [id number] / / [id number] Cement Bone Surg Simplex Radiopq Stry-Howm 8148-6-791-114 092 Implanted:Qty: 1 on 06/28/2021 by Miquel Cisneros MD Left: Hip [employer] [id number] 07/21/2023 6191-1-0 10 / / [id number] Hip Head Delta Biolox 36mm-2.5 Stry-Howm 6641-8-759-549 191 Implanted:Qty: 1 on 06/28/2021 by Miquel Cisneros MD Left: Hip [employer] [id number] 03/29/2026 6570-0-4 36 / / [id number] Cement Bone Surg Simplex Radiopq Stry-Howm 1250-5-194-114 092 Implanted:Qty: 1 on 06/28/2021 by Miquel Cisneros MD Left: Hip [employer] [id number] 01/19/2023 6191-1-0 10 / / [id number] Hip Insrt Trdnt 0deg 36mm D Stry-Howm 618-82-65q-548 873 Implanted:Qty: 1 on 06/28/2021 by Miquel Cisneros MD Left: Hip [employer] [id number] 05/07/2026 623-00-3 6D / / [id number] Tritanium Cluster Hole Shell 48mm Stry-Howm 447-48-70d-772 451 Implanted:Qty: 1 on 06/28/2021 by Miquel Cisneros MD Left: Hip [employer] [id number] 03/17/2026 702-04-4 8D / / [id number] A Kit Prep Total Hip Bone Imp [facility] [id number] Implanted:Qty: 1 on 06/28/2021 by Miquel Cisneros MD Left: Hip [employer] 03/09/2031 [id number] / / [id number] Description:SMALL BONE PLUG Lp Hex Screw 6.5x25mm Stry-Howm [id number] 58 Implanted:Qty: 1 on 06/28/2021 by Miquel Cisneros MD Left: Hip [employer] [id number] 05/13/2026 7030-652 5 / / [id number] Lp Hex Screw 6.5x30mm Stry-Howm 9631-0833-6972 78 Implanted:Qty: 1 on 06/28/2021 by Miquel Cisneros MD Left: Hip [employer] [id number] 05/04/2026 [id number] 0 / / [id number] Hip Spacer C-Distl Rng Sm 10mm Stry-Howm 3360-3527-3164 71 Implanted:Qty: 1 on 06/28/2021 by Miquel Cisneros MD Left: Hip [employer] [id number] 11/29/2025 1059-231 0 / / [id number] Hip Stem Nk 127 C3 Cs 35mm Stry-Howm 3674-6501q-707 260 Implanted:Qty: 1 on 06/28/2021 by Miqule Cisneros MD Left: Hip [employer] [id number] 11/01/2025 6058-033 5D / / [id number] Procedures Procedure Name Priority Date/Time Associated Diagnosis Comments CT CHEST WO CONTRAST Routine 08/16/2024 2:37 PM EDT History of lung cancer BD BONE DENSITY DXA AXIAL SKELETON Routine 07/10/2024 1:18 PM EDT Osteopenia of multiple sites MG MAMMO DIGITAL DIAGNOSTIC W JUSTIN RIGHT Routine 03/26/2024 10:45 AM EST Abnormal mammogram HM ANNUAL BMP BLOOD TEST Routine 06/11/2021 from [...] Signed Date: 08/19/2024 13:26 ET Workstation ID: [id number] Transcribed By: Self Edit Transcribed Date: 08/19/2024 [...] Signed Date: 08/19/2024 13:26 ET Workstation ID: [id number] Transcribed By: Self Edit Transcribed Date: 08/19/2024 12:[address] [facility] CT PROCEDURES Final Resul t * BD Bone Density DXA Axial Skeleton (07/10/2024 1:18 PM EDT) Anatomical Region Laterality Modality Wrist, Hip, L-spine Bone Densito metry 07/12/2024 8:16 AM EDT Impressions 07/12/2024 8:19 AM EDT 1. Osteopenia. 2. FRAX analysis yields a 10-year probability of major osteoporotic fracture of 16.4% and a 10-year probability of hip fracture of 3.3%. Code 39146 -------- FINAL REPORT -------- Dictated By: Fabian Brown Dictated Date: 07/12/2024 08:16 ET Assigned Physician: Fabian Brown Reviewed and Electronically Signed By: Fabian Brown Signed Date: 07/12/2024 08:19 ET Workstation ID: [id number] Transcribed By: Self Edit Transcribed Date: 07/12/2024 [...] probability of hip fracture of 3.3%. Code 50755 -------- FINAL REPORT -------- Dictated By: Fabian Brown Dictated Date: 07/12/2024 08:16 ET Assigned Physician: Fabian Brown Reviewed and Electronically Signed By: Fabian Brown Signed Date: 07/12/2024 08:19 ET Workstation ID: [id number] Transcribed By: Self Edit Transcribed Date: 07/12/2024 08:16 ET Subramony Francis MCKEON IM DXA PROCEDURES Final Result * (ABNORMAL) MG [...] biopsy of right breast recommended. Mammo Location: [facility], [address] [place] [address], [address], . -------- FINAL REPORT -------- Dictated By: Zenaida Moreno Dictated Date: 03/26/2024 12:39 ET Assigned Physician: Zenaida Moreno Reviewed and Electronically Signed By: Zenaida Moreno Signed Date: 03/26/2024 12:45 ET Workstation ID: [id number] Transcribed By: Self Edit Transcribed Date: 03/26/2024 [...] Core biopsy of right breastrecommended. Mammo Location: [facility], [address] [place] [address], [address], . -------- FINAL REPORT -------- Dictated By: Zenaida Moreno Dictated Date: 03/26/2024 12:39 ET Assigned Physician: Zenaida Moreno Reviewed and Electronically Signed By: Zenaida Moreno Signed Date: 03/26/2024 12:45 ET Workstation ID: [id number] Transcribed By: Self Edit Transcribed Date: 03/26/2024 12:39 ET Jocy Malave MD IMG BI PROCEDURES Final Result * Annual BMP Blood Test (06/11/2021) Annual BMP Blood Test abstracted Historical Provider HEALTH MAINTENANCE Final Result from Last 3 Months or Most Recently Relevant to Health Maintenance Insurance MEDICARE [facility] Advance Directives * Full Code - [...] currently active code status orders. Care Teams Engineering Leader Relationship Specialty Start Date End Date Violeta Orantes PA [address] [place] [phone] PCP - General Physician Clay Maker 05/07/24
== END 2024-11-11 11:25 | disposition home or self-care (01) ==
LOC: HO.HMCFM 10:18
PROVIDERS: PCP Physician Assistant Medical; Visit Provider Physician Assistant Medical
DX: Z00.00 Encounter for general adult medical examination without abnormal findings (principal)

== ENCOUNTER 2024-11-29 09:49 | Outpatient (AMB) | payer MEDICARE, SELFPAY ==
--- NOTE | 2024-11-29 09:51 | A.OFFVIS_ITS ---
Vital Signs 11/29/24 09:52 Height 5 ft 2 in Weight 222 lb 10.67 oz BMI 40.7 BP 116/76 Blood Pressure Location Rt brachial Position Sitting Pulse 86 Pulse Source Pulse Oximeter Pulse Oximetry (%) 96 Oxygen Delivery Method Room Air Intake Visit Reasons: Thyroid dysfunction Intake Note: NEW Patient presents today to establish care for Thyroid Dysfunction: Repair Department Manager Required: No Accompanied by: Self / Same As Patient Allergies NSAIDS (Non-Steroidal Anti-Inflamma Adverse Reaction (Unknown, Verified 11/29/24 09:54) kidneys HPI Comments Details: 74 years old female with a complex medical history including hypertension, obesity, GERD, chronic back pain, anxiety and depression, glaucoma, NIVIA, emphysema and stage III right lung cancer in remission and right breast cancer status lumpectomy, seen in the office for evaluation of abnormal thyroid function tests. The patient, with a longstanding history of abnormal thyroid test results, reports significant fluctuations in TSH levels over the years. Notably, a past thyroid ultrasound revealed the presence of a goiter. The patient cannot recall specific symptoms that initially prompted the thyroid evaluations. Weight has remained stable post-menopause. She experiences cold intolerance, a chronic condition for her, with no heat intolerance noted. Occasional heart racing episodes are attributed to exertion-related breathing issues. The patient has been diagnosed with severe sleep apnea and uses a CPAP machine. She also reports occasional hand tremors and frequently experiences dry eyes, although she denies any significant changes in vision apart from the dryness, which is exacerbated by her inability to use eye drops. Her last TSH test in January showed low levels, and her previous physician opted for observational management. She reports history of she has radiation for her right lung cancer She denies taking biotin She denies family history of thyroid cancer, but he pulled that her mother had a thyroid issue, unclear if it was hyper or hypothyroidism. REVIEW OF SYSTEMS: - General: Reports stable weight, chronic cold intolerance. - HEENT: Dry eyes, no visual changes except for dryness. - Cardiovascular: Occasional palpitations related to exertion. - Respiratory: Uses CPAP for sleep apnea, experiences exertion-related dyspnea. - Neurological: Occasional hand tremors. - Endocrine: History of fluctuating TSH levels, presence of goiter noted on past imaging. Physical exam: General: Well appearing. NAD. Neck/Thyroid: Thyroid not palpable, no nodules. Eyes: No conjunctival injection, not lid lag or proptosis CV: RRR, no murmur. No edema. Resp: Decreased breath sounds on the right lung, no abnormal breath sound Abdomen: Soft, nontender. nondistended Extremities/Neuro: No weakness or tremor of outstretched hands Laboratory Tests 11/11/24 11:29 Sodium 138 Potassium 3.8 Creatinine 1.11 Random Glucose 99 Triglycerides 151 H Cholesterol 132 LDL Cholesterol, Calc 56 HDL Cholesterol 46 25-Hydroxy Vitamin D3 40 TSH 0.08 L Free T4 1.32 PFSH Medical History CKD (chronic kidney disease) Prediabetes Anxiety Breast cancer, right Low TSH level Chronic back pain Grief at loss of child Essential hypertension Abnormal mammogram of right breast NVIIA (obstructive sleep apnea) Emphysema of lung Post-menopausal bleeding GERD (gastroesophageal reflux disease) Degenerative arthritis Pure hypercholesterolemia History of primary malignant neoplasm of right lung IFG (impaired fasting glucose) Deviated septum Surgical History History of lumpectomy of right breast History of left hip replacement History of tonsillectomy S/P removal of lung Family History Father HTN (hypertension) Skin cancer Son HTN (hypertension) Diabetes Mother Diabetes Daughter Diabetes HTN (hypertension) Social History Housing: House Alcohol intake: current Patient Tobacco Use Status: Former Tobacco user Cigarette Packs Per Day: 1 Years Smoked: 43 e-Cigarette/Vaping Use: Never Used Second Hand Smoke Exposure: No service: No Current occupational status: retired Cognitive needs: No Hearing needs: Yes (hearing aid both ear) Vision needs: Yes (glasses) Physical Exam Vital Signs: Last Vital Signs Pulse 86 11/29/24 09:52 BP 116/76 10/10/25 09:52 Pulse Ox 96 11/29/24 09:52 Oxygen Delivery Method Room Air 11/29/24 09:52 BMI result Body Mass Index 40.7 Assessment & Plan Assessment & Plan (1) Subclinical hyperthyroidism: Code(s): E05.90 - Thyrotoxicosis, unspecified without thyrotoxic crisis or storm Category: Medical Plan Subclinical hyperthyroidism suspected due to variable TSH levels. Patient has a history of goiter, but is unclear if she had nodule she does not recall a lot ultrasound was done many years ago. She had not clinical evidence of hypothyroidism, although her TSH is suppressed T4 is normal. Plan With sustained extensive discussion with patient about thyroid physiology Monitor for symptoms of hyperthyroidism Obtain thyroid ultrasound to rule out multinodular goiter Obtain records from previous physician We will repeat thyroid function tests in six-month Orders: Orders US thyroid Today E05.90 - Thyrotoxicosis, unspecified without thyrotoxic crisis or storm Coding Level of Care Code New Pt Level 3 (92447) Diagnoses Subclinical hyperthyroidism E05.90 Time Spent (min) 35 Comment Time spent on review of previous records, history, exam/plan and patient education.
[2024-11-29 09:52] VITALS: BP 116/76; PULSE 86; O2SAT 96; BMI 40.7
--- OUTSIDE RECORDS SUMMARY | 2024-11-29 10:37 | XMS_ITS | Clinical Summary ---
Author Organization [facility] Address [address] [place] [address] Care Team Providers Care Outside Barrel Lathe Operator Name Role Phone Troy Del Cid MD [...] helps with weaning off HRT. Nuris Fink COPYING MACHINE MECHANIC Immunizations Name Administration Dates Next Due Covid-19 [...] this topic Medical Devices Implanted Type Area Wire Winder Device Identifier Shelf Expiration Date Model / Serial / Lot Cement Bone Surg Simplex Radiopq Stry-Howm 5170-2-811-114 092 - [id number] Implanted:Qty: 1 on 06/28/2021 by Miquel Cisneros MD at [facility] Left: Hip [employer] [id number] 07/21/2023 6191-1-010 / / [id number] Hip Head Delta Biolox 36mm-2.5 Stry-Howm 1751-4-983-549 191 - [id number] Implanted:Qty: 1 on 06/28/2021 by Miquel Cisneros MD at [facility] and [facility] Left: Hip [employer] [id number] 03/29/2026 6570-0-436 / / [id number] Cement Bone Surg Simplex Radiopq Stry-Howm 3705-4-036-114 092 - [id number] Implanted:Qty: 1 on 06/28/2021 by Miquel Cisneros MD at [facility] and [facility] Left: Hip [employer] [id number] 01/19/2023 6191-1-010 / / [id number] Hip Insrt Trdnt 0deg 36mm D Stry-Howm 427-61-96t-548 873 - [id number] Implanted:Qty: 1 on 06/28/2021 by Miquel Cisneros MD at [facility] and [facility] Left: Hip [employer] [id number] 05/07/2026 623-00-36D / / [id number] Tritanium Cluster Hole Shell 48mm Stry-Howm 460-23-09f-772 451 - [id number] Implanted:Qty: 1 on 06/28/2021 by Miquel Cisneros MD at [facility] and Med Left: Hip [employer] [id number] 03/17/2026 702-04-48D / / [id number] Kit Prep Total Hip Bone Imp [facility] 202726-025935 - [id number] Implanted:Qty: 1 on 06/28/2021 by Miquel Cisneros MD at [facility] and [facility] Left: Hip [employer] 03/09/2031 [id number] / / [id number] Description:SMALL BONE PLUG Lp Hex Screw 6.5x25mm Stry-Howm 3861-1796-1446 58 - [id number] Implanted:Qty: 1 on 06/28/2021 by Miquel Cisneros MD at [facility] and Med Left: Hip [employer] [id number] 05/13/2026 8306-5996 / / [id number] Lp Hex Screw 6.5x30mm Stry-Howm 5281-4592-9943 78 - [id number] Implanted:Qty: 1 on 06/28/2021 by Miquel Cisneros MD at [facility] and Med Left: Hip [employer] [id number] 05/04/2026 6750-5722 / / [id number] Hip Spacer C-Distl Rng Sm 10mm Stry-Howm 7225-6145-2730 71 - [id number] Implanted:Qty: 1 on 06/28/2021 by Miquel Cisneros MD at [facility] and Med Left: Hip [employer] [id number] 11/29/2025 4494-1435 / / [id number] Hip Stem Nk 127 C3 Cs 35mm Stry-Howm 0349-4312q-043 260 - [id number] Implanted:Qty: 1 on 06/28/2021 by Miquel Cisneros MD at [facility] and Med Left: Hip [employer] [id number] 11/01/2025 6058-0335D / / [id number] Advance Directives For more information, please contact: [phone] Documents on File Type Date Recorded Patient Sterilization Technician Expl anation Advance Directive and Living [...] way: discussion with patient . Care Teams Outside Barrel Lathe Operator Relationship Specialty Start Date End Date Troy Del Cid MD PCP - General Family Medicine 11/25/20
--- OUTSIDE RECORDS SUMMARY | 2024-11-29 10:38 | XMS_ITS | Clinical Summary ---
Author Organization [facility] Address [address] [place] [address] Phone Care Team Providers Care Inventory Representative Name Role Phone Violeta Orantes Primary Care Provider [phone] Allergies Active Allergy Reactions Criticality Noted Date [...] (one) time each day. 01/14/20 24 Active latanoprost (XALATAN) 0.005 % ophthalmic solution 1 drop at bedtime. Active azelastine (ASTELIN) 137 mcg (0.1 %) nasal spray Administer 1 spray into each nostril 2 (two) times a day. Use in each nostril as directed Active Wixela Inhub 500-50 mcg/dose diskus inhaler INHALE 1 PUFF INTO THE LUNGS 2 TIMES DAILY FOR 30 DAYS. 60 each 11 11/27/19 25 Active fluticasone propion-salmet Teresita (ADVAIR DISKUS) 500-50 mcg/dose diskus inhaler Inhale 1 puff by mouth 2 (two) times a day. Rinse mouth with water after use to reduce aftertaste and incidence of candidiasis. Do not swallow. 025 Discontinued Active Problems Problem Noted Date Diagnosed Date Multiple pulmonary nodules 08/29/2024 Malignant neoplasm of right breast in female, estrogen receptor positive (CMS/[facility] V24, CMS/HCC V28) 04/10/2024 History of lung [...] major depressive d isorder, in full remission ([facility] V24) 04/15/2020 Hyperacusis of both ears 04/06/2020 Hearing deficit, bilateral 04/06/2020 Hearing decreased, bilateral 04/03/2020 Chest wall pain 03/09/2020 DDD (degenerative disc disease), lumbar 03/09/19 21 Hypercholesterolemia 03/09/2020 Overview (11/09/2023): Prior Lipitor Hyperthyroidism 03/09/2020 Depression 11/27/2018 Pulmonary emphysema ([facility] V24, [facility] V28) 0 04/04/2017 Adjustment reaction with anxiety and depression 09/09/2016 NIVIA on CPAP 12/11/2014 Major depressive disorder, r ecurrent, unspecified ([facility] V24) 12/09/2008 Overview (11/09/2023): She is better on the citalopram. We talked abouttapering off but I advised her to wait until spring pt is feeling well on citalopram. No changes as it helps with weaning off HRT. [address]ur[address] [employer] Resolved Problems Problem Noted Date Diagnosed Date Resolved Date Malignant neoplasm of lower lobe of right lung ([facility] V24, CMS/HCC V28) 03/03/2020 02/16/20 24 Encounters Date Type Department Care Team Description 09/25/2024 1:30 PM EDT Office Visit [facility] [address] [address] Jocy Garcia MD Malignant neoplasm of right breast in female, estrogen receptor positive, unspecified site of breast ([facility] V24, [facility] V28) (Primary Dx); History of antineoplastic chemotherapy; History of partial mastectomy of right breast; 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, estrogen receptor positive ([facility] V24, [facility] V28) 08/29/2024 9:00 AM EDT Office Visit Thoracic Surgery - [address] [place] [address] Luci Finch PA History of lung cancer (Primary Dx); Multiple pulmonary nodules from Last 3 Months Immunizations Immunization Administration Dates Next Due Moderna SARS-CoV-2 COVID-19, mRNA, LNP-S, preservative free 10/21/2022 Zoster recombinant (Shingrix) 19yo and older Surgical History Surgery Date Site/Laterality Comments OTHER SURGICAL HISTORY PROCEDURE: RI DILATION & CURETTAGE DX&/THER NONOBSTETRIC; COMMENT: multiple times; tubal preg OTHER SURGICAL HISTORY PROCEDURE: RI ANESTHESIA UPPER ANTERIOR ABDOMINAL WALL NOS; COMMENT: Adhesions - NASAL SEPTUM SURGERY PROCEDURE: RI SEPTOPLASTY/SUBMUCOUS RESECJ W/WO CARTILAGE GRF BREAST BIOPSY 2007 Left PROCEDURE: BX BREAST; PERC NEEDLE CORE W/IMAG GUID; COMMENT: neg COLONOSCOPY 01/29/2010 PROCEDURE: HISTORICAL COLONOSCOPY; COMMENT: Normal HIP ARTHROPLASTY Left PROCEDURE: HISTORICAL HIP REPLACEMENT TONSILLECTOMY PROCEDURE: HISTORICAL TONSILLECTOMY OTHER SURGICAL HISTORY 08/2022 PROCEDURE: RI CLOSED TX PATELLAR FRACTURE W/O MANIPULATION; COMMENT: [...] (chronic obstructive pu lmonary disease) with emphysema ([facility] V24, [facility] V28) 04/04/2017 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) Lung nodules 02/24/2017 DX:Lung nodules Allergic rhinitis DX:Allergic rh initis; COMMENT: chronic NIVIA on CPAP 12/11/2014 DX:NIVIA on CPAP Hearing loss 08/22/2017 DX:Hearing loss; COMMENT: Has hearing aides Rash 08/22/2017 DX:Rash DDD (degenerative disc disease), lumbar DX:DDD (degenerative disc disease), lumbar Adenocarcinoma of lung, righ t ([facility] V24, [facility] V28) 09/25/2020 DX:Adenocarcinoma of lung, r ight (HCC); COMMENT: Seen on 11/25/20 by oncology: s/p 3 of 4 cycles of adjuvant chemotherapy with cisplatin and pemetrexed (4th cycle not done d/t side effects). Also completed radiation therapy. Stable per PET CT. Recommended restaging meeting in May 2021 with s1zoson visits for first 2 years. Malignant neoplasm of lower lobe of right lung ([facility] V24, [facility] V28) 03/03/2020 Shortness of breath GERD (gastroesophageal reflux disease) Lung cancer ([facility] V24, [facility] V28) Hypertension Family History Medical History Relation [...] Other 2 Niece Paternal Grandfather (Age 77) [place] Paternal Grandmother (Age 93) Ol d age [...] Safety Answer Date Record ed Physical Abuse Unrecognized value 08/27/2024 Verbal Abuse Unrecognized value 08/27/2024 Comments No Sex and Gender Information [...] Description 01/30/2025 11:00 AM EST Office Visit [facility] Hematology Oncology [address] [place] [address] Giovanny Blanco MD [address] [place] [phone] 02/03/2025 1:30 PM EST Appointment Radiology Department [address] [place] [address] 02/05/2025 9:45 AM EST Office Visit Pulmonology - [place] [address] [phone] Estela Kyle MD [address] [address] 04/02/2025 1:15 PM EST Office Visit [facility] - [place] [address] [place] [phone] Jocy Garcia MD [address] [place] [phone] 05/06/2025 10:50 AM EDT Office Visit Gastroenterology [facility] [address] [facility] [address] [phone] Day Sy PA [address] [address] Health Maintenance Due Date Last Done Comments Cholesterol Screening (Lipid Panel) 01/28/2022 Colorectal Cancer Screening: Stool Based Tests (FOBT/FIT) 01/28/2022 Hepatitis C Screening 01/28/2022 Medicare Annual Wellness Visit 01/28/2022 Social Influencers of Health Screening 01/28/2022 Depression Screening 02/21/2024 Hypertension/CHF/CAD Annual BMP Blood Test 10/15/2024 10/16/2023, 06/11/2021, 06/11/2021 COVID-19 Vaccine (8 - Moderna risk 2023- season) 2024 11/17/2023, 11/10/2022, 10/21/2022, Additional history [...] this topic Medical Devices Implanted Type Area Gear Room Keeper Device Identifier Shelf Expiration Date Model / Serial / Lot Marker 18ga Magseed 7cm - [id number] Implanted:Qty: 1 on 05/08/2024 by Megan Vale MD at [facility] Imaging Implants Left: Breast [employer] [id number] 10/20/2026 [id number] Cement Bone Surg Simplex Radiopq [facility] [id number] 092 Implanted:Qty: 1 on 06/28/2021 by Miquel Cisneros MD Left: Hip [employer] [id number] 07/21/2023 6191-1-0 10 / / [id number] Hip Head Delta Biolox 36mm-2.5 Jameyy-Howm [id number] 191 Implanted:Qty: 1 on 06/28/2021 by Miquel Cisneros MD Left: Hip [employer] [id number] 03/29/2026 6570-0-4 36 / / [id number] Cement Bone Surg Simplex Radiopq Stry-Howm [id number] 092 Implanted:Qty: 1 on 06/28/2021 by Miquel Cisneros MD Left: Hip [employer] [id number] 01/19/2023 6191-1-0 10 / / [id number] Hip Insrt Trdnt 0deg 36mm D Stry-Howm [id number] 873 Implanted:Qty: 1 on 06/28/2021 by Miquel Cisneros MD Left: Hip [employer] [id number] 05/07/2026 623-00-3 6D / / [id number] Tritanium Cluster Hole Shell 48mm Stry-Howm 482-16-33p-[id number] 451 Implanted:Qty: 1 on 06/28/2021 by Miquel Cisneros MD Left: Hip [employer] [id number] 03/17/2026 702-04-4 8D / / [id number] A Kit Prep Total Hip Bone Imp [facility] [id number] Implanted:Qty: 1 on 06/28/2021 by Miquel Cisneros MD Left: Hip [employer] 03/09/2031 [id number] / / [id number] Description:SMALL BONE PLUG Lp Hex Screw 6.5x25mm Stry-Howm [id number] 58 Implanted:Qty: 1 on 06/28/2021 by Miquel Cisneros MD Left: Hip [employer] [id number] 05/13/2026 7030-652 5 / / [id number] Lp Hex Screw 6.5x30mm Stry-Howm [id number] 78 Implanted:Qty: 1 on 06/28/2021 by Miquel Cisneros MD Left: Hip [employer] [id number] 05/04/2026 7030-653 0 / / [id number] Hip Spacer C-Distl Rng Sm 10mm Stry-Howm [id number] 71 Implanted:Qty: 1 on 06/28/2021 by Miquel Cisneros MD Left: Hip [employer] [id number] 11/29/2025 1059-231 0 / / [id number] Hip Stem Nk 127 C3 Cs 35mm Stry-Howm 3052-9617i-[id number] 260 Implanted:Qty: 1 on 06/28/2021 by Miquel Cisneros MD Left: Hip [employer] [id number] 11/01/2025 6058-033 5D / / [id number] Procedures Procedure Name Priority Date/Time Associated Diagnosis Comments BD BONE DENSITY DXA AXIAL SKELETON Routine 07/10/2024 1:18 PM EDT Osteopenia of multiple sites MG MAMMO DIGITAL DIAGNOSTIC W JUSTIN RIGHT Routine 03/26/2024 10:45 AM EST Abnormal mammogram ANNUAL BMP BLOOD TEST Routine 06/11/2021 from Last 3 Months or Most Recently Relevant to Health Maintenance Results * BD Bone Density DXA Axial Skeleton (07/10/2024 1:18 PM EDT) Anatomical Region Laterality Modality Wrist, Hip, L-spine Bone Densito metry 07/12/2024 8:16 AM EDT Impressions 07/12/2024 8:19 AM EDT 1. Osteopenia. 2. FRAX analysis yields a 10-year probability of major osteoporotic fracture of 16.4% and a 10-year probability of hip fracture of 3.3%. Code 95579 -------- FINAL REPORT -------- Dictated By: Fabian Brown Dictated Date: 07/12/2024 08:16 ET Assigned Physician: Fabian Brown Reviewed and Electronically Signed By: Fabian Brown Signed Date: 07/12/2024 08:19 ET Workstation ID: [id number] Transcribed By: Self Edit Transcribed Date: 07/12/2024 [...] probability of hip fracture of 3.3%. Code 84418 -------- FINAL REPORT -------- Dictated By: Fabian Brown Dictated Date: 07/12/2024 08:16 ET Assigned Physician: Fabian Brown Reviewed and Electronically Signed By: Fabian Brown Signed Date: 07/12/2024 08:19 ET Workstation ID: [id number] Transcribed By: Self Edit Transcribed Date: 07/12/2024 08:16 ET Subramony Subramjv-Juan Miguel MCKOEN IMG DXA PROCEDURES Final Result * (ABNORMAL) [...] biopsy of right breast recommended. Mammo Location: [facility], [address] [place] [address], [phone], . -------- FINAL REPORT -------- Dictated By: Zenaida Moreno Dictated Date: 03/26/2024 12:39 ET Assigned Physician: Zenaida Moreno Reviewed and Electronically Signed By: Zenaida Moreno Signed Date: 03/26/2024 12:45 ET Workstation ID: [id number] Transcribed By: Self Edit Transcribed Date: 03/26/2024 [...] Core biopsy of right breastrecommended. Mammo Location: [facility], [address] [place] [address], [address], . -------- FINAL REPORT -------- Dictated By: Zenaida Moreno Dictated Date: 03/26/2024 12:39 ET Assigned Physician: Zenaida Moreno Reviewed and Electronically Signed By: Zenaida Moreno Signed Date: 03/26/2024 12:45 ET Workstation ID: [id number] Transcribed By: Self Edit Transcribed Date: 03/26/2024 12:39 ET Jocy Malave MD IMG BI PROCEDURES Final Result * Annual BMP Blood Test (06/11/2021) Annual BMP Blood Test abstracted Historical Provider HEALTH MAINTENANCE Final Result from Last 3 Months or Most Recently Relevant to Health Maintenance Insurance [address] [facility] [place] [phone] MEDICARE [facility] Advance Directives * Full Code - [...] currently active code status orders. Care Teams Inventory Representative Relationship Specialty Start Date End Date Violeta Orantes PA [address] [place] [address] PCP - General Physician [employer] 05/07/24
== END 2024-11-29 10:46 | disposition home or self-care (01) ==
LOC: HO.ENCR 09:50
PROVIDERS: PCP Physician Assistant Medical; Visit Provider Student in an Organized Health Care Education/Training Program
DX: E05.90 Thyrotoxicosis, unspecified without thyrotoxic crisis or storm (principal)
CPT/HCPCS: 99203

== ENCOUNTER → 2024-11-29 09:49 | Outpatient (BNVA) | payer MEDICARE, SELFPAY | PROVIDERS: PCP Physician Assistant Medical; Visit Provider Student in an Organized Health Care Education/Training Program | DX: E05.90 Thyrotoxicosis, unspecified without thyrotoxic crisis or storm (principal) | CPT/HCPCS: 99202 ==